=== PATIENT | male | born 1960 | race Caucasian/White ===

== ENCOUNTER 2021-01-24 16:49 | Emergency (ER) | payer MEDICAID, SELFPAY ==
[2021-01-24 16:50] VITALS: BP 160/80; PULSE 52; RESP 18; TEMP 36.5; O2SAT 97; BMI 30.1
--- NOTE | 2021-01-24 17:06 | EKG12_ITS ---
Test Reason : ABNORMAL EKG Blood Pressure : / mmHG Vent. Rate : 110 BPM Atrial Rate : 103 BPM P-R Int : 126 ms QRS Dur : 092 ms QT Int : 370 ms P-R-T Axes : 043 -13 062 degrees QTc Int : 500 ms Sinus tachycardia with frequent and consecutive Premature ventricular complexes Possible Left atrial enlargement Left ventricular hypertrophy Abnormal ECG Confirmed by SHARON COOLEY, DEBBIE ([id number]), book editor АННА STARKS ([id number]) on 01/27/2021 12:35:17 PM Referred By: ISABELL Confirmed By:MELLISA HERRERA MD
--- NOTE | 2021-01-24 17:16 | ED.DCSUM_ITS ---
History of Present Illness Chief Complaint: Edema Detail of Chief Complaint: Swelling of multiple joints and abnormal EKG Onset: Weeks - She reports swelling with pain and limited range of motion multiple joints right and left hand Context: Sudden Onset Timing: Continuous - Initially was intermittent. The discomfort and swelling has been continuous for the past 3 weeks. There is no history of autoimmune disorder. Quality: Multiple joints fingers right and left hand Location: PIP and DIP joint of multiple fingers Current Severity: Moderate Maximum Severity: Moderate Worsened by: Pain worse with use Relieved by: Nothing Associated Symptoms: Abnormal EKG Narrative: Patient is an elderly male who quit smoking last December after he came down with an illness that made him feel terrible. He does not know what type of infection he had. He was a smoker since the age of 17. He denies fever, chills night sweats. He denies chest pain, dyspnea on exertion, orthopnea or PND. He is unaware that he is having frequent premature ventricular beats. He denies pedal edema. He denies symptoms of claudication. He denies headache, visual, ocular auditory symptoms. He denies ringing in his ears. He denies trouble with speech or swallowing. He denies cough. He denies abdominal pain, nausea, vomiting or diarrhea. He denies black or maroon-colored stool. He denies urologic symptoms. He denies paresthesia, anesthesia or motor weakness. He denies family history of autoimmune disorder and specifically rheumatoid arthritis, lupus, scleroderma, Sjogren's etc. Prior similar symptoms: No Recent Illness/Hospitalization: No - Past Medical History (1) No significant past medical history Status: Acute Past Medical History Primary Care Physician: Milton Goff MD [Primary Care Provider] - Prior records reviewed: No Past Medical History: None Surgical History: noncontributory Lives: Alone Smoking Status: Former smoker Alcohol: None Drugs: None Review of Systems General: Denies: Chills, Fever, Malaise, Subjective Eyes: Denies: Visual changes - bilaterally, Blurred Vision - bilaterally ENT: Reports: - - He denies dry eyes.. Denies: Bilateral ear pain, Rhinorrhea, Sore throat Cardiovascular: Denies: Chest pain, Palpitations, Heart racing Respiratory: Denies: Dyspnea, Cough, Dyspnea on exertion, Orthopnea, Paroxysmal nocturnal dyspnea Gastrointestinal: Denies: Abdominal pain, Nausea, Vomiting, Diarrhea, Melena, Hematochezia Genitourinary: Denies: Dysuria, Hematuria, Frequency Musculoskeletal: Reports: Arthralgias, Swelling, Extremity Pain. Denies: Myalgias, Neck pain, Back pain, -, - Skin: Denies: Rash, Wounds Neurological: Denies: Headache, Weakness, Numbness Psych: Denies: Depression, Anxiety Endocrine: Denies: Polyuria, Polydipsia Hematologic: Denies: Easy bruising, Easy bleeding Physical Exam Vital Signs/Narrative: Vital Signs Temp Pulse Resp BP Pulse Ox 01/24/21 16:50 97.7 F L 52 L 18 160/80 H 97 Inital Vital Signs reviewed: Yes General: Well nourished, Well developed, No Acute Distress Head: Normocephalic, Atraumatic Eyes: Perrl, EOMI. Negative for: Pale conjunctiva ENT: Moist mucous membranes, No rhinorrhea Neck: Supple, Nontender, No lymphadenopathy, No JVD Cardiovascular: Regular rate, No murmurs, Normal S1, Normal S2 Respiratory: No distress, CTA bilaterally, Chest nontender Abdomen: Soft, Nontender, Nondistended, Normal bowel sounds, No masses. Negative for: Hepatomegaly, Splenomegaly, Pulsatile mass Back: Nontender, Normal Inspection Extremities: Nontender, No edema Skin: Normal color, No rash Neurological: Alert, Oriented x3, Cranial nerves II-XII grossly intact, Normal Strength, Normal Sensation, Normal DTR Psychological: Normal affect, Normal Mood Diagnostic/Tx/Re-eval Chest X-Ray - ED: 2 View, Read by ED Physician, Normal, Heart, Mediastinum, Bony Structures, No Acute Disease, Chronic Changes 01/24/21 17:06 Chest PA and Lateral [RAD] Stat Laboratory Results 01/24/21 01/24/21 17:35 17:35 WBC 8.2 RBC 4.21 L Hgb 14.1 Hct 41.9 MCV 99.5 H MCH 33.5 H MCHC 33.7 RDW Std Deviation 47.8 H RDW Coeff of Enoch 12.9 Plt Count 210 MPV 10.5 Immature Gran % (Auto) 0.400 Neut % (Auto) 66.6 Lymph % (Auto) 21.1 [place] % (Auto) 9.3 Eos % (Auto) 2.0 Baso % (Auto) 0.6 Absolute Neuts (auto) 5.4 Absolute Lymphs (auto) 1.72 Nucleated RBC % 0 Sodium 137 Potassium 3.7 Chloride 105 Carbon Dioxide 25.0 Anion Gap 7 BUN 12 Creatinine 0.96 Estim Creat Clear Calc 74.59 Est GFR (MDRD) Af Amer 102 Est GFR (MDRD) Non-Af 84 BUN/Creatinine Ratio 12.4 Glucose 100 Calcium 9.0 Total Bilirubin 0.50 AST 16 ALT 35 Alkaline Phosphatase 73 Troponin I < 0.015 Total Protein 8.8 H Albumin 3.4 Globulin 5.4 H Albumin/Globulin Ratio 0.6 L - EKG Initial EKG Interpretation: Sinus Rhythm - Sinus rhythm with a rate of 110. There are frequent premature ventricular beats and there are couplets. NJ interval is 126 ms. Cures duration 92 ms. QT durations 370 ms with a QTC of 500 ms. Gravity is normal. There is evidence of LVH. - Medical Decision Making Patient was informed he needs several test however with since he is uninsured recommended following up at [facility] to have the nonemergent testing done at a lesser expense. He was told he will need a rheumatologic work-up. To evaluate his bigeminy, couplets abnormal EKG EKG, appropriate blood work was obtained to rule out evidence of cardic ischemia. Blood work was obtained to assess renal function, rule out anemia as well. Patient was informed of his results. He was informed to follow-up with the [facility] for rheumatologic outpatient work-up and referral to cardiology. ED Disposition - Plan for ED Patient: Disposition: Home or Assisted Living Diagnosis: Ventricular bigeminy seen on court monitor, Polyarthralgia Instructions: ED About Arrhythmias, ED Heart Disease Risk Factors, ED Arthralgia Referrals: Milton Goff MD [Primary Care Provider] - Maddy Aggarwal [NON-STAFF] - 5-7 Days Jordi Plummer MD [STAFF PHYSICIAN] - 5-7 Days Additional Instructions: I recommend following up at the [facility] since you are uninsured for rheumatologic work-up which would include x-ray of both hands, ESR, CRP, rheumatoid factor, PATRICK etc. Because of your age history of former smoking and frequent premature beats recommend follow-up with Dr. Jordi Plummer.
[2021-01-24 17:31] VITALS: PULSE 93
[2021-01-24 17:41] LABS: Absolute Lymphocyte Count 1.72 X10^3/uL (0.83-4.51); Absolute Neutrophil Count 5.4 X10^3/uL (2.0-7.7); Basophil# 0.05 X10^3/uL; Basophil% 0.6 % (0-1); Eosinophil# 0.16 X10^3/uL; Hematocrit 41.9 % (40-54); Hemoglobin 14.1 g/dL (13.0-16.5); Lymphocyte # 1.72 X10^3/ul (4.0); Lymphocyte % 21.1 % (19-41); Mean Corp Hgb Conc 33.7 g/dL (32-36); Mean Corpuscular Hgb 33.5 pg (27.0-32.0); Mean Corpuscular Volume 99.5 fL (80-94); Mean Platelet Vol. 10.5 fl (6.2-12.0); Monocyte# 0.76 X10^3/uL; Monocyte% 9.3 % (0-10); NRBC Flagged by Analyzer 0 % (0-5); Neutrophil # 5.43 X10^3/uL (2.7-7.7); Neutrophil % 66.6 % (47-70); Platelet Count 210 K/mm3 (150-450); RBC Distribution Width CV 12.9 % (11.6-14.6); RBC Distribution Width SD 47.8 fl (35.1-43.9); Red Blood Count 4.21 M/mm3 (4.6-6.2); White Blood Count 8.2 K/mm3 (4.4-11.0)
--- NOTE | 2021-01-24 17:52 | RAD_ITS ---
INDICATION: Chest palpitations EXAMINATION/TECHNIQUE: X-RAY - XR Chest 2 Views COMPARISON: None. FINDINGS: Emphysematous changes. The lungs are otherwise clear. The cardiomediastinal silhouette is unremarkable. No pleural effusion or pneumothorax. No acute osseous abnormalities. Degenerative changes of the thoracic spine. RAD/Chest PA and Lateral IMPRESSION: No acute radiographic abnormalities. Emphysematous changes. Electronically Signed: Lawrence Dominguez MD at 18:13 EDT Tel , Service support ,
[2021-01-24 18:01] LABS: ALB/GLOB Ratio 0.6 RATIO (0.9-2.4); AST(SGOT) 16 U/L (15-37); Alanine Aminotransfer ALT/SGPT 35 U/L (16-61); Albumin, Serum 3.4 g/dL (3.2-5.0); Alkaline Phosphatase 73 U/L (45-117); Anion Gap 7 (5-15); BUN 12 mg/dL (7-18); BUN/Creat Ratio 12.4 RATIO (10-20); Chloride 105 mmol/L (98-107); Creatinine, Serum 0.96 mg/dL (0.70-1.30); EST Glomerular Filtration Rate 84 mL/min (>60); Est Glom Filt Rate - Afr Amer 102 mL/min (>60); Estimated Creatinine Clearance 74.59 ml/min; Globulin 5.4 g/dL (2.2-4.2); Glucose 100 mg/dL (74-106); Potassium 3.7 mmol/L (3.5-5.1); Protein, Total 8.8 g/dL (6.4-8.2); Sodium Level 137 mmol/L (136-145)
[2021-01-24 19:06] VITALS: PULSE 70; RESP 18
== END 2021-01-24 19:07 | disposition home or self-care (01) ==
PROVIDERS: Emergency Provider Emergency Medicine; PCP Family Medicine
DX: R00.8 Other abnormalities of heart beat (principal); M25.541 Pain in joints of right hand; M25.542 Pain in joints of left hand; Z87.891 Personal history of nicotine dependence
CPT/HCPCS: 71046; 80053; 84484; 85025; 93005; 99284; A4216

== ENCOUNTER 2021-01-26 13:06 | Emergency (ER) | payer MEDICAID, SELFPAY ==
[2021-01-26 13:07] VITALS: BP 133/81; PULSE 51; RESP 16; TEMP 36.7; O2SAT 97; BMI 29.7
--- NOTE | 2021-01-26 13:13 | EKG12_ITS ---
Test Reason : ABNORMAL LABS Blood Pressure : / mmHG Vent. Rate : 091 BPM Atrial Rate : 091 BPM P-R Int : 136 ms QRS Dur : 092 ms QT Int : 376 ms P-R-T Axes : 050 -13 044 degrees QTc Int : 462 ms Sinus rhythm with frequent Premature ventricular complexes in a pattern of bigeminy Possible Left atrial enlargement Left ventricular hypertrophy Abnormal ECG Confirmed by SHARON COOLEY, DEBBIE ([id number]), primer expeditor and drier EVARISTO CALLOWAY ([id number]) on 01/28/2021 9:29:05 AM Referred By: TIAGO Confirmed By:MELLISA HERRERA MD
[2021-01-26] MEDS: Aspirin 81 MG TAB.CHEW 324 MG PO (14:06)
[2021-01-26] MEDS: 0.9% Normal Saline 1,000 ML 150 ML IV (14:07)
[2021-01-26 14:10] LABS: Absolute Lymphocyte Count 1.63 X10^3/uL (0.83-4.51); Absolute Neutrophil Count 5.8 X10^3/uL (2.0-7.7); Basophil# 0.03 X10^3/uL; Basophil% 0.4 % (0-1); Eosinophil# 0.16 X10^3/uL; Eosinophils% 1.9 % (0-5); Hematocrit 40.7 % (40-54); Hemoglobin 13.6 g/dL (13.0-16.5); Lymphocyte # 1.63 X10^3/ul (4.0); Lymphocyte % 19.4 % (19-41); Mean Corp Hgb Conc 33.4 g/dL (32-36); Mean Corpuscular Hgb 33.3 pg (27.0-32.0); Mean Corpuscular Volume 99.8 fL (80-94); Mean Platelet Vol. 10.5 fl (6.2-12.0); Monocyte# 0.77 X10^3/uL; Monocyte% 9.2 % (0-10); NRBC Flagged by Analyzer 0 % (0-5); Neutrophil # 5.77 X10^3/uL (2.7-7.7); Neutrophil % 68.6 % (47-70); Platelet Count 197 K/mm3 (150-450); RBC Distribution Width CV 12.9 % (11.6-14.6); RBC Distribution Width SD 47.5 fl (35.1-43.9); Red Blood Count 4.08 M/mm3 (4.6-6.2); White Blood Count 8.4 K/mm3 (4.4-11.0)
[2021-01-26 14:31] LABS: Anion Gap 6 (5-15); BUN 11 mg/dL (7-18); BUN/Creat Ratio 12.5 RATIO (10-20); Calcium,Total 9.3 mg/dL (8.5-10.1); Chloride 105 mmol/L (98-107); Creatinine, Serum 0.88 mg/dL (0.70-1.30); EST Glomerular Filtration Rate 94 mL/min (>60); Est Glom Filt Rate - Afr Amer 113 mL/min (>60); Estimated Creatinine Clearance 81.37 ml/min; Glucose 86 mg/dL (74-106); Magnesium 2.2 mg/dL (1.6-2.6); Potassium 3.9 mmol/L (3.5-5.1); Sodium Level 139 mmol/L (136-145); Thyroid Stim Hormone (TSH) 1.06 uIU/mL (0.358-3.74)
--- NOTE | 2021-01-26 15:06 | ED.VISSUMM ---
- ER Visit Summary Date of Service: 01/26/21 Chief Complaint: Abnormal EKG History of Present Illness: The patient is a 61 M who goes to the [facility]. Patient reports that he had an EKG obtained that was abnormal. He was sent to [facility] who told him to come to the emergency department. Patient denies any chest pain or shortness of breath. He denies any chest pain or change in distal exertion the past month. He does complain of a little bit of sore throat. He also complains of swelling of his hands bilaterally that began yesterday. Left greater than right, but it is improved from what it was. Physical Examination: Vitals: Stable. Afebrile. General: Well-nourished and well-developed. Head: Normocephalic atraumatic. Neck: Supple, no lymphadenopathy. No JVD. Nontender. Cardiovascular: Irregular rhythm. No murmurs. Respiratory: No respiratory distress. Clear to auscultation bilaterally. Abdominal: Soft, nontender, nondistended, normal bowel sounds. No guarding, rebound, or peritoneal signs. Back: Nontender. Extremities: Nontender, mild swelling of his hands bilaterally. He has a 2+ radial pulse bilaterally. There is no overlying erythema or warmth to suggest infection. Skin: Normal color, no rash. Neurologic: Alert and oriented ?3. Cranial nerves II through XII are intact. Normal strength and sensation. Psych: Normal affect. Test Results: EKG is sinus at 91 with PVCs in a pattern of bigeminy. There is no old EKG for comparison. Troponin is negative. Chem-7 is normal. CBC is normal. Magnesium is normal. TSH is normal. Emergency Department Course and Treatment: Patient is resting comfortably. The monitor does show him to have ventricular bigeminy in the 90s. I did discuss the findings with him cardiac bernal and he again denies any cardiac complaints. His main concern is the swelling and pain is his hands. I suggested that he see a die set up worker. Is given a first dose of prednisone here. He will be discharged on a 5-day burst of prednisone. Treatment Plan: It is unclear how long patient has been in ventricular bigeminy. However, his blood pressure is stable and he has no complaints consistent with ischemia. He will be discharged with instructions to follow-up with Dr. Plummer as soon as possible. Return to the emergency department for any worsening symptoms. Disposition: To home in improved and stable condition. Impression: 1. Ventricular bigeminy. This note was generated with [employer] dictation software. It may contain incorrect words, spelling, and punctuation that were not noted in review of the chart prior to signing ED Disposition - Plan for ED Patient: Instructions: ED Palpitations Prescriptions: Prednisone [Deltasone] 40 mg PO DAILY #10 tablet Prescription Printed Referrals: Jordi Plummer MD [STAFF PHYSICIAN] - As soon as possible
[2021-01-26] MEDS: predniSONE 20 MG Tablet 40 MG PO (15:36)
[2021-01-26 15:41] VITALS: BP 137/71; PULSE 71; RESP 16; O2SAT 98
== END 2021-01-26 15:42 | disposition home or self-care (01) ==
LOC: ED 14:30
PROVIDERS: Emergency Provider Emergency Medicine; PCP Family Medicine
DX: I49.8 Other specified cardiac arrhythmias (principal); Z87.891 Personal history of nicotine dependence
CPT/HCPCS: 80048; 83735; 84443; 84484; 85025; 93005; 96360; 96361; 99285; J7030; A4216

== ENCOUNTER → 2021-02-03 12:17 | Outpatient (CLI) | payer MEDICAID, SELFPAY ==
[2021-02-02 08:46] VITALS: BMI 30.4
[2021-02-03 13:41] LABS: Erythrocyte Sedimentation Rate 74 mm/hr (0-20)
[2021-02-03 14:09] LABS: CPK Total, Creatine Kinase 36 U/L (39-308); Cholesterol 177 mg/dL (200); High Density Lipoprotein 37 mg/dL; T4 Free Direct 1.23 ng/dL (0.76-1.46); Thyroid Stim Hormone (TSH) 1.11 uIU/mL (0.358-3.74); Triglycerides 271 mg/dL; Uric Acid 6.5 mg/dL (3.5-7.2); Very Low Density Lipoprotein 54 mg/dL (5-40)
[2021-02-04 16:21] LABS: ANTINUCLEAR ANTIBODIES DIRECT Positive (Negative)
== END ==
PROVIDERS: Referring Provider Nurse Practitioner Adult Health; Visit Provider Nurse Practitioner Adult Health
DX: R60.0 Localized edema (principal)
CPT/HCPCS: 36415; 80061; 82550; 84439; 84443; 84550; 85652; 86038; 86140

== ENCOUNTER → 2021-02-09 10:35 | Outpatient (CLI) | payer MEDICAID, SELFPAY ==
[2021-02-02 08:46] VITALS: BMI 30.4
--- NOTE | 2021-02-09 10:38 | ECHOCS_ITS ---
Version 2 Reason For Study: Arrhythmia Procedure This was a 2D Doppler, Color Flow transthoracic echocardiogram. Contrast injection was performed. Exam performed in department. Left Ventricle Normal LV size. Left ventricular systolic function is lower limits of normal. The estimated ejection fraction is 53 %. Stage 1 diastolic dysfunction. No regional wall motion abnormalities noted. Right Ventricle Normal RV size. Normal systolic function. Atria Normal left atrium. Normal right atrium. Mitral Valve Normal mitral valve. Tricuspid Valve Normal tricuspid valve. Mild tricuspid valve insufficiency. Pulmonary artery systolic pressure is 20 mmHg. Aortic Valve Trisinus/trileaflet aortic valve. Pulmonic Valve Normal pulmonic valve. Great Vessels Normal aortic root. The pulmonary artery is normal size. Normal inferior vena cava. Pericardium/Pleural No pericardial effusion. Medication Diluted definity 2ml given slow IV push to enhance endocardial definition. MMode/2D Measurements & Calculations LVIDd: 5.1 cm IVSd: 1.2 cm Ao root diam: 3.0 cm LVIDs: 3.7 cm LVPWd: 1.1 cm RVDd: 3.8 cm FS: 26.3 % LAV(MOD-bp): 49.3 ml LVAd ap4: 34.2 cm2 SV(MOD-sp4): 59.0 ml LAV(MOD-bp) Indexed: 25.2 ml/m2 EDV(MOD-sp4): 120.6 ml LAV(MOD-sp2): 43.9 ml EDV(sp4-el): 127.2 ml LAV(MOD-sp4): 48.5 ml LVAs ap4: 22.9 cm2 ESV(MOD-sp4): 61.5 ml ESV(sp4-el): 62.5 ml EF(MOD-sp4): 49.0 % EF(sp4-el): 50.8 % SV(sp4-el): 64.6 ml LA A4 area: 18.4 cm2 LA dimension(2D): 3.5 cm RA A4 area: 10.0 cm2 Doppler Measurements & Calculations MV E max mat: 46.0 cm/sec Lat Peak E' Mat: 4.8 cm/sec Med Peak E' Mat: 3.2 cm/sec MV A max mat: 103.3 cm/sec E/E' lat: 9.5 E/E' med: 14.3 MV E/A: 0.45 Ao V2 max: 104.0 cm/sec LV V1 max: 69.9 cm/sec PA V2 max: 113.0 cm/sec Ao max P.3 mmHg LV V1 max P.0 mmHg Ao V2 mean: 80.5 cm/sec Ao mean P.8 mmHg Ao V2 VTI: 19.3 cm TR max mat: 205.5 cm/sec TR max P.9 mmHg ECHO/Echo Complete W/ Contrast Interpretation Summary Normal LV size. Left ventricular systolic function is lower limits of normal. The estimated ejection fraction is 53 %. Stage 1 diastolic dysfunction. Mild tricuspid valve insufficiency. Ordering Physician: Jordi Plummer Referring Physician: [facility] Performed By: Galina Lewis, RDCS, RVT
== END ==
PROVIDERS: Referring Provider Internal Medicine Cardiovascular Disease; Visit Provider Internal Medicine Cardiovascular Disease
DX: I49.49 Other premature depolarization (principal)
CPT/HCPCS: 93306; Q9957; A4216; C8929

== ENCOUNTER → 2021-02-10 12:11 | Outpatient (CLI) | payer MEDICAID, SELFPAY ==
[2021-02-02 08:46] VITALS: BMI 30.4
[2021-02-11 16:08] LABS: Anti-Centromere B Ab <0.2 AI (0.0-0.9); Anti-Chromatin <0.2 AI (0.0-0.9); Anti-Jo <0.2 AI (0.0-0.9); Anti-Scleroderma-70 AB <0.2 AI (0.0-0.9); RNP Ab 0.2 AI (0.0-0.9); SJOGREN'S Anti-SS-A test < 0.2 AI (0.0-0.9); SJOGREN'S Anti-SS-B test < 0.2 AI (0.0-0.9); Smith Ab <0.2 AI (0.0-0.9)
[2021-02-11 21:06] LABS: Anti-dsDNA Ab 12 IU/mL (0-9)
== END ==
DX: R79.9 Abnormal finding of blood chemistry, unspecified (principal); R76.8 Other specified abnormal immunological findings in serum
CPT/HCPCS: 36415; 86225; 86235; 86431

== ENCOUNTER → 2021-05-26 09:28 | Outpatient (CLI) | payer MEDICAID, SELFPAY ==
[2021-02-02 08:46] VITALS: BMI 30.4
[2021-05-26 11:16] LABS: Cholesterol 160 mg/dL (200); High Density Lipoprotein 42 mg/dL; Triglycerides 173 mg/dL; Very Low Density Lipoprotein 35 mg/dL (5-40)
== END ==
DX: E78.5 Hyperlipidemia, unspecified (principal)
CPT/HCPCS: 36415; 80061

== ENCOUNTER 2021-08-01 15:21 | Inpatient (IN) | payer MEDICAID, SELFPAY ==
[2021-08-01] VITALS (21 sets, daily range): BP systolic 98–138; BP diastolic 64–93; PULSE 78–106; RESP 12–34; TEMP 17.7–38.3; O2SAT 54–100; BMI 28.6; BMI 28.7
--- NOTE | 2021-08-01 15:58 | ED.VIS.DYS ---
HPI History of Present Illness Chief Complaint: Shortness of Breath Narrative Narrative: 61-year-old male with symptoms of COVID-19 for 5 days. He did not home test which was positive on the . Patient states that he is short of breath and coughing. He does not know if he had a fever. He does not complain of chest pain. Patient does complain of nausea and vomiting as well as diarrhea. He does not have abdominal pain. He did have a headache which resolved. Patient was found to be 54% on pulse ox at home and was brought to the ER and is 54% on arrival. Patient states that he feels improved on oxygen now. [facility] Medical History Coronary artery calcification seen on CAT scan Family history of coronary artery disease Hyperlipidemia Hypertension Multiple premature ventricular complexes Obesity Tobacco abuse Home Medications [id number] acid 1 each PO DAILY 01/26/21 [History Last Taken Unknown] folic acid 1 mg tablet 1 mg PO DAILY 07/18/21 [History Last Taken Unknown] hydroxychloroquine 200 mg tablet 200 mg PO BID 07/18/21 [History Last Taken Unknown] losartan 25 mg tablet 25 mg PO DAILY #90 tab 07/18/21 [Rx Last Taken Unknown] methotrexate sodium 2.5 mg tablet 15 mg PO QWEEK 07/18/21 [History Last Taken Unknown] Allergy/AdvReac Type Severity Reaction Status Date / Time No Known Allergies Allergy Verified 08/01/21 15:23 Family History Brother CAD (coronary artery disease) stents Sister CAD (coronary artery disease) stents Mother CAD (coronary artery disease) CABG Father Cerebral aneurysm, Onset Age: 50 Other CVA (cerebral vascular accident) Surgical History History of herniorrhaphy Social History Smoking Status: Never smoker ROS ROS ED Constitutional Constitutional ED: Denies chills or fever(s) Eyes Eyes: Denies blurry vision or change in vision ENT ENT ED: Denies rhinorrhea or sore throat Cardiovascular Cardiovascular: Reports racing heartbeat; Denies chest pain Respiratory/Chest Respiratory/Chest: Reports cough, dyspnea and dyspnea on exertion Gastrointestinal Gastrointestinal: Reports diarrhea, nausea and vomiting; Denies abdominal pain Genitourinary Genitourinary ED: Denies dysuria or hematuria Musculoskeletal Musculoskeletal: Denies myalgias or neck pain Integumentary Denies Abrasions or rash Neurologic Neurologic: Reports headache(s); Denies paresthesias EXAM Physical Exam Const Vital Signs: 08/01/21 15:21 08/01/21 15:31 08/01/21 15:34 Temperature 97.9 F Temperature Source Temporal Pulse Rate 104 H 103 H 106 H Respiratory Rate 24 H 21 H 34 H Respiratory Effort Respiratory Pattern Blood Pressure 119/77 Blood Pressure Mean 91 Pulse Ox 54 85 92 Oxygen Delivery Method Room Air Nasal Cannula Non-Rebreather Oxygen Flow Rate (L/min) 6 15 Fraction of Inspired Oxygen (FIO2) 08/01/21 15:40 08/01/21 16:02 08/01/21 16:06 Temperature 64 F L 97.8 F Temperature Source Temporal Temporal Pulse Rate 103 H Respiratory Rate 21 H 32 H Respiratory Effort Short of Breath Labored Accessory Muscle Use Retracting Respiratory Pattern Tachypnea Blood Pressure 116/64 Blood Pressure Mean 81 Pulse Ox 95 94 Oxygen Delivery Method Non-Rebreather Non-Rebreather Oxygen Flow Rate (L/min) 15 Fraction of Inspired Oxygen (FIO2) 100 08/01/21 16:43 08/01/21 16:55 08/01/21 17:14 Temperature 100.8 F H Temperature Source Temporal Pulse Rate 95 97 Respiratory Rate 25 H 27 H Respiratory Effort Respiratory Pattern Blood Pressure 138/82 H Blood Pressure Mean 100 Pulse Ox 100 98 Oxygen Delivery Method Bi-pap Oxygen Flow Rate (L/min) Fraction of Inspired Oxygen (FIO2) 90 80 08/01/21 17:18 08/01/21 17:41 08/01/21 18:29 Temperature 100.8 F H 100.9 F H Temperature Source Temporal Temporal Pulse Rate 91 Respiratory Rate 24 H Respiratory Effort Respiratory Pattern Blood Pressure 133/66 H Blood Pressure Mean 88 Pulse Ox 96 97 Oxygen Delivery Method Bi-pap Oxygen Flow Rate (L/min) Fraction of Inspired Oxygen (FIO2) 75 Positive obese General Appearance ED: other Tachypneic, tachycardic, hypoxic ; Negative for pallor Nutritional Appearance: obese HEENT Reports dry mucous membranes atraumatic Mouth ED: Yes dry mucous membranes Mouth: dry mucous membranes Eyes PERRL and EOMs intact bilaterally Resp Auscultation: rhonchi throughout; Negative for wheezes Neuro oriented x3 and CN's II-XII intact bilaterally Sensorium / Orientation: alert Psych mental status grossly normal Thought Process: normal thought process Skin General Skin Exam: Negative for jaundice or pallor Rashes: no rashes MDM MDM MDM Narrative Medical decision making narrative: Patient presented with oxygen sats in the 50s. Positive for Covid with a home test. Patient's been sick for about 5 days. He did develop a fever in the ER today. He is not complaining of chest pain. EKG on my interpretation shows a normal sinus rhythm with a ventricular rate of 97 bpm. NJ interval 136. Respiration 100 QTC 495. Patient given dexamethasone, Zofran, acetaminophen. He feels improved. He was initially on nonrebreather and placed on BiPAP and he is doing well. CBC shows no leukocytosis. Hemoglobin hematocrit stable. Coagulation studies are normal. Renal function and electrolytes are unremarkable. Total bilirubin is 1.2 and AST is 46 otherwise LFTs are normal. Lactic acid is 3.2 and he was given 500 cc of IV fluids but I did not give him more given that he has COVID-19. My interpretation of the chest x-ray shows mild infiltrate in the bilateral bases and the radiologist does agree. Urinalysis is negative for infection. Patient discussed with hospitalist for admission. She requested D-dimer be drawn prior to going to the floor. She will follow up on this. Patient medically stable on transfer. Impression: 1. COVID-19 pneumonitis 2. Hypoxic respiratory failure 3. Lactic acidosis Lab Data Labs: Laboratory Results - last 24 hr 08/01/21 08/01/21 08/01/21 15:50 15:50 15:50 WBC 8.5 RBC 4.14 L Hgb 13.3 Hct 39.4 L MCV 95.2 H MCH 32.1 H MCHC 33.8 RDW Std Deviation 47.2 H RDW Coeff of Enoch 13.4 Plt Count 181 MPV 10.7 Immature Gran % (Auto) 0.700 Neut % (Auto) 89.7 H Lymph % (Auto) 6.1 L [place] % (Auto) 3.5 Eos % (Auto) 0.0 Baso % (Auto) 0.0 Absolute Neuts (auto) 7.6 Absolute Lymphs (auto) 0.52 L Nucleated RBC % 0 Differential Comment SCANNED PT 14.1 INR 1.2 APTT 29.3 Sodium 134 L Potassium 3.6 Chloride 100 Carbon Dioxide 24.0 Anion Gap 10 BUN 16 Creatinine 0.96 Estim Creat Clear Calc 74.59 Est GFR (MDRD) Af Amer 102 Est GFR (MDRD) Non-Af 84 BUN/Creatinine Ratio 16.7 Glucose 96 Lactic Acid Calcium 8.7 Total Bilirubin 1.20 H AST 46 H ALT 44 Alkaline Phosphatase 79 Troponin I High Sens 10 Total Protein 8.3 H Albumin 2.6 L Globulin 5.7 H Albumin/Globulin Ratio 0.5 L Urine Color Urine Clarity Urine pH Ur Specific [place] Urine Protein Urine Glucose (UA) Urine Ketones Urine Occult Blood Urine Nitrite Urine Bilirubin Urine Urobilinogen Ur Leukocyte Esterase Urine RBC Urine WBC Ur Squamous Epith Cells Urine Bacteria Hyaline Casts Urine Mucus 08/01/21 08/01/21 15:50 18:00 WBC RBC Hgb Hct MCV MCH MCHC RDW Std Deviation RDW Coeff of Enoch Plt Count MPV Immature Gran % (Auto) Neut % (Auto) Lymph % (Auto) [place] % (Auto) Eos % (Auto) Baso % (Auto) Absolute Neuts (auto) Absolute Lymphs (auto) Nucleated RBC % Differential Comment PT INR APTT Sodium Potassium Chloride Carbon Dioxide Anion Gap BUN Creatinine Estim Creat Clear Calc Est GFR (MDRD) Af Amer Est GFR (MDRD) Non-Af BUN/Creatinine Ratio Glucose Lactic Acid 3.2 H* Calcium Total Bilirubin AST ALT Alkaline Phosphatase Troponin I High Sens Total Protein Albumin Globulin Albumin/Globulin Ratio Urine Color Susie Urine Clarity Clear Urine pH 6.0 Ur Specific [place] 1.020 Urine Protein 500 H Urine Glucose (UA) Normal Urine Ketones 5 H Urine Occult Blood 10 H Urine Nitrite Negative Urine Bilirubin 1 H Urine Urobilinogen 1 H Ur Leukocyte Esterase 25 H Urine RBC 0-5 SEEN Urine WBC 5-10 SEEN Ur Squamous Epith Cells 0 SEEN Urine Bacteria 1+ Hyaline Casts 5-10 SEEN Urine Mucus 0 SEEN Radiography Diagnostic Testing: Radiology Impression Chest X-Ray 08/01/21 16:33 IMPRESSION: Limited inspiration. Atelectasis versus infiltrate at the lung bases. Electronically Signed: Gurvinder Allen DO at 16:41 EDT Tel [phone], Service support , Discharge Plan Triage Chief Complaint: Shortness of Breath ED Provider: Dawit Flores Dx/Rx/DC Orders Primary Care Provider: [facility] Maddy Faye
--- NOTE | 2021-08-01 16:02 | EKG12_ITS ---
Test Reason : SOB Blood Pressure : / mmHG Vent. Rate : 097 BPM Atrial Rate : 097 BPM P-R Int : 136 ms QRS Dur : 100 ms QT Int : 390 ms P-R-T Axes : 035 -17 031 degrees QTc Int : 495 ms Normal sinus rhythm Prolonged QT Abnormal ECG Confirmed by BRAD COOLEY, JOSE MANUEL ([id number]), material expeditor EVARISTO CALLOWAY ([id number]) on 08/03/2021 11:31:07 AM Referred By: BATSHEVA Confirmed By:JOSE MANUEL SALINAS MD
[2021-08-01 16:14] LABS: Absolute Lymphocyte Count 0.52 X10^3/uL (0.83-4.51); Absolute Neutrophil Count 7.6 X10^3/uL (2.0-7.7); Hematocrit 39.4 % (40-54); Hemoglobin 13.3 g/dL (13.0-16.5); Lymphocyte # 0.52 X10^3/ul (0.83-4.51); Lymphocyte % 6.1 % (19-41); Mean Corp Hgb Conc 33.8 g/dL (32-36); Mean Corpuscular Hgb 32.1 pg (27.0-32.0); Mean Corpuscular Volume 95.2 fL (80-94); Mean Platelet Vol. 10.7 fl (6.2-12.0); Monocyte% 3.5 % (0-10); NRBC Flagged by Analyzer 0 % (0-5); Neutrophil # 7.64 X10^3/uL (2.7-7.7); Neutrophil % 89.7 % (47-70); POSITIVE DIFFERENTIAL YES; Platelet Count 181 K/mm3 (150-450); RBC Distribution Width CV 13.4 % (11.6-14.6); RBC Distribution Width SD 47.2 fl (35.1-43.9); Red Blood Count 4.14 M/mm3 (4.6-6.2); White Blood Count 8.5 K/mm3 (4.4-11.0)
[2021-08-01] MEDS: Ondansetron 4 MG/2 ML Vial IV (16:14)
[2021-08-01] MEDS: dexAMETHasone 10 MG/ML Vial 6 MG IV (16:14)
[2021-08-01 16:18] LABS: Differential Indicated SCAN CRITERIA MET
[2021-08-01 16:27] LABS: International Normalized Ratio 1.2; Prothrombin Time (Protime)PT. 14.1 SECONDS (11.7-14.9)
[2021-08-01 16:28] LABS: Partial Thromboplast Time 29.3 Seconds (24.1-36.2)
--- NOTE | 2021-08-01 16:33 | RAD_ITS ---
STUDY: X-RAY CHEST REASON FOR EXAM: Male, 61 years old. Cough. TECHNIQUE: Single AP portable view of the chest. COMPARISON: 01/24/2021. FINDINGS: Decreased inspiratory effort when compared to prior study. Question minimal interstitial infiltrates of the lung bases not previously seen although this may represent atelectatic change. There is no demonstrated pleural abnormality. Normal size heart. Normal mediastinum and vicky. Normal visualized pulmonary arteries. Normal visualized aortic arch and descending thoracic aorta. There are diffuse degenerative changes of the visualized thoracic spine. There is degenerative osteoarthritis of the bilateral shoulders. There is no demonstrated abnormality of the visualized soft tissue structures of the upper abdomen. RAD/Chest 1 View (Portable) IMPRESSION: Limited inspiration. Atelectasis versus infiltrate at the lung bases. Electronically Signed: Gurvinder Allen DO at 16:41 EDT Tel [phone], Service support ,
[2021-08-01 16:36] LABS: ALB/GLOB Ratio 0.5 RATIO (0.9-2.4); AST(SGOT) 46 U/L (15-37); Alanine Aminotransfer ALT/SGPT 44 U/L (16-61); Albumin, Serum 2.6 g/dL (3.2-5.0); Alkaline Phosphatase 79 U/L (45-117); Anion Gap 10 (5-15); BUN 16 mg/dL (7-18); BUN/Creat Ratio 16.7 RATIO (10-20); Calcium,Total 8.7 mg/dL (8.5-10.1); Chloride 100 mmol/L (98-107); Creatinine, Serum 0.96 mg/dL (0.70-1.30); EST Glomerular Filtration Rate 84 mL/min (>60); Est Glom Filt Rate - Afr Amer 102 mL/min (>60); Estimated Creatinine Clearance 74.59 ml/min; Globulin 5.7 g/dL (2.2-4.2); Glucose 96 mg/dL (74-106); Potassium 3.6 mmol/L (3.5-5.1); Protein, Total 8.3 g/dL (6.4-8.2); Sodium Level 134 mmol/L (136-145); Troponin-I HS 10 pg/mL (3.0-78.0)
[2021-08-01 16:39] LABS: Lactic Acid 3.2 mmol/L (0.4-1.9)
[2021-08-01 16:42] LABS: Differential Comment SCANNED
[2021-08-01 18:06] LABS: Mucous, Urine 0 SEEN /hpf (<or=2+); Squamous Epithelial Cells - UA 0 SEEN /hpf (0-5)
[2021-08-01 18:17] LABS: Color, Urine Amber (Yellow); Glucose, Dipstick Normal (Normal); Ketone-Dipstick 5 mg/dl (Negative); Leukocyte Esterase-Dipstick 25 /ul (Negative); Nitrite-Dipstick Negative (Negative); Occult Blood-Urine 10 /ul (Negative); Protein-Dipstick 500 mg/dl (Negative); Urine Clarity Clear (Clear); Urine Urobilinogen 1 mg/dl (Normal)
[2021-08-01 18:23] LABS: Urine Bilirubin Dipstick 1 mg/dL (Negative)
[2021-08-01] MEDS: Acetaminophen 500 MG Tablet 1000 MG PO (18:23)
[2021-08-01 18:25] LABS: Hyaline Cast 5-10 SEEN /lpf (0-5)
[2021-08-01 18:26] LABS: Red Blood Cells-Urine 0-5 SEEN /hpf (0-5); White Blood Cells 5-10 SEEN /hpf (0-5)
[2021-08-01 18:27] LABS: Bacteria 1+ /hpf (None Seen)
--- NOTE | 2021-08-01 18:54 | HP.PCM.HOS_ITS ---
HPI - General General Date of Admission: 08/01/21 Date of Service: 08/01/21 Chief Complaint: Progressive shortness of breath - 10 days HPI Narrative DEBBIE KAMARA, is a 61 M who presents with progressive shortness of breath ongoing for about 10 days. Patient is unvaccinated. He stated that he worked on his granddaughter's car; granddaughter is unvaccinated. He later on started having shortness of breath with generalized aches and low-grade fevers. 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 He has been trying to manage in the outpatient but has been progressively short of breath. He admit to some nausea and vomiting. He did have diarrhea for couple of days but has since resolved. His pulse ox was 54% at home. He improved to 91% on 5 L. [facility] Medical History Coronary artery calcification seen on CAT scan Family history of coronary artery disease Hyperlipidemia Hypertension Multiple premature ventricular complexes Obesity Tobacco abuse Home Medications pxnuatoauovz-alho-fhpor acid 1 each PO DAILY 01/26/21 [History Last Taken Unknown] folic acid 1 mg tablet 1 mg PO DAILY 07/18/21 [History Last Taken Unknown] hydroxychloroquine 200 mg tablet 200 mg PO BID 07/18/21 [History Last Taken Unknown] losartan 25 mg tablet 25 mg PO DAILY #90 tab 07/18/21 [Rx Last Taken Unknown] methotrexate sodium 2.5 mg tablet 15 mg PO QWEEK 07/18/21 [History Last Taken Unknown] Allergy/AdvReac Type Severity Reaction Status Date / Time No Known Allergies Allergy Verified 08/01/21 15:23 Family History Brother CAD (coronary artery disease) stents Sister CAD (coronary artery disease) stents Mother CAD (coronary artery disease) CABG Father Cerebral aneurysm, Onset Age: 50 Other CVA (cerebral vascular accident) Surgical History History of herniorrhaphy Social History (Updated 08/01/21 @ 19:[address] Svitlana Fuentes MD) household members: spouse Smoking Status: Never smoker alcohol intake: former substance use type: does not use ROS Review of Systems ROS Unobtainable: other Details: Patient on BiPAP Vital Signs Vital Signs Vital Signs: 08/01/21 15:21 08/01/21 15:31 08/01/21 15:34 Temperature 97.9 F Temperature Source Temporal Pulse Rate 104 H 103 H 106 H Respiratory Rate 24 H 21 H 34 H Respiratory Effort Respiratory Pattern Blood Pressure 119/77 Blood Pressure Mean 91 Pulse Ox 54 85 92 Oxygen Delivery Method Room Air Nasal Cannula Non-Rebreather Oxygen Flow Rate (L/min) 6 15 Fraction of Inspired Oxygen (FIO2) 08/01/21 15:40 08/01/21 16:02 08/01/21 16:06 Temperature 64 F L 97.8 F Temperature Source Temporal Temporal Pulse Rate 103 H Respiratory Rate 21 H 32 H Respiratory Effort Short of Breath Labored Accessory Muscle Use Retracting Respiratory Pattern Tachypnea Blood Pressure 116/64 Blood Pressure Mean 81 Pulse Ox 95 94 Oxygen Delivery Method Non-Rebreather Non-Rebreather Oxygen Flow Rate (L/min) 15 Fraction of Inspired Oxygen (FIO2) 100 08/01/21 16:43 08/01/21 16:55 08/01/21 17:14 Temperature 100.8 F H Temperature Source Temporal Pulse Rate 95 97 Respiratory Rate 25 H 27 H Respiratory Effort Respiratory Pattern Blood Pressure 138/82 H Blood Pressure Mean 100 Pulse Ox 100 98 Oxygen Delivery Method Bi-pap Oxygen Flow Rate (L/min) Fraction of Inspired Oxygen (FIO2) 90 80 08/01/21 17:18 08/01/21 17:41 08/01/21 18:29 Temperature 100.8 F H 100.9 F H Temperature Source Temporal Temporal Pulse Rate 91 Respiratory Rate 24 H Respiratory Effort Respiratory Pattern Blood Pressure 133/66 H Blood Pressure Mean 88 Pulse Ox 96 97 Oxygen Delivery Method Bi-pap Oxygen Flow Rate (L/min) Fraction of Inspired Oxygen (FIO2) 75 Weight Weight: 83.007 kg Body Mass Index (BMI) 28.6 Physical Exam Narrative Physical exam: General: Alert, Oriented x3, Cooperative, in moderate respiratory distress, on BiPAP HEENT: Atraumatic Oral: Moist Mucosa Neck: Supple Lungs: Diminished to auscultation, scattered wheezes Cardiovascular: HS I+II, regular, no murmurs Abdomen: Bowel Sounds Present, Soft, Non Tender Extremities: No edema Results Lab / Micro Data Result Diagrams: 08/01/21 15:50 08/01/21 15:50 Labs: Laboratory Results - last 24 hr 08/01/21 15:50: WBC 8.5, RBC 4.14 L, Hgb 13.3, Hct 39.4 L, MCV 95.2 H, MCH 32.1 H, MCHC 33.8, RDW Std Deviation 47.2 H, RDW Coeff of Enoch 13.4, Plt Count 181, MPV 10.7, Immature Gran % (Auto) 0.700, Neut % (Auto) 89.7 H, Lymph % (Auto) 6.1 L, [place] % (Auto) 3.5, Eos % (Auto) 0.0, Baso % (Auto) 0.0, Absolute Neuts (auto) 7.6, Absolute Lymphs (auto) 0.52 L, Nucleated RBC % 0, Differential Comment SCANNED 08/01/21 15:50: PT 14.1, INR 1.2, APTT 29.3 08/01/21 15:50: Sodium 134 L, Potassium 3.6, Chloride 100, Carbon Dioxide 24.0, Anion Gap 10, BUN 16, Creatinine 0.96, Estim Creat Clear Calc 74.59, Est GFR (MDRD) Af Amer 102, Est GFR (MDRD) Non-Af 84, BUN/Creatinine Ratio 16.7, Glucose 96, Calcium 8.7, Total Bilirubin 1.20 H, AST 46 H, ALT 44, Alkaline Phosphatase 79, Troponin I High Sens 10, Total Protein 8.3 H, Albumin 2.6 L, Globulin 5.7 H, Albumin/Globulin Ratio 0.5 L 08/01/21 15:50: Lactic Acid 3.2 H* 08/01/21 18:00: Urine Color Susie, Urine Clarity Clear, Urine pH 6.0, Ur Specific [place] 1.020, Urine Protein 500 H, Urine Glucose (UA) Normal, Urine Ketones 5 H, Urine Occult Blood 10 H, Urine Nitrite Negative, Urine Bilirubin 1 H, Urine Urobilinogen 1 H, Ur Leukocyte Esterase 25 H, Urine RBC 0-5 SEEN, Urine WBC 5-10 SEEN, Ur Squamous Epith Cells 0 SEEN, Urine Bacteria 1+, Hyaline Casts 5-10 SEEN, Urine Mucus 0 SEEN Radiology Impression Chest X-Ray 08/01/21 16:33 IMPRESSION: Limited inspiration. Atelectasis versus infiltrate at the lung bases. Electronically Signed: Gurvinder Allen DO at 16:41 EDT Tel [phone], Service support , Assessment & Plan Assessment/Plan (1) Respiratory failure: QUALIFIERS: Chronicity: acute Respiratory failure complication: hypoxia Qualified Code(s): J96.01 - Acute respiratory failure with hypoxia (2) Pneumonia due to severe acute respiratory syndrome coronavirus 2 (SARS-CoV-2): (3) Elevated d-dimer: (4) Lactic acidosis: PLAN: 1. Acute hypoxic respiratory failure secondary to acute COVID-19 pneumonia Patient is on BiPAP at the moment CODE STATUS is full code Admitting chest x-ray shows bilateral infiltrates Symptoms ongoing for about 10 days Patient is unvaccinated Immunocompromised from rheumatoid arthritis Will start on Remdesivir, continue Decadron Pulmonology and ID consult 2. Elevated D-dimer, cannot get CTA because of respiratory instability We will treat empirically with Lovenox subcu therapeutic dosing 3. Lactic acidosis secondary to #1, will trend 4. Hyponatremia, likely secondary to dehydration, Repeat BMP in a.m. 5. Hypertension, controlled, continue losartan 6. Rheumatoid arthritis, Would hold methotrexate, continue hydroxychloroquine, folic acid Check EKG/QTC in a.m. I discussed and explained in details the various types of CODE STATUS-full code, DNR CCA, DNR CC. Patient chose to be full code. He wants to be resuscitated in the event of cardiopulmonary arrest. Time spent discussing CODE STATUS 16 minutes Charges/Coding Visit Charges Inpatient E&M: 96496 Disch Hosp Procedures Hospitalists Procedures: 77612 Advncd Care Plan 30 Min
[2021-08-01 19:24] LABS: BNP,B-Type NATRIURETIC PEPTIDE 47.8 pg/mL (0-100)
[2021-08-01 19:41] LABS: D-Dimer Quantitative (DVT/PE) 2.93 FEU/ug/m (0.27-0.49)
[2021-08-01 20:08] LABS: Reflex Lactate? Y
[2021-08-01] MEDS: Furosemide 40 MG/4 ML Vial IV (20:49)
[2021-08-01] MEDS: Hydroxychloroquine 200 MG Tablet PO (20:49)
[2021-08-01] MEDS: Enoxaparin 80 MG/0.8 ML Syringe SC (20:49)
[2021-08-01 21:42] LABS: Lactic Acid 1.7 mmol/L (0.4-1.9)
[2021-08-02] VITALS (40 sets, daily range): BP systolic 87–118; BP diastolic 56–74; PULSE 72–87; RESP 12–27; TEMP 36.6–36.9; O2SAT 83–100
--- NOTE | 2021-08-02 05:55 | EKG12_ITS ---
Test Reason : AM EKG Blood Pressure : / mmHG Vent. Rate : 079 BPM Atrial Rate : 079 BPM P-R Int : 124 ms QRS Dur : 100 ms QT Int : 442 ms P-R-T Axes : 027 -10 009 degrees QTc Int : 506 ms Sinus rhythm with occasional Premature ventricular complexes Prolonged QT Abnormal ECG When compared with ECG of 01-AUG-2021 16:24, MANUAL COMPARISON REQUIRED, DATA IS UNCONFIRMED Confirmed by SISI COOLEY, THAO ([id number]), design editor EVARISTO CALLOWAY ([id number]) on 08/04/2021 8:29:41 AM Referred By: OLVIN Confirmed By:THAO LAIRD MD
[2021-08-02 06:12] LABS: ALB/GLOB Ratio 0.4 RATIO (0.9-2.4); AST(SGOT) 33 U/L (15-37); Alanine Aminotransfer ALT/SGPT 35 U/L (16-61); Albumin, Serum 2.2 g/dL (3.2-5.0); Alkaline Phosphatase 69 U/L (45-117); Anion Gap 9 (5-15); BUN 17 mg/dL (7-18); BUN/Creat Ratio 20.9 RATIO (10-20); Calcium,Total 8.1 mg/dL (8.5-10.1); Chloride 103 mmol/L (98-107); Creatinine, Serum 0.81 mg/dL (0.70-1.30); EST Glomerular Filtration Rate 102 mL/min (>60); Est Glom Filt Rate - Afr Amer 123 mL/min (>60); Estimated Creatinine Clearance 88.41 ml/min; Globulin 5.2 g/dL (2.2-4.2); Glucose 112 mg/dL (74-106); Protein, Total 7.4 g/dL (6.4-8.2); Sodium Level 137 mmol/L (136-145)
[2021-08-02 06:23] LABS: Absolute Lymphocyte Count 0.42 X10^3/uL (0.83-4.51); Absolute Neutrophil Count 10.6 X10^3/uL (2.0-7.7); Hemoglobin 12.1 g/dL (13.0-16.5); Lymphocyte # 0.42 X10^3/ul (0.83-4.51); Lymphocyte % 3.7 % (19-41); Mean Corp Hgb Conc 33.6 g/dL (32-36); Mean Corpuscular Hgb 31.9 pg (27.0-32.0); Mean Platelet Vol. 10.5 fl (6.2-12.0); Monocyte% 1.8 % (0-10); NRBC Flagged by Analyzer 0 % (0-5); Neutrophil # 10.55 X10^3/uL (2.7-7.7); Neutrophil % 93.8 % (47-70); POSITIVE DIFFERENTIAL YES; POSITIVE MORPHOLOGY YES; Platelet Count 193 K/mm3 (150-450); RBC Distribution Width CV 13.4 % (11.6-14.6); RBC Distribution Width SD 46.5 fl (35.1-43.9); Red Blood Count 3.79 M/mm3 (4.6-6.2); White Blood Count 11.3 K/mm3 (4.4-11.0)
[2021-08-02 06:36] LABS: Differential Indicated SCAN CRITERIA MET
[2021-08-02 07:20] LABS: Differential Comment SCANNED
[2021-08-02] MEDS: Ipratropium/Albuterol Sulfate 3 ML AMPUL.NEB INHALATION ×4 (07:36→19:20)
[2021-08-02] MEDS: Hydroxychloroquine 200 MG Tablet PO ×2 (08:29→22:30)
[2021-08-02] MEDS: Losartan Potassium 25 MG Tablet PO (08:29)
[2021-08-02] MEDS: 0.9% Saline Lock 10 ML Syringe IV ×2 (08:29→10:29)
[2021-08-02] MEDS: Enoxaparin 80 MG/0.8 ML Syringe SC ×2 (08:29→22:29)
[2021-08-02] MEDS: dexAMETHasone 10 MG/ML Vial 6 MG IV (08:29)
[2021-08-02] MEDS: Folic Acid 1 MG Tablet PO (08:29)
[2021-08-02] MEDS: guaiFENesin/Codeine 5 ML UDC 10 ML PO (10:28)
--- NOTE | 2021-08-02 10:43 | CON.PCM.ID_ITS ---
Assessment & Plan Assessment/Plan (1) Pneumonia due to severe acute respiratory syndrome coronavirus 2 (SARS-CoV-2): PLAN: Sx started 07/23, unvaccinated. Isolate for 20 days starting 07/23. Recommend vaccine once out of iso. On dex and remdesivir. On therapeutic lovenox. Reviewed EUA and risks/benefits with him, we agree to start baricitinib. Will follow, thank you (2) Respiratory failure: QUALIFIERS: Chronicity: acute Respiratory failure complication: hypoxia Qualified Code(s): J96.01 - Acute respiratory failure with hypoxia HPI Consult Data Date of Consult: 08/02/21 HPI Narrative HPI Narrative: DEBBIE KAMARA, is a 61 M who presented with sx starting 07/23, c/o cough, SOB, headache, change in taste/smell, diarrhea. No aches, no fever or ch ills. Lives alone, unvaccinated. Sx worsened, came to ED, admitted to icu on bipap with dex and remdesivir, therapeutic lovenox. Feeling a little better today. Full ROS performed and neg except as noted above. [facility] Medical History Coronary artery calcification seen on CAT scan Family history of coronary artery disease Hyperlipidemia Hypertension Multiple premature ventricular complexes Obesity Tobacco abuse Home Medications ptnsegmxlkta-ltzs-akvec acid 1 each PO DAILY 01/26/21 [History Last Taken Unknown] folic acid 1 mg tablet 1 mg PO DAILY 07/18/21 [History Last Taken Unknown] hydroxychloroquine 200 mg tablet 200 mg PO BID 07/18/21 [History Last Taken Unknown] losartan 25 mg tablet 25 mg PO DAILY #90 tab 07/18/21 [Rx Last Taken Unknown] methotrexate sodium 2.5 mg tablet 15 mg PO QWEEK 07/18/21 [History Last Taken Unknown] Allergy/AdvReac Type Severity Reaction Status Date / Time No Known Allergies Allergy Verified 08/01/21 15:23 Family History Brother CAD (coronary artery disease) stents Sister CAD (coronary artery disease) stents Mother CAD (coronary artery disease) CABG Father Cerebral aneurysm, Onset Age: 50 Other CVA (cerebral vascular accident) Surgical History History of herniorrhaphy Social History (Updated 08/01/21 @ 19:[address] Svitlana Fuentes MD) household members: spouse Smoking Status: Former smoker quit date: 12/25/19 pack-years: 45 alcohol intake: former substance use type: does not use Physical Exam Const alert and oriented x3 General Appearance: cooperative Exam Limitations: no limitations HEENT normocephalic and head/scalp atraumatic Eyes EOMs intact bilaterally Neck supple and No nodes Resp Auscultation: diminished lung sounds Cardio regular rate and regular rhythm GI normal to inspection, nondistended, normoactive bowel sounds Extremity no clubbing, cyanosis or edema Skin no rashes or lesions noted Neuro CN's II-XII intact bilaterally Lab / Micro Data Result Diagrams: 08/02/21 04:45 08/02/21 04:45 Labs: Laboratory Results - last 24 hr 08/01/21 15:50: WBC 8.5, RBC 4.14 L, Hgb 13.3, Hct 39.4 L, MCV 95.2 H, MCH 32.1 H, MCHC 33.8, RDW Std Deviation 47.2 H, RDW Coeff of Enoch 13.4, Plt Count 181, MPV 10.7, Immature Gran % (Auto) 0.700, Neut % (Auto) 89.7 H, Lymph % (Auto) 6.1 L, [place] % (Auto) 3.5, Eos % (Auto) 0.0, Baso % (Auto) 0.0, Absolute Neuts (auto) 7.6, Absolute Lymphs (auto) 0.52 L, Nucleated RBC % 0, Differential Comment SCANNED 08/01/21 15:50: PT 14.1, INR 1.2, APTT 29.3 08/01/21 15:50: Sodium 134 L, Potassium 3.6, Chloride 100, Carbon Dioxide 24.0, Anion Gap 10, BUN 16, Creatinine 0.96, Estim Creat Clear Calc 74.59, Est GFR (MDRD) Af Amer 102, Est GFR (MDRD) Non-Af 84, BUN/Creatinine Ratio 16.7, Glucose 96, Calcium 8.7, Total Bilirubin 1.20 H, AST 46 H, ALT 44, Alkaline Phosphatase 79, Troponin I High Sens 10, Total Protein 8.3 H, Albumin 2.6 L, Globulin 5.7 H, Albumin/Globulin Ratio 0.5 L 08/01/21 15:50: Lactic Acid 3.2 H* 08/01/21 15:50: D-Dimer Quant (PE/DVT) 2.93 H* 08/01/21 15:50: B-Natriuretic Peptide 47.8 08/01/21 18:00: Urine Color Susie, Urine Clarity Clear, Urine pH 6.0, Ur Specific [place] 1.020, Urine Protein 500 H, Urine Glucose (UA) Normal, Urine Ketones 5 H, Urine Occult Blood 10 H, Urine Nitrite Negative, Urine Bilirubin 1 H, Urine Urobilinogen 1 H, Ur Leukocyte Esterase 25 H, Urine RBC 0-5 SEEN, Urine WBC 5-10 SEEN, Ur Squamous Epith Cells 0 SEEN, Urine Bacteria 1+, Hyaline Casts 5-10 SEEN, Urine Mucus 0 SEEN 08/01/21 20:15: Lactic Acid 1.7 08/02/21 04:45: WBC 11.3 H, RBC 3.79 L, Hgb 12.1 L, Hct 36.0 L, MCV 95.0 H, MCH 31.9, MCHC 33.6, RDW Std Deviation 46.5 H, RDW Coeff of Enoch 13.4, Plt Count 193, MPV 10.5, Immature Gran % (Auto) 0.700, Neut % (Auto) 93.8 H, Lymph % (Auto) 3.7 L, [place] % (Auto) 1.8, Eos % (Auto) 0.0, Baso % (Auto) 0.0, Absolute Neuts (auto) 10.6 H, Absolute Lymphs (auto) 0.42 L, Nucleated RBC % 0, Differential Comment SCANNED 08/02/21 04:45: Sodium 137, Potassium 4.0, Chloride 103, Carbon Dioxide 25.0, Anion Gap 9, BUN 17, Creatinine 0.81, Estim Creat Clear Calc 88.41, Est GFR (MDRD) Af Amer 123, Est GFR (MDRD) Non-Af 102, BUN/Creatinine Ratio 20.9 H, Glucose 112 H, Calcium 8.1 L, Total Bilirubin 0.90, AST 33, ALT 35, Alkaline Phosphatase 69, Total Protein 7.4, Albumin 2.2 L, Globulin 5.2 H, Albumin/Globulin Ratio 0.4 L Micro: Microbiology 08/02/21 03:00 Urine, Random Legionella Antigen - Final 08/02/21 03:00 Urine, Random Streptococcus pneumoniae Antigen (M - Final 08/01/21 21:25 Nasal Secretion SARS-CoV-2 Antigen (Rapid) - Final Radiology Impression Chest X-Ray 08/01/21 16:33 IMPRESSION: Limited inspiration. Atelectasis versus infiltrate at the lung bases. Electronically Signed: Gurvinder Allen DO at 16:41 EDT Tel [phone], Service support ,
--- NOTE | 2021-08-02 12:35 | CASEMGMT ---
RN CM Face to Face with patient for initial transition planning/care coordination assessment. RN CM introduced self and role at [facility]. Patient lying in bed, alert and oriented. Patient willing to participate in assessment and is able to answer all questions appropriately. Care providers, pharmacy, and demographics verified. Patient wishes to discharge home, will monitor for need for HHC and home oxygen at discharge. Patient states he has no further needs or concerns at this time. CM to follow for discharge planning needs that may arise. PCP: Maddy Madera Specialists: [employer]ith[employer] claims associate; in [place] with [facility] Preferred Pharmacy: [facility] Insurance: [place] Prescription Benefit: yes Living Will/HPOA: none LNOK: son, daughter Living Arrangements: Patient lives alone in a 2 story home. Patient is able to ambulate stair and independent at home prior to hospitalization. Transportation: self/son DME/HHC: Patient denies DME at home or previous HHC. Patient has no preferences for DME at discharge. Disposition Plan: Patient to discharge home with family support and follow-up plans in place. Will monitor for HHC and home oxygen. Janki KIRKPATRICK, RN, CM
--- NOTE | 2021-08-02 13:15 | PN.HOSP_ITS ---
Subjective Subjective Weaned down to Airvo. Overall feeling better. Objective Data Objective Data Vital Signs: Vital Signs Temp Pulse Resp BP Pulse Ox 36.9 C 81 18 101/67 93 08/02/21 12:00 08/02/21 13:10 08/02/21 13:10 08/02/21 12:00 08/02/21 13:10 Oxygen Flow Rate (L/min) 15 Oxygen Delivery Method Airvo Weight: 82.7 kg Body Mass Index (BMI) 28.7 Intake & Output: Intake and Output for Last 24 Hours 07/31/21 08/01/21 08/02/21 23:59 23:59 23:59 Intake Total 750 / 750 490 / 490 Output Total 1525 / 1525 Balance 750 / -175 -1035 / -1035 Lab / Micro Data Result Diagrams: 08/02/21 04:45 08/02/21 04:45 Labs: Laboratory Results - last 24 hr 08/01/21 15:50: WBC 8.5, RBC 4.14 L, Hgb 13.3, Hct 39.4 L, MCV 95.2 H, MCH 32.1 H, MCHC 33.8, RDW Std Deviation 47.2 H, RDW Coeff of Enoch 13.4, Plt Count 181, MPV 10.7, Immature Gran % (Auto) 0.700, Neut % (Auto) 89.7 H, Lymph % (Auto) 6.1 L, [place] % (Auto) 3.5, Eos % (Auto) 0.0, Baso % (Auto) 0.0, Absolute Neuts (auto) 7.6, Absolute Lymphs (auto) 0.52 L, Nucleated RBC % 0, Differential Comment SCANNED 08/01/21 15:50: PT 14.1, INR 1.2, APTT 29.3 08/01/21 15:50: Sodium 134 L, Potassium 3.6, Chloride 100, Carbon Dioxide 24.0, Anion Gap 10, BUN 16, Creatinine 0.96, Estim Creat Clear Calc 74.59, Est GFR (M DRD) Af Amer 102, Est GFR (MDRD) Non-Af 84, BUN/Creatinine Ratio 16.7, Glucose 96, Calcium 8.7, Total Bilirubin 1.20 H, AST 46 H, ALT 44, Alkaline Phosphatase 79, Troponin I High Sens 10, Total Protein 8.3 H, Albumin 2.6 L, Globulin 5.7 H, Albumin/Globulin Ratio 0.5 L 08/01/21 15:50: Lactic Acid 3.2 H* 08/01/21 15:50: D-Dimer Quant (PE/DVT) 2.93 H* 08/01/21 15:50: B-Natriuretic Peptide 47.8 08/01/21 18:00: Urine Color Susie, Urine Clarity Clear, Urine pH 6.0, Ur Specific [place] 1.020, Urine Protein 500 H, Urine Glucose (UA) Normal, Urine Ketones 5 H, Urine Occult Blood 10 H, Urine Nitrite Negative, Urine Bilirubin 1 H, Urine Urobilinogen 1 H, Ur Leukocyte Esterase 25 H, Urine RBC 0-5 SEEN, Urine WBC 5-10 SEEN, Ur Squamous Epith Cells 0 SEEN, Urine Bacteria 1+, Hyaline Casts 5-10 SEEN, Urine Mucus 0 SEEN 08/01/21 20:15: Lactic Acid 1.7 08/02/21 04:45: WBC 11.3 H, RBC 3.79 L, Hgb 12.1 L, Hct 36.0 L, MCV 95.0 H, MCH 31.9, MCHC 33.6, RDW Std Deviation 46.5 H, RDW Coeff of Enoch 13.4, Plt Count 193, MPV 10.5, Immature Gran % (Auto) 0.700, Neut % (Auto) 93.8 H, Lymph % (Auto) 3.7 L, [place] % (Auto) 1.8, Eos % (Auto) 0.0, Baso % (Auto) 0.0, Absolute Neuts (auto) 10.6 H, Absolute Lymphs (auto) 0.42 L, Nucleated RBC % 0, Differential Comment SCANNED 08/02/21 04:45: Sodium 137, Potassium 4.0, Chloride 103, Carbon Dioxide 25.0, Anion Gap 9, BUN 17, Creatinine 0.81, Estim Creat Clear Calc 88.41, Est GFR (MDRD) Af Amer 123, Est GFR (MDRD) Non-Af 102, BUN/Creatinine Ratio 20.9 H, Glucose 112 H, Calcium 8.1 L, Total Bilirubin 0.90, AST 33, ALT 35, Alkaline Phosphatase 69, Total Protein 7.4, Albumin 2.2 L, Globulin 5.2 H, Albumin/Globulin Ratio 0.4 L Micro: Microbiology 08/02/21 03:00 Urine, Random Legionella Antigen - Final 08/02/21 03:00 Urine, Random Streptococcus pneumoniae Antigen (M - Final 08/01/21 21:25 Nasal Secretion SARS-CoV-2 Antigen (Rapid) - Final Radiography Diagnostic Testing: Radiology Impression Chest X-Ray 08/01/21 16:33 IMPRESSION: Limited inspiration. Atelectasis versus infiltrate at the lung bases. Electronically Signed: Gurvinder Allen DO at 16:41 EDT Tel [phone], Service support , Physical Exam Const alert Resp normal respiratory effort and no retractions Resp Narrative: coarse breath sounds bilaterallty. Cardio regular rate, regular rhythm, S1 normal heart sound and S2 normal heart sound GI normal to inspection, nondistended, normoactive bowel sounds, soft to palpation, non-tender and non-distended Extremity normal to inspection Assessment & Plan Assessment/Plan (1) Pneumonia due to severe acute respiratory syndrome coronavirus 2 (SARS-CoV-2): (2) Respiratory failure: QUALIFIERS: Chronicity: acute Respiratory failure complication: hypoxia Qualified Code(s): J96.01 - Acute respiratory failure with hypoxia PLAN: 1. acute hypoxic respiratory failure * 2/2 COVID 19 * on Airvo. Wean if able * [facility] consult * consider CTA if stable 2. acute COVID 19 * unvaccinated * onset 07/23, isolate through 08/11 * on dexamethasone through 08/10 * remdesivir through 08/05 * baricitinib through or discharge, which ever comes first * on therapeutic enoxaparin * infectious disease on consult 3. Lactic acidosis * 2/2 hypoxia * resolved 4. RA * on hydrochloroquine 5. VTE prophylaxis: * not indicated as already anticoagulated. Charges/Coding Visit Charges Inpatient E&M: 46750 Subs Hosp L2
--- NOTE | 2021-08-02 14:41 | CON.PCM.CC_ITS ---
Assessment & Plan Assessment/Plan (1) Pneumonia due to severe acute respiratory syndrome coronavirus 2 (SARS-CoV-2): (2) Respiratory failure: QUALIFIERS: Chronicity: acute Respiratory failure complication: hypoxia Qualified Code(s): J96.01 - Acute respiratory failure with hypoxia (3) Hyperlipidemia: PLAN: RECOMMENDATIONS: 1. Continue Decadron, Remdesivir and baricitinib courses 2. Diuresis as tolerated 3. Continue hydroxychloroquine. Hold methotrexate 4. Agree with therapeutic anticoagulation 5. Encourage Acapella, incentive spirometer and prone positioning as tolerated IMPRESSIONS: 1. Acute hypoxic respiratory failure secondary to COVID-19 Patient requiring significant high flow oxygen and BiPAP at 100%. High clinical suspicion that intubation will be required in the next 24 to 48 hours. Patient is receiving multiple therapies to help with clinical course. Patient can be initiated on bronchodilators given history of smoking. Patient would be at risk for COPD, but this cannot be confirmed at this time. Agree with therapeutic anticoagulation. Encourage prone positioning, but patient has not been able to tolerate at this point. 2. Rheumatoid arthritis/unvaccinated sta te/overweight/hyperlipidemia/possible CAD Complicates care, management, recovery and prognosis. Okay to continue with hydroxychloroquine, but methotrexate may have more risks for secondary complications. Patient does have elevated protein in the urine but may be secondary to ATN versus early nephrotic syndrome. We will have to watch renal function closely. If renal function continues to be stable over 24 hours, may challenge with diuretics tomorrow. TIME: 32 minutes critical care time spent addressing patient's acute hypoxic respiratory failure, rheumatoid arthritis, review of all data and collaboration with care team (1 PM to 3 PM) HPI Consult Data Date of Consult: 08/02/21 HPI Narrative HPI Narrative: DEBBIE KAMARA is a 61 M, with past medical history listed below, who presents to [facility] 08/01/2021 secondary to progressive shortness of breath and coughing. Patient reportedly had had symptoms for 5 days prior to testing. Patient did not have any chest pain, but had nausea, vomiting and diarrhea. Patient did not reported any abdominal pain, but did have a headache which is since resolved. Patient reportedly had a home test that was positive on July 27. EMS was called and patient was noted to be 54% on room air. On arrival to the ER, patient was afebrile, but tachycardic at 104 bpm. Patient required 15 L nonrebreather to maintain saturations. Patient was significantly tachypneic at 32 breaths/min. Patient ultimately was placed on BiPAP therapy with 75% FiO2 to maintain saturations. Laboratory data showed a white blood c ell count of 8.5 and normal coagulation and renal function. Patient's total bilirubin was slightly elevated at 1.2. Lactic acid was elevated at 3.2 and UA was remarkable for hyaline casts. Chest x-ray showed bilateral infiltrates. Patient was given a 500 cc bolus secondary to elevated lactic acid. Since being in the intensive care unit, patient has required BiPAP or high flow nasal cannula at 100% FiO2 to maintain saturations. Patient subjectively feels improved compared to previous. Patient continues to have a headache. Patient has had a cough, especially with deep inhalation. Patient does state that he is a full code and would want to be intubated if necessary. Patient reports a [id number] smoking history, but is never required any inhalers or supplemental oxygen previously. Patient denies any history of liver dysfunction. Patient has not required intubation previously. Patient denies any environmental exposures. Patient is on methotrexate and hydroxychloroquine at baseline secondary to rheumatoid arthritis. Patient is unclear if he is ever had a pulmonary function test. Review of systems otherwise negative from a constitutional, HEENT, respiratory, cardiovascular, GI, genitourinary, musculoskeletal, skin, neurologic, psychiatric and hematologic system unless stated above. [facility] Medical History Coronary artery calcification seen on CAT scan Family history of coronary artery disease Hyperlipidemia Hypertension Multiple premature ventricular complexes Obesity Tobacco abuse Home Medications ziezxquzxglw-[id number]-[id number] acid 1 each PO DAILY 01/26/21 [History Last Taken Unknown] folic acid 1 mg tablet 1 mg PO DAILY 07/18/21 [History Last Taken Unknown] hydroxychloroquine 200 mg tablet 200 mg PO BID 07/18/21 [History Last Taken Unknown] losartan 25 mg tablet 25 mg PO DAILY #90 tab 07/18/21 [Rx Last Taken Unknown] methotrexate sodium 2.5 mg tablet 15 mg PO QWEEK 07/18/21 [History Last Taken Unknown] Allergy/AdvReac Type Severity Reaction Status Date / Time No Known Allergies Allergy Verified 08/01/21 15:23 Family History Brother CAD (coronary artery disease) stents Sister CAD (coronary artery disease) stents Mother CAD (coronary artery disease) CABG Father Cerebral aneurysm, Onset Age: 50 Other CVA (cerebral vascular accident) Surgical History History of herniorrhaphy Social History (Updated 08/01/21 @ 19:[address] Svitlana Fuentes MD) household members: spouse Smoking Status: Former smoker quit date: 12/25/19 pack-years: 45 alcohol intake: former substance use type: does not use ROS ROS Narrative See HPI Physical Exam Const alert and oriented x3 Constitutional Narrative: On high flow nasal cannula General Appearance: cooperative, in distress Positive for moderate and anxious Exam Limitations: no limitations HEENT normocephalic and head/scalp atraumatic Eyes EOMs intact bilaterally Eyes Narrative: Slight scleral injection noted Neck supple and No nodes Lymph Lymphatic: no lymphadenopathy noted Chest inspection of chest normal Chest: symmetrical chest wall rise; Negative for crepitus Resp Auscultation: diminished lung sounds; Negative for rales, rhonchi or wheezes Cardio regular rate and regular rhythm GI normal to inspection, nondistended, normoactive bowel sounds Extremity no clubbing, cyanosis or edema Skin no rashes or lesions noted Neuro CN's II-XII intact bilaterally Psych Activity / Motor Behavior: restless Mood & Affect: anxious Lab / Micro Data Result Diagrams: 08/02/21 04:45 08/02/21 04:45 Labs: Laboratory Results - last 24 hr 08/01/21 15:50: WBC 8.5, RBC 4.14 L, Hgb 13.3, Hct 39.4 L, MCV 95.2 H, MCH 32.1 H, MCHC 33.8, RDW Std Deviation 47.2 H, RDW Coeff of Enoch 13.4, Plt Count 181, MPV 10.7, Immature Gran % (Auto) 0.700, Neut % (Auto) 89.7 H, Lymph % (Auto) 6.1 L, [place] % (Auto) 3.5, Eos % (Auto) 0.0, Baso % (Auto) 0.0, Absolute Neuts (auto) 7.6, Absolute Lymphs (auto) 0.52 L, Nucleated RBC % 0, Differential Comment SCANNED 08/01/21 15:50: PT 14.1, INR 1.2, APTT 29.3 08/01/21 15:50: Sodium 134 L, Potassium 3.6, Chloride 100, Carbon Dioxide 24.0, Anion Gap 10, BUN 16, Creatinine 0.96, Estim Creat Clear Calc 74.59, Est GFR (MDRD) Af Amer 102, Est GFR (MDRD) Non-Af 84, BUN/Creatinine Ratio 16.7, Glucose 96, Calcium 8.7, Total Bilirubin 1.20 H, AST 46 H, ALT 44, Alkaline Phosphatase 79, Troponin I High Sens 10, Total Protein 8.3 H, Albumin 2.6 L, Globulin 5.7 H, Albumin/Globulin Ratio 0.5 L 08/01/21 15:50: Lactic Acid 3.2 H* 08/01/21 15:50: D-Dimer Quant (PE/DVT) 2.93 H* 08/01/21 15:50: B-Natriuretic Peptide 47.8 08/01/21 18:00: Urine Color Susie, Urine Clarity Clear, Urine pH 6.0, Ur Specific [place] 1.020, Urine Protein 500 H, Urine Glucose (UA) Normal, Urine Ketones 5 H, Urine Occult Blood 10 H, Urine Nitrite Negative, Urine Bilirubin 1 H, Urine Urobilinogen 1 H, Ur Leukocyte Esterase 25 H, Urine RBC 0-5 SEEN, Urine WBC 5-10 SEEN, Ur Squamous Epith Cells 0 SEEN, Urine Bacteria 1+, Hyaline Casts 5-10 SEEN, Urine Mucus 0 SEEN 08/01/21 20:15: Lactic Acid 1.7 08/02/21 04:45: WBC 11.3 H, RBC 3.79 L, Hgb 12.1 L, Hct 36.0 L, MCV 95.0 H, MCH 31.9, MCHC 33.6, RDW Std Deviation 46.5 H, RDW Coeff of Enoch 13.4, Plt Count 193, MPV 10.5, Immature Gran % (Auto) 0.700, Neut % (Auto) 93.8 H, Lymph % (Auto) 3.7 L, [place] % (Auto) 1.8, Eos % (Auto) 0.0, Baso % (Auto) 0.0, Absolute Neuts (auto) 10.6 H, Absolute Lymphs (auto) 0.42 L, Nucleated RBC % 0, Differential Comment SCANNED 08/02/21 04:45: Sodium 137, Potassium 4.0, Chloride 103, Carbon Dioxide 25.0, Anion Gap 9, BUN 17, Creatinine 0.81, Estim Creat Clear Calc 88.41, Est GFR (MDRD) Af Amer 123, Est GFR (MDRD) Non-Af 102, BUN/Creatinine Ratio 20.9 H, Glucose 112 H, Calcium 8.1 L, Total Bilirubin 0.90, AST 33, ALT 35, Alkaline Phosphatase 69, Total Protein 7.4, Albumin 2.2 L, Globulin 5.2 H, Albumin/Globulin Ratio 0.4 L Micro: Microbiology 08/02/21 03:00 Urine, Random Legionella Antigen - Final 08/02/21 03:00 Urine, Random Streptococcus pneumoniae Antigen (M - Final 08/01/21 21:25 Nasal Secretion SARS-CoV-2 Antigen (Rapid) - Final Radiology Impression Chest X-Ray 08/01/21 16:33 IMPRESSION: Limited inspiration. Atelectasis versus infiltrate at the lung bases. Electronically Signed: Gurvinder Allen DO at 16:41 EDT Tel [phone], Service support , Charges/Coding Procedures Hospitalists Procedures: [id number] Critial Care 1st Hr
[2021-08-03] VITALS (36 sets, daily range): BP systolic 87–134; BP diastolic 50–92; PULSE 60–91; RESP 12–26; TEMP 36.3–37.1; O2SAT 85–99
[2021-08-03 05:01] LABS: Hematocrit 34.4 % (40-54); Hemoglobin 11.8 g/dL (13.0-16.5); Mean Corp Hgb Conc 34.3 g/dL (32-36); Mean Corpuscular Hgb 32.6 pg (27.0-32.0); Mean Platelet Vol. 9.8 fl (6.2-12.0); Platelet Count 218 K/mm3 (150-450); RBC Distribution Width CV 13.6 % (11.6-14.6); RBC Distribution Width SD 47.3 fl (35.1-43.9); Red Blood Count 3.62 M/mm3 (4.6-6.2); White Blood Count 10.7 K/mm3 (4.4-11.0)
[2021-08-03 05:16] LABS: ALB/GLOB Ratio 0.4 RATIO (0.9-2.4); AST(SGOT) 44 U/L (15-37); Alanine Aminotransfer ALT/SGPT 54 U/L (16-61); Alkaline Phosphatase 66 U/L (45-117); Anion Gap 8 (5-15); BUN 25 mg/dL (7-18); BUN/Creat Ratio 33.5 RATIO (10-20); Chloride 105 mmol/L (98-107); Creatinine, Serum 0.75 mg/dL (0.70-1.30); EST Glomerular Filtration Rate 113 mL/min (>60); Est Glom Filt Rate - Afr Amer 136 mL/min (>60); Estimated Creatinine Clearance 95.48 ml/min; Glucose 124 mg/dL (74-106); Sodium Level 139 mmol/L (136-145)
--- NOTE | 2021-08-03 07:01 | PCM.PN.INT ---
Assessment & Plan Assessment/Plan (1) Pneumonia due to severe acute respiratory syndrome coronavirus 2 (SARS-CoV-2): (2) Respiratory failure: QUALIFIERS: Chronicity: acute Respiratory failure complication: hypoxia Qualified Code(s): J96.01 - Acute respiratory failure with hypoxia (3) Hyperlipidemia: PLAN: RECOMMENDATIONS: 1. Continue Decadron, Remdesivir and baricitinib courses 2. Diuresis as tolerated 3. Continue hydroxychloroquine. Hold methotrexate 4. Agree with therapeutic anticoagulation 5. Encourage Acapella, incentive spirometer and prone positioning as tolerated 6. Add zinc and vitamin C IMPRESSIONS: 1. Acute hypoxic respiratory failure secondary to COVID-19 Patient requiring significant high flow oxygen and BiPAP at 100%. High clinical suspicion that intubation will be required in the next 24 to 48 hours. Patient is receiving multiple therapies to help with clinical course. Patient can be initiated on bronchodilators given history of smoking. Patient would be at risk for COPD, but this cannot be confirmed at this time. Agree with therapeutic anticoagulation. Encourage prone positioning, but patient has not been able to tolerate at this point. We will add vitamin C and zinc. 2. Rheumatoid arthritis/unvaccinated state/overweight/hyperlipidemia/possible CAD Complicates care, management, recovery and prognosis. Okay to continue with hydroxychloroquine, but methotrexate may have more risks for secondary complications. Patient does have elevated protein in the urine but may be secondary to ATN versus early nephrotic syndrome. Renal function has improved indicating probable ATN on presentation. Will attempt to diurese today. Subjective Subjective Patient did okay overnight. Patient continues to be resistant to prone positioning. Nursing staff was able to get him to sleep on his side for short period of time. Patient reports subjective improvement. Oxygenation has slightly improved. Objective Data Objective Data Vital Signs: Vital Signs Temp Pulse Resp BP Pulse Ox 36.6 C 60 21 H 90/57 L 97 08/03/21 04:00 08/03/21 06:00 08/03/21 06:00 08/03/21 06:00 08/03/21 06:00 Oxygen Flow Rate (L/min) 15 Oxygen Delivery Method Bi-pap Weight: 82.4 kg Body Mass Index (BMI) 28.7 Intake & Output: Intake and Output for Last 24 Hours 08/01/21 08/02/21 08/03/21 23:59 23:59 23:59 Intake Total 750 / 750 910 / 910 Output Total 2074 / 2074 350 / 350 Balance 750 / -175 -1165 / -1165 -350 / -350 Lab / Micro Data Result Diagrams: 08/03/21 04:50 08/03/21 04:50 Labs: Laboratory Results - last 24 hr 08/02/21 04:45: Differential Comment SCANNED 08/03/21 04:50: WBC 10.7, RBC 3.62 L, Hgb 11.8 L, Hct 34.4 L, MCV 95.0 H, MCH 32.6 H, MCHC 34.3, RDW Std Deviation 47.3 H, RDW Coeff of Enoch 13.6, Plt Count 218, MPV 9.8 08/03/21 04:50: Sodium 139, Potassium 4.0, Chloride 105, Carbon Dioxide 26.0, Anion Gap 8, BUN 25 H, Creatinine 0.75, Estim Creat Clear Calc 95.48, Est GFR (MDRD) Af Amer 136, Est GFR (MDRD) Non-Af 113, BUN/Creatinine Ratio 33.5 H, Glucose 124 H, Calcium 8.0 L, Total Bilirubin 0.90, AST 44 H, ALT 54, Alkaline Phosphatase 66, Total Protein 7.0, Albumin 2.0 L, Globulin 5.0 H, Albumin/Globulin Ratio 0.4 L Micro: Microbiology 08/02/21 03:00 Urine, Random Legionella Antigen - Final 08/02/21 03:00 Urine, Random Streptococcus pneumoniae Antigen (M - Final 08/01/21 21:25 Nasal Secretion SARS-CoV-2 Antigen (Rapid) - Final Physical Exam Const alert and oriented x3 Constitutional Narrative: Resting comfortably on BiPAP therapy General Appearance: cooperative, in distress Positive for moderate and anxious Exam Limitations: no limitations HEENT normocephalic and head/scalp atraumatic Eyes EOMs intact bilaterally Eyes Narrative: Slight scleral injection noted Neck supple and No nodes Lymph Lymphatic: no lymphadenopathy noted Chest inspection of chest normal Chest: symmetrical chest wall rise; Negative for crepitus Resp Auscultation: diminished lung sounds; Negative for rales, rhonchi or wheezes Cardio regular rate and regular rhythm GI normal to inspection, nondistended, normoactive bowel sounds Extremity no clubbing, cyanosis or edema Skin no rashes or lesions noted Neuro CN's II-XII intact bilaterally Psych Activity / Motor Behavior: restless Mood & Affect: anxious Charges/Coding Visit Charges Inpatient E&M: 19676 Subs Hosp L3
[2021-08-03] MEDS: Ipratropium/Albuterol Sulfate 3 ML AMPUL.NEB INHALATION ×3 (07:28→19:00)
[2021-08-03] MEDS: Hydroxychloroquine 200 MG Tablet PO ×2 (08:47→20:41)
[2021-08-03] MEDS: Folic Acid 1 MG Tablet PO (08:47)
[2021-08-03] MEDS: Furosemide 40 MG/4 ML Vial IV (08:47)
[2021-08-03] MEDS: Losartan Potassium 25 MG Tablet PO (08:48)
[2021-08-03] MEDS: Ascorbic Acid 500 MG Tablet 1000 MG PO (08:48)
[2021-08-03] MEDS: Enoxaparin 80 MG/0.8 ML Syringe SC ×2 (08:49→20:41)
[2021-08-03] MEDS: dexAMETHasone 10 MG/ML Vial 6 MG IV (08:49)
[2021-08-03] MEDS: 0.9% Saline Lock 10 ML Syringe IV (10:42)
--- NOTE | 2021-08-03 12:56 | PN.HOSP_ITS ---
Subjective Subjective Back on BiPAP. Objective Data Objective Data Vital Signs: Vital Signs Temp Pulse Resp BP Pulse Ox 37.1 C 80 18 104/60 93 08/03/21 08:00 08/03/21 11:41 08/03/21 11:41 08/03/21 11:00 08/03/21 11:41 Oxygen Flow Rate (L/min) 65 Oxygen Delivery Method Bi-pap Weight: 82.4 kg Body Mass Index (BMI) 28.7 Intake & Output: Intake and Output for Last 24 Hours 08/01/21 08/02/21 08/03/21 23:59 23:59 23:59 Intake Total 750 / 750 910 / 910 250 / 250 Output Total 2075 / 2075 365 / 365 Balance 750 / -175 -1165 / -1165 -115 / -115 Lab / Micro Data Result Diagrams: 08/03/21 04:50 08/03/21 04:50 Labs: Laboratory Results - last 24 hr 08/01/21 18:00: Urine Color Susie, Urine Clarity Clear, Urine pH 6.0, Ur Specific [place] 1.020, Urine Protein 500 H, Urine Glucose (UA) Normal, Urine Ketones 5 H, Urine Occult Blood 10 H, Urine Nitrite Negative, Urine Bilirubin 1 H, Urine Urobilinogen 1 H, Ur Leukocyte Esterase 25 H, Urine RBC 0-5 SEEN, Urine WBC 5-10 SEEN, Ur Squamous Epith Cells 0 SEEN, Urine Bacteria 1+, Hyaline Casts 5-10 SEEN, Urine Mucus 0 SEEN 08/03/21 04:50: WBC 10.7, RBC 3.62 L, Hgb 11.8 L, Hct 34.4 L, MCV 95.0 H, MCH 32.6 H, MCHC 34.3, RDW Std Deviation 47.3 H, RDW Coeff of Enoch 13.6, Plt Count 218, MPV 9.8 08/03/21 04:50: Sodium 139, Potassium 4.0, Chloride 105, Carbon Dioxide 26.0, Anion Gap 8, BUN 25 H, Creatinine 0.75, Estim Creat Clear Calc 95.48, Est GFR (MDRD) Af Amer 136, Est GFR (MDRD) Non-Af 113, BUN/Creatinine Ratio 33.5 H, Glucose 124 H, Calcium 8.0 L, Total Bilirubin 0.90, AST 44 H, ALT 54, Alkaline Phosphatase 66, Total Protein 7.0, Albumin 2.0 L, Globulin 5.0 H, Albumin/Globulin Ratio 0.4 L Micro: Microbiology 08/01/21 18:00 Urine, Clean Catch Urine Culture - Final Mixed Gram Positive Organisms 08/02/21 03:00 Urine, Random Legionella Antigen - Final 08/02/21 03:00 Urine, Random Streptococcus pneumoniae Antigen (M - Final 08/01/21 21:25 Nasal Secretion SARS-CoV-2 Antigen (Rapid) - Final Physical Exam Const alert and no apparent distress Constitutional Narrative: up in chair. on BiPAP. Resp normal respiratory effort, no retractions, no use of accessory muscles and clear to auscultation bilaterally Cardio regular rate, regular rhythm, S1 normal heart sound and S2 normal heart sound GI normal to inspection, nondistended, normoactive bowel sounds, soft to palpation, non-tender and non-distended Extremity normal to inspection Neuro Sensorium / Orientation: awake and alert Assessment & Plan Assessment/Plan (1) Pneumonia due to severe acute respiratory syndrome coronavirus 2 (SARS-CoV-2): (2) Respiratory failure: QUALIFIERS: Chronicity: acute Respiratory failure complication: hypoxia Qualified Code(s): J96.01 - Acute respiratory failure with hypoxia PLAN: 1. acute hypoxic respiratory failure * 2/2 COVID 19 * on BiPAP. Wean as able * CCM consult * consider CTA if stable * encouraged pulmonary toileting. 2. acute COVID 19 * unvaccinated * onset 07/23, isolate through 08/11 * on dexamethasone through 08/10 * remdesivir through 08/05 * baricitinib through or discharge, which ever comes first * on therapeutic enoxaparin * infectious disease on consult 3. Lactic acidosis * 2/2 hypoxia * resolved 4. RA * on hydrochloroquine 5. VTE prophylaxis: * not indicated as already anticoagulated. Charges/Coding Visit Charges Inpatient E&M: 70897 Subs Hosp L2
[2021-08-04] VITALS (39 sets, daily range): BP systolic 95–150; BP diastolic 69–94; PULSE 60–85; RESP 12–32; TEMP 36.3–36.8; O2SAT 90–98
[2021-08-04 04:49] LABS: Hematocrit 36.2 % (40-54); Hemoglobin 11.9 g/dL (13.0-16.5); Mean Corp Hgb Conc 32.9 g/dL (32-36); Mean Corpuscular Hgb 31.6 pg (27.0-32.0); Mean Platelet Vol. 10.4 fl (6.2-12.0); Platelet Count 253 K/mm3 (150-450); RBC Distribution Width CV 13.6 % (11.6-14.6); RBC Distribution Width SD 47.8 fl (35.1-43.9); Red Blood Count 3.77 M/mm3 (4.6-6.2); White Blood Count 11.7 K/mm3 (4.4-11.0)
[2021-08-04 05:08] LABS: ALB/GLOB Ratio 0.4 RATIO (0.9-2.4); AST(SGOT) 41 U/L (15-37); Alanine Aminotransfer ALT/SGPT 57 U/L (16-61); Albumin, Serum 2.1 g/dL (3.2-5.0); Alkaline Phosphatase 89 U/L (45-117); Anion Gap 9 (5-15); BUN 32 mg/dL (7-18); BUN/Creat Ratio 39.9 RATIO (10-20); Calcium,Total 8.4 mg/dL (8.5-10.1); Chloride 107 mmol/L (98-107); EST Glomerular Filtration Rate 104 mL/min (>60); Est Glom Filt Rate - Afr Amer 125 mL/min (>60); Estimated Creatinine Clearance 89.51 ml/min; Globulin 5.2 g/dL (2.2-4.2); Glucose 114 mg/dL (74-106); Protein, Total 7.3 g/dL (6.4-8.2); Sodium Level 141 mmol/L (136-145)
--- NOTE | 2021-08-04 06:27 | PCM.PN.INT ---
Assessment & Plan Assessment/Plan (1) Pneumonia due to severe acute respiratory syndrome coronavirus 2 (SARS-CoV-2): (2) Respiratory failure: QUALIFIERS: Chronicity: acute Respiratory failure complication: hypoxia Qualified Code(s): J96.01 - Acute respiratory failure with hypoxia (3) Hyperlipidemia: PLAN: RECOMMENDATIONS: 1. Continue Decadron, Remdesivir and baricitinib courses 2. Diuresis as tolerated 3. Continue hydroxychloroquine. Hold methotrexate 4. Agree with therapeutic anticoagulation 5. Encourage Acapella, incentive spirometer and prone positioning as tolerated 6. Transition to scheduled mucolytic 7. Possibly attempt nasal cannula today IMPRESSIONS: 1. Acute hypoxic respiratory failure secondary to COVID-19 Patient requiring significant high flow oxygen and BiPAP at 100%. High clinical suspicion that intubation will be required in the next 24 to 48 hours. Patient is receiving multiple therapies to help with clinical course. Patient can be initiated on bronchodilators given history of smoking. Patient would be at risk for COPD, but this cannot be confirmed at this time. Agree with therapeutic anticoagulation. Encourage prone positioning, but patient has not been able to tolerate at this point. We will schedule mucolytic to help with pulmonary toileting. 2. Rheumatoid arthritis/unvaccinated state/overweight/hyperlipidemia/possible CAD Complicates care, management, recovery and prognosis. Okay to continue with hydroxychloroquine, but methotrexate may have more risks for secondary complications. Patient does have elevated protein in the urine but may be secondary to ATN versus early nephrotic syndrome. Renal function has improved indicating probable ATN on presentation. Will attempt to diurese today. Subjective Subjective Patient did well overnight. No acute issues were reported. Patient subjectively feels stronger compared to yesterday. Patient has been more motivated to comply with incentive spirometer, but continues to have difficulty with prone positioning. Objective Data Objective Data Vital Signs: Vital Signs Temp Pulse Resp BP Pulse Ox 36.3 C L 64 16 128/79 H 95 08/04/21 00:00 08/04/21 05:02 08/04/21 05:02 08/04/21 03:00 08/04/21 05:02 Oxygen Flow Rate (L/min) 70 Oxygen Delivery Method Bi-pap Weight: 82.7 kg Body Mass Index (BMI) 28.7 Intake & Output: Intake and Output for Last 24 Hours 08/02/21 08/03/21 08/04/21 23:59 23:59 23:59 Intake Total 910 / 910 700 / 700 Output Total 2074 / 207 1115 / 1115 Balance -1165 / -1165 -415 / -415 Lab / Micro Data Result Diagrams: 08/04/21 04:40 08/04/21 04:40 Labs: Laboratory Results - last 24 hr 08/01/21 18:00: Urine Color Susie, Urine Clarity Clear, Urine pH 6.0, Ur Specific [place] 1.020, Urine Protein 500 H, Urine Glucose (UA) Normal, Urine Ketones 5 H, Urine Occult Blood 10 H, Urine Nitrite Negative, Urine Bilirubin 1 H, Urine Urobilinogen 1 H, Ur Leukocyte Esterase 25 H, Urine RBC 0-5 SEEN, Urine WBC 5-10 SEEN, Ur Squamous Epith Cells 0 SEEN, Urine Bacteria 1+, Hyaline Casts 5-10 SEEN, Urine Mucus 0 SEEN 08/04/21 04:40: WBC 11.7 H, RBC 3.77 L, Hgb 11.9 L, Hct 36.2 L, MCV 96.0 H, MCH 31.6, MCHC 32.9, RDW Std Deviation 47.8 H, RDW Coeff of Enoch 13.6, Plt Count 253, MPV 10.4 08/04/21 04:40: Sodium 141, Potassium 4.0, Chloride 107, Carbon Dioxide 25.0, Anion Gap 9, BUN 32 H, Creatinine 0.80, Estim Creat Clear Calc 89.51, Est GFR (MDRD) Af Amer 125, Est GFR (MDRD) Non-Af 104, BUN/Creatinine Ratio 39.9 H, Glucose 114 H, Calcium 8.4 L, Total Bilirubin 0.70, AST 41 H, ALT 57, Alkaline Phosphatase 89, Total Protein 7.3, Albumin 2.1 L, Globulin 5.2 H, Albumin/Globulin Ratio 0.4 L Micro: Microbiology 08/01/21 18:00 Urine, Clean Catch Urine Culture - Final Mixed Gram Positive Organisms 08/02/21 03:00 Urine, Random Legionella Antigen - Final 08/02/21 03:00 Urine, Random Streptococcus pneumoniae Antigen (M - Final 08/01/21 21:25 Nasal Secretion SARS-CoV-2 Antigen (Rapid) - Final Physical Exam Const alert, oriented x3 and no apparent distress Constitutional Narrative: Resting comfortably on BiPAP therapy General Appearance: cooperative; Negative for in distress or anxious Exam Limitations: no limitations HEENT normocephalic and head/scalp atraumatic Eyes EOMs intact bilaterally Eyes Narrative: Slight scleral injection noted Neck supple and No nodes Lymph Lymphatic: no lymphadenopathy noted Chest inspection of chest normal Chest: symmetrical chest wall rise; Negative for crepitus Resp Auscultation: diminished lung sounds; Negative for rales, rhonchi or wheezes Cardio regular rate and regular rhythm GI normal to inspection, nondistended, normoactive bowel sounds Extremity no clubbing, cyanosis or edema Skin no rashes or lesions noted Neuro CN's II-XII intact bilaterally Psych Activity / Motor Behavior: restless Mood & Affect: anxious Charges/Coding Visit Charges Inpatient E&M: 75428 Subs Hosp L3
[2021-08-04] MEDS: Furosemide 40 MG/4 ML Vial IV (06:35)
[2021-08-04] MEDS: Ipratropium/Albuterol Sulfate 3 ML AMPUL.NEB INHALATION ×4 (06:50→19:16)
[2021-08-04] MEDS: Folic Acid 1 MG Tablet PO (07:57)
[2021-08-04] MEDS: dexAMETHasone 10 MG/ML Vial 6 MG IV (07:58)
[2021-08-04] MEDS: Enoxaparin 80 MG/0.8 ML Syringe SC ×2 (07:58→22:16)
[2021-08-04] MEDS: 0.9% Saline Lock 10 ML Syringe IV (07:59)
[2021-08-04] MEDS: Ascorbic Acid 500 MG Tablet 1000 MG PO (07:59)
[2021-08-04] MEDS: Hydroxychloroquine 200 MG Tablet PO ×2 (07:59→22:15)
[2021-08-04] MEDS: Losartan Potassium 25 MG Tablet PO (07:59)
[2021-08-04] MEDS: guaiFENesin 1,200 MG Tablet 1200 MG PO ×2 (08:03→22:16)
--- NOTE | 2021-08-04 10:33 | PCM.PN.ID ---
Physical Exam Narrative Feeling about the same, minimal sputum, no n/v/d. Const alert General Appearance: cooperative Resp Auscultation: diminished lung sounds Cardio regular rate and regular rhythm GI normal to inspection, nondistended, normoactive bowel sounds Skin no rashes or lesions noted ID ID: Route of nutrition/ use of supplements: [] Nutritional Intake: [] IV Site: [] Paulino Catheter: [] Assessment & Plan Assessment/Plan (1) Pneumonia due to severe acute respiratory syndrome coronavirus 2 (SARS-CoV-2): PLAN: Sx started 07/23, unvaccinated. Isolate for 20 days starting 07/23. Recommend vaccine once out of iso. On dex and remdesivir. On therapeutic lovenox. On baricitinib. O2 stable. Will follow (2) Respiratory failure: QUALIFIERS: Chronicity: acute Respiratory failure complication: hypoxia Qualified Code(s): J96.01 - Acute respiratory failure with hypoxia
--- NOTE | 2021-08-04 12:54 | PN.HOSP_ITS ---
Subjective Subjective Breathing better. Tolerating Airvo. Objective Data Objective Data Vital Signs: Vital Signs Temp Pulse Resp BP Pulse Ox 36.8 C 85 27 H 113/75 94 08/04/21 12:00 08/04/21 12:43 08/04/21 12:43 08/04/21 12:00 08/04/21 12:43 Oxygen Flow Rate (L/min) 70 Oxygen Delivery Method Airvo Weight: 82.7 kg Body Mass Index (BMI) 28.7 Intake & Output: Intake and Output for Last 24 Hours 08/02/21 08/03/21 08/04/21 23:59 23:59 23:59 Intake Total 910 / 910 700 / 700 320 / 320 Output Total 2075 / 2075 1115 / 1115 800 / 800 Balance -1165 / -1165 -415 / -415 -480 / -480 Lab / Micro Data Result Diagrams: 08/04/21 04:40 08/04/21 04:40 Labs: Laboratory Results - last 24 hr 08/04/21 04:40: WBC 11.7 H, RBC 3.77 L, Hgb 11.9 L, Hct 36.2 L, MCV 96.0 H, MCH 31.6, MCHC 32.9, RDW Std Deviation 47.8 H, RDW Coeff of Enoch 13.6, Plt Count 253, MPV 10.4 08/04/21 04:40: Sodium 141, Potassium 4.0, Chloride 107, Carbon Dioxide 25.0, Anion Gap 9, BUN 32 H, Creatinine 0.80, Estim Creat Clear Calc 89.51, Est GFR (MDRD) Af Amer 125, Est GFR (MDRD) Non-Af 104, BUN/Creatinine Ratio 39.9 H, Glucose 114 H, Calcium 8.4 L, Total Bilirubin 0.70, AST 41 H, ALT 57, Alkaline Phosphatase 89, Total Protein 7.3, Albumin 2.1 L, Globulin 5.2 H, Albumin/Globulin Ratio 0.4 L Micro: Microbiology 08/01/21 15:50 Blood Culture (Wb) - Right Hand Blood Culture - Preliminary 08/01/21 17:09 Blood Culture (Wb) - Anticubital Left Blood Culture - Preliminary No growth in 48 hours. 08/01/21 18:00 Urine, Clean Catch Urine Culture - Final Mixed Gram Positive Organisms 08/02/21 03:00 Urine, Random Legionella Antigen - Final 08/02/21 03:00 Urine, Random Streptococcus pneumoniae Antigen (M - Final 08/01/21 21:25 Nasal Secretion SARS-CoV-2 Antigen (Rapid) - Final Physical Exam Const alert Resp normal respiratory effort, no retractions, no use of accessory muscles and clear to auscultation bilaterally Cardio regular rate, regular rhythm, S1 normal heart sound and S2 normal heart sound GI normal to inspection, nondistended, normoactive bowel sounds, soft to palpation, non-tender and non-distended Assessment & Plan Assessment/Plan (1) Pneumonia due to severe acute respiratory syndrome coronavirus 2 (SARS-CoV-2): (2) Respiratory failure: QUALIFIERS: Chronicity: acute Respiratory failure complication: hypoxia Qualified Code(s): J96.01 - Acute respiratory failure with hypoxia PLAN: 1. acute hypoxic respiratory failure * 2/2 COVID 19 * on Airvo. Wean as able * CCM consult * consider CTA if stable * encouraged pulmonary toileting. 2. acute COVID 19 * unvaccinated * onset 07/23, isolate through 08/11 * on dexamethasone through 08/10 * remdesivir through 08/05 * baricitinib through or discharge, which ever comes first * on therapeutic enoxaparin * infectious disease on consult 3. Lactic acidosis * 2/2 hypoxia * resolved 4. RA * on hydrochloroquine 5. VTE prophylaxis: * not indicated as already anticoagulated. Charges/Coding Visit Charges Inpatient E&M: 17801 Subs Hosp L2
[2021-08-04] MEDS: MELATONIN 10 MG TABLET PO (22:16)
[2021-08-04] MEDS: Acetaminophen 325 MG Tablet 650 MG PO (22:16)
[2021-08-05] VITALS (35 sets, daily range): BP systolic 92–145; BP diastolic 53–99; PULSE 58–90; RESP 15–27; TEMP 36.3–36.7; O2SAT 89–97
[2021-08-05] MEDS: Acetaminophen 325 MG Tablet 650 MG PO ×2 (05:00→21:04)
[2021-08-05 05:27] LABS: Hematocrit 36.4 % (40-54); Hemoglobin 12.1 g/dL (13.0-16.5); Mean Corp Hgb Conc 33.2 g/dL (32-36); Mean Corpuscular Hgb 31.8 pg (27.0-32.0); Mean Corpuscular Volume 95.8 fL (80-94); Mean Platelet Vol. 10.3 fl (6.2-12.0); Platelet Count 260 K/mm3 (150-450); RBC Distribution Width CV 13.5 % (11.6-14.6); RBC Distribution Width SD 47.5 fl (35.1-43.9); White Blood Count 8.4 K/mm3 (4.4-11.0)
[2021-08-05 05:44] LABS: ALB/GLOB Ratio 0.4 RATIO (0.9-2.4); AST(SGOT) 43 U/L (15-37); Alanine Aminotransfer ALT/SGPT 73 U/L (16-61); Albumin, Serum 2.1 g/dL (3.2-5.0); Alkaline Phosphatase 89 U/L (45-117); Anion Gap 6 (5-15); BUN 32 mg/dL (7-18); BUN/Creat Ratio 40.3 RATIO (10-20); Calcium,Total 8.3 mg/dL (8.5-10.1); Chloride 108 mmol/L (98-107); EST Glomerular Filtration Rate 105 mL/min (>60); Est Glom Filt Rate - Afr Amer 127 mL/min (>60); Estimated Creatinine Clearance 89.51 ml/min; Globulin 5.2 g/dL (2.2-4.2); Glucose 105 mg/dL (74-106); Potassium 4.1 mmol/L (3.5-5.1); Protein, Total 7.3 g/dL (6.4-8.2); Sodium Level 141 mmol/L (136-145)
[2021-08-05] MEDS: Ipratropium/Albuterol Sulfate 3 ML AMPUL.NEB INHALATION ×4 (07:13→19:39)
--- NOTE | 2021-08-05 07:35 | PN.CC_ITS ---
Assessment & Plan Assessment/Plan (1) Pneumonia due to severe acute respiratory syndrome coronavirus 2 (SARS-CoV-2): (2) Respiratory failure: QUALIFIERS: Chronicity: acute Respiratory failure complication: hypoxia Qualified Code(s): J96.01 - Acute respiratory failure with hypoxia (3) Hyperlipidemia: PLAN: RECOMMENDATIONS: 1. Continue Decadron, Remdesivir and baricitinib courses 2. Diuresis as tolerated 3. Continue hydroxychloroquine. Hold methotrexate 4. Agree with therapeutic anticoagulation 5. Encourage Acapella, incentive spirometer and prone positioning as tolerated 6. Transition to scheduled mucolytic 7. Okay to use BiPAP to facilitate therapy if necessary IMPRESSIONS: 1. Acute hypoxic respiratory failure secondary to COVID-19 Patient requiring significant high flow oxygen and BiPAP at 100%. High clinical suspicion that intubation will be required in the next 24 to 48 hours. Patient is receiving multiple therapies to help with clinical course. Patient can be initiated on bronchodilators given history of smoking. Patient would be at risk for COPD, but this cannot be confirmed at this time. Agree with therapeutic anticoagulation. Encourage prone positioning, but patient has not been able to tolerate at this point. Continue with aggressive pulmonary toileting. 2. Rheumatoid arthritis/unvaccinated state/overweight/hyperlipidemia/possible CAD Complicates care, management, recovery and prognosis. Okay to continue with hydroxychloroquine, but methotrexate may have more risks for secondary complications. Patient does have elevated protein in the urine but may be secondary to ATN versus early nephrotic syndrome. Renal function has improved indicating probable ATN on presentation. Will attempt to diurese today. Subjective Subjective Patient did okay overnight. Nursing reports patient has been more receptive to laying on his side. Patient continues to have difficulty with prone positioning. Patient is reporting a productive cough. Objective Data Objective Data Vital Signs: Vital Signs Temp Pulse Resp BP Pulse Ox 36.6 C 69 18 136/93 H 94 08/05/21 05:00 08/05/21 07:16 08/05/21 07:16 08/05/21 05:00 08/05/21 07:15 Oxygen Flow Rate (L/min) 70 Oxygen Delivery Method Airvo Weight: 82.599 kg Body Mass Index (BMI) 28.7 Intake & Output: Intake and Output for Last 24 Hours 09/29/21 09/30/21 10/01/21 23:59 23:59 23:59 Intake Total 700 / 700 1720 / 1720 100 / 100 Output Total 1115 / 1115 1550 / 1550 Balance -415 / -415 170 / 170 100 / 100 Lab / Micro Data Result Diagrams: 08/05/21 05:05 08/05/21 05:05 Labs: Laboratory Results - last 24 hr 08/05/21 05:05: WBC 8.4, RBC 3.80 L, Hgb 12.1 L, Hct 36.4 L, MCV 95.8 H, MCH 31.8, MCHC 33.2, RDW Std Deviation 47.5 H, RDW Coeff of Enoch 13.5, Plt Count 260, MPV 10.3 08/05/21 05:05: Sodium 141, Potassium 4.1, Chloride 108 H, Carbon Dioxide 27.0, Anion Gap 6, BUN 32 H, Creatinine 0.80, Estim Creat Clear Calc 89.51, Est GFR (MDRD) Af Amer 127, Est GFR (MDRD) Non-Af 105, BUN/Creatinine Ratio 40.3 H, Glucose 105, Calcium 8.3 L, Total Bilirubin 0.70, AST 43 H, ALT 73 H, Alkaline Phosphatase 89, Total Protein 7.3, Albumin 2.1 L, Globulin 5.2 H, [place] min/Globulin Ratio 0.4 L Micro: Microbiology 08/01/21 15:50 Blood Culture (Wb) - Right Hand Blood Culture - Preliminary 08/01/21 17:09 Blood Culture (Wb) - Anticubital Left Blood Culture - Preliminary No growth in 48 hours. 08/01/21 18:00 Urine, Clean Catch Urine Culture - Final Mixed Gram Positive Organisms 08/02/21 03:00 Urine, Random Legionella Antigen - Final 08/02/21 03:00 Urine, Random Streptococcus pneumoniae Antigen (M - Final 08/01/21 21:25 Nasal Secretion SARS-CoV-2 Antigen (Rapid) - Final Physical Exam Const alert, oriented x3 and no apparent distress Constitutional Narrative: Resting comfortably on Airvo therapy General Appearance: cooperative; Negative for in distress or anxious Exam Limitations: no limitations HEENT normocephalic and head/scalp atraumatic Eyes EOMs intact bilaterally Eyes Narrative: Slight scleral injection noted Neck supple and No nodes Lymph Lymphatic: no lymphadenopathy noted Chest inspection of chest normal Chest: symmetrical chest wall rise; Negative for crepitus Resp Auscultation: diminished lung sounds; Negative for rales, rhonchi or wheezes Cardio regular rate and regular rhythm GI normal to inspection, nondistended, normoactive bowel sounds Extremity no clubbing, cyanosis or edema Skin no rashes or lesions noted Neuro CN's II-XII intact bilaterally Psych Activity / Motor Behavior: restless Mood & Affect: anxious Charges/Coding Visit Charges Inpatient E&M: 00086 Subs Hosp L3
[2021-08-05] MEDS: Enoxaparin 80 MG/0.8 ML Syringe SC ×2 (09:09→21:04)
[2021-08-05] MEDS: Ascorbic Acid 500 MG Tablet 1000 MG PO (09:09)
[2021-08-05] MEDS: dexAMETHasone 10 MG/ML Vial 6 MG IV (09:10)
[2021-08-05] MEDS: Folic Acid 1 MG Tablet PO (09:10)
[2021-08-05] MEDS: Furosemide 40 MG/4 ML Vial IV (09:10)
[2021-08-05] MEDS: Hydroxychloroquine 200 MG Tablet PO ×2 (09:10→21:05)
[2021-08-05] MEDS: guaiFENesin 1,200 MG Tablet 1200 MG PO ×2 (09:10→21:05)
[2021-08-05] MEDS: Losartan Potassium 25 MG Tablet PO (09:10)
[2021-08-05] MEDS: 0.9% Saline Lock 10 ML Syringe IV ×2 (09:11→21:04)
--- NOTE | 2021-08-05 14:21 | PN.HOSP_ITS ---
Subjective Subjective Tolerating Airvo, but sats dropped down mid 80s while talking. Objective Data Objective Data Vital Signs: Vital Signs Temp Pulse Resp BP Pulse Ox 36.6 C 80 25 H 114/76 91 08/05/21 12:00 08/05/21 13:00 08/05/21 13:00 08/05/21 13:00 08/05/21 13:49 Oxygen Flow Rate (L/min) 60 Oxygen Delivery Method Airvo Weight: 82.599 kg Body Mass Index (BMI) 28.7 Intake & Output: Intake and Output for Last 24 Hours 08/03/21 08/04/21 08/05/21 23:59 23:59 23:59 Intake Total 700 / 700 1720 / 1720 830 / 830 Output Total 1115 / 1115 1550 / 1550 1300 / 1300 Balance -415 / -415 170 / 170 -470 / -470 Lab / Micro Data Result Diagrams: 08/05/21 05:05 08/05/21 05:05 Labs: Laboratory Results - last 24 hr 08/05/21 05:05: WBC 8.4, RBC 3.80 L, Hgb 12.1 L, Hct 36.4 L, MCV 95.8 H, MCH 31.8, MCHC 33.2, RDW Std Deviation 47.5 H, RDW Coeff of Enoch 13.5, Plt Count 260, MPV 10.3 08/05/21 05:05: Sodium 141, Potassium 4.1, Chloride 108 H, Carbon Dioxide 27.0, Anion Gap 6, BUN 32 H, Creatinine 0.80, Estim Creat Clear Calc 89.51, Est GFR (MDRD) Af Amer 127, Est GFR (MDRD) Non-Af 105, BUN/Creatinine Ratio 40.3 H, Glucose 105, Calcium 8.3 L, Total Bilirubin 0.70, AST 43 H, ALT 73 H, Alkaline Phosphatase 89, Total Protein 7.3, Albumin 2.1 L, Globulin 5.2 H, Albumin/Globulin Ratio 0.4 L Micro: Microbiology 08/01/21 15:50 Blood Culture (Wb) - Right Hand Blood Culture - Preliminary 08/01/21 17:09 Blood Culture (Wb) - Anticubital Left Blood Culture - Preliminary No growth in 48 hours. 08/01/21 18:00 Urine, Clean Catch Urine Culture - Final Mixed Gram Positive Organisms 08/02/21 03:00 Urine, Random Legionella Antigen - Final 08/02/21 03:00 Urine, Random Streptococcus pneumoniae Antigen (M - Final 08/01/21 21:25 Nasal Secretion SARS-CoV-2 Antigen (Rapid) - Final Physical Exam Const alert Resp normal respiratory effort, no retractions, no use of accessory muscles and clear to auscultation bilaterally Cardio regular rate, regular rhythm, S1 normal heart sound and S2 normal heart sound GI normal to inspection, nondistended, normoactive bowel sounds, soft to palpation, non-tender and non-distended Extremity normal to inspection Assessment & Plan Assessment/Plan (1) Pneumonia due to severe acute respiratory syndrome coronavirus 2 (SARS-CoV-2): (2) Respiratory failure: QUALIFIERS: Chronicity: acute Respiratory failure complication: hypoxia Qualified Code(s): J96.01 - Acute respiratory failure with hypoxia PLAN: 1. acute hypoxic respiratory failure * 2/2 COVID 19 * on Airvo. Wean as able * CCM consult * consider CTA if stable * encouraged pulmonary toileting. 2. acute COVID 19 * unvaccinated * onset 07/23, isolate through 08/11 * on dexamethasone through 08/10 * remdesivir completed 08/05 * baricitinib through or discharge, which ever comes first * on therapeutic enoxaparin * infectious disease on consult 3. Lactic acidosis * 2/2 hypoxia * resolved 4. RA * on hydrochloroquine 5. VTE prophylaxis: * not indicated as already anticoagulated. Charges/Coding Visit Charges Inpatient E&M: 00006 Subs Hosp L2
[2021-08-05] MEDS: MELATONIN 10 MG TABLET PO (21:05)
[2021-08-06] VITALS (35 sets, daily range): BP systolic 91–152; BP diastolic 61–97; PULSE 60–101; RESP 12–31; TEMP 36.2–36.8; O2SAT 84–97
--- NOTE | 2021-08-06 01:51 | PCS.PANDOC ---
PANDEMIC DOCUMENTATION INITIATED: Date: 06/20/2021 Time: 190
[2021-08-06 05:32] LABS: Hematocrit 38.1 % (40-54); Hemoglobin 12.6 g/dL (13.0-16.5); Mean Corp Hgb Conc 33.1 g/dL (32-36); Mean Corpuscular Hgb 31.7 pg (27.0-32.0); Mean Corpuscular Volume 95.7 fL (80-94); Mean Platelet Vol. 10.5 fl (6.2-12.0); Platelet Count 250 K/mm3 (150-450); RBC Distribution Width CV 13.4 % (11.6-14.6); RBC Distribution Width SD 47.5 fl (35.1-43.9); Red Blood Count 3.98 M/mm3 (4.6-6.2); White Blood Count 8.3 K/mm3 (4.4-11.0)
[2021-08-06 05:49] LABS: ALB/GLOB Ratio 0.4 RATIO (0.9-2.4); AST(SGOT) 28 U/L (15-37); Alanine Aminotransfer ALT/SGPT 66 U/L (16-61); Albumin, Serum 2.1 g/dL (3.2-5.0); Alkaline Phosphatase 92 U/L (45-117); Anion Gap 7 (5-15); BUN 26 mg/dL (7-18); BUN/Creat Ratio 33.9 RATIO (10-20); Calcium,Total 8.3 mg/dL (8.5-10.1); Chloride 104 mmol/L (98-107); Creatinine, Serum 0.77 mg/dL (0.70-1.30); EST Glomerular Filtration Rate 109 mL/min (>60); Est Glom Filt Rate - Afr Amer 132 mL/min (>60); Globulin 5.1 g/dL (2.2-4.2); Glucose 83 mg/dL (74-106); Potassium 4.1 mmol/L (3.5-5.1); Protein, Total 7.2 g/dL (6.4-8.2); Sodium Level 139 mmol/L (136-145)
[2021-08-06] MEDS: 0.9% Saline Lock 10 ML Syringe IV ×3 (06:47→21:03)
[2021-08-06] MEDS: Ipratropium/Albuterol Sulfate 3 ML AMPUL.NEB INHALATION ×2 (07:21→17:14)
--- NOTE | 2021-08-06 07:24 | PN.CC_ITS ---
Assessment & Plan Assessment/Plan (1) Pneumonia due to severe acute respiratory syndrome coronavirus 2 (SARS-CoV-2): (2) Respiratory failure: QUALIFIERS: Chronicity: acute Respiratory failure complication: hypoxia Qualified Code(s): J96.01 - Acute respiratory failure with hypoxia (3) Hyperlipidemia: PLAN: RECOMMENDATIONS: 1. Continue Decadron (08/10/2021) and baricitinib (08/15/2021) courses. Completed Remdesivir 2. Diuresis as tolerated 3. Continue hydroxychloroquine. Hold methotrexate 4. Agree with therapeutic anticoagulation 5. Encourage Acapella, incentive spirometer and prone positioning as tolerated 6. Transition to scheduled mucolytic 7. Okay to use BiPAP to facilitate therapy if necessary IMPRESSIONS: 1. Acute hypoxic respiratory failure secondary to COVID-19 Patient requiring significant high flow oxygen and BiPAP at 100% initially. Patient does appear to be stabilizing on the current therapy. Patient is receiving multiple therapies to help with clinical course. Remdesivir has been completed. Stop dates on other medications per recommendations. Patient initiated on bronchodilators given history of smoking. Patient would be at risk for COPD, but this cannot be confirmed at this time. Agree with therapeutic anticoagulation. Encourage prone positioning, but patient has not been able to tolerate at this point. Continue with aggressive pulmonary toileting and diuresis as tolerated. 2. Rheumatoid arthritis/unvaccinated state/overweight/hyperlipidemia /possible CAD Complicates care, management, recovery and prognosis. Okay to continue with hydroxychloroquine, but methotrexate may have more risks for secondary complications. Patient does have elevated protein in the urine but may be secondary to ATN versus early nephrotic syndrome. Renal function has improved indicating probable ATN on presentation. Will attempt to diurese today. Subjective Subjective Patient did okay overnight. No acute issues were reported. Patient does report some nasal congestion, but no epistaxis. Patient has not had any fevers overnight. No BiPAP rescue was required with sleep. Objective Data Objective Data Vital Signs: Vital Signs Temp Pulse Resp BP Pulse Ox 36.6 C 101 H 28 H 129/78 H 92 08/06/21 06:00 08/06/21 06:00 08/06/21 06:00 08/06/21 06:00 08/06/21 06:00 Oxygen Flow Rate (L/min) 55 Oxygen Delivery Method Airvo Weight: 83 kg Body Mass Index (BMI) 28.7 Intake & Output: Intake and Output for Last 24 Hours 08/04/21 08/05/21 08/06/21 23:59 23:59 23:59 Intake Total 1720 / 1720 1310 / 1310 150 / 150 Output Total 1550 / 1550 1700 / 1700 300 / 300 Balance 170 / 170 -390 / -390 -150 / -150 Lab / Micro Data Result Diagrams: 08/06/21 05:15 08/06/21 05:15 Labs: Laboratory Results - last 24 hr 08/06/21 05:15: WBC 8.3, RBC 3.98 L, Hgb 12.6 L, Hct 38.1 L, MCV 95.7 H, MCH 31.7, MCHC 33.1, RDW Std Deviation 47.5 H, RDW Coeff of Enoch 13.4, Plt Count 250, MPV 10.5 08/06/21 05:15: Sodium 139, Potassium 4.1, Chloride 104, Carbon Dioxide 28.0, Anion Gap 7, BUN 26 H, Creatinine 0.77, Estim Creat Clear Calc 93.00, Est GFR (MDRD) Af Amer 132, Est GFR (MDRD) Non-Af 109, BUN/Creatinine Ratio 33.9 H, Glucose 83, Calcium 8.3 L, Total Bilirubin 0.60, AST 28, ALT 66 H, Alkaline Phosphatase 92, Total Protein 7.2, Albumin 2.1 L, Globulin 5.1 H, Albumin/ Globulin Ratio 0.4 L Micro: Microbiology 08/05/21 11:30 Sputum, Expectorated/Coughed Gram Stain - Final 08/01/21 15:50 Blood Culture (Wb) - Right Hand Blood Culture - Preliminary 08/01/21 17:09 Blood Culture (Wb) - Anticubital Left Blood Culture - Preliminary No growth in 48 hours. 08/01/21 18:00 Urine, Clean Catch Urine Culture - Final Mixed Gram Positive Organisms 08/02/21 03:00 Urine, Random Legionella Antigen - Final 08/02/21 03:00 Urine, Random Streptococcus pneumoniae Antigen (M - Final 08/01/21 21:25 Nasal Secretion SARS-CoV-2 Antigen (Rapid) - Final Physical Exam Const alert, oriented x3 and no apparent distress Constitutional Narrative: Resting comfortably on Airvo therapy General Appearance: cooperative; Negative for in distress or anxious Exam Limitations: no limitations HEENT normocephalic and head/scalp atraumatic Eyes EOMs intact bilaterally Eyes Narrative: Slight scleral injection noted Neck supple and No nodes Lymph Lymphatic: no lymphadenopathy noted Chest inspection of chest normal Chest: symmetrical chest wall rise; Negative for crepitus Resp Auscultation: diminished lung sounds; Negative for rales, rhonchi or wheezes Cardio regular rate and regular rhythm GI normal to inspection, nondistended, normoactive bowel sounds Extremity no clubbing, cyanosis or edema Skin no rashes or lesions noted Neuro CN's II-XII intact bilaterally Psych Activity / Motor Behavior: restless Mood & Affect: anxious Charges/Coding Visit Charges Inpatient E&M: 75017 Subs Hosp L3
[2021-08-06] MEDS: Enoxaparin 80 MG/0.8 ML Syringe SC ×2 (08:26→21:02)
[2021-08-06] MEDS: Ascorbic Acid 500 MG Tablet 1000 MG PO (08:27)
[2021-08-06] MEDS: Furosemide 20 MG Tablet 60 MG PO ×2 (08:27→16:49)
[2021-08-06] MEDS: Losartan Potassium 25 MG Tablet PO (08:28)
[2021-08-06] MEDS: Hydroxychloroquine 200 MG Tablet PO ×2 (08:28→21:02)
[2021-08-06] MEDS: Folic Acid 1 MG Tablet PO (08:30)
[2021-08-06] MEDS: guaiFENesin 1,200 MG Tablet 1200 MG PO ×2 (08:30→21:02)
[2021-08-06] MEDS: Potassium Chloride Oral Tablet 20 MEQ PO (08:30)
[2021-08-06] MEDS: dexAMETHasone 10 MG/ML Vial 6 MG IV (08:31)
--- NOTE | 2021-08-06 12:26 | PN.HOSP_ITS ---
Subjective Subjective tolerating Airvo. Winded walking around the chair. Objective Data Objective Data Vital Signs: Vital Signs Temp Pulse Resp BP Pulse Ox 36.4 C L 96 27 H 92/67 92 08/06/21 08:00 08/06/21 11:00 08/06/21 11:00 08/06/21 11:00 08/06/21 11:00 Oxygen Flow Rate (L/min) 60 Oxygen Delivery Method Airvo Weight: 83 kg Body Mass Index (BMI) 28.7 Intake & Output: Intake and Output for Last 24 Hours 08/04/21 08/05/21 08/06/21 23:59 23:59 23:59 Intake Total 1720 / 1720 1310 / 1310 150 / 150 Output Total 1550 / 1550 1700 / 1700 750 / 750 Balance 170 / 170 -390 / -390 -600 / -600 Lab / Micro Data Result Diagrams: 08/06/21 05:15 08/06/21 05:15 Labs: Laboratory Results - last 24 hr 08/06/21 05:15: WBC 8.3, RBC 3.98 L, Hgb 12.6 L, Hct 38.1 L, MCV 95.7 H, MCH 31.7, MCHC 33.1, RDW Std Deviation 47.5 H, RDW Coeff of Enoch 13.4, Plt Count 250, MPV 10.5 08/06/21 05:15: Sodium 139, Potassium 4.1, Chloride 104, Carbon Dioxide 28.0, Anion Gap 7, BUN 26 H, Creatinine 0.77, Estim Creat Clear Calc 93.00, Est GFR (MDRD) Af Amer 132, Est GFR (MDRD) Non-Af 109, BUN/Creatinine Ratio 33.9 H, Glucose 83, Calcium 8.3 L, Total Bilirubin 0.60, AST 28, ALT 66 H, Alkaline Phosphatase 92, Total Protein 7.2, Albumin 2.1 L, Globulin 5.1 H, Albumin/Globulin Ratio 0.4 L Micro: Microbiology 08/05/21 11:30 Sputum, Expectorated/Coughed Gram Stain - Final 08/05/21 11:30 Sputum, Expectorated/Coughed Respiratory Culture - Preliminary Appears to be normal respiratory westley. Further studies to follow. 08/01/21 15:50 Blood Culture (Wb) - Right Hand Blood Culture - Preliminary 08/01/21 17:09 Blood Culture (Wb) - Anticubital Left Blood Culture - Preliminary No growth in 48 hours. 08/01/21 18:00 Urine, Clean Catch Urine Culture - Final Mixed Gram Positive Organisms 08/02/21 03:00 Urine, Random Legionella Antigen - Final 08/02/21 03:00 Urine, Random Streptococcus pneumoniae Antigen (M - Final 08/01/21 21:25 Nasal Secretion SARS-CoV-2 Antigen (Rapid) - Final Physical Exam Const alert and no apparent distress Constitutional Narrative: up in chair Resp normal respiratory effort, no retractions, no use of accessory muscles and clear to auscultation bilaterally Cardio regular rate, regular rhythm, S1 normal heart sound and S2 normal heart sound GI normal to inspection, nondistended, normoactive bowel sounds, soft to palpation, non-tender and non-distended Assessment & Plan Assessment/Plan (1) Pneumonia due to severe acute respiratory syndrome coronavirus 2 (SARS -CoV-2): (2) Respiratory failure: QUALIFIERS: Chronicity: acute Respiratory failure complication: hypoxia Qualified Code(s): J96.01 - Acute respiratory failure with hypoxia PLAN: 1. acute hypoxic respiratory failure * 2/2 COVID 19 * on Airvo. Wean as able * CCM consult * consider CTA if stable * encouraged pulmonary toileting. * on furosemide 2. acute COVID 19 * unvaccinated * onset 07/23, isolate through 08/11 * on dexamethasone through 08/10 * remdesivir completed 08/05 * baricitinib through or discharge, which ever comes first * on therapeutic enoxaparin * infectious disease on consult 3. Lactic acidosis * 2/2 hypoxia * resolved 4. RA * on hydrochloroquine 5. VTE prophylaxis: * not indicated as already anticoagulated. Charges/Coding Visit Charges Inpatient E&M: 98605 Subs Hosp L2
[2021-08-06] MEDS: CHLORHEXIDINE GLUC 2% CLOTH 1 EACH TOWELETTE TOPICAL (13:59)
[2021-08-06] MEDS: Sodium Chloride 0.65% 1 SPRAY SPRAY.BTL 2 SPRAY NASAL ×2 (16:46→21:01)
[2021-08-06] MEDS: MELATONIN 10 MG TABLET PO (21:02)
[2021-08-06] MEDS: Acetaminophen 325 MG Tablet 650 MG PO (21:02)
[2021-08-07] VITALS (36 sets, daily range): BP systolic 102–143; BP diastolic 66–97; PULSE 67–99; RESP 12–31; TEMP 36.4–37.1; O2SAT 80–98
[2021-08-07 03:58] LABS: Hematocrit 38.8 % (40-54); Hemoglobin 12.6 g/dL (13.0-16.5); Mean Corp Hgb Conc 32.5 g/dL (32-36); Mean Corpuscular Hgb 31.5 pg (27.0-32.0); Mean Platelet Vol. 10.6 fl (6.2-12.0); Platelet Count 243 K/mm3 (150-450); RBC Distribution Width CV 13.7 % (11.6-14.6); RBC Distribution Width SD 48.5 fl (35.1-43.9); White Blood Count 7.8 K/mm3 (4.4-11.0)
[2021-08-07 04:18] LABS: ALB/GLOB Ratio 0.4 RATIO (0.9-2.4); AST(SGOT) 20 U/L (15-37); Alanine Aminotransfer ALT/SGPT 52 U/L (16-61); Albumin, Serum 2.1 g/dL (3.2-5.0); Alkaline Phosphatase 86 U/L (45-117); Anion Gap 7 (5-15); BUN 27 mg/dL (7-18); BUN/Creat Ratio 32.6 RATIO (10-20); Calcium,Total 8.6 mg/dL (8.5-10.1); Chloride 105 mmol/L (98-107); Creatinine, Serum 0.83 mg/dL (0.70-1.30); EST Glomerular Filtration Rate 100 mL/min (>60); Est Glom Filt Rate - Afr Amer 121 mL/min (>60); Estimated Creatinine Clearance 86.28 ml/min; Globulin 5.3 g/dL (2.2-4.2); Glucose 102 mg/dL (74-106); Potassium 4.3 mmol/L (3.5-5.1); Protein, Total 7.4 g/dL (6.4-8.2); Sodium Level 138 mmol/L (136-145)
--- NOTE | 2021-08-07 06:19 | PCM.PN.INT ---
Assessment & Plan Assessment/Plan (1) Pneumonia due to severe acute respiratory syndrome coronavirus 2 (SARS-CoV-2): (2) Respiratory failure: QUALIFIERS: Chronicity: acute Respiratory failure complication: hypoxia Qualified Code(s): J96.01 - Acute respiratory failure with hypoxia (3) Hyperlipidemia: PLAN: RECOMMENDATIONS: 1. Continue Decadron (08/10/2021) and baricitinib (08/15/2021). Completed Remdesivir. 2. Diuresis as tolerated. 3. Continue hydroxychloroquine. Hold methotrexate 4. Continue therapeutic anticoagulation. 5. Awake prone positioning was encouraged. 6. Encourage incentive spirometer use and mobilize patient as tolerated. IMPRESSIONS: 1. Acute hypoxic respiratory failure secondary to COVID-19 pneumonia Although the patient's respiratory status is still tenuous, he is maintaining appropriate oxygen saturations on heated high flow, which will be continued to maintain saturations at or above 90%. The patient has already completed a treatment course of remdesivir. He will remain on Decadron and baricitinib as ordered. Plan to continue bronchodilator therapy. Therapeutic Lovenox will be continued twice daily as ordered. Awake prone positioning was encouraged. Diuretic therapy as tolerated to maintain euvolemic state. Mobilize patient as tolerated. 2. Rheumatoid arthritis/unvaccinated state/overweight/hyperlipidemia/possible CAD Complicates care, management, recovery and prognosis. Okay to continue with hydroxychloroquine, but methotrexate may have more risks for secondary complications. This note was generated with [employer] dictation software. It may contain incorrect words, spelling, and punctuation that were not noted in checking the note before signing. Subjective Subjective The patient was seen and examined at the bedside this morning. Events from the last 24 hours have been reviewed. The patient is currently afebrile, hemodynamically stable and maintaining appropriate oxygen saturations on Airvo heated high flow with an FiO2 requirement of 73% and flow rate of 60 L/min. The patient is currently documented to be overall net -2.4 L for the hospital admission. The patient remains on therapeutic Lovenox, Decadron and baricitinib. The patient continues to report the presence of shortness of breath with exertion. Objective Data Objective Data The patient's most recent lab work, culture data and imaging studies have all been personally reviewed. Vital Signs: Vital Signs Temp Pulse Resp BP Pulse Ox 97.8 F 72 23 H 126/82 H 90 08/07/21 04:00 08/07/21 06:00 08/07/21 06:00 08/07/21 06:00 08/07/21 06:00 Oxygen Flow Rate (L/min) 60 Oxygen Delivery Method Airvo Weight: 80 kg Body Mass Index (BMI) 28.7 Intake & Output: Intake and Output for Last 24 Hours 08/05/21 08/06/21 08/07/21 23:59 23:59 23:59 Intake Total 1310 / 1310 570 / 570 Output Total 1700 / 1700 1675 / 1675 275 / 275 Balance -390 / -390 -1105 / -1105 -275 / -275 Lab / Micro Data Attestation: I reviewed the patient's lab results. Result Diagrams: 08/07/21 03:40 08/07/21 03:40 Labs: Laboratory Results - last 24 hr 08/07/21 03:40: WBC 7.8, RBC 4.00 L, Hgb 12.6 L, Hct 38.8 L, MCV 97.0 H, MCH 31.5, MCHC 32.5, RDW Std Deviation 48.5 H, RDW Coeff of Enoch 13.7, Plt Count 243, MPV 10.6 08/07/21 03:40: Sodium 138, Potassium 4.3, Chloride 105, Carbon Dioxide 26.0, Anion Gap 7, BUN 27 H, Creatinine 0.83, Estim Creat Clear Calc 86.28, Est GFR (MDRD) Af Amer 121, Est GFR (MDRD) Non-Af 100, BUN/Creatinine Ratio 32.6 H, Glucose 102, Calcium 8.6, Total Bilirubin 0.70, AST 20, ALT 52, Alkaline Phosphatase 86, Total Protein 7.4, Albumin 2.1 L, Globulin 5.3 H, Albumin/Globulin Ratio 0.4 L Micro: Microbiology 08/01/21 15:50 Blood Culture (Wb) - Right Hand Blood Culture - Preliminary 08/05/21 11:30 Sputum, Expectorated/Coughed Gram Stain - Final 08/05/21 11:30 Sputum, Expectorated/Coughed Respiratory Culture - Preliminary Appears to be normal respiratory westley. Further studies to follow. 08/01/21 17:09 Blood Culture (Wb) - Anticubital Left Blood Culture - Preliminary No growth in 48 hours. 08/01/21 18:00 Urine, Clean Catch Urine Culture - Final Mixed Gram Positive Organisms 08/02/21 03:00 Urine, Random Legionella Antigen - Final 08/02/21 03:00 Urine, Random Streptococcus pneumoniae Antigen (M - Final 08/01/21 21:25 Nasal Secretion SARS-CoV-2 Antigen (Rapid) - Final Physical Exam Const alert and no apparent distress General Appearance: cooperative HEENT normocephalic and head/scalp atraumatic Eyes PERRL, EOMs intact bilaterally and conjunctivae normal Neck supple General: trachea midline Chest inspection of chest normal Resp Auscultation: diminished lung sounds; Negative for rales, rhonchi or wheezes Cardio regular rate and regular rhythm GI normal to inspection, nondistended, normoactive bowel sounds Extremity no clubbing, cyanosis or edema Skin no rashes or lesions noted Neuro moves all extremities and no focal motor deficits Psych cooperative and affect normal Charges/Coding Visit Charges Inpatient E&M: 61427 Subs Hosp L3
[2021-08-07] MEDS: Ipratropium/Albuterol Sulfate 3 ML AMPUL.NEB INHALATION ×3 (07:23→18:55)
[2021-08-07] MEDS: Ascorbic Acid 500 MG Tablet 1000 MG PO (10:13)
[2021-08-07] MEDS: Folic Acid 1 MG Tablet PO (10:14)
[2021-08-07] MEDS: Hydroxychloroquine 200 MG Tablet PO ×2 (10:14→21:41)
[2021-08-07] MEDS: guaiFENesin 1,200 MG Tablet 1200 MG PO ×2 (10:14→21:41)
[2021-08-07] MEDS: dexAMETHasone 10 MG/ML Vial 6 MG IV (10:15)
[2021-08-07] MEDS: Enoxaparin 80 MG/0.8 ML Syringe SC ×2 (10:15→21:40)
--- NOTE | 2021-08-07 12:07 | PN.HOSP_ITS ---
Subjective Subjective JAUREGUI with just standing. Objective Data Objective Data Vital Signs: Vital Signs Temp Pulse Resp BP Pulse Ox 37.0 C 89 30 H 114/73 93 08/07/21 08:00 08/07/21 11:00 08/07/21 11:00 08/07/21 11:00 08/07/21 11:00 Oxygen Flow Rate (L/min) 60 Oxygen Delivery Method Airvo Weight: 80 kg Body Mass Index (BMI) 28.7 Intake & Output: Intake and Output for Last 24 Hours 08/05/21 08/06/21 08/07/21 23:59 23:59 23:59 Intake Total 1310 / 1310 570 / 570 Output Total 1700 / 1700 1675 / 1675 275 / 275 Balance -390 / -390 -1105 / -1105 -275 / -275 Lab / Micro Data Result Diagrams: 08/07/21 03:40 08/07/21 03:40 Labs: Laboratory Results - last 24 hr 08/07/21 03:40: WBC 7.8, RBC 4.00 L, Hgb 12.6 L, Hct 38.8 L, MCV 97.0 H, MCH 31.5, MCHC 32.5, RDW Std Deviation 48.5 H, RDW Coeff of Enoch 13.7, Plt Count 243, MPV 10.6 08/07/21 03:40: Sodium 138, Potassium 4.3, Chloride 105, Carbon Dioxide 26.0, Anion Gap 7, BUN 27 H, Creatinine 0.83, Estim Creat Clear Calc 86.28, Est GFR (MDRD) Af Amer 121, Est GFR (MDRD) Non-Af 100, BUN/Creatinine Ratio 32.6 H, Glucose 102, Calcium 8.6, Total Bilirubin 0.70, AST 20, ALT 52, Alkaline Phosphatase 86, Total Protein 7.4, Albumin 2.1 L, Globulin 5.3 H, Albumin/Globulin Ratio 0.4 L Micro: Microbiology 08/01/21 17:09 Blood Culture (Wb) - Anticubital Left Blood Culture - Final No growth in 5 days. 08/01/21 15:50 Blood Culture (Wb) - Right Hand Blood Culture - Preliminary 08/05/21 11:30 Sputum, Expectorated/Coughed Gram Stain - Final 08/05/21 11:30 Sputum, Expectorated/Coughed Respiratory Culture - Preliminary Appears to be normal respiratory westley. Further studies to follow. 08/01/21 18:00 Urine, Clean Catch Urine Culture - Final Mixed Gram Positive Organisms 08/02/21 03:00 Urine, Random Legionella Antigen - Final 08/02/21 03:00 Urine, Random Streptococcus pneumoniae Antigen (M - Final 08/01/21 21:25 Nasal Secretion SARS-CoV-2 Antigen (Rapid) - Final Physical Exam Const alert and no apparent distress Resp normal respiratory effort, no retractions, no use of accessory muscles and clear to auscultation bilaterally Cardio regular rate, regular rhythm, S1 normal heart sound and S2 normal heart sound GI normal to inspection, nondistended, normoactive bowel sounds, non-tender and non-distended Extremity normal to inspection Psych Psych Narrative: flat affect Assessment & Plan Assessment/Plan (1) Pneumonia due to severe acute respiratory syndrome coronavirus 2 (SARS-CoV-2): (2) Respiratory failure: QUALIFIERS: Chronicity: acute Respiratory failure complication: hypoxia Qualified Code(s): J96.01 - Acute respiratory failure with hypoxia PLAN: 1. acute hypoxic respiratory failure * 2/2 COVID 19 * on Airvo. Wean as able * CCM consult * consider CTA if stable * encouraged pulmonary toileting. * on furosemide * SCx on 08/05 so far negative 2. acute COVID 19 * unvaccinated * onset 07/23, isolate through 08/11 * on dexamethasone through 08/10 * remdesivir completed 08/05 * baricitinib through or discharge, which ever comes first * on therapeutic enoxaparin * infectious disease on consult 3. Lactic acidosis * 2/2 hypoxia * resolved 4. RA * on hydrochloroquine 5. VTE prophylaxis: * not indicated as already anticoagulated. Charges/Coding Visit Charges Inpatient E&M: 22731 Subs Hosp L2
[2021-08-07] MEDS: 0.9% Saline Lock 10 ML Syringe IV (21:41)
[2021-08-07] MEDS: MELATONIN 10 MG TABLET PO (21:41)
[2021-08-07] MEDS: Acetaminophen 325 MG Tablet 650 MG PO (21:41)
[2021-08-07] MEDS: Sodium Chloride 0.65% 1 SPRAY SPRAY.BTL 2 SPRAY NASAL (21:49)
[2021-08-08] VITALS (36 sets, daily range): BP systolic 98–158; BP diastolic 63–93; PULSE 57–91; RESP 12–34; TEMP 36.2–37; O2SAT 83–98
[2021-08-08] MEDS: Ipratropium/Albuterol Sulfate 3 ML AMPUL.NEB INHALATION ×3 (06:54→19:25)
--- NOTE | 2021-08-08 07:16 | PCM.PN.INT ---
Assessment & Plan Assessment/Plan (1) Pneumonia due to severe acute respiratory syndrome coronavirus 2 (SARS-CoV-2): (2) Respiratory failure: QUALIFIERS: Chronicity: acute Respiratory failure complication: hypoxia Qualified Code(s): J96.01 - Acute respiratory failure with hypoxia (3) Hyperlipidemia: PLAN: RECOMMENDATIONS: 1. Continue Decadron (08/10/2021) and baricitinib (08/15/2021). Completed Remdesivir. 2. Diuresis as tolerated. 3. Continue hydroxychloroquine. Hold methotrexate 4. Continue therapeutic anticoagulation. 5. Awake prone positioning was encouraged. 6. Continue antimicrobials as ordered to complete treatment course. 7. Encourage incentive spirometer use and mobilize patient as tolerated. IMPRESSIONS: 1. Acute hypoxic respiratory failure secondary to COVID-19 and Haemophilus influenza pneumonia Although the patient's respiratory status is still tenuous, he is maintaining appropriate oxygen saturations on heated high flow, which will be continued to maintain saturations at or above 90%. The patient has already completed a treatment course of remdesivir. He will remain on Decadron and baricitinib as ordered. Plan to continue bronchodilator therapy. Therapeutic Lovenox will be continued twice daily as ordered. Awake prone positioning was encouraged. Diuretic therapy as tolerated to maintain euvolemic state. Mobilize patient as tolerated. Continue antimicrobials to complete 7-day treatment course. 2. Rheumatoid arthritis/unvaccinated state/overweight/hyperlipidemia/possible CAD Complicates care, management, recovery and prognosis. Okay to continue with hydroxychloroquine, but methotrexate may have more risks for secondary complications. This note was generated with [employer] dictation software. It may contain incorrect words, spelling, and punctuation that were not noted in checking the note before signing. Subjective Subjective The patient was seen and examined at the bedside this morning. Events from the last 24 hours have been reviewed. The patient is currently afebrile, hemodynamically stable and maintaining appropriate oxygen saturations on BiPAP currently with an FiO2 requirement of 60%. Prior to being placed on BiPAP for overnight support, the patient was on Airvo heated high flow throughout the day yesterday with an FiO2 of 93% and flow rate of 60 L/min. The patient is documented to be overall net -3.3 L for the hospital admission. The patient remains on therapeutic Lovenox, Decadron and baricitinib. Objective Data Objective Data The patient's most recent lab work, culture data and imaging studies have all been personally reviewed. Sputum culture was positive for 3+ Haemophilus influenza. Vital Signs: Vital Signs Temp Pulse Resp BP Pulse Ox 97.1 F L 62 20 H 130/81 H 92 08/08/21 04:00 08/08/21 07:00 08/08/21 07:00 08/08/21 07:00 08/08/21 07:00 Oxygen Flow Rate (L/min) 60 Oxygen Delivery Method Bi-pap Weight: 80.2 kg Body Mass Index (BMI) 28.7 Intake & Output: Intake and Output for Last 24 Hours 08/06/21 08/07/21 08/08/21 23:59 23:59 23:59 Intake Total 570 / 570 170 / 170 Output Total 1675 / 1675 1075 / 1075 300 / 300 Balance -1105 / -1105 -905 / -905 -300 / -300 Lab / Micro Data Attestation: I reviewed the patient's lab results. Result Diagrams: 08/08/21 04:20 08/08/21 04:20 Micro: Microbiology 08/01/21 15:50 Blood Culture (Wb) - Right Hand Blood Culture - Preliminary 08/05/21 11:30 Sputum, Expectorated/Coughed Gram Stain - Final 08/05/21 11:30 Sputum, Expectorated/Coughed Respiratory Culture - Final Haemophilus influenzae Mixed Nathalie 08/01/21 17:09 Blood Culture (Wb) - Anticubital Left Blood Culture - Final No growth in 5 days. 08/01/21 18:00 Urine, Clean Catch Urine Culture - Final Mixed Gram Positive Organisms 08/02/21 03:00 Urine, Random Legionella Antigen - Final 08/02/21 03:00 Urine, Random Streptococcus pneumoniae Antigen (M - Final 08/01/21 21:25 Nasal Secretion SARS-CoV-2 Antigen (Rapid) - Final Physical Exam Const alert and no apparent distress General Appearance: cooperative HEENT normocephalic and head/scalp atraumatic Eyes PERRL, EOMs intact bilaterally and conjunctivae normal Neck supple General: trachea midline Chest inspection of chest normal Resp Auscultation: diminished lung sounds; Negative for rales, rhonchi or wheezes Cardio regular rate and regular rhythm GI normal to inspection, nondistended, normoactive bowel sounds Extremity no clubbing, cyanosis or edema Skin no rashes or lesions noted Neuro moves all extremities and no focal motor deficits Psych cooperative and affect normal Charges/Coding Visit Charges Inpatient E&M: 30145 Subs Hosp L3
[2021-08-08 09:46] LABS: Absolute Lymphocyte Count 0.49 X10^3/uL (0.83-4.51); Basophil# 0.01 X10^3/uL; Basophil% 0.1 % (0-1); Hematocrit 34.9 % (40-54); Hemoglobin 11.3 g/dL (13.0-16.5); Lymphocyte # 0.49 X10^3/ul (0.83-4.51); Lymphocyte % 7.1 % (19-41); Mean Corp Hgb Conc 32.4 g/dL (32-36); Mean Corpuscular Hgb 31.7 pg (27.0-32.0); Mean Corpuscular Volume 97.8 fL (80-94); Mean Platelet Vol. 11.7 fl (6.2-12.0); Monocyte# 0.15 X10^3/uL; Monocyte% 2.2 % (0-10); NRBC Flagged by Analyzer 0 % (0-5); Neutrophil # 6.01 X10^3/uL (2.7-7.7); Neutrophil % 87.3 % (47-70); POSITIVE DIFFERENTIAL YES; POSITIVE MORPHOLOGY YES; Platelet Count 206 K/mm3 (150-450); RBC Distribution Width CV 13.5 % (11.6-14.6); RBC Distribution Width SD 48.1 fl (35.1-43.9); Red Blood Count 3.57 M/mm3 (4.6-6.2); White Blood Count 6.9 K/mm3 (4.4-11.0)
[2021-08-08 09:49] LABS: Differential Indicated SCAN CRITERIA MET
[2021-08-08 09:52] LABS: ALB/GLOB Ratio 0.4 RATIO (0.9-2.4); AST(SGOT) 17 U/L (15-37); Alanine Aminotransfer ALT/SGPT 40 U/L (16-61); Albumin, Serum 1.9 g/dL (3.2-5.0); Alkaline Phosphatase 80 U/L (45-117); Anion Gap 5 (5-15); BUN 21 mg/dL (7-18); BUN/Creat Ratio 31.6 RATIO (10-20); Calcium,Total 8.3 mg/dL (8.5-10.1); Chloride 105 mmol/L (98-107); Creatinine, Serum 0.66 mg/dL (0.70-1.30); EST Glomerular Filtration Rate 129 mL/min (>60); Est Glom Filt Rate - Afr Amer 156 mL/min (>60); Globulin 4.9 g/dL (2.2-4.2); Glucose 107 mg/dL (74-106); Potassium 4.5 mmol/L (3.5-5.1); Protein, Total 6.8 g/dL (6.4-8.2); Sodium Level 137 mmol/L (136-145)
[2021-08-08 10:10] LABS: Platelet Estimate ADEQUATE (ADEQ); Red Cell Morphology NORM C+C NORMAL (NORM C&C)
[2021-08-08] MEDS: guaiFENesin 1,200 MG Tablet 1200 MG PO ×2 (10:51→21:20)
[2021-08-08] MEDS: Ascorbic Acid 500 MG Tablet 1000 MG PO (10:52)
[2021-08-08] MEDS: Hydroxychloroquine 200 MG Tablet PO ×2 (10:52→21:20)
[2021-08-08] MEDS: Folic Acid 1 MG Tablet PO (10:53)
[2021-08-08] MEDS: dexAMETHasone 10 MG/ML Vial 6 MG IV (10:53)
[2021-08-08] MEDS: Losartan Potassium 25 MG Tablet PO (10:53)
[2021-08-08] MEDS: Enoxaparin 80 MG/0.8 ML Syringe SC ×2 (10:53→21:20)
[2021-08-08] MEDS: Furosemide 40 MG/4 ML Vial IV (10:53)
--- NOTE | 2021-08-08 12:27 | PN.HOSP_ITS ---
Subjective Subjective Placed on BiPAP overnight. Objective Data Objective Data Vital Signs: Vital Signs Temp Pulse Resp BP Pulse Ox 36.2 C L 91 29 H 130/81 H 90 08/08/21 04:00 08/08/21 11:25 08/08/21 11:25 08/08/21 07:00 08/08/21 11:25 Oxygen Flow Rate (L/min) 60 Oxygen Delivery Method Bi-pap Weight: 80.2 kg Body Mass Index (BMI) 28.7 Intake & Output: Intake and Output for Last 24 Hours 08/06/21 08/07/21 08/08/21 23:59 23:59 23:59 Intake Total 570 / 570 170 / 170 50 / 50 Output Total 1675 / 1675 1075 / 1075 600 / 600 Balance -1105 / -1105 -905 / -905 -550 / -550 Lab / Micro Data Result Diagrams: 08/08/21 04:20 08/08/21 04:20 Labs: Laboratory Results - last 24 hr 08/08/21 04:20: WBC 6.9, RBC 3.57 L, Hgb 11.3 L, Hct 34.9 L, MCV 97.8 H, MCH 31.7, MCHC 32.4, RDW Std Deviation 48.1 H, RDW Coeff of Enoch 13.5, Plt Count 206, MPV 11.7, Immature Gran % (Auto) 3.300 H, Neut % (Auto) 87.3 H, Lymph % (Auto) 7.1 L, [place] % (Auto) 2.2, Eos % (Auto) 0.0, Baso % (Auto) 0.1, Absolute Neuts (auto) 6.0, Absolute Lymphs (auto) 0.49 L, Nucleated RBC % 0, Platelet Estimate ADEQUATE, RBC Morphology NORM C+C 08/08/21 04:20: Sodium 137, Potassium 4.5, Chloride 105, Carbon Dioxide 27.0, Anion Gap 5, BUN 21 H, Creatinine 0.66 L, Estim Creat Clear Calc 108.50, Est GFR (MDRD) Af Amer 156, Est GFR (MDRD) Non-Af 129, BUN/Creatinine Ratio 31.6 H, Glucose 107 H, Calcium 8.3 L, Total Bilirubin 0.50, AST 17, ALT 40, Alkaline Phosphatase 80, Total Protein 6.8, Albumin 1.9 L, Globulin 4.9 H, Albumin/Globulin Ratio 0.4 L Micro: Microbiology 08/01/21 15:50 Blood Culture (Wb) - Right Hand Blood Culture - Preliminary 08/05/21 11:30 Sputum, Expectorated/Coughed Gram Stain - Final 08/05/21 11:30 Sputum, Expectorated/Coughed Respiratory Culture - Final Haemophilus influenzae Mixed Nathalie 08/01/21 17:09 Blood Culture (Wb) - Anticubital Left Blood Culture - Final No growth in 5 days. 08/01/21 18:00 Urine, Clean Catch Urine Culture - Final Mixed Gram Positive Organisms 08/02/21 03:00 Urine, Random Legionella Antigen - Final 08/02/21 03:00 Urine, Random Streptococcus pneumoniae Antigen (M - Final 08/01/21 21:25 Nasal Secretion SARS-CoV-2 Antigen (Rapid) - Final Physical Exam Const alert Resp normal respiratory effort and no retractions Resp Narrative: coarse breath sounds Cardio regular rate, regular rhythm, S1 normal heart sound and S2 normal heart sound GI normal to inspection, nondistended, normoactive bowel sounds, soft to palpation, non-tender and non-distended Assessment & Plan Assessment/Plan (1) Pneumonia due to severe acute respiratory syndrome coronavirus 2 (SARS-CoV-2): (2) Respiratory failure: QUALIFIERS: Chronicity: acute Respiratory failure complication: hypoxia Qualified Code(s): J96.01 - Acute respiratory failure with hypoxia PLAN: 1. acute hypoxic respiratory failure * 2/2 COVID 19 * back on BiPAP. * CCM consult * consider CTA if stable * encouraged pulmonary toileting. * furosemide * SCx on 08/05 so far negative 2. acute COVID 19 * unvaccinated * onset 07/23, isolate through 08/11 * on dexamethasone through 08/10 * remdesivir completed 08/05 * baricitinib through or discharge, which ever comes first * on therapeutic enoxaparin * infectious disease on consult 3. Lactic acidosis * 2/2 hypoxia * resolved 4. RA * on hydrochloroquine 5. VTE prophylaxis: * not indicated as already anticoagulated. Charges/Coding Visit Charges Inpatient E&M: 41292 Subs Hosp L2
--- NOTE | 2021-08-08 12:37 | CASEMGMT ---
SW participated in ICU rounds. SW called daughter, offered support. SW remains available should family have any supportive needs. ERIKA Preciado
--- NOTE | 2021-08-08 12:45 | PCM.PN.ID ---
Physical Exam Narrative Sleeping, no fever Const no apparent distress Resp Auscultation: diminished lung sounds Cardio regular rate and regular rhythm GI normal to inspection, nondistended, normoactive bowel sounds Skin no rashes or lesions noted ID ID: Route of nutrition/ use of supplements: [] Nutritional Intake: [] IV Site: [] Paulino Catheter: [] Assessment & Plan Assessment/Plan (1) Pneumonia due to severe acute respiratory syndrome coronavirus 2 (SARS-CoV-2): PLAN: Sx started 07/23, unvaccinated. Isolate for 20 days starting 07/23, ends 08/12. Recommend vaccine once out of hospital. On dex and completed remdesivir. On therapeutic lovenox. On baricitinib. O2 stable. Sputum with h flu, on ceftriaxone. Will follow (2) Respiratory failure: QUALIFIERS: Chronicity: acute Respiratory failure complication: hypoxia Qualified Code(s): J96.01 - Acute respiratory failure with hypoxia
[2021-08-09] VITALS (36 sets, daily range): BP systolic 88–126; BP diastolic 49–81; PULSE 62–99; RESP 12–29; TEMP 36.4–36.8; O2SAT 82–97
[2021-08-09 06:22] LABS: Absolute Neutrophil Count 7.1 X10^3/uL (2.0-7.7); Basophil# 0.05 X10^3/uL; Basophil% 0.6 % (0-1); Hematocrit 38.2 % (40-54); Hemoglobin 12.7 g/dL (13.0-16.5); Lymphocyte % 8.4 % (19-41); Mean Corp Hgb Conc 33.2 g/dL (32-36); Mean Corpuscular Hgb 31.8 pg (27.0-32.0); Mean Corpuscular Volume 95.7 fL (80-94); Mean Platelet Vol. 11.5 fl (6.2-12.0); Monocyte# 0.24 X10^3/uL; Monocyte% 2.9 % (0-10); NRBC Flagged by Analyzer 0 % (0-5); Neutrophil # 7.05 X10^3/uL (2.7-7.7); Neutrophil % 84.4 % (47-70); Platelet Count 258 K/mm3 (150-450); RBC Distribution Width CV 13.6 % (11.6-14.6); RBC Distribution Width SD 47.4 fl (35.1-43.9); Red Blood Count 3.99 M/mm3 (4.6-6.2); White Blood Count 8.4 K/mm3 (4.4-11.0)
--- NOTE | 2021-08-09 06:25 | PN.CC_ITS ---
Assessment & Plan Assessment/Plan (1) Pneumonia due to severe acute respiratory syndrome coronavirus 2 (SARS-CoV-2): (2) Respiratory failure: QUALIFIERS: Chronicity: acute Respiratory failure complication: hypoxia Qualified Code(s): J96.01 - Acute respiratory failure with hypoxia (3) Hyperlipidemia: PLAN: RECOMMENDATIONS: 1. Continue to wean FiO2 to maintain oxygen saturations at or above 90%. 2. Continue Decadron (08/10/2021) and baricitinib (08/15/2021). Completed Re mdesivir. 3. Diuresis as tolerated. Will give IV Lasix again today. 4. Continue hydroxychloroquine. Hold methotrexate 5. Continue therapeutic anticoagulation. 6. Awake prone positioning was encouraged. 7. Continue antimicrobials as ordered to complete treatment course. 8. Encourage incentive spirometer use and mobilize patient as tolerated. IMPRESSIONS: 1. Acute hypoxic respiratory failure secondary to COVID-19 and Haemophilus influenza pneumonia Although the patient's respiratory status is still tenuous, he is maintaining appropriate oxygen saturations on a combination of BiPAP and heated high flow, which will be continued to maintain saturations at or above 90%. The patient has already completed a treatment course of remdesivir. He will remain on Decadron and baricitinib as ordered. Plan to continue bronchodilator therapy. Therapeutic Lovenox will be continued twice daily as ordered. Awake prone positioning was encouraged. Diuretic therapy as tolerated to maintain euvolemic state. Mobilize patient as tolerated. Continue antimicrobials to complete 7- day treatment course. 2. Rheumatoid arthritis/unvaccinated state/overweight/hyperlipidemia/possible CAD Complicates care, management, recovery and prognosis. Okay to continue with hydroxychloroquine, but methotrexate may have more risks for secondary complications. This note was generated with [employer] dictation software. It may contain incorrect words, spelling, and punctuation that were not noted in checking the note before signing. Subjective Subjective The patient was seen and examined at the bedside this morning. Events from the last 24 hours have been reviewed. The patient is currently afebrile, hemodynamically stable and maintaining appropriate oxygen saturations on BiPAP currently with an FiO2 requirement of 70%. Prior to being placed on BiPAP for overnight support, the patient was on Airvo heated high flow throughout the day yesterday with an FiO2 of 93% and flow rate of 60 L/min. The patient is documented to be overall net -4.8 L for the hospital admission. The patient remains on therapeutic Lovenox, Decadron, baricitinib and antimicrobials. Objective Data Objective Data The patient's most recent lab work, culture data and imaging studies have all be en personally reviewed. Sputum culture was positive for 3+ Haemophilus influenza. Vital Signs: Vital Signs Temp Pulse Resp BP Pulse Ox 98.1 F 62 22 H 126/74 H 92 08/09/21 04:00 08/09/21 06:00 08/09/21 06:00 08/09/21 06:00 08/09/21 06:00 Oxygen Flow Rate (L/min) 60 Oxygen Delivery Method Bi-pap Weight: 77.655 kg Body Mass Index (BMI) 28.7 Intake & Output: Intake and Output for Last 24 Hours 08/07/21 08/08/21 08/09/21 23:59 23:59 23:59 Intake Total 170 / 170 50 / 50 360 / 360 Output Total 1075 / 1075 1800 / 1800 445 / 445 Balance -905 / -905 -1750 / -1750 -85 / -85 Lab / Micro Data Attestation: I reviewed the patient's lab results. Result Diagrams: 08/09/21 05:00 08/09/21 05:00 Labs: Laboratory Results - last 24 hr 08/08/21 04:20: WBC 6.9, RBC 3.57 L, Hgb 11.3 L, Hct 34.9 L, MCV 97.8 H, MCH 31.7, MCHC 32.4, RDW Std Deviation 48.1 H, RDW Coeff of Enoch 13.5, Plt Count 206, MPV 11.7, Immature Gran % (Auto) 3.300 H, Neut % (Auto) 87.3 H, Lymph % (Auto) 7.1 L, [place] % (Auto) 2.2, Eos % (Auto) 0.0, Baso % (Auto) 0.1, Absolute Neuts (auto) 6.0, Absolute Lymphs (auto) 0.49 L, Nucleated RBC % 0, Platelet Estimate ADEQUATE, RBC Morphology NORM C+C 08/08/21 04:20: Sodium 137, Potassium 4.5, Chloride 105, Carbon Dioxide 27.0, Anion Gap 5, BUN 21 H, Creatinine 0.66 L, Estim Creat Clear Calc 108.50, Est GFR (MDRD) Af Amer 156, Est GFR (MDRD) Non-Af 129, BUN/Creatinine Ratio 31.6 H, Glucose 107 H, Calcium 8.3 L, Total Bilirubin 0.50, AST 17, ALT 40, Alkaline Phosphatase 80, Total Protein 6.8, Albumin 1.9 L, Globulin 4.9 H, Albumin/Globulin Ratio 0.4 L 08/09/21 05:00: WBC 8.4, RBC 3.99 L, Hgb 12.7 L, Hct 38.2 L, MCV 95.7 H, MCH 31.8, MCHC 33.2, RDW Std Deviation 47.4 H, RDW Coeff of Enoch 13.6, Plt Count 258, MPV 11.5, Immature Gran % (Auto) 3.700 H, Neut % (Auto) 84.4 H, Lymph % (Auto) 8.4 L, [place] % (Auto) 2.9, Eos % (Auto) 0.0, Baso % (Auto) 0.6, Absolute Neuts (a uto) 7.1, Absolute Lymphs (auto) 0.70 L, Nucleated RBC % 0 Micro: Microbiology 08/01/21 15:50 Blood Culture (Wb) - Right Hand Blood Culture - Preliminary 08/05/21 11:30 Sputum, Expectorated/Coughed Gram Stain - Final 08/05/21 11:30 Sputum, Expectorated/Coughed Respiratory Culture - Final Haemophilus influenzae Mixed Nathalie 08/01/21 17:09 Blood Culture (Wb) - Anticubital Left Blood Culture - Final No growth in 5 days. 08/01/21 18:00 Urine, Clean Catch Urine Culture - Final Mixed Gram Positive Organisms 08/02/21 03:00 Urine, Random Legionella Antigen - Final 08/02/21 03:00 Urine, Random Streptococcus pneumoniae Antigen (M - Final 08/01/21 21:25 Nasal Secretion SARS-CoV-2 Antigen (Rapid) - Final Physical Exam Const alert and no apparent distress General Appearance: cooperative and on BiPAP HEENT normocephalic and head/scalp atraumatic Eyes PERRL, EOMs intact bilaterally and conjunctivae normal Neck supple General: trachea midline Chest inspection of chest normal Resp Auscultation: diminished lung sounds; Negative for rales, rhonchi or wheezes Cardio regular rate and regular rhythm GI normal to inspection, nondistended, normoactive bowel sounds Extremity no clubbing, cyanosis or edema Skin no rashes or lesions noted Neuro moves all extremities and no focal motor deficits Psych cooperative and affect normal Charges/Coding Visit Charges Inpatient E&M: 81313 Subs Hosp L3
[2021-08-09 06:30] LABS: Anion Gap 6 (5-15); BUN 24 mg/dL (7-18); BUN/Creat Ratio 29.8 RATIO (10-20); Calcium,Total 8.7 mg/dL (8.5-10.1); Chloride 101 mmol/L (98-107); EST Glomerular Filtration Rate 103 mL/min (>60); Est Glom Filt Rate - Afr Amer 125 mL/min (>60); Estimated Creatinine Clearance 89.51 ml/min; Glucose 92 mg/dL (74-106); Potassium 4.6 mmol/L (3.5-5.1); Sodium Level 136 mmol/L (136-145)
[2021-08-09] MEDS: Ipratropium/Albuterol Sulfate 3 ML AMPUL.NEB INHALATION ×3 (07:15→19:51)
[2021-08-09] MEDS: Furosemide 40 MG/4 ML Vial IV (08:19)
[2021-08-09] MEDS: 0.9% Saline Lock 10 ML Syringe IV (08:19)
[2021-08-09] MEDS: Enoxaparin 80 MG/0.8 ML Syringe SC ×2 (08:19→20:36)
[2021-08-09] MEDS: Losartan Potassium 25 MG Tablet PO (08:20)
[2021-08-09] MEDS: Folic Acid 1 MG Tablet PO (08:20)
[2021-08-09] MEDS: guaiFENesin 1,200 MG Tablet 1200 MG PO ×2 (08:20→20:37)
[2021-08-09] MEDS: Ascorbic Acid 500 MG Tablet 1000 MG PO (08:20)
[2021-08-09] MEDS: Hydroxychloroquine 200 MG Tablet PO ×2 (08:20→20:36)
[2021-08-09] MEDS: dexAMETHasone 10 MG/ML Vial 6 MG IV (08:21)
--- NOTE | 2021-08-09 12:48 | PN.HOSP_ITS ---
Subjective Subjective On Airvo. Tolerating Airvo. Gets short of breath with exertion. Objective Data Objective Data Vital Signs: Vital Signs Temp Pulse Resp BP Pulse Ox 36.4 C L 90 26 H 99/60 97 08/09/21 12:00 08/09/21 12:00 08/09/21 12:00 08/09/21 12:00 08/09/21 12:00 Oxygen Flow Rate (L/min) 60 Oxygen Delivery Method Airvo Weight: 77.655 kg Body Mass Index (BMI) 28.7 Intake & Output: Intake and Output for Last 24 Hours 08/07/21 08/08/21 08/09/21 23:59 23:59 23:59 Intake Total 170 / 170 50 / 50 830 / 830 Output Total 1075 / 1075 1800 / 1800 1020 / 1020 Balance -905 / -905 -1750 / -1750 -190 / -190 Lab / Micro Data Result Diagrams: 08/09/21 05:00 08/09/21 05:00 Labs: Laboratory Results - last 24 hr 08/09/21 05:00: WBC 8.4, RBC 3.99 L, Hgb 12.7 L, Hct 38.2 L, MCV 95.7 H, MCH 31.8, MCHC 33.2, RDW Std Deviation 47.4 H, RDW Coeff of Enoch 13.6, Plt Count 258, MPV 11.5, Immature Gran % (Auto) 3.700 H, Neut % (Auto) 84.4 H, Lymph % (Auto) 8.4 L, [place] % (Auto) 2.9, Eos % (Auto) 0.0, Baso % (Auto) 0.6, Absolute Neuts (a uto) 7.1, Absolute Lymphs (auto) 0.70 L, Nucleated RBC % 0 08/09/21 05:00: Sodium 136, Potassium 4.6, Chloride 101, Carbon Dioxide 29.0, Anion Gap 6, BUN 24 H, Creatinine 0.80, Estim Creat Clear Calc 89.51, Est GFR (MDRD) Af Amer 125, Est GFR (MDRD) Non-Af 103, BUN/Creatinine Ratio 29.8 H, Glucose 92, Calcium 8.7 Micro: Microbiology 08/01/21 15:50 Blood Culture (Wb) - Right Hand Blood Culture - Final Gram positive jeff 08/05/21 11:30 Sputum, Expectorated/Coughed Gram Stain - Final 08/05/21 11:30 Sputum, Expectorated/Coughed Respiratory Culture - Final Haemophilus influenzae Mixed Nathalie 08/01/21 17:09 Blood Culture (Wb) - Anticubital Left Blood Culture - Final No growth in 5 days. 08/01/21 18:00 Urine, Clean Catch Urine Culture - Final Mixed Gram Positive Organisms 08/02/21 03:00 Urine, Random Legionella Antigen - Final 08/02/21 03:00 Urine, Random Streptococcus pneumoniae Antigen (M - Final 08/01/21 21:25 Nasal Secretion SARS-CoV-2 Antigen (Rapid) - Final Physical Exam Narrative on commode with Arivo. Resp normal respiratory effort and no retractions Resp Narrative: coarse breath sounds. Cardio regular rate, regular rhythm, S1 normal heart sound and S2 normal heart sound GI normal to inspection, nondistended, normoactive bowel sounds, soft to palpation, non-tender and non-distended Extremity normal to inspection Neuro Sensorium / Orientation: awake and alert Assessment & Plan Assessment/Plan (1) Pneumonia due to severe acute respiratory syndrome coronavirus 2 (SARS-CoV-2): (2) Respiratory failure: QUALIFIERS: Chronicity: acute Respiratory failure complication: hypoxia Qualified Code(s): J96.01 - Acute respiratory failure with hypoxia PLAN: 1. acute hypoxic respiratory failure * 2/2 COVID 19 and Hflu pneumonia * alternating between BiPAP and Airvo. * CCM consult * consider CTA if stable * encouraged pulmonary toileting. * furosemide * SCx on 08/05 so far negative 2. acute COVID 19 * unvaccinated * onset 07/23, isolate through 08/11 * on dexamethasone through 08/10 * remdesivir completed 08/05 * baricitinib through or discharge, which ever comes first * on therapeutic enoxaparin * infectious disease on consult 3. H. flu pneumonia * on CTX * pulmonary toilet 4. Lactic acidosis * 2/2 hypoxia * resolved 5. RA * on hydrochloroquine 6. VTE prophylaxis: * not indicated as already anticoagulated. Charges/Coding Visit Charges Inpatient E&M: 97286 Subs Hosp L2
[2021-08-09] MEDS: CHLORHEXIDINE GLUC 2% CLOTH 1 EACH TOWELETTE TOPICAL (13:44)
[2021-08-09] MEDS: Acetaminophen 325 MG Tablet 650 MG PO (20:36)
[2021-08-09] MEDS: MELATONIN 10 MG TABLET PO (20:36)
[2021-08-10] VITALS (37 sets, daily range): BP systolic 87–125; BP diastolic 58–92; PULSE 61–100; RESP 12–37; TEMP 36.3–37; O2SAT 87–100
[2021-08-10] MEDS: Ipratropium/Albuterol Sulfate 3 ML AMPUL.NEB INHALATION ×3 (07:04→19:07)
--- NOTE | 2021-08-10 07:13 | PCM.PN.INT ---
Assessment & Plan Assessment/Plan (1) Pneumonia due to severe acute respiratory syndrome coronavirus 2 (SARS-CoV-2): (2) Respiratory failure: QUALIFIERS: Chronicity: acute Respiratory failure complication: hypoxia Qualified Code(s): J96.01 - Acute respiratory failure with hypoxia (3) Hyperlipidemia: PLAN: RECOMMENDATIONS: 1. Continue to wean FiO2 to maintain oxygen saturations at or above 90%. 2. Continue Decadron (08/10/2021) and baricitinib (08/15/2021). Completed Remdesivir. 3. Diuresis as tolerated. Will give IV Lasix again today. 4. Continue hydroxychloroquine. Hold methotrexate 5. Continue therapeutic anticoagulation. 6. Awake prone positioning was encouraged. 7. Continue antimicrobials as ordered to complete treatment course. 8. Encourage incentive spirometer use and mobilize patient as tolerated. IMPRESSIONS: 1. Acute hypoxic respiratory failure secondary to COVID-19 and Haemophilus influenza pneumonia Although the patient's respiratory status is still tenuous, he is maintaining appropriate oxygen saturations on a combination of BiPAP and heated high flow, which will be continued to maintain saturations at or above 90%. The patient has already completed a treatment course of remdesivir. He will remain on Decadron and baricitinib as ordered. Plan to continue bronchodilator therapy. Therapeutic Lovenox will be continued twice daily as ordered. Awake prone positioning was encouraged. Diuretic therapy as tolerated to maintain euvolemic state. Mobilize patient as tolerated. Continue antimicrobials to complete 7-day treatment course. 2. Rheumatoid arthritis/unvaccinated state/overweight/hyperlipidemia/possible CAD Complicates care, management, recovery and prognosis. Okay to continue with hydroxychloroquine, but methotrexate may have more risks for secondary complications. This note was generated with [employer] dictation software. It may contain incorrect words, spelling, and punctuation that were not noted in checking the note before signing. Subjective Subjective The patient was seen and examined at the bedside this morning. Events from the last 24 hours have been reviewed. The patient is currently afebrile, hemodynamically stable and maintaining appropriate oxygen saturations on Airvo heated high flow with an FiO2 requirement of 75% and flow rate of 60 L/min. The patient was maintained on BiPAP overnight with an FiO2 requirement of 65%. The patient is documented to be overall net -5.5 L for the hospital admission. The patient remains on therapeutic Lovenox, Decadron, baricitinib and antimicrobials. Objective Data Objective Data The patient's most recent lab work, culture data and imaging studies have all been personally reviewed. Sputum culture was positive for 3+ Haemophilus influenza. Vital Signs: Vital Signs Temp Pulse Resp BP Pulse Ox 98.6 F 71 19 H 122/79 H 92 08/10/21 04:00 08/10/21 07:06 08/10/21 07:06 08/10/21 07:00 08/10/21 07:00 Oxygen Flow Rate (L/min) 60 Oxygen Delivery Method Airvo Weight: 77.337 kg Body Mass Index (BMI) 28.7 Intake & Output: Intake and Output for Last 24 Hours 08/08/21 08/09/21 08/10/21 23:59 23:59 23:59 Intake Total 50 / 50 1110 / 1110 120 / 120 Output Total 1800 / 1800 1670 / 1670 280 / 280 Balance -1750 / -1750 -560 / -560 -160 / -160 Medical Nutrition Assessment Dietitian: Malnutrition Criteria Met Start: 08/09/21 13:29 Freq: Status: Active Protocol: Document 08/09/21 13:29 RMA (Rec: 08/09/21 13:29 RMA [id number]) Nutrition Malnutrition Evidence of Malnutrition Exists Yes Malnutrition (severe): Acute Illness/Injury Evidenced By Suboptimal Energy Intake ( Severe),Weight Loss (Severe) Intake Problem Inadequate Oral Intake Etiology r/t resp. failure and increased oxygen needs Signs/Symptoms as evidenced by estimated PO intake meeting ~50-75% of estimated nutritional needs, 50% intake at meals and need for oral nutrition supplement, currently NPO Status Active Problem Clinical Problem Acute Disease or Injury Related Malnutrition Etiology Severe protein/calorie malnutrition in the context of acute illness related to inadequate oral intake and inability to meet estimated nutrition needs by mouth Signs/Symptoms as evidenced by ~6% wt loss since admit x 8 days and PO meeting less than 50% estimated nutrition needs. Status Active Problem Recommendation Dietitian Recommendations/Changes Cardiac diet as ordered and will add ensure compact TID w/ meals. Liberalize diet to regular as indicated. Lab / Micro Data Attestation: I reviewed the patient's lab results. Result Diagrams: 08/09/21 05:00 08/09/21 05:00 Micro: Microbiology 08/01/21 15:50 Blood Culture (Wb) - Right Hand Blood Culture - Final Gram positive jfef 08/05/21 11:30 Sputum, Expectorated/Coughed Gram Stain - Final 08/05/21 11:30 Sputum, Expectorated/Coughed Respiratory Culture - Final Haemophilus influenzae Mixed Nathalie 08/01/21 17:09 Blood Culture (Wb) - Anticubital Left Blood Culture - Final No growth in 5 days. 08/01/21 18:00 Urine, Clean Catch Urine Culture - Final Mixed Gram Positive Organisms 08/02/21 03:00 Urine, Random Legionella Antigen - Final 08/02/21 03:00 Urine, Random Streptococcus pneumoniae Antigen (M - Final 08/01/21 21:25 Nasal Secretion SARS-CoV-2 Antigen (Rapid) - Final Physical Exam Const alert and no apparent distress General Appearance: cooperative HEENT normocephalic and head/scalp atraumatic Eyes PERRL, EOMs intact bilaterally and conjunctivae normal Neck supple General: trachea midline Chest inspection of chest normal Resp Effort and Inspection: tachypneic Auscultation: diminished lung sounds; Negative for rales, rhonchi or wheezes Cardio regular rate and regular rhythm GI normal to inspection, nondistended, normoactive bowel sounds Extremity no clubbing, cyanosis or edema Skin no rashes or lesions noted Neuro moves all extremities and no focal motor deficits Psych cooperative and affect normal Charges/Coding Visit Charges Inpatient E&M: 16309 [facility] Hosp L3
[2021-08-10] MEDS: 0.9% Saline Lock 10 ML Syringe IV (08:46)
[2021-08-10] MEDS: Furosemide 40 MG/4 ML Vial IV (08:46)
[2021-08-10] MEDS: Folic Acid 1 MG Tablet PO (08:47)
[2021-08-10] MEDS: Losartan Potassium 25 MG Tablet PO (08:47)
[2021-08-10] MEDS: Ascorbic Acid 500 MG Tablet 1000 MG PO (08:47)
[2021-08-10] MEDS: Enoxaparin 80 MG/0.8 ML Syringe SC ×2 (08:47→20:48)
[2021-08-10] MEDS: guaiFENesin 1,200 MG Tablet 1200 MG PO ×2 (08:48→20:49)
[2021-08-10] MEDS: dexAMETHasone 10 MG/ML Vial 6 MG IV (08:48)
[2021-08-10] MEDS: Hydroxychloroquine 200 MG Tablet PO ×2 (08:48→20:49)
--- NOTE | 2021-08-10 13:53 | PCM.PN.HOSP ---
Subjective Subjective Patient is on FiO2 75% and on BiPAP at night. Patient is short of breath. Objective Data Objective Data Vital Signs: Vital Signs Temp Pulse Resp BP Pulse Ox 97.8 F 100 20 H 93/64 95 08/10/21 12:00 08/10/21 12:00 08/10/21 12:00 08/10/21 12:00 08/10/21 12:00 Oxygen Flow Rate (L/min) 70 Oxygen Delivery Method Airvo Weight: 170 lb 8 oz Body Mass Index (BMI) 28.7 Intake & Output: Intake and Output for Last 24 Hours 08/08/21 08/09/21 08/10/21 23:59 23:59 23:59 Intake Total 50 / 50 1110 / 1110 410 / 410 Output Total 1800 / 1800 1670 / 1670 730 / 730 Balance -1750 / -1750 -560 / -560 -320 / -320 Medical Nutrition Assessment Dietitian: Malnutrition Criteria Met Start: 08/09/21 13:29 Freq: Status: Active Protocol: Document 08/10/21 11:08 (Rec: 08/10/21 11:08 [id number]) Nutrition Malnutrition Evidence of Malnutrition Exists Yes Malnutrition (severe): Acute Illness/Injury Evidenced By Suboptimal Energy Intake ( Severe),Weight Loss (Severe) Intake Problem Inadequate Oral Intake Etiology r/t resp. failure and increased oxygen needs Signs/Symptoms as evidenced by estimated PO intake meeting ~50-75% of estimated nutritional needs, 50% intake at meals Status Active Problem Clinical Problem Acute Disease or Injury Related Malnutrition Etiology Severe protein/calorie malnutrition in the context of acute illness related to inadequate oral intake and inability to meet estimated nutrition needs Signs/Symptoms as evidenced by ~6% wt loss since admit x 8 days and PO meeting less than 50% estimated nutrition needs > 1 week Status Active Problem Recommendation Dietitian Recommendations/Changes Will change to regular diet given acute malnutrition; continue 4 oz ensure compact TID w/ meals for additional calories/protein if consumed. Lab / Micro Data Result Diagrams: 08/09/21 05:00 08/09/21 05:00 Micro: Microbiology 08/01/21 15:50 Blood Culture (Wb) - Right Hand Blood Culture - Final Gram positive jeff 08/05/21 11:30 Sputum, Expectorated/Coughed Gram Stain - Final 08/05/21 11:30 Sputum, Expectorated/Coughed Respiratory Culture - Final Haemophilus influenzae Mixed Nathalie 08/01/21 17:09 Blood Culture (Wb) - Anticubital Left Blood Culture - Final No growth in 5 days. 08/01/21 18:00 Urine, Clean Catch Urine Culture - Final Mixed Gram Positive Organisms 08/02/21 03:00 Urine, Random Legionella Antigen - Final 08/02/21 03:00 Urine, Random Streptococcus pneumoniae Antigen (M - Final 08/01/21 21:25 Nasal Secretion SARS-CoV-2 Antigen (Rapid) - Final Physical Exam Narrative General: Alert, Oriented x3, Cooperative HEENT: Atraumatic, PERRLA, EOMI, Normocephalic Oral: No Gingival or Mucosal Lesions/ Ulcerations Neck: Supple, No JVD, Negative Carotid Bruits Lungs: Air entry diminished in bilateral lung bases. Bilateral coarse crepitations. On NIPPV Cardiovascular: Regular rate, Regular Rhythm, Normal S1, Normal S2, No murmurs Abdomen: Bowel Sounds Present, Soft, Non Tender, Non-Distended : No renal angle tenderness. No suprapubic tenderness. Extremities: No edema, Capillary Refill Less than 3 Seconds Skin: No rashes, No breakdown Musculoskeletal: No Tenderness to Palpation of Joints or Extremities Neurological: Cranial nerves II-XII grossly intact, DTR 2+/4 and Symmetrical, Neuro grossly intact Psych/Mental Status: Flat affect. Assessment & Plan Assessment/Plan (1) Pneumonia due to severe acute respiratory syndrome coronavirus 2 (SARS-CoV-2): (2) Respiratory failure: QUALIFIERS: Chronicity: acute Respiratory failure complication: hypoxia Qualified Code(s): J96.01 - Acute respiratory failure with hypoxia PLAN: 1. acute hypoxic respiratory failure secondary to bilateral COVID-19 and Haemophilus influenzae pneumonia: Patient is being admitted in ICU. Field Coordinator on board. On alternate BiPAP and narrow. On diuretic as needed and as per tolerated. On therapeutic anticoagulation. Bronchopulmonary hygiene with prone positioning. Blood culture was positive of gram-positive rods possible skin contamination. Sputum culture shows 3+ Haemophilus influenzae. 2. acute COVID 19 bilateral pneumonia: Patient completed remdesivir on 08/05. On dexamethasone through 08/10. Covid isolation control 08/05. Patient is unvaccinated. ID has been consulted. 3. H. flu pneumonia: On IV ceftriaxone. Rest as mentioned above t 4. Lactic acidosis secondary to severe hypoxia: Resolved. 5. RA on hydrochloroquine. Methotrexate on hold 6. VTE prophylaxis: not indicated as already anticoagulated. Active Medications Acetaminophen (Acetaminophen 325 Mg Tablet) 650 mg PO Q6H PRN PRN PRN Reason: Pain Score 1-10/Temp > 100.7 F Last Admin: 08/09/21 20:36 Dose: 650 mg Documented by: Al Hydroxide/Mg Hydroxide (Mag Hydrox/Al Hydrox/Simeth 30 Ml Udc) 30 ml PO Q6H PRN PRN PRN Reason: Gastric Burning Albuterol/Ipratropium (Ipratropium/Albuterol Sulfate 3 Ml Ampul.Neb) 3 ml INHALATION Q6HWA.RT [facility] Last Admin: 08/10/21 14:00 Dose: 3 ml Documented by: Ascorbic Acid (Ascorbic Acid 500 Mg Tablet) 1,000 mg PO BREAKFAST [facility] Last Admin: 08/10/21 08:47 Dose: 1,000 mg Documented by: Baricitinib (Baricitinib 2 Mg Tablet) 4 mg PO DAILY [facility] Stop: 08/15/21 10:01 Last Admin: 08/10/21 08:47 Dose: 4 mg Documented by: Chlorhexidine Gluconate (Chlorhexidine Gluc 2% Cloth 1 Each Towelette) 1 each TOPICAL DAILY [facility] Last Admin: 08/09/21 13:44 Dose: 1 each Documented by: Enoxaparin Sodium (Enoxaparin 80 Mg/0.8 Ml Syringe) 80 mg SC BID [facility] Last Admin: 08/10/21 08:47 Dose: 80 mg Documented by: Folic Acid (Folic Acid 1 Mg Tablet) 1 mg PO BREAKFAST [facility] Last Admin: 08/10/21 08:47 Dose: 1 mg Documented by: Guaifenesin (Guaifenesin 1,200 Mg Tablet) 1,200 mg PO BID [facility] Last Admin: 08/10/21 08:48 Dose: 1,200 mg Documented by: Hydroxychloroquine Sulfate (Hydroxychloroquine 200 Mg Tablet) 200 mg PO BID [facility] Last Admin: 08/10/21 08:48 Dose: 200 mg Documented by: Sodium Chloride () 250 mls @ 15 mls/hr IV .[id number] PRN PRN Reason: Saline Flush Ceftriaxone Sodium 2 gm/ (Sodium Chloride) 50 mls @ 100 mls/hr IV Q24 [facility] Stop: 08/13/21 10:01 Last Infusion: 08/10/21 09:21 Dose: Infused Documented by: Losartan Potassium (Losartan Potassium 25 Mg Tablet) 25 mg PO DAILY [facility] Last Admin: 08/10/21 08:47 Dose: 25 mg Documented by: Melatonin (Melatonin 10 Mg Tablet) 10 mg PO QHS PRN PRN PRN Reason: SLEEP Last Admin: 08/09/21 20:36 Dose: 10 mg Documented by: Ondansetron HCl (Ondansetron 4 Mg/2 Ml Vial) 4 mg IV Q8H PRN PRN PRN Reason: NAUSEA/VOMITING Senna/Docusate Sodium (Senna/Docusate Sodium 1 Tablet) 2 tablet PO BID PRN PRN PRN Reason: CONSTIPATION Sodium Chloride (0.9% Saline Lock 10 Ml Syringe) 10 - 40 ml IV UD PRN PRN Reason: SALINE FLUSH Last Admin: 08/10/21 08:46 Dose: 20 ml Documented by: Sodium Chloride (Sodium Chloride 0.65% 1 [place].Btl) 2 spray NASAL TID PRN PRN PRN Reason: NASAL DRYNESS Last Admin: 08/07/21 21:49 Dose: 2 spray Documented by: Zinc Sulfate (Zinc Sulfate (50mg Elemental) 220 Mg Capsule) 220 mg PO TID [facility] Last Admin: 08/10/21 05:18 Dose: 220 mg Documented by: Charges/Coding Visit Charges Inpatient E&M: [id number] [facility] Hosp L3
[2021-08-11] VITALS (38 sets, daily range): BP systolic 88–123; BP diastolic 56–87; PULSE 63–104; RESP 12–32; TEMP 36.1–36.8; O2SAT 86–99
--- NOTE | 2021-08-11 06:31 | PN.CC_ITS ---
Assessment & Plan Assessment/Plan (1) Pneumonia due to severe acute respiratory syndrome coronavirus 2 (SARS-CoV-2): (2) Respiratory failure: QUALIFIERS: Chronicity: acute Respiratory failure complication: hypoxia Qualified Code(s): J96.01 - Acute respiratory failure with hypoxia (3) Hyperlipidemia: PLAN: RECOMMENDATIONS: 1. Continue to wean FiO2 to maintain oxygen saturations at or above 90%. 2. Continue baricitinib (08/15/2021). Completed Remdesivir and decadron. 3. Diuresis as tolerated. 4. Continue hydroxychloroquine. Hold methotrexate 5. Continue therapeutic anticoagulation. 6. Awake prone positioning was encouraged. 7. Continue antimicrobials as ordered to complete treatment course. 8. Encourage incentive spirometer use and mobilize patient as tolerated. IMPRESSIONS: 1. Acute hypoxic respiratory failure secondary to COVID-19 and Haemophilus influenza pneumonia Although the patient's respiratory status is still tenuous, he is maintaining appropriate oxygen saturations on a combination of BiPAP and heated high flow, which will be continued to maintain saturations at or above 90%. The patient has already completed a treatment course of remdesivir and decadron. He will remain on baricitinib as ordered. Plan to continue bronchodilator therapy. Therapeutic Lovenox will be continued twice daily as ordered. Awake prone positioning was encouraged. Diuretic therapy as tolerated to maintain euvolemic state. Mobilize patient as tolerated. Continue antimicrobials to complete 7- day treatment course. 2. Rheumatoid arthritis/unvaccinated state/overweight/hyperlipidemia/possible CAD Complicates care, management, recovery and prognosis. Okay to continue with hydroxychloroquine, but methotrexate may have more risks for secondary complications. This note was generated with [employer] dictation software. It may contain incorrect words, spelling, and punctuation that were not noted in checking the note before signing. Subjective Subjective The patient was seen and examined at the bedside this morning. Events from the last 24 hours have been reviewed. The patient is currently afebrile, hemodynamically stable and maintaining appropriate oxygen saturations on Airvo heated high flow with an FiO2 requirement of 77% and flow rate of 60 L/min. The patient was maintained on BiPAP overnight with an FiO2 requirement of 60%. The patient is documented to be overall net -6.3 L for the hospital admission. The patient remains on therapeutic Lovenox, baricitinib and antimicrobials. He has completed a treatment course of Decadron. Objective Data Objective Data The patient's most recent lab work, culture data and imaging studies have all been personally reviewed. Sputum culture was positive for 3+ Haemophilus influenza. Vital Signs: Vital Signs Temp Pulse Resp BP Pulse Ox 96.9 F L 69 22 H 113/76 96 08/11/21 00:00 08/11/21 06:00 08/11/21 06:00 08/11/21 06:00 08/11/21 06:00 Oxygen Flow Rate (L/min) 60 Oxygen Delivery Method Airvo Weight: 78.5 kg Body Mass Index (BMI) 28.7 Intake & Output: Intake and Output for Last 24 Hours 08/09/21 08/10/21 08/11/21 23:59 23:59 23:59 Intake Total 1110 / 1110 730 / 730 Output Total 1670 / 1670 1080 / 1480 600 / 600 Balance -560 / -560 -350 / -750 -600 / -600 Medical Nutrition Assessment Dietitian: Malnutrition Criteria Met Start: 08/09/21 13:29 Freq: Status: Active Protocol: Document 08/10/21 11:08 AG (Rec: 08/10/21 11:08 [id number]) Nutrition Malnutrition Evidence of Malnutrition Exists Yes Malnutrition (severe): Acute Illness/Injury Evidenced By Suboptimal Energy Intake ( Severe),Weight Loss (Severe) Intake Problem Inadequate Oral Intake Etiology r/t resp. failure and increased oxygen needs Signs/Symptoms as evidenced by estimated PO intake meeting ~50-75% of estimated nutritional needs, 50% intake at meals Status Active Problem Clinical Problem Acute Disease or Injury Related Malnutrition Etiology Severe protein/calorie malnutrition in the context of acute illness related to inadequate oral intake and inability to meet estimated nutrition needs Signs/Symptoms as evidenced by ~6% wt loss since admit x 8 days and PO meeting less than 50% estimated nutrition needs > 1 week Status Active Problem Recommendation Dietitian Recommendations/Changes Will change to regular diet given acute malnutrition; continue 4 oz ensure compact TID w/ meals for additional calories/protein if consumed. Lab / Micro Data Attestation: I reviewed the patient's lab results. Result Diagrams: 08/11/21 04:58 08/11/21 04:58 Micro: Microbiology 08/01/21 15:50 Blood Culture (Wb) - Right Hand Blood Culture - Final Gram positive jeff 08/05/21 11:30 Sputum, Expectorated/Coughed Gram Stain - Final 08/05/21 11:30 Sputum, Expectorated/Coughed Respiratory Culture - Final Haemophilus influenzae Mixed Nathalie 08/01/21 17:09 Blood Culture (Wb) - Anticubital Left Blood Culture - Final No growth in 5 days. 08/01/21 18:00 Urine, Clean Catch Urine Culture - Final Mixed Gram Positive Organisms 08/02/21 03:00 Urine, Random Legionella Antigen - Final 08/02/21 03:00 Urine, Random Streptococcus pneumoniae Antigen (M - Final 08/01/21 21:25 Nasal Secretion SARS-CoV-2 Antigen (Rapid) - Final Physical Exam Const alert and no apparent distress Constitutional Narrative: Sitting in bedside recliner. General Appearance: cooperative and on BiPAP HEENT normocephalic and head/scalp atraumatic Eyes PERRL, EOMs intact bilaterally and conjunctivae normal Neck supple General: trachea midline Chest inspection of chest normal Resp Effort and Inspection: tachypneic Auscultation: diminished lung sounds; Negative for rales, rhonchi or wheezes Cardio regular rate and regular rhythm GI normal to inspection, nondistended, normoactive bowel sounds Extremity no clubbing, cyanosis or edema Skin no rashes or lesions noted Neuro moves all extremities and no focal motor deficits Psych cooperative and affect normal Charges/Coding Visit Charges Inpatient E&M: [id number] [facility] Hosp L3
[2021-08-11 06:53] LABS: Absolute Lymphocyte Count 1.08 X10^3/uL (0.83-4.51); Absolute Neutrophil Count 10.5 X10^3/uL (2.0-7.7); Basophil# 0.09 X10^3/uL; Basophil% 0.7 % (0-1); Hematocrit 38.9 % (40-54); Hemoglobin 12.6 g/dL (13.0-16.5); Lymphocyte # 1.08 X10^3/ul (0.83-4.51); Lymphocyte % 8.5 % (19-41); Mean Corp Hgb Conc 32.4 g/dL (32-36); Mean Corpuscular Hgb 31.3 pg (27.0-32.0); Mean Corpuscular Volume 96.5 fL (80-94); Mean Platelet Vol. 11.9 fl (6.2-12.0); Monocyte# 0.48 X10^3/uL; Monocyte% 3.8 % (0-10); NRBC Flagged by Analyzer 0 % (0-5); Neutrophil # 10.52 X10^3/uL (2.7-7.7); Neutrophil % 82.8 % (47-70); Platelet Count 228 K/mm3 (150-450); RBC Distribution Width CV 13.7 % (11.6-14.6); RBC Distribution Width SD 48.6 fl (35.1-43.9); Red Blood Count 4.03 M/mm3 (4.6-6.2); White Blood Count 12.7 K/mm3 (4.4-11.0)
[2021-08-11 07:05] LABS: ALB/GLOB Ratio 0.4 RATIO (0.9-2.4); AST(SGOT) 29 U/L (15-37); Alanine Aminotransfer ALT/SGPT 74 U/L (16-61); Albumin, Serum 2.1 g/dL (3.2-5.0); Alkaline Phosphatase 107 U/L (45-117); Anion Gap 6 (5-15); BUN 34 mg/dL (7-18); BUN/Creat Ratio 42.1 RATIO (10-20); Calcium,Total 8.6 mg/dL (8.5-10.1); Chloride 102 mmol/L (98-107); Creatinine, Serum 0.81 mg/dL (0.70-1.30); EST Glomerular Filtration Rate 103 mL/min (>60); Est Glom Filt Rate - Afr Amer 124 mL/min (>60); Estimated Creatinine Clearance 88.41 ml/min; Globulin 5.3 g/dL (2.2-4.2); Glucose 88 mg/dL (74-106); Potassium 4.5 mmol/L (3.5-5.1); Protein, Total 7.4 g/dL (6.4-8.2); Sodium Level 137 mmol/L (136-145)
[2021-08-11] MEDS: Ipratropium/Albuterol Sulfate 3 ML AMPUL.NEB INHALATION ×3 (07:10→19:06)
[2021-08-11] MEDS: Enoxaparin 80 MG/0.8 ML Syringe SC ×2 (08:28→20:34)
[2021-08-11] MEDS: Hydroxychloroquine 200 MG Tablet PO ×2 (08:29→20:33)
[2021-08-11] MEDS: Losartan Potassium 25 MG Tablet PO (08:29)
[2021-08-11] MEDS: Ascorbic Acid 500 MG Tablet 1000 MG PO (08:29)
[2021-08-11] MEDS: guaiFENesin 1,200 MG Tablet 1200 MG PO ×2 (08:29→20:34)
[2021-08-11] MEDS: Folic Acid 1 MG Tablet PO (08:29)
[2021-08-11] MEDS: 0.9% Saline Lock 10 ML Syringe IV ×3 (08:30→20:34)
[2021-08-11] MEDS: Furosemide 40 MG/4 ML Vial IV (09:17)
--- NOTE | 2021-08-11 09:33 | PN.HOSP_ITS ---
Subjective Subjective Afebrile. Tachypneic. States mild worsening of shortness of breath since yesterday. Objective Data Objective Data Vital Signs: Vital Signs Temp Pulse Resp BP Pulse Ox 97 F L 90 28 H 101/67 90 08/11/21 08:00 08/11/21 09:00 08/11/21 09:00 08/11/21 09:00 08/11/21 09:00 Oxygen Flow Rate (L/min) 60 Oxygen Delivery Method Airvo Weight: 173 lb 1.006 oz Body Mass Index (BMI) 28.7 Intake & Output: Intake and Output for Last 24 Hours 08/09/21 08/10/21 08/11/21 23:59 23:59 23:59 Intake Total 1110 / 1110 730 / 730 50 / 50 Output Total 1670 / 1670 1080 / 1480 600 / 600 Balance -560 / -560 -350 / -750 -550 / -550 Medical Nutrition Assessment Dietitian: Malnutrition Criteria Met Start: 08/09/21 13:29 Freq: Status: Active Protocol: Document 08/10/21 11:08 (Rec: 08/10/21 11:08 [id number]) Nutrition Malnutrition Evidence of Malnutrition Exists Yes Malnutrition (severe): Acute Illness/Injury Evidenced By Suboptimal Energy Intake ( Severe),Weight Loss (Severe) Intake Problem Inadequate Oral Intake Etiology r/t resp. failure and increased oxygen needs Signs/Symptoms as evidenced by estimated PO intake meeting ~50-75% of estimated nutritional needs, 50% intake at meals Status Active Problem Clinical Problem Acute Disease or Injury Related Malnutrition Etiology Severe protein/calorie malnutrition in the context of acute illness related to inadequate oral intake and inability to meet estimated nutrition needs Signs/Symptoms as evidenced by ~6% wt loss since admit x 8 days and PO meeting less than 50% estimated nutrition needs > 1 week Status Active Problem Recommendation Dietitian Recommendations/Changes Will change to regular diet given acute malnutrition; continue 4 oz ensure compact TID w/ meals for additional calories/protein if consumed. Lab / Micro Data Result Diagrams: 08/11/21 04:58 08/11/21 04:58 Labs: Laboratory Results - last 24 hr 08/11/21 04:58: WBC 12.7 H, RBC 4.03 L, Hgb 12.6 L, Hct 38.9 L, MCV 96.5 H, MCH 31.3, MCHC 32.4, RDW Std Deviation 48.6 H, RDW Coeff of Enoch 13.7, Plt Count 228, MPV 11.9, Immature Gran % (Auto) 4.200 H, Neut % (Auto) 82.8 H, Lymph % (Auto) 8 .5 L, [place] % (Auto) 3.8, Eos % (Auto) 0.0, Baso % (Auto) 0.7, Absolute Neuts (auto) 10.5 H, Absolute Lymphs (auto) 1.08, Nucleated RBC % 0 08/11/21 04:58: Sodium 137, Potassium 4.5, Chloride 102, Carbon Dioxide 29.0, Anion Gap 6, BUN 34 H, Creatinine 0.81, Estim Creat Clear Calc 88.41, Est GFR (MDRD) Af Amer 124, Est GFR (MDRD) Non-Af 103, BUN/Creatinine Ratio 42.1 H, Glucose 88, Calcium 8.6, Total Bilirubin 0.40, AST 29, ALT 74 H, Alkaline Phosphatase 107, Total Protein 7.4, Albumin 2.1 L, Globulin 5.3 H, Albumin/Globulin Ratio 0.4 L Micro: Microbiology 08/01/21 15:50 Blood Culture (Wb) - Right Hand Blood Culture - Final Gram positive jeff 08/05/21 11:30 Sputum, Expectorated/Coughed Gram Stain - Final 08/05/21 11:30 Sputum, Expectorated/Coughed Respiratory Culture - Final Haemophilus influenzae Mixed Nathalie 08/01/21 17:09 Blood Culture (Wb) - Anticubital Left Blood Culture - Final No growth in 5 days. 08/01/21 18:00 Urine, Clean Catch Urine Culture - Final Mixed Gram Positive Organisms 08/02/21 03:00 Urine, Random Legionella Antigen - Final 08/02/21 03:00 Urine, Random Streptococcus pneumoniae Antigen (M - Final 08/01/21 21:25 Nasal Secretion SARS-CoV-2 Antigen (Rapid) - Final Physical Exam Narrative General: Alert, Oriented x3, Cooperative HEENT: Atraumatic, PERRLA, EOMI, Normocephalic Oral: No Gingival or Mucosal Lesions/ Ulcerations Neck: Supple, No JVD, Negative Carotid Bruits Lungs: Air entry diminished in bilateral lung bases. Bilateral coarse crepitations. On NIPPV Cardiovascular: Regular rate, Regular Rhythm, Normal S1, Normal S2, No murmurs Abdomen: Bowel Sounds Present, Soft, Non Tender, Non-Distended : No renal angle tenderness. No suprapubic tenderness. Extremities: No edema, Capillary Refill Less than 3 Seconds Skin: No rashes, No breakdown Musculoskeletal: No Tenderness to Palpation of Joints or Extremities Neurological: Cranial nerves II-XII grossly intact, DTR 2+/4 and Symmetrical, Neuro grossly intact Psych/Mental Status: Flat affect. Assessment & Plan Assessment/Plan (1) Pneumonia due to severe acute respiratory syndrome coronavirus 2 (SARS-CoV-2): (2) Respiratory failure: QUALIFIERS: Chronicity: acute Respiratory failure complication: hypoxia Qualified Code(s): J96.01 - Acute respiratory failure with hypoxia PLAN: 1. acute hypoxic respiratory failure secondary to bilateral COVID-19 and Haemophilus influenzae pneumonia: Patient is being admitted in ICU. Financial Reporting Consultant on board. On alternate BiPAP and narrow. On diuretic as needed and as per tolerated. On therapeutic anticoagulation. Bronchopulmonary hygiene with prone positioning. Blood culture was positive of gram-positive rods possible skin contamination. Sputum culture shows 3+ Haemophilus influenzae. 2. acute COVID 19 bilateral pneumonia: Patient completed remdesivir on 08/05. On dexamethasone through 08/10. Covid isolation control 08/05. Patient is unvaccinated. 08/11: Bacterial superinfection with Haemophilus influenzae. On ceftriaxone. 3. H. flu pneumonia: On IV ceftriaxone. Rest as mentioned above 4. Lactic acidosis secondary to severe hypoxia: Resolved. 5. RA * on hydrochloroquine. Methotrexate on hold 6. VTE prophylaxis: * not indicated as already anticoagulated. Charges/Coding Visit Charges Inpatient E&M: 10791 [facility] Hosp L3
--- NOTE | 2021-08-11 10:34 | PN.ID_ITS ---
Physical Exam Narrative Feeling about the same, no fever, no n/v/d. Const alert and no apparent distress General Appearance: cooperative Resp clear to auscultation bilaterally Auscultation: diminished lung sounds Cardio regular rate and regular rhythm GI normal to inspection, nondistended, normoactive bowel sounds Skin no rashes or lesions noted ID ID: Route of nutrition/ use of supplements: [] Nutritional Intake: [] IV Site: [] Paulino Catheter: [] Assessment & Plan Assessment/Plan (1) Pneumonia due to severe acute respiratory syndrome coronavirus 2 (SARS-CoV-2): PLAN: Sx started 07/23, unvaccinated. Isolate for 20 days starting 07/23, ends 08/12. Recommend vaccine once out of hospital. On dex and completed rem desivir. On therapeutic lovenox. On baricitinib. O2 stable. Sputum with h flu, on ceftriaxone for 7 day course. Will follow (2) Respiratory failure: QUALIFIERS: Chronicity: acute Respiratory failure complication: hypoxia Qualified Code(s): J96.01 - Acute respiratory failure with hypoxia
[2021-08-11] MEDS: CHLORHEXIDINE GLUC 2% CLOTH 1 EACH TOWELETTE TOPICAL (11:08)
[2021-08-11] MEDS: dexAMETHasone 4 MG Tablet 6 MG PO (11:08)
[2021-08-11] MEDS: Acetaminophen 325 MG Tablet 650 MG PO (20:34)
[2021-08-11] MEDS: MELATONIN 10 MG TABLET PO (21:32)
--- NOTE | 2021-08-11 21:43 | NURSING ---
Pt brushed his teeth, bipap applied. pt asst back to bed
[2021-08-12] VITALS (38 sets, daily range): BP systolic 95–130; BP diastolic 63–91; PULSE 62–101; RESP 12–36; TEMP 36.2–36.6; O2SAT 71–99
[2021-08-12 04:25] LABS: Absolute Lymphocyte Count 0.74 X10^3/uL (0.83-4.51); Absolute Neutrophil Count 11.5 X10^3/uL (2.0-7.7); Basophil# 0.03 X10^3/uL; Basophil% 0.2 % (0-1); Hematocrit 37.1 % (40-54); Hemoglobin 12.2 g/dL (13.0-16.5); Lymphocyte # 0.74 X10^3/ul (0.83-4.51); Lymphocyte % 5.7 % (19-41); Mean Corp Hgb Conc 32.9 g/dL (32-36); Mean Corpuscular Hgb 31.8 pg (27.0-32.0); Mean Corpuscular Volume 96.6 fL (80-94); Mean Platelet Vol. 11.3 fl (6.2-12.0); Monocyte# 0.38 X10^3/uL; Monocyte% 2.9 % (0-10); NRBC Flagged by Analyzer 0 % (0-5); Neutrophil # 11.45 X10^3/uL (2.7-7.7); Neutrophil % 88.3 % (47-70); Platelet Count 194 K/mm3 (150-450); RBC Distribution Width CV 13.7 % (11.6-14.6); RBC Distribution Width SD 48.4 fl (35.1-43.9); Red Blood Count 3.84 M/mm3 (4.6-6.2)
[2021-08-12 04:42] LABS: Anion Gap 7 (5-15); BUN 32 mg/dL (7-18); BUN/Creat Ratio 39.3 RATIO (10-20); Calcium,Total 8.3 mg/dL (8.5-10.1); Chloride 101 mmol/L (98-107); Creatinine, Serum 0.81 mg/dL (0.70-1.30); EST Glomerular Filtration Rate 102 mL/min (>60); Est Glom Filt Rate - Afr Amer 123 mL/min (>60); Estimated Creatinine Clearance 88.41 ml/min; Glucose 107 mg/dL (74-106); Potassium 4.5 mmol/L (3.5-5.1); Sodium Level 136 mmol/L (136-145)
[2021-08-12] MEDS: 0.9% Saline Lock 10 ML Syringe IV ×2 (06:04→09:25)
--- NOTE | 2021-08-12 06:31 | PN.CC_ITS ---
Assessment & Plan Assessment/Plan (1) Pneumonia due to severe acute respiratory syndrome coronavirus 2 (SARS-CoV-2): (2) Respiratory failure: QUALIFIERS: Chronicity: acute Respiratory failure complication: hypoxia Qualified Code(s): J96.01 - Acute respiratory failure with hypoxia (3) Hyperlipidemia: PLAN: RECOMMENDATIONS: 1. Continue to wean FiO2 to maintain oxygen saturations at or above 90%. 2. Continue baricitinib (08/15/2021). Completed Remdesivir and decadron. 3. Diuresis as tolerated. Will give additional Lasix today. 4. Continue hydroxychloroquine. Hold methotrexate 5. Continue therapeutic anticoagulation. 6. Awake prone positioning was encouraged. 7. Continue antimicrobials as ordered to complete treatment course. 8. Encourage incentive spirometer use and mobilize patient as tolerated. IMPRESSIONS: 1. Acute hypoxic respiratory failure secondary to COVID-19 and Haemophilus influenza pneumonia Although the patient's respiratory status is still tenuous, he is maintaining appropriate oxygen saturations on a combination of BiPAP and heated high flow, which will be continued to maintain saturations at or above 90%. The patient has already completed a treatment course of remdesivir and decadron. He will remain on baricitinib as ordered. Plan to continue bronchodilator therapy. Therapeutic Lovenox will be continued twice daily as ordered. Awake prone positioning was encouraged. Diuretic therapy as tolerated to maintain euvolemic state. Mobilize patient as tolerated. Continue antimicrobials to complete 7- day treatment course. 2. Rheumatoid arthritis/unvaccinated state/overweight/hyperlipidemia/possible CAD Complicates care, management, recovery and prognosis. Okay to continue with hydroxychloroquine, but methotrexate may have more risks for secondary complications. This note was generated with [employer] dictation software. It may contain incorrect words, spelling, and punctuation that were not noted in checking the note before signing. Subjective Subjective The patient was seen and examined at the bedside this morning. Events from the last 24 hours have been reviewed. The patient is currently afebrile, hemodynamically stable and maintaining appropriate oxygen saturations on Airvo heated high flow with an FiO2 requirement of 93% and flow rate of 60 L/min. The patient was maintained on BiPAP overnight with an FiO2 requirement of 60%. The patient is documented to be overall net -6.8 L for the hospital admission. The patient remains on therapeutic Lovenox, baricitinib and antimicrobials. He has completed a treatment course of Decadron. Renal function remains stable. Objective Data Objective Data The patient's most recent lab work, culture data and imaging studies have all be en personally reviewed. Sputum culture was positive for 3+ Haemophilus influenza. Vital Signs: Vital Signs Temp Pulse Resp BP Pulse Ox 98 F 84 22 H 119/80 93 08/12/21 04:00 08/12/21 06:00 08/12/21 06:00 08/12/21 06:00 08/12/21 06:00 Oxygen Flow Rate (L/min) 60 Oxygen Delivery Method Bi-pap Weight: 79.5 kg Body Mass Index (BMI) 28.7 Intake & Output: Intake and Output for Last 24 Hours 08/10/21 08/11/21 08/12/21 23:59 23:59 23:59 Intake Total 730 / 730 530 / 650 180 / 180 Output Total 1080 / 1480 1325 / 1575 500 / 500 Balance -350 / -750 -795 / -925 -320 / -320 Medical Nutrition Assessment Dietitian: Malnutrition Criteria Met Start: 08/09/21 13:29 Freq: Status: Active Protocol: Document 08/10/21 11:08 (Rec: 08/10/21 11:08 [id number]) Nutrition Malnutrition Evidence of Malnutrition Exists Yes Malnutrition (severe): Acute Illness/Injury Evidenced By Suboptimal Energy Intake ( Severe),Weight Loss (Severe) Intake Problem Inadequate Oral Intake Etiology r/t resp. failure and increased oxygen needs Signs/Symptoms as evidenced by estimated PO intake meeting ~50-75% of estimated nutritional needs, 50% intake at meals Status Active Problem Clinical Problem Acute Disease or Injury Related Malnutrition Etiology Severe protein/calorie malnutrition in the context of acute illness related to inadequate oral intake and inability to meet estimated nutrition needs Signs/Symptoms as evidenced by ~6% wt loss since admit x 8 days and PO meeting less than 50% estimated nutrition needs > 1 week Status Active Problem Recommendation Dietitian Recommendations/Changes Will change to regular diet given acute malnutrition; continue 4 oz ensure compact TID w/ meals for additional calories/protein if consumed. Lab / Micro Data Attestation: I reviewed the patient's lab results. Result Diagrams: 08/12/21 04:15 08/12/21 04:15 Labs: Laboratory Results - last 24 hr 08/11/21 04:58: WBC 12.7 H, RBC 4.03 L, Hgb 12.6 L, Hct 38.9 L, MCV 96.5 H, MCH 31.3, MCHC 32.4, RDW Std Deviation 48.6 H, RDW Coeff of Enoch 13.7, Plt Count 228, MPV 11.9, Immature Gran % (Auto) 4.200 H, Neut % (Auto) 82.8 H, Lymph % (Auto) 8.5 L, [place] % (Auto) 3.8, Eos % (Auto) 0.0, Baso % (Auto) 0.7, Absolute Neuts (auto) 10.5 H, Absolute Lymphs (auto) 1.08, Nucleated RBC % 0 08/11/21 04:58: Sodium 137, Potassium 4.5, Chloride 102, Carbon Dioxide 29.0, Anion Gap 6, BUN 34 H, Creatinine 0.81, Estim Creat Clear Calc 88.41, Est GFR (MDRD) Af Amer 124, Est GFR (MDRD) Non-Af 103, BUN/Creatinine Ratio 42.1 H, Glucose 88, Calcium 8.6, Total Bilirubin 0.40, AST 29, ALT 74 H, Alkaline Alessandra sphatase 107, Total Protein 7.4, Albumin 2.1 L, Globulin 5.3 H, Albumin/Globulin Ratio 0.4 L 08/12/21 04:15: WBC 13.0 H, RBC 3.84 L, Hgb 12.2 L, Hct 37.1 L, MCV 96.6 H, MCH 31.8, MCHC 32.9, RDW Std Deviation 48.4 H, RDW Coeff of Enoch 13.7, Plt Count 194, MPV 11.3, Immature Gran % (Auto) 2.900 H, Neut % (Auto) 88.3 H, Lymph % (Auto) 5.7 L, [place] % (Auto) 2.9, Eos % (Auto) 0.0, Baso % (Auto) 0.2, Absolute Neuts (auto) 11.5 H, Absolute Lymphs (auto) 0.74 L, Nucleated RBC % 0 08/12/21 04:15: Sodium 136, Potassium 4.5, Chloride 101, Carbon Dioxide 28.0, Anion Gap 7, BUN 32 H, Creatinine 0.81, Estim Creat Clear Calc 88.41, Est GFR (MDRD) Af Amer 123, Est GFR (MDRD) Non-Af 102, BUN/Creatinine Ratio 39.3 H, Glucose 107 H, Calcium 8.3 L Micro: Microbiology 08/01/21 15:50 Blood Culture (Wb) - Right Hand Blood Culture - Final Gram positive jeff 08/05/21 11:30 Sputum, Expectorated/Coughed Gram Stain - Final 08/05/21 11:30 Sputum, Expectorated/Coughed Respiratory Culture - Final Haemophilus influenzae Mixed Nathalie 08/01/21 17:09 Blood Culture (Wb) - Anticubital Left Blood Culture - Final No growth in 5 days. 08/01/21 18:00 Urine, Clean Catch Urine Culture - Final Mixed Gram Positive Organisms 08/02/21 03:00 Urine, Random Legionella Antigen - Final 08/02/21 03:00 Urine, Random Streptococcus pneumoniae Antigen (M - Final 08/01/21 21:25 Nasal Secretion SARS-CoV-2 Antigen (Rapid) - Final Physical Exam Const alert and no apparent distress General Appearance: cooperative and on BiPAP HEENT normocephalic and head/scalp atraumatic Eyes PERRL, EOMs intact bilaterally and conjunctivae normal Neck supple General: trachea midline Chest inspection of chest normal Resp Effort and Inspection: tachypneic Auscultation: diminished lung sounds; Negative for rales, rhonchi or wheezes Cardio regular rate and regular rhythm GI normal to inspection, nondistended, normoactive bowel sounds Extremity no clubbing, cyanosis or edema Skin no rashes or lesions noted Neuro moves all extremities and no focal motor deficits Psych cooperative and affect normal Charges/Coding Visit Charges Inpatient E&M: 01996 Subs Hosp L3
[2021-08-12] MEDS: Furosemide 40 MG/4 ML Vial IV (06:55)
[2021-08-12] MEDS: Ipratropium/Albuterol Sulfate 3 ML AMPUL.NEB INHALATION ×3 (07:20→18:48)
[2021-08-12] MEDS: Ascorbic Acid 500 MG Tablet 1000 MG PO (09:21)
[2021-08-12] MEDS: dexAMETHasone 4 MG Tablet 6 MG PO (09:21)
[2021-08-12] MEDS: CHLORHEXIDINE GLUC 2% CLOTH 1 EACH TOWELETTE TOPICAL (09:21)
[2021-08-12] MEDS: Folic Acid 1 MG Tablet PO (09:21)
[2021-08-12] MEDS: guaiFENesin 1,200 MG Tablet 1200 MG PO ×2 (09:22→21:37)
[2021-08-12] MEDS: Hydroxychloroquine 200 MG Tablet PO ×2 (09:22→21:38)
[2021-08-12] MEDS: Enoxaparin 80 MG/0.8 ML Syringe SC ×2 (09:24→21:37)
--- NOTE | 2021-08-12 12:31 | PCM.PN.HOSP ---
Subjective Subjective Going between Airvo and BiPAP. Still with JAUREGUI which transfers. Objective Data Objective Data Vital Signs: Vital Signs Temp Pulse Resp BP Pulse Ox 36.2 C L 90 24 H 101/71 83 08/12/21 12:00 08/12/21 12:00 08/12/21 12:00 08/12/21 12:00 08/12/21 12:00 Oxygen Flow Rate (L/min) 60 Oxygen Delivery Method Airvo Weight: 79.5 kg Body Mass Index (BMI) 28.7 Intake & Output: Intake and Output for Last 24 Hours 08/10/21 08/11/21 08/12/21 23:59 23:59 23:59 Intake Total 730 / 730 530 / 650 590 / 590 Output Total 1080 / 1480 1325 / 1575 1400 / 1400 Balance -350 / -750 -795 / -925 -810 / -810 Medical Nutrition Assessment Dietitian: Malnutrition Criteria Met Start: 08/09/21 13:29 Freq: Status: Active Protocol: Document 08/12/21 11:47 AG (Rec: 08/12/21 11:47 AG [id number]) Nutrition Malnutrition Evidence of Malnutrition Exists Yes Malnutrition (severe): Acute Illness/Injury Evidenced By Suboptimal Energy Intake ( Severe),Weight Loss (Severe) Intake Problem Inadequate Oral Intake Etiology r/t resp. failure and increased oxygen needs Signs/Symptoms as evidenced by estimated PO intake meeting <50% of estimated nutritional needs Status Active Problem Clinical Problem Acute Disease or Injury Related Malnutrition Etiology Severe protein/calorie malnutrition in the context of acute illness related to inadequate oral intake w/ resp . failure Signs/Symptoms as evidenced by ~6% wt loss since admit x 8 days and PO meeting less than 50% estimated nutrition needs > 1 week Status Active Problem Recommendation Dietitian Recommendations/Changes continue regular diet given acute malnutrition; continue 4 oz ensure compact TID w/ meals for additional calories/ protein if consumed. Lab / Micro Data Result Diagrams: 08/12/21 04:15 08/12/21 04:15 Labs: Laboratory Results - last 24 hr 08/12/21 04:15: WBC 13.0 H, RBC 3.84 L, Hgb 12.2 L, Hct 37.1 L, MCV 96.6 H, MCH 31.8, MCHC 32.9, RDW Std Deviation 48.4 H, RDW Coeff of Enoch 13.7, Plt Count 194, MPV 11.3, Immature Gran % (Auto) 2.900 H, Neut % (Auto) 88.3 H, Lymph % (Auto) 5.7 L, [place] % (Auto) 2.9, Eos % (Auto) 0.0, Baso % (Auto) 0.2, Absolute Neuts (auto) 11.5 H, Absolute Lymphs (auto) 0.74 L, Nucleated RBC % 0 08/12/21 04:15: Sodium 136, Potassium 4.5, Chloride 101, Carbon Dioxide 28.0, Anion Gap 7, BUN 32 H, Creatinine 0.81, Estim Creat Clear Calc 88.41, Est GFR (MDRD) Af Amer 123, Est GFR (MDRD) Non-Af 102, BUN/Creatinine Ratio 39.3 H, Glucose 107 H, Calcium 8.3 L Micro: Microbiology 08/01/21 15:50 Blood Culture (Wb) - Right Hand Blood Culture - Final Gram positive jeff 08/05/21 11:30 Sputum, Expectorated/Coughed Gram Stain - Final 08/05/21 11:30 Sputum, Expectorated/Coughed Respiratory Culture - Final Haemophilus influenzae Mixed Nathalie 08/01/21 17:09 Blood Culture (Wb) - Anticubital Left Blood Culture - Final No growth in 5 days. 08/01/21 18:00 Urine, Clean Catch Urine Culture - Final Mixed Gram Positive Organisms 08/02/21 03:00 Urine, Random Legionella Antigen - Final 08/02/21 03:00 Urine, Random Streptococcus pneumoniae Antigen (M - Final 08/01/21 21:25 Nasal Secretion SARS-CoV-2 Antigen (Rapid) - Final Physical Exam Const alert Resp normal respiratory effort and no retractions Resp Narrative: coarse BS Cardio regular rate and regular rhythm GI normal to inspection, nondistended, normoactive bowel sounds, soft to palpation, non-tender and non-distended Assessment & Plan Assessment/Plan (1) Pneumonia due to severe acute respiratory syndrome coronavirus 2 (SARS-CoV-2): (2) Respiratory failure: QUALIFIERS: Chronicity: acute Respiratory failure complication: hypoxia Qualified Code(s): J96.01 - Acute respiratory failure with hypoxia PLAN: 1. acute hypoxic respiratory failure secondary to bilateral COVID-19 and Haemophilus influenzae pneumonia: Patient is being admitted in ICU. [employer] Head on board. On alternate BiPAP and narrow. On diuretic as needed and as per tolerated. On therapeutic anticoagulation. Bronchopulmonary hygiene with prone positioning. Blood culture was positive of gram-positive rods possible skin contamination. Sputum culture shows 3+ Haemophilus influenzae. 2. acute COVID 19 bilateral pneumonia: Patient completed remdesivir on 08/05. On dexamethasone through 08/10. Covid isolation control 08/05. Patient is unvaccinated. 08/11: Bacterial superinfection with Haemophilus influenzae. On ceftriaxone. 3. H. flu pneumonia: On IV ceftriaxone. Rest as mentioned above 4. Lactic acidosis secondary to severe hypoxia: Resolved. 5. RA on hydrochloroquine. Methotrexate on hold 6. VTE prophylaxis: not indicated as already anticoagulated. Charges/Coding Visit Charges Inpatient E&M: 29871 Subs Hosp L2
[2021-08-12] MEDS: Senna/Docusate Sodium 1 Tablet 2 TABLET PO (21:49)
[2021-08-12] MEDS: MELATONIN 10 MG TABLET PO (21:56)
--- NOTE | 2021-08-12 22:18 | NURSING ---
Pt desats with minimal movements. To mid 70's while urinating. Pt is aware of exertional desaturation and follows directions on deep breathing through nose to recover.
[2021-08-13] VITALS (38 sets, daily range): BP systolic 103–134; BP diastolic 72–96; PULSE 68–108; RESP 12–31; TEMP 36.1–36.7; O2SAT 86–98
[2021-08-13 04:33] LABS: Absolute Lymphocyte Count 0.83 X10^3/uL (0.83-4.51); Absolute Neutrophil Count 12.6 X10^3/uL (2.0-7.7); Basophil# 0.03 X10^3/uL; Basophil% 0.2 % (0-1); Hematocrit 37.6 % (40-54); Hemoglobin 12.5 g/dL (13.0-16.5); Lymphocyte # 0.83 X10^3/ul (0.83-4.51); Lymphocyte % 5.8 % (19-41); Mean Corp Hgb Conc 33.2 g/dL (32-36); Mean Corpuscular Volume 96.2 fL (80-94); Mean Platelet Vol. 11.4 fl (6.2-12.0); Monocyte# 0.47 X10^3/uL; Monocyte% 3.3 % (0-10); NRBC Flagged by Analyzer 0 % (0-5); Neutrophil # 12.58 X10^3/uL (2.7-7.7); Platelet Count 220 K/mm3 (150-450); RBC Distribution Width CV 13.3 % (11.6-14.6); RBC Distribution Width SD 47.7 fl (35.1-43.9); Red Blood Count 3.91 M/mm3 (4.6-6.2); White Blood Count 14.3 K/mm3 (4.4-11.0)
[2021-08-13 04:48] LABS: BUN 33 mg/dL (7-18); Creatinine, Serum 0.79 mg/dL (0.70-1.30); Estimated Creatinine Clearance 90.64 ml/min; Glucose 111 mg/dL (74-106)
[2021-08-13 04:49] LABS: Anion Gap 6 (5-15); BUN/Creat Ratio 41.6 RATIO (10-20); Chloride 101 mmol/L (98-107); EST Glomerular Filtration Rate 105 mL/min (>60); Est Glom Filt Rate - Afr Amer 127 mL/min (>60); Potassium 4.5 mmol/L (3.5-5.1); Sodium Level 137 mmol/L (136-145)
--- NOTE | 2021-08-13 06:29 | PN.CC_ITS ---
Assessment & Plan Assessment/Plan (1) Pneumonia due to severe acute respiratory syndrome coronavirus 2 (SARS-CoV-2): (2) Respiratory failure: QUALIFIERS: Chronicity: acute Respiratory failure complication: hypoxia Qualified Code(s): J96.01 - Acute respiratory failure with hypoxia (3) Hyperlipidemia: PLAN: RECOMMENDATIONS: 1. Continue to wean FiO2 to maintain oxygen saturations at or above 90%. 2. Continue baricitinib (08/15/2021). Completed Remdesivir and decadron. 3. Diuresis as tolerated. 4. Continue hydroxychloroquine. Hold methotrexate 5. Continue therapeutic anticoagulation. 6. Continue antimicrobials as ordered to complete treatment course. 7. Encourage incentive spirometer use and mobilize patient as tolerated. IMPRESSIONS: 1. Acute hypoxic respiratory failure secondary to COVID-19 and Haemophilus influenza pneumonia Although the patient's respiratory status is still tenuous, he is maintaining appropriate oxygen saturations on a combination of BiPAP and heated high flow, which will be continued to maintain saturations at or above 90%. The patient has already completed a treatment course of remdesivir and decadron. He will remain on baricitinib as ordered. Plan to continue bronchodilator therapy. Therapeutic Lovenox will be continued twice daily as ordered. Awake prone positioning was encouraged. Diuretic therapy as tolerated to maintain euvolemic state. Mobilize patient as tolerated. Continue antimicrobials to complete 7- day treatment course. 2. Rheumatoid arthritis/unvaccinated state/overweight/hyperlipidemia/possible CAD Complicates care, management, recovery and prognosis. Okay to continue with hydroxychloroquine, but methotrexate may have more risks for secondary complications. This note was generated with [employer] dictation software. It may contain incorrect words, spelling, and punctuation that were not noted in checking the note before signing. Subjective Subjective The patient was seen and examined at the bedside this morning. Events from the last 24 hours have been reviewed. The patient is currently afebrile, hemodynamically stable and maintaining appropriate oxygen saturations on Airvo heated high flow with an FiO2 requirement of 66% and flow rate of 60 L/min. The patient was maintained on BiPAP overnight with an FiO2 requirement of 55%. The patient is documented to be overall net -7.1 L for the hospital admission. The patient remains on therapeutic Lovenox, baricitinib and antimicrobials. He has completed a treatment course of Decadron. Renal function remains stable. The patient does still continue to desaturate with any amount of physical exertion. Objective Data Objective Data The patient's most recent lab work, culture data and imaging studies have all been personally reviewed. Sputum culture was positive for 3+ Haemophilus influenza. Vital Signs: Vital Signs Temp Pulse Resp BP Pulse Ox 97.6 F L 72 22 H 128/79 H 87 08/13/21 04:00 08/13/21 06:00 08/13/21 06:00 08/13/21 06:00 08/13/21 06:00 Oxygen Flow Rate (L/min) 60 Oxygen Delivery Method Airvo Weight: 79.5 kg Body Mass Index (BMI) 28.7 Intake & Output: Intake and Output for Last 24 Hours 08/11/21 08/12/21 08/13/21 23:59 23:59 23:59 Intake Total 530 / 650 1170 / 1170 240 / 240 Output Total 1325 / 1575 1800 / 1800 220 / 220 Balance -795 / -925 -630 / -630 Medical Nutrition Assessment Dietitian: Malnutrition Criteria Met Start: 08/09/21 13:29 Freq: Status: Active Protocol: Document 08/12/21 11:47 AG (Rec: 08/12/21 11:47 AG [id number]) Nutrition Malnutrition Evidence of Malnutrition Exists Yes Malnutrition (severe): Acute Illness/Injury Evidenced By Suboptimal Energy Intake ( Severe),Weight Loss (Severe) Intake Problem Inadequate Oral Intake Etiology r/t resp. failure and increased oxygen needs Signs/Symptoms as evidenced by estimated PO intake meeting <50% of estimated nutritional needs Status Active Problem Clinical Problem Acute Disease or Injury Related Malnutrition Etiology Severe protein/calorie malnutrition in the context of acute illness related to inadequate oral intake w/ resp . failure Signs/Symptoms as evidenced by ~6% wt loss since admit x 8 days and PO meeting less than 50% estimated nutrition needs > 1 week Status Active Problem Recommendation Dietitian Recommendations/Changes continue regular diet given acute malnutrition; continue 4 oz ensure compact TID w/ meals for additional calories/ protein if consumed. Lab / Micro Data Attestation: I reviewed the patient's lab results. Result Diagrams: 08/13/21 04:15 08/13/21 04:15 Labs: Laboratory Results - last 24 hr 08/13/21 04:15: WBC 14.3 H, RBC 3.91 L, Hgb 12.5 L, Hct 37.6 L, MCV 96.2 H, MCH 32.0, MCHC 33.2, RDW Std Deviation 47.7 H, RDW Coeff of Enoch 13.3, Plt Count 220, MPV 11.4, Immature Gran % (Auto) 2.700 H, Neut % (Auto) 88.0 H, Lymph % (Auto) 5.8 L, [place] % (Auto) 3.3, Eos % (Auto) 0.0, Baso % (Auto) 0.2, Absolute Neuts (auto) 12.6 H, Absolute Lymphs (auto) 0.83, Nucleated RBC % 0 08/13/21 04:15: Sodium 137, Potassium 4.5, Chloride 101, Carbon Dioxide 30.0, Anion Gap 6, BUN 33 H, Creatinine 0.79, Estim Creat Clear Calc 90.64, Est GFR (MDRD) Af Amer 127, Est GFR (MDRD) Non-Af 105, BUN/Creatinine Ratio 41.6 H, Glucose 111 H, Calcium 9.0 Micro: Microbiology 08/01/21 15:50 Blood Culture (Wb) - Right Hand Blood Culture - Final Gram positive jeff 08/05/21 11:30 Sputum, Expectorated/Coughed Gram Stain - Final 08/05/21 11:30 Sputum, Expectorated/Coughed Respiratory Culture - Final Haemophilus influenzae Mixed Nathalie 08/01/21 17:09 Blood Culture (Wb) - Anticubital Left Blood Culture - Final No growth in 5 days. 08/01/21 18:00 Urine, Clean Catch Urine Culture - Final Mixed Gram Positive Organisms 08/02/21 03:00 Urine, Random Legionella Antigen - Final 08/02/21 03:00 Urine, Random Streptococcus pneumoniae Antigen (M - Final 08/01/21 21:25 Nasal Secretion SARS-CoV-2 Antigen (Rapid) - Final Physical Exam Const alert and no apparent distress General Appearance: cooperative HEENT normocephalic and head/scalp atraumatic Eyes PERRL, EOMs intact bilaterally and conjunctivae normal Neck supple General: trachea midline Chest inspection of chest normal Resp Auscultation: diminished lung sounds; Negative for rales, rhonchi or wheezes Cardio regular rate and regular rhythm GI normal to inspection, nondistended, normoactive bowel sounds Extremity no clubbing, cyanosis or edema Skin no rashes or lesions noted Neuro moves all extremities and no focal motor deficits Psych cooperative and affect normal Charges/Coding Visit Charges Inpatient E&M: 63844 Subs Hosp L2
[2021-08-13] MEDS: Ipratropium/Albuterol Sulfate 3 ML AMPUL.NEB INHALATION ×3 (06:44→18:35)
[2021-08-13] MEDS: Enoxaparin 80 MG/0.8 ML Syringe SC ×2 (08:35→20:28)
[2021-08-13] MEDS: CHLORHEXIDINE GLUC 2% CLOTH 1 EACH TOWELETTE TOPICAL (08:36)
[2021-08-13] MEDS: Folic Acid 1 MG Tablet PO (08:37)
[2021-08-13] MEDS: guaiFENesin 1,200 MG Tablet 1200 MG PO ×2 (08:37→20:29)
[2021-08-13] MEDS: Hydroxychloroquine 200 MG Tablet PO ×2 (08:37→20:29)
[2021-08-13] MEDS: dexAMETHasone 4 MG Tablet 6 MG PO (08:38)
[2021-08-13] MEDS: Ascorbic Acid 500 MG Tablet 1000 MG PO (08:38)
--- NOTE | 2021-08-13 11:24 | PCM.PN.HOSP ---
Subjective Subjective still with JAUREGUI with minimal exertion and coughing fits. Objective Data Objective Data Vital Signs: Vital Signs Temp Pulse Resp BP Pulse Ox 36.6 C 97 21 H 120/80 90 08/13/21 07:00 08/13/21 10:08 08/13/21 10:08 08/13/21 07:00 08/13/21 10:08 Oxygen Flow Rate (L/min) 60 Oxygen Delivery Method Airvo Weight: 76.9 kg Body Mass Index (BMI) 28.7 Intake & Output: Intake and Output for Last 24 Hours 08/11/21 08/12/21 08/13/21 23:59 23:59 23:59 Intake Total 530 / 650 1170 / 1170 240 / 240 Output Total 1325 / 1575 1800 / 1800 220 / 220 Balance -795 / -925 -630 / -630 Medical Nutrition Assessment Dietitian: Malnutrition Criteria Met Start: 08/09/21 13:29 Freq: Status: Active Protocol: Document 08/12/21 11:47 AG (Rec: 08/12/21 11:47 AG [id number]) Nutrition Malnutrition Evidence of Malnutrition Exists Yes Malnutrition (severe): Acute Illness/Injury Evidenced By Suboptimal Energy Intake ( Severe),Weight Loss (Severe) Intake Problem Inadequate Oral Intake Etiology r/t resp. failure and increased oxygen needs Signs/Symptoms as evidenced by estimated PO intake meeting <50% of estimated nutritional needs Status Active Problem Clinical Problem Acute Disease or Injury Related Malnutrition Etiology Severe protein/calorie malnutrition in the context of acute illness related to inadequate oral intake w/ resp . failure Signs/Symptoms as evidenced by ~6% wt loss since admit x 8 days and PO meeting less than 50% estimated nutrition needs > 1 week Status Active Problem Recommendation Dietitian Recommendations/Changes continue regular diet given acute malnutrition; continue 4 oz ensure compact TID w/ meals for additional calories/ protein if consumed. Lab / Micro Data Result Diagrams: 08/13/21 04:15 08/13/21 04:15 Labs: Laboratory Results - last 24 hr 08/13/21 04:15: WBC 14.3 H, RBC 3.91 L, Hgb 12.5 L, Hct 37.6 L, MCV 96.2 H, MCH 32.0, MCHC 33.2, RDW Std Deviation 47.7 H, RDW Coeff of Enoch 13.3, Plt Count 220, MPV 11.4, Immature Gran % (Auto) 2.700 H, Neut % (Auto) 88.0 H, Lymph % (Auto) 5.8 L, [place] % (Auto) 3.3, Eos % (Auto) 0.0, Baso % (Auto) 0.2, Absolute Neuts (auto) 12.6 H, Absolute Lymphs (auto) 0.83, Nucleated RBC % 0 08/13/21 04:15: Sodium 137, Potassium 4.5, Chloride 101, Carbon Dioxide 30.0, Anion Gap 6, BUN 33 H, Creatinine 0.79, Estim Creat Clear Calc 90.64, Est GFR (MDRD) Af Amer 127, Est GFR (MDRD) Non-Af 105, BUN/Creatinine Ratio 41.6 H, Glucose 111 H, Calcium 9.0 Micro: Microbiology 08/01/21 15:50 Blood Culture (Wb) - Right Hand Blood Culture - Final Gram positive jeff 08/05/21 11:30 Sputum, Expectorated/Coughed Gram Stain - Final 08/05/21 11:30 Sputum, Expectorated/Coughed Respiratory Culture - Final Haemophilus influenzae Mixed Nathalie 08/01/21 17:09 Blood Culture (Wb) - Anticubital Left Blood Culture - Final No growth in 5 days. 08/01/21 18:00 Urine, Clean Catch Urine Culture - Final Mixed Gram Positive Organisms 08/02/21 03:00 Urine, Random Legionella Antigen - Final 08/02/21 03:00 Urine, Random Streptococcus pneumoniae Antigen (M - Final 08/01/21 21:25 Nasal Secretion SARS-CoV-2 Antigen (Rapid) - Final Physical Exam Narrative just had a coughing fit and pulse ox was in the 60s. steadily climbed back into the 80s after a few minutes Const alert and no apparent distress Resp normal respiratory effort and no retractions Resp Narrative: coarse breath sounds Cardio regular rate, regular rhythm, S1 normal heart sound and S2 normal heart sound GI normal to inspection, nondistended, normoactive bowel sounds, soft to palpation, non-tender and non-distended Extremity normal to inspection Assessment & Plan Assessment/Plan (1) Pneumonia due to severe acute respiratory syndrome coronavirus 2 (SARS-CoV-2): (2) Respiratory failure: QUALIFIERS: Chronicity: acute Respiratory failure complication: hypoxia Qualified Code(s): J96.01 - Acute respiratory failure with hypoxia PLAN: 1. acute hypoxic respiratory failure secondary to bilateral COVID-19 and Haemophilus influenzae pneumonia: Patient is being admitted in ICU. Anesthesiology Teacher on board. On alternate BiPAP and narrow. On diuretic as needed and as per tolerated. On therapeutic anticoagulation. Bronchopulmonary hygiene with prone positioning. Blood culture was positive of gram-positive rods possible skin contamination. Sputum culture shows 3+ Haemophilus influenzae. 2. acute COVID 19 bilateral pneumonia: Patient completed remdesivir on 08/05. On dexamethasone through 08/10. COVID isolation completed. Patient is unvaccinated. 08/11: Bacterial superinfection with Haemophilus influenzae. On ceftriaxone. 3. H. flu pneumonia: IV ceftriaxone completed 4. Lactic acidosis secondary to severe hypoxia: Resolved. 5. RA on hydrochloroquine. Methotrexate on hold 6. VTE prophylaxis: not indicated as already anticoagulated. 7. Prognosis: guarded given overall lack of progress. Charges/Coding Visit Charges Inpatient E&M: 16546 Subs Hosp L2
[2021-08-14] VITALS (20 sets, daily range): BP systolic 108–138; BP diastolic 75–86; PULSE 66–93; RESP 12–32; TEMP 36.1–36.6; O2SAT 89–99
[2021-08-14 04:48] LABS: Absolute Lymphocyte Count 1.03 X10^3/uL (0.83-4.51); Absolute Neutrophil Count 11.1 X10^3/uL (2.0-7.7); Basophil# 0.05 X10^3/uL; Basophil% 0.4 % (0-1); Eosinophil# 0.01 X10^3/uL; Eosinophils% 0.1 % (0-5); Hematocrit 37.2 % (40-54); Hemoglobin 12.4 g/dL (13.0-16.5); Lymphocyte # 1.03 X10^3/ul (0.83-4.51); Lymphocyte % 7.7 % (19-41); Mean Corp Hgb Conc 33.3 g/dL (32-36); Mean Corpuscular Hgb 32.2 pg (27.0-32.0); Mean Corpuscular Volume 96.6 fL (80-94); Mean Platelet Vol. 11.4 fl (6.2-12.0); Monocyte# 0.67 X10^3/uL; NRBC Flagged by Analyzer 0 % (0-5); Neutrophil # 11.11 X10^3/uL (2.7-7.7); Neutrophil % 83.3 % (47-70); Platelet Count 258 K/mm3 (150-450); RBC Distribution Width CV 13.5 % (11.6-14.6); RBC Distribution Width SD 47.8 fl (35.1-43.9); Red Blood Count 3.85 M/mm3 (4.6-6.2); White Blood Count 13.3 K/mm3 (4.4-11.0)
[2021-08-14 05:26] LABS: ALB/GLOB Ratio 0.4 RATIO (0.9-2.4); AST(SGOT) 36 U/L (15-37); Alanine Aminotransfer ALT/SGPT 79 U/L (16-61); Albumin, Serum 2.2 g/dL (3.2-5.0); Alkaline Phosphatase 97 U/L (45-117); Anion Gap 6 (5-15); BUN 30 mg/dL (7-18); BUN/Creat Ratio 35.7 RATIO (10-20); Chloride 103 mmol/L (98-107); Creatinine, Serum 0.84 mg/dL (0.70-1.30); EST Glomerular Filtration Rate 98 mL/min (>60); Est Glom Filt Rate - Afr Amer 119 mL/min (>60); Estimated Creatinine Clearance 85.25 ml/min; Globulin 5.2 g/dL (2.2-4.2); Glucose 95 mg/dL (74-106); Potassium 4.8 mmol/L (3.5-5.1); Protein, Total 7.4 g/dL (6.4-8.2); Sodium Level 138 mmol/L (136-145)
--- NOTE | 2021-08-14 06:50 | PCM.PN.INT ---
Assessment & Plan Assessment/Plan (1) Pneumonia due to severe acute respiratory syndrome coronavirus 2 (SARS-CoV-2): (2) Respiratory failure: QUALIFIERS: Chronicity: acute Respiratory failure complication: hypoxia Qualified Code(s): J96.01 - Acute respiratory failure with hypoxia (3) Hyperlipidemia: PLAN: RECOMMENDATIONS: 1. Continue to wean FiO2 to maintain oxygen saturations at or above 90%. 2. Continue baricitinib (08/15/2021) and decadron. 3. Diuresis as tolerated. 4. Continue hydroxychloroquine. Hold methotrexate 5. Continue therapeutic anticoagulation. 6. Encourage incentive spirometer use and mobilize patient as tolerated. IMPRESSIONS: 1. Acute hypoxic respiratory failure secondary to COVID-19 and Haemophilus influenza pneumonia Although the patient's respiratory status is still tenuous, he is maintaining appropriate oxygen saturations on a combination of BiPAP and heated high flow, which will be continued to maintain saturations at or above 90%. The patient has already completed a treatment course of remdesivir and a 7-day course of antimicrobials. He will remain on baricitinib and Decadron as ordered. Plan to continue bronchodilator therapy. Therapeutic Lovenox will be continued twice daily as ordered. Awake prone positioning was encouraged. Diuretic therapy as tolerated to maintain euvolemic state. Mobilize patient as tolerated. 2. Rheumatoid arthritis/unvaccinated state/overweight/hyperlipidemia/possible CAD Complicates care, management, recovery and prognosis. Okay to continue with hydroxychloroquine, but methotrexate may have more risks for secondary complications. This note was generated with [employer] dictation software. It may contain incorrect words, spelling, and punctuation that were not noted in checking the note before signing. Subjective Subjective The patient was seen and examined at the bedside this morning. Events from the last 24 hours have been reviewed. The patient is currently afebrile, hemodynamically stable and maintaining appropriate oxygen saturations on Airvo heated high flow with an FiO2 requirement of 88% and flow rate of 60 L/min. The patient was maintained on BiPAP overnight with an FiO2 requirement of 55%. The patient is documented to be overall net -7.3 L for the hospital admission. The patient remains on therapeutic Lovenox, baricitinib and Decadron. He has completed a treatment course of antimicrobials. Renal function remains stable. Objective Data Objective Data The patient's most recent lab work, culture data and imaging studies have all been personally reviewed. Sputum culture was positive for 3+ Haemophilus influenza. Vital Signs: Vital Signs Temp Pulse Resp BP Pulse Ox 97.0 F L 77 24 H 130/85 H 94 08/14/21 03:00 08/14/21 03:46 08/14/21 03:46 08/14/21 03:00 08/14/21 03:46 Oxygen Flow Rate (L/min) 60 Oxygen Delivery Method Airvo Weight: 77.3 kg Body Mass Index (BMI) 28.7 Intake & Output: Intake and Output for Last 24 Hours 08/12/21 08/13/21 08/14/21 23:59 23:59 23:59 Intake Total 1170 / 1170 770 / 770 120 / 120 Output Total 1800 / 1800 845 / 845 225 / 225 Balance -630 / -630 -75 / -75 -105 / -105 Medical Nutrition Assessment Dietitian: Malnutrition Criteria Met Start: 08/09/21 13:29 Freq: Status: Active Protocol: Document 08/12/21 11:47 AG (Rec: 08/12/21 11:47 [id number]) Nutrition Malnutrition Evidence of Malnutrition Exists Yes Malnutrition (severe): Acute Illness/Injury Evidenced By Suboptimal Energy Intake ( Severe),Weight Loss (Severe) Intake Problem Inadequate Oral Intake Etiology r/t resp. failure and increased oxygen needs Signs/Symptoms as evidenced by estimated PO intake meeting <50% of estimated nutritional needs Status Active Problem Clinical Problem Acute Disease or Injury Related Malnutrition Etiology Severe protein/calorie malnutrition in the context of acute illness related to inadequate oral intake w/ resp . failure Signs/Symptoms as evidenced by ~6% wt loss since admit x 8 days and PO meeting less than 50% estimated nutrition needs > 1 week Status Active Problem Recommendation Dietitian Recommendations/Changes continue regular diet given acute malnutrition; continue 4 oz ensure compact TID w/ meals for additional calories/ protein if consumed. Lab / Micro Data Attestation: I reviewed the patient's lab results. Result Diagrams: 08/14/21 04:34 08/14/21 04:34 Labs: Laboratory Results - last 24 hr 08/14/21 04:34: WBC 13.3 H, RBC 3.85 L, Hgb 12.4 L, Hct 37.2 L, MCV 96.6 H, MCH 32.2 H, MCHC 33.3, RDW Std Deviation 47.8 H, RDW Coeff of Enoch 13.5, Plt Count 258, MPV 11.4, Immature Gran % (Auto) 3.500 H, Neut % (Auto) 83.3 H, Lymph % (Auto) 7.7 L, [place] % (Auto) 5.0, Eos % (Auto) 0.1, Baso % (Auto) 0.4, Absolute Neuts (auto) 11.1 H, Absolute Lymphs (auto) 1.03, Nucleated RBC % 0 08/14/21 04:34: Sodium 138, Potassium 4.8, Chloride 103, Carbon Dioxide 29.0, Anion Gap 6, BUN 30 H, Creatinine 0.84, Estim Creat Clear Calc 85.25, Est GFR (MDRD) Af Amer 119, Est GFR (MDRD) Non-Af 98, BUN/Creatinine Ratio 35.7 H, Glucose 95, Calcium 9.0, Total Bilirubin 0.60, AST 36, ALT 79 H, Alkaline Phosphatase 97, Total Protein 7.4, Albumin 2.2 L, Globulin 5.2 H, Albumin/Globulin Ratio 0.4 L Micro: Microbiology 08/01/21 15:50 Blood Culture (Wb) - Right Hand Blood Culture - Final Gram positive jeff 08/05/21 11:30 Sputum, Expectorated/Coughed Gram Stain - Final 08/05/21 11:30 Sputum, Expectorated/Coughed Respiratory Culture - Final Haemophilus influenzae Mixed Nathalie 08/01/21 17:09 Blood Culture (Wb) - Anticubital Left Blood Culture - Final No growth in 5 days. 08/01/21 18:00 Urine, Clean Catch Urine Culture - Final Mixed Gram Positive Organisms 08/02/21 03:00 Urine, Random Legionella Antigen - Final 08/02/21 03:00 Urine, Random Streptococcus pneumoniae Antigen (M - Final 08/01/21 21:25 Nasal Secretion SARS-CoV-2 Antigen (Rapid) - Final Physical Exam Const alert and no apparent distress Constitutional Narrative: Sitting in bedside recliner. General Appearance: cooperative HEENT normocephalic and head/scalp atraumatic Eyes PERRL, EOMs intact bilaterally and conjunctivae normal Neck supple General: trachea midline Chest inspection of chest normal Resp Effort and Inspection: tachypneic Auscultation: diminished lung sounds; Negative for rales, rhonchi or wheezes Cardio regular rate and regular rhythm GI normal to inspection, nondistended, normoactive bowel sounds Extremity no clubbing, cyanosis or edema Skin no rashes or lesions noted Neuro moves all extremities and no focal motor deficits Psych cooperative and affect normal Charges/Coding Visit Charges Inpatient E&M: 65022 Subs Hosp L2
--- NOTE | 2021-08-14 07:33 | PCM.PN.HOSP ---
Subjective Subjective Afebrile. On airway 88% and on BiPAP at night FiO2 55% Objective Data Objective Data Vital Signs: Vital Signs Temp Pulse Resp BP Pulse Ox 97.0 F L 77 24 H 130/85 H 94 08/14/21 03:00 08/14/21 03:46 08/14/21 03:46 08/14/21 03:00 08/14/21 03:46 Oxygen Flow Rate (L/min) 60 Oxygen Delivery Method Airvo Weight: 170 lb 6.677 oz Body Mass Index (BMI) 28.7 Intake & Output: Intake and Output for Last 24 Hours 08/12/21 08/13/21 08/14/21 23:59 23:59 23:59 Intake Total 1170 / 1170 770 / 770 120 / 120 Output Total 1800 / 1800 845 / 845 225 / 225 Balance -630 / -630 -75 / -75 -105 / -105 Medical Nutrition Assessment Dietitian: Malnutrition Criteria Met Start: 08/09/21 13:29 Freq: Status: Active Protocol: Document 08/12/21 11:47 AG (Rec: 08/12/21 11:47 AG [id number]) Nutrition Malnutrition Evidence of Malnutrition Exists Yes Malnutrition (severe): Acute Illness/Injury Evidenced By Suboptimal Energy Intake ( Severe),Weight Loss (Severe) Intake Problem Inadequate Oral Intake Etiology r/t resp. failure and increased oxygen needs Signs/Symptoms as evidenced by estimated PO intake meeting <50% of estimated nutritional needs Status Active Problem Clinical Problem Acute Disease or Injury Related Malnutrition Etiology Severe protein/calorie malnutrition in the context of acute illness related to inadequate oral intake w/ resp . failure Signs/Symptoms as evidenced by ~6% wt loss since admit x 8 days and PO meeting less than 50% estimated nutrition needs > 1 week Status Active Problem Recommendation Dietitian Recommendations/Changes continue regular diet given acute malnutrition; continue 4 oz ensure compact TID w/ meals for additional calories/ protein if consumed. Lab / Micro Data Result Diagrams: 08/14/21 04:34 08/14/21 04:34 Labs: Laboratory Results - last 24 hr 08/14/21 04:34: WBC 13.3 H, RBC 3.85 L, Hgb 12.4 L, Hct 37.2 L, MCV 96.6 H, MCH 32.2 H, MCHC 33.3, RDW Std Deviation 47.8 H, RDW Coeff of Enoch 13.5, Plt Count 258, MPV 11.4, Immature Gran % (Auto) 3.500 H, Neut % (Auto) 83.3 H, Lymph % (Auto) 7.7 L, [place] % (Auto) 5.0, Eos % (Auto) 0.1, Baso % (Auto) 0.4, Absolute Neuts (auto) 11.1 H, Absolute Lymphs (auto) 1.03, Nucleated RBC % 0 08/14/21 04:34: Sodium 138, Potassium 4.8, Chloride 103, Carbon Dioxide 29.0, Anion Gap 6, BUN 30 H, Creatinine 0.84, Estim Creat Clear Calc 85.25, Est GFR (MDRD) Af Amer 119, Est GFR (MDRD) Non-Af 98, BUN/Creatinine Ratio 35.7 H, Glucose 95, Calcium 9.0, Total Bilirubin 0.60, AST 36, ALT 79 H, Alkaline Phosphatase 97, Total Protein 7.4, Albumin 2.2 L, Globulin 5.2 H, Albumin/Globulin Ratio 0.4 L Micro: Microbiology 08/01/21 15:50 Blood Culture (Wb) - Right Hand Blood Culture - Final Gram positive jeff 08/05/21 11:30 Sputum, Expectorated/Coughed Gram Stain - Final 08/05/21 11:30 Sputum, Expectorated/Coughed Respiratory Culture - Final Haemophilus influenzae Mixed Nathalie 08/01/21 17:09 Blood Culture (Wb) - Anticubital Left Blood Culture - Final No growth in 5 days. 08/01/21 18:00 Urine, Clean Catch Urine Culture - Final Mixed Gram Positive Organisms 08/02/21 03:00 Urine, Random Legionella Antigen - Final 08/02/21 03:00 Urine, Random Streptococcus pneumoniae Antigen (M - Final 08/01/21 21:25 Nasal Secretion SARS-CoV-2 Antigen (Rapid) - Final Physical Exam Narrative General: Alert, Oriented x3, Cooperative HEENT: Atraumatic, PERRLA, EOMI, Normocephalic Oral: No Gingival or Mucosal Lesions/ Ulcerations Neck: Supple, No JVD, Negative Carotid Bruits Lungs: Air entry diminished in bilateral lung bases. No crepitations Cardiovascular: Regular rate, Regular Rhythm, Normal S1, Normal S2, No murmurs Abdomen: Bowel Sounds Present, Soft, Non Tender, Non-Distended : No renal angle tenderness. No suprapubic tenderness. Extremities: No edema, Capillary Refill Less than 3 Seconds Skin: No rashes, No breakdown Musculoskeletal: No Tenderness to Palpation of Joints or Extremities Neurological: Cranial nerves II-XII grossly intact, DTR 2+/4 and Symmetrical, Neuro grossly intact Psych/Mental Status: Flat affect. Assessment & Plan Assessment/Plan (1) Pneumonia due to severe acute respiratory syndrome coronavirus 2 (SARS-CoV-2): (2) Respiratory failure: QUALIFIERS: Chronicity: acute Respiratory failure complication: hypoxia Qualified Code(s): J96.01 - Acute respiratory failure with hypoxia PLAN: 1. Acute hypoxic respiratory failure secondary to bilateral COVID-19 and Haemophilus influenzae pneumonia superinfection: Patient is being admitted in ICU. Development Technical Lead on board. On alternate BiPAP and narrow. On diuretic as needed and as per tolerated. On therapeutic anticoagulation. Bronchopulmonary hygiene with prone positioning. Blood culture was positive of gram-positive rods possible skin contamination. Sputum culture shows 3+ Haemophilus influenzae. Wean FiO2 as per tolerated to keep pulse ox more than 90% 2. acute COVID 19 bilateral pneumonia: Patient completed remdesivir on 08/05. Completed dexamethasone through 08/19. COVID isolation completed. Patient is unvaccinated. Continue bacitracin 3. Bacterial H. flu pneumonia: IV ceftriaxone completed 4. Lactic acidosis secondary to severe hypoxia: Resolved. 5. RA: On hydrochloroquine. Methotrexate on hold 6. VTE prophylaxis: not indicated as already anticoagulated. 7. Prognosis: guarded given overall lack of progress. Active Medications Acetaminophen (Acetaminophen 325 Mg Tablet) 650 mg PO Q6H PRN PRN PRN Reason: Pain Score 1-10/Temp > 100.7 F Last Admin: 08/11/21 20:34 Dose: 650 mg Documented by: Al Hydroxide/Mg Hydroxide (Mag Hydrox/Al Hydrox/Simeth 30 Ml Udc) 30 ml PO Q6H PRN PRN PRN Reason: Gastric Burning Albuterol/Ipratropium (Ipratropium/Albuterol Sulfate 3 Ml Ampul.Neb) 3 ml INHALATION Q6HWA.RT ИРИНА Last Admin: 08/14/21 08:34 Dose: 3 ml Documented by: Ascorbic Acid (Ascorbic Acid 500 Mg Tablet) 1,000 mg PO BREAKFAST ИРИНА Last Admin: 08/14/21 10:31 Dose: 1,000 mg Documented by: Baricitinib (Baricitinib 2 Mg Tablet) 4 mg PO DAILY [facility] Stop: 08/15/21 10: Last Admin: 08/14/21 10:32 Dose: 4 mg Documented by: Chlorhexidine Gluconate (Chlorhexidine Gluc 2% Cloth 1 Each Towelette) 1 each TOPICAL DAILY [facility] Last Admin: 08/13/21 08:36 Dose: 1 each Documented by: Dexamethasone (Dexamethasone 4 Mg Tablet) 6 mg PO DAILY [facility] Stop: 08/19/21 10:01 Last Admin: 08/14/21 10:31 Dose: 6 mg Documented by: Enoxaparin Sodium (Enoxaparin 80 Mg/0.8 Ml Syringe) 80 mg SC BID [facility] Last Admin: 08/14/21 10:32 Dose: 80 mg Documented by: Folic Acid (Folic Acid 1 Mg Tablet) 1 mg PO BREAKFAST [facility] Last Admin: 08/14/21 10:31 Dose: 1 mg Documented by: Guaifenesin (Guaifenesin 1,200 Mg Tablet) 1,200 mg PO BID [facility] Last Admin: 08/14/21 10:32 Dose: 1,200 mg Documented by: Hydroxychloroquine Sulfate (Hydroxychloroquine 200 Mg Tablet) 200 mg PO BID [facility] Last Admin: 08/14/21 10:32 Dose: 200 mg Documented by: Sodium Chloride () 250 mls @ 15 mls/hr IV .[id number] PRN PRN Reason: Saline Flush Melatonin (Melatonin 10 Mg Tablet) 10 mg PO QHS PRN PRN PRN Reason: SLEEP Last Admin: 08/12/21 21:56 Dose: 10 mg Documented by: Ondansetron HCl (Ondansetron 4 Mg/2 Ml Vial) 4 mg IV Q8H PRN PRN PRN Reason: NAUSEA/VOMITING Senna/Docusate Sodium (Senna/Docusate Sodium 1 Tablet) 2 tablet PO BID PRN PRN PRN Reason: CONSTIPATION Last Admin: 08/12/21 21:49 Dose: 2 tablet Documented by: Sodium Chloride (0.9% Saline Lock 10 Ml Syringe) 10 - 40 ml IV UD PRN PRN Reason: SALINE FLUSH Last Admin: 08/12/21 09:25 Dose: 10 ml Documented by: Sodium Chloride (Sodium Chloride 0.65% 1 [place].Btl) 2 spray NASAL TID PRN PRN PRN Reason: NASAL DRYNESS Last Admin: 08/07/21 21:49 Dose: 2 spray Documented by: Zinc Sulfate (Zinc Sulfate (50mg Elemental) 220 Mg Capsule) 220 mg PO TID [facility] Last Admin: 08/14/21 04:49 Dose: 220 mg Documented by: Charges/Coding Visit Charges Inpatient E&M: 99307 Subs Hosp L3
[2021-08-14] MEDS: Ipratropium/Albuterol Sulfate 3 ML AMPUL.NEB INHALATION ×3 (08:34→19:37)
--- NOTE | 2021-08-14 08:50 | CPS ---
Pt is currently wearing Airvo at 60lpm and 91% and a 100% NRB mask over it, SpO2=91%
[2021-08-14] MEDS: Folic Acid 1 MG Tablet PO (10:31)
[2021-08-14] MEDS: Ascorbic Acid 500 MG Tablet 1000 MG PO (10:31)
[2021-08-14] MEDS: dexAMETHasone 4 MG Tablet 6 MG PO (10:31)
[2021-08-14] MEDS: Hydroxychloroquine 200 MG Tablet PO ×2 (10:32→21:31)
[2021-08-14] MEDS: guaiFENesin 1,200 MG Tablet 1200 MG PO ×2 (10:32→21:31)
[2021-08-14] MEDS: Enoxaparin 80 MG/0.8 ML Syringe SC ×2 (10:32→21:31)
[2021-08-14] MEDS: CHLORHEXIDINE GLUC 2% CLOTH 1 EACH TOWELETTE TOPICAL (12:25)
[2021-08-15] VITALS (33 sets, daily range): BP systolic 102–142; BP diastolic 65–93; PULSE 63–95; RESP 14–31; TEMP 36.2–36.6; O2SAT 83–99
[2021-08-15] MEDS: Acetaminophen 325 MG Tablet 650 MG PO ×2 (05:13→15:54)
[2021-08-15 06:10] LABS: Absolute Lymphocyte Count 0.94 X10^3/uL (0.83-4.51); Absolute Neutrophil Count 9.2 X10^3/uL (2.0-7.7); Basophil# 0.04 X10^3/uL; Basophil% 0.4 % (0-1); Lymphocyte # 0.94 X10^3/ul (0.83-4.51); Lymphocyte % 8.6 % (19-41); Mean Corp Hgb Conc 32.4 g/dL (32-36); Mean Corpuscular Hgb 31.8 pg (27.0-32.0); Mean Corpuscular Volume 98.1 fL (80-94); Mean Platelet Vol. 11.5 fl (6.2-12.0); Monocyte# 0.46 X10^3/uL; Monocyte% 4.2 % (0-10); NRBC Flagged by Analyzer 0 % (0-5); Neutrophil # 9.22 X10^3/uL (2.7-7.7); Platelet Count 212 K/mm3 (150-450); RBC Distribution Width CV 13.7 % (11.6-14.6); RBC Distribution Width SD 48.8 fl (35.1-43.9); Red Blood Count 3.77 M/mm3 (4.6-6.2)
[2021-08-15 06:33] LABS: ALB/GLOB Ratio 0.5 RATIO (0.9-2.4); AST(SGOT) 18 U/L (15-37); Alanine Aminotransfer ALT/SGPT 70 U/L (16-61); Albumin, Serum 2.3 g/dL (3.2-5.0); Alkaline Phosphatase 90 U/L (45-117); Anion Gap 5 (5-15); BUN 25 mg/dL (7-18); BUN/Creat Ratio 33.1 RATIO (10-20); Calcium,Total 8.7 mg/dL (8.5-10.1); Chloride 104 mmol/L (98-107); Creatinine, Serum 0.76 mg/dL (0.70-1.30); EST Glomerular Filtration Rate 111 mL/min (>60); Est Glom Filt Rate - Afr Amer 134 mL/min (>60); Estimated Creatinine Clearance 94.22 ml/min; Glucose 78 mg/dL (74-106); Magnesium 2.2 mg/dL (1.6-2.6); Phosphorus 3.4 mg/dL (2.5-4.9); Potassium 4.4 mmol/L (3.5-5.1); Protein, Total 7.3 g/dL (6.4-8.2); Sodium Level 138 mmol/L (136-145)
[2021-08-15] MEDS: Ipratropium/Albuterol Sulfate 3 ML AMPUL.NEB INHALATION ×3 (06:56→19:24)
--- NOTE | 2021-08-15 07:03 | PN.CC_ITS ---
Assessment & Plan Assessment/Plan (1) Pneumonia due to severe acute respiratory syndrome coronavirus 2 (SARS-CoV-2): (2) Respiratory failure: QUALIFIERS: Chronicity: acute Respiratory failure complication: hypoxia Qualified Code(s): J96.01 - Acute respiratory failure with hypoxia (3) Hyperlipidemia: PLAN: RECOMMENDATIONS: 1. Continue to wean FiO2 to maintain oxygen saturations at or above 90%. 2. Continue baricitinib (08/15/2021) and decadron. 3. Diuresis as tolerated. Dose with Lasix today 4. Continue hydroxychloroquine. Hold methotrexate 5. Continue therapeutic anticoagulation. 6. Encourage incentive spirometer use and mobilize patient as tolerated. IMPRESSIONS: 1. Acute hypoxic respiratory failure secondary to COVID-19 and Haemophilus influenza pneumonia Although the patient's respiratory status is still tenuous, he is maintaining appropriate oxygen saturations on a combination of BiPAP and heated high flow, which will be continued to maintain saturations at or above 90%. The patient has already completed a treatment course of remdesivir and a 7-day course of antimicrobials. Patient has almost completed courses of baricitinib and Decadron as ordered. Plan to continue bronchodilator therapy. Therapeutic Lovenox will be continued twice daily as ordered. Awake prone positioning was encouraged. Diuretic therapy as tolerated to maintain euvolemic state. Mobilize patient as tolerated. Continue to encourage aggressive pulmonary toileting 2. Rheumatoid arthritis/unvaccinated state/overweight/hyperlipidemia/possible CAD Complicates care, management, recovery and prognosis. Okay to continue with hydroxychloroquine, but methotrexate may have more risks for secondary complications. This note was generated with [employer] dictation software. It may contain incorrect words, spelling, and punctuation that were not noted in checking the note before signing. Subjective Subjective Patient did okay overnight. Patient reportedly has been compliant with incentive spirometer and was able to make it up to the chair today. Patient thought this was tolerated better than yesterday. Patient has been reporting a cough productive of clear to milky sputum. No chest pain or hemoptysis has been reported. Objective Data Objective Data Vital Signs: Vital Signs Temp Pulse Resp BP Pulse Ox 36.6 C 68 22 H 125/83 H 99 08/14/21 20:00 08/15/21 06:57 08/15/21 06:57 08/15/21 06:00 08/15/21 06:56 Oxygen Flow Rate (L/min) 60 Oxygen Delivery Method Airvo Weight: 77.5 kg Body Mass Index (BMI) 28.7 Intake & Output: Intake and Output for Last 24 Hours 08/13/21 08/14/21 08/15/21 23:59 23:59 23:59 Intake Total 770 / 770 120 / 120 Output Total 845 / 845 625 / 625 250 / 250 Balance -75 / -75 -505 / -505 -250 / -250 Medical Nutrition Assessment Dietitian: Malnutrition Criteria Met Start: 08/09/21 13:29 Freq: Status: Active Protocol: Document 08/12/21 11:47 AG (Rec: 08/12/21 11:47 AG [id number]) Nutrition Malnutrition Evidence of Malnutrition Exists Yes Malnutrition (severe): Acute Illness/Injury Evidenced By Suboptimal Energy Intake ( Severe),Weight Loss (Severe) Intake Problem Inadequate Oral Intake Etiology r/t resp. failure and increased oxygen needs Signs/Symptoms as evidenced by estimated PO intake meeting <50% of estimated nutritional needs Status Active Problem Clinical Problem Acute Disease or Injury Related Malnutrition Etiology Severe protein/calorie malnutrition in the context of acute illness related to inadequate oral intake w/ resp . failure Signs/Symptoms as evidenced by ~6% wt loss since admit x 8 days and PO meeting less than 50% estimated nutrition needs > 1 week Status Active Problem Recommendation Dietitian Recommendations/Changes continue regular diet given acute malnutrition; continue 4 oz ensure compact TID w/ meals for additional calories/ protein if consumed. Lab / Micro Data Result Diagrams: 08/15/21 05:33 08/15/21 05:33 Labs: Laboratory Results - last 24 hr 08/15/21 05:33: WBC 11.0, RBC 3.77 L, Hgb 12.0 L, Hct 37.0 L, MCV 98.1 H, MCH 31.8, MCHC 32.4, RDW Std Deviation 48.8 H, RDW Coeff of Enoch 13.7, Plt Count 212, MPV 11.5, Immature Gran % (Auto) 2.800 H, Neut % (Auto) 84.0 H, Lymph % (Auto) 8.6 L, [place] % (Auto) 4.2, Eos % (Auto) 0.0, Baso % (Auto) 0.4, Absolute Neuts (auto) 9.2 H, Absolute Lymphs (auto) 0.94, Nucleated RBC % 0 08/15/21 05:33: Sodium 138, Potassium 4.4, Chloride 104, Carbon Dioxide 29.0, Anion Gap 5, BUN 25 H, Creatinine 0.76, Estim Creat Clear Calc 94.22, Est GFR (MDRD) Af Amer 134, Est GFR (MDRD) Non-Af 111, BUN/Creatinine Ratio 33.1 H, Glucose 78, Calcium 8.7, Phosphorus 3.4, Magnesium 2.2, Total Bilirubin 0.60, AST 18, ALT 70 H, Alkaline Phosphatase 90, Total Protein 7.3, Albumin 2.3 L, Globulin 5.0 H, Albumin/Globulin Ratio 0.5 L Micro: Microbiology 08/01/21 15:50 Blood Culture (Wb) - Right Hand Blood Culture - Final Gram positive jeff 08/05/21 11:30 Sputum, Expectorated/Coughed Gram Stain - Final 08/05/21 11:30 Sputum, Expectorated/Coughed Respiratory Culture - Final Haemophilus influenzae Mixed Nathalie 08/01/21 17:09 Blood Culture (Wb) - Anticubital Left Blood Culture - Final No growth in 5 days. 08/01/21 18:00 Urine, Clean Catch Urine Culture - Final Mixed Gram Positive Organisms 08/02/21 03:00 Urine, Random Legionella Antigen - Final 08/02/21 03:00 Urine, Random Streptococcus pneumoniae Antigen (M - Final 08/01/21 21:25 Nasal Secretion SARS-CoV-2 Antigen (Rapid) - Final Physical Exam Const alert and no apparent distress Constitutional Narrative: Sitting in bedside recliner on Airvo General Appearance: cooperative HEENT normocephalic and head/scalp atraumatic Eyes PERRL, EOMs intact bilaterally and conjunctivae normal Neck supple General: trachea midline Chest inspection of chest normal Chest: symmetrical chest wall rise; Negative for crepitus Resp Resp Narrative: Slight conversational dyspnea Auscultation: diminished lung sounds; Negative for rales, rhonchi or wheezes Cardio regular rate and regular rhythm GI normal to inspection, nondistended, normoactive bowel sounds Extremity no clubbing, cyanosis or edema Skin no rashes or lesions noted Neuro moves all extremities and no focal motor deficits Psych cooperative and affect normal Charges/Coding Visit Charges Inpatient E&M: 02110 Subs Hosp L3
[2021-08-15] MEDS: Furosemide 40 MG Tablet PO ×2 (09:44→17:34)
[2021-08-15] MEDS: Enoxaparin 80 MG/0.8 ML Syringe SC ×2 (09:44→20:36)
[2021-08-15] MEDS: Hydroxychloroquine 200 MG Tablet PO ×2 (09:45→20:37)
[2021-08-15] MEDS: dexAMETHasone 4 MG Tablet 6 MG PO (09:45)
[2021-08-15] MEDS: Ascorbic Acid 500 MG Tablet 1000 MG PO (09:45)
[2021-08-15] MEDS: guaiFENesin 1,200 MG Tablet 1200 MG PO ×2 (09:46→20:37)
[2021-08-15] MEDS: Folic Acid 1 MG Tablet PO (09:46)
--- NOTE | 2021-08-15 15:24 | PCM.PN.HOSP ---
Subjective Subjective Patient did not wear BiPAP at night yesterday which he is supposed to. Patient got very short of breath after physical therapy and put on short time BiPAP to recover and then on airVo. Objective Data Objective Data Vital Signs: Vital Signs Temp Pulse Resp BP Pulse Ox 97.1 F L 90 31 H 115/68 92 08/15/21 12:35 08/15/21 14:00 08/15/21 14:00 08/15/21 14:00 08/15/21 14:00 Oxygen Flow Rate (L/min) 60 Oxygen Delivery Method Airvo Weight: 170 lb 13.732 oz Body Mass Index (BMI) 28.7 Intake & Output: Intake and Output for Last 24 Hours 08/13/21 08/14/21 08/15/21 23:59 23:59 23:59 Intake Total 770 / 770 120 / 120 Output Total 845 / 845 625 / 625 650 / 650 Balance -75 / -75 -505 / -505 -650 / -650 Medical Nutrition Assessment Dietitian: Malnutrition Criteria Met Start: 08/09/21 13:29 Freq: Status: Active Protocol: Document 08/12/21 11:47 AG (Rec: 08/12/21 11:47 AG [id number]) Nutrition Malnutrition Evidence of Malnutrition Exists Yes Malnutrition (severe): Acute Illness/Injury Evidenced By Suboptimal Energy Intake ( Severe),Weight Loss (Severe) Intake Problem Inadequate Oral Intake Etiology r/t resp. failure and increased oxygen needs Signs/Symptoms as evidenced by estimated PO intake meeting <50% of estimated nutritional needs Status Active Problem Clinical Problem Acute Disease or Injury Related Malnutrition Etiology Severe protein/calorie malnutrition in the context of acute illness related to inadequate oral intake w/ resp . failure Signs/Symptoms as evidenced by ~6% wt loss since admit x 8 days and PO meeting less than 50% estimated nutrition needs > 1 week Status Active Problem Recommendation Dietitian Recommendations/Changes continue regular diet given acute malnutrition; continue 4 oz ensure compact TID w/ meals for additional calories/ protein if consumed. Lab / Micro Data Result Diagrams: 08/15/21 05:33 08/15/21 05:33 Labs: Laboratory Results - last 24 hr 08/15/21 05:33: WBC 11.0, RBC 3.77 L, Hgb 12.0 L, Hct 37.0 L, MCV 98.1 H, MCH 31.8, MCHC 32.4, RDW Std Deviation 48.8 H, RDW Coeff of Enoch 13.7, Plt Count 212, MPV 11.5, Immature Gran % (Auto) 2.800 H, Neut % (Auto) 84.0 H, Lymph % (Auto) 8.6 L, [place] % (Auto) 4.2, Eos % (Auto) 0.0, Baso % (Auto) 0.4, Absolute Neuts (auto) 9.2 H, Absolute Lymphs (auto) 0.94, Nucleated RBC % 0 08/15/21 05:33: Sodium 138, Potassium 4.4, Chloride 104, Carbon Dioxide 29.0, Anion Gap 5, BUN 25 H, Creatinine 0.76, Estim Creat Clear Calc 94.22, Est GFR (MDRD) Af Amer 134, Est GFR (MDRD) Non-Af 111, BUN/Creatinine Ratio 33.1 H, Glucose 78, Calcium 8.7, Phosphorus 3.4, Magnesium 2.2, Total Bilirubin 0.60, AST 18, ALT 70 H, Alkaline Phosphatase 90, Total Protein 7.3, Albumin 2.3 L, Globulin 5.0 H, Albumin/Globulin Ratio 0.5 L Micro: Microbiology 08/01/21 15:50 Blood Culture (Wb) - Right Hand Blood Culture - Final Gram positive jeff 08/05/21 11:30 Sputum, Expectorated/Coughed Gram Stain - Final 08/05/21 11:30 Sputum, Expectorated/Coughed Respiratory Culture - Final Haemophilus influenzae Mixed Nathalie 08/01/21 17:09 Blood Culture (Wb) - Anticubital Left Blood Culture - Final No growth in 5 days. 08/01/21 18:00 Urine, Clean Catch Urine Culture - Final Mixed Gram Positive Organisms 08/02/21 03:00 Urine, Random Legionella Antigen - Final 08/02/21 03:00 Urine, Random Streptococcus pneumoniae Antigen (M - Final 08/01/21 21:25 Nasal Secretion SARS-CoV-2 Antigen (Rapid) - Final Physical Exam Narrative General: Alert, Oriented x3, Cooperative HEENT: Atraumatic, PERRLA, EOMI, Normocephalic Oral: No Gingival or Mucosal Lesions/ Ulcerations Neck: Supple, No JVD, Negative Carotid Bruits Lungs: Air entry diminished in bilateral lung bases. No crepitations/rhonchi. Dyspnea on mild exertion Cardiovascular: Regular rate, Regular Rhythm, Normal S1, Normal S2, No murmurs Abdomen: Bowel Sounds Present, Soft, Non Tender, Non-Distended : No renal angle tenderness. No suprapubic tenderness. Extremities: No edema, Capillary Refill Less than 3 Seconds Skin: No rashes, No breakdown Musculoskeletal: No Tenderness to Palpation of Joints or Extremities Neurological: Cranial nerves II-XII grossly intact, DTR 2+/4 and Symmetrical, Neuro grossly intact Psych/Mental Status: Flat affect. Assessment & Plan Assessment/Plan (1) Pneumonia due to severe acute respiratory syndrome coronavirus 2 (SARS-CoV-2): (2) Respiratory failure: QUALIFIERS: Chronicity: acute Respiratory failure complication: hypoxia Qualified Code(s): J96.01 - Acute respiratory failure with hypoxia PLAN: 1. Acute hypoxic respiratory failure secondary to bilateral COVID-19 and Haemophilus influenzae pneumonia superinfection: Patient is being admitted in ICU. Certified Caregiver on board. On alternate BiPAP and narrow. On diuretic as needed and as per tolerated. On therapeutic anticoagulation. Bronchopulmonary hygiene with prone positioning. Blood culture was positive of gram-positive rods possible skin contamination. Sputum culture shows 3+ Haemophilus influenzae. Wean FiO2 as per tolerated to keep pulse ox more than 90% 08/15: Dyspnea on minimal exertion with tachypnea. Continue oxygen and ventilation support. 2. acute COVID 19 bilateral pneumonia: Patient completed remdesivir on 08/05. Completed dexamethasone through 08/19. COVID isolation completed. Patient is unvaccinated. Continue bacitracin 3. Bacterial H. flu pneumonia: IV ceftriaxone completed 4. Lactic acidosis secondary to severe hypoxia: Resolved. 5. RA: On hydrochloroquine. Methotrexate on hold 6. VTE prophylaxis: not indicated as already anticoagulated. 7. Prognosis: guarded given overall lack of progress. Charges/Coding Visit Charges Inpatient E&M: 43207 [facility] Hosp L3
--- NOTE | 2021-08-15 15:56 | CHAPLAIN ---
Type of Pastoral Visit _x__ Initial Visit ___ Follow-up Visit ___ On-call Visit ___ General Patient Visit ___ Spiritual Assessment ___ Family Conference ___ Bereavement ___ Rapid Response ___ Code Blue ___ Other (describe below) Pastoral Care Referral From _x__ Patient ___ Family ___ Nurse ___ Physician ___ Subject Scientific Research ___ Laboratory Veterinarian ___ Other (describe below) Sacrament/Intervention _x__ Active listening ___ Anointing ___ Orthodoxy ___ Bereavement ___ Communion ___ [place] exploration ___ _x__ Life review _x__ Prayer ___ Reconciliation ___ Sacrament of Sick _x__ Supportive presence ___ Wedding ___ Other (describe below) Pastoral Comments patient is now out of isolation and is sitting up in chair on airvo; pt is alert and able to talk; pt states he is doing better and is very pleased with the care and hard work of the whole staff at hospital; pt says that he is newly retired and is wanting to help more with the grandchildren; talk revolves around purpose and doing 'everything recommended for his health'; pt welcomes presence and prayers
[2021-08-16] VITALS (37 sets, daily range): BP systolic 92–144; BP diastolic 65–93; PULSE 63–103; RESP 12–94; TEMP 36.1–36.7; O2SAT 79–100
--- NOTE | 2021-08-16 02:14 | NURSING ---
swelling moving farther up pts neck, right eye continue to swells.
[2021-08-16] MEDS: 0.9% Saline Lock 10 ML Syringe IV ×2 (05:49→22:29)
[2021-08-16 05:56] LABS: Absolute Lymphocyte Count 1.47 X10^3/uL (0.83-4.51); Absolute Neutrophil Count 13.5 X10^3/uL (2.0-7.7); Basophil# 0.06 X10^3/uL; Basophil% 0.4 % (0-1); Eosinophil# 0.01 X10^3/uL; Eosinophils% 0.1 % (0-5); Hematocrit 36.5 % (40-54); Hemoglobin 12.4 g/dL (13.0-16.5); Lymphocyte # 1.47 X10^3/ul (0.83-4.51); Lymphocyte % 9.1 % (19-41); Mean Corpuscular Hgb 31.7 pg (27.0-32.0); Mean Corpuscular Volume 93.4 fL (80-94); Mean Platelet Vol. 11.2 fl (6.2-12.0); Monocyte# 0.77 X10^3/uL; Monocyte% 4.8 % (0-10); NRBC Flagged by Analyzer 0 % (0-5); Neutrophil # 13.47 X10^3/uL (2.7-7.7); Neutrophil % 83.2 % (47-70); Platelet Count 225 K/mm3 (150-450); RBC Distribution Width CV 13.3 % (11.6-14.6); RBC Distribution Width SD 45.2 fl (35.1-43.9); Red Blood Count 3.91 M/mm3 (4.6-6.2); White Blood Count 16.2 K/mm3 (4.4-11.0)
[2021-08-16 06:12] LABS: Anion Gap 8 (5-15); BUN 25 mg/dL (7-18); BUN/Creat Ratio 32.3 RATIO (10-20); Calcium,Total 8.6 mg/dL (8.5-10.1); Chloride 99 mmol/L (98-107); Creatinine, Serum 0.77 mg/dL (0.70-1.30); EST Glomerular Filtration Rate 108 mL/min (>60); Est Glom Filt Rate - Afr Amer 131 mL/min (>60); Glucose 73 mg/dL (74-106); Potassium 4.1 mmol/L (3.5-5.1); Sodium Level 137 mmol/L (136-145)
[2021-08-16] MEDS: Ipratropium/Albuterol Sulfate 3 ML AMPUL.NEB INHALATION ×3 (07:25→19:00)
--- NOTE | 2021-08-16 07:29 | PN.CC_ITS ---
Assessment & Plan Assessment/Plan (1) Pneumonia due to severe acute respiratory syndrome coronavirus 2 (SARS-CoV-2): (2) Respiratory failure: QUALIFIERS: Chronicity: acute Respiratory failure complication: hypoxia Qualified Code(s): J96.01 - Acute respiratory failure with hypoxia (3) Hyperlipidemia: PLAN: RECOMMENDATIONS: 1. Continue to wean FiO2 to maintain oxygen saturations at or above 90%. 2. Completed baricitinib and has 5 days left of decadron (08/19/2021). 3. Diuresis as tolerated. Dose with Lasix today 4. Continue hydroxychloroquine. Hold methotrexate 5. Continue therapeutic anticoagulation. 6. Encourage incentive spirometer use and mobilize patient as tolerated. IMPRESSIONS: 1. Acute hypoxic respiratory failure secondary to COVID-19 and Haemophilus influenza pneumonia Although the patient's respiratory status is still tenuous, he is maintaining appropriate oxygen saturations on a combination of BiPAP and heated high flow, which will be continued to maintain saturations at or above 90%. The patient has already completed a treatment course of remdesivir and a 7-day course of antimicrobials. Patient completed course of baricitinib and is in the process of completing a second round of Decadron as ordered. Plan to continue bronchodilator therapy. Therapeutic Lovenox will be continued twice daily as ordered. Awake prone positioning was encouraged. Diuretic therapy as tolerated to maintain euvolemic state. Mobilize patient as tolerated. Continue to encourage aggressive pulmonary toileting 2. Rheumatoid arthritis/unvaccinated state/overweight/hyperlip idemia/possible CAD Complicates care, management, recovery and prognosis. Okay to continue with hydroxychloroquine, but methotrexate may have more risks for secondary complications. This note was generated with [employer] dictation software. It may contain incorrect words, spelling, and punctuation that were not noted in checking the note before signing. Subjective Subjective Patient did okay overnight. Patient was able to tolerate BiPAP while sleeping and is currently in the chair on Airvo. Patient is reporting a productive cough and overall feels subjectively unchanged compared to previous. Objective Data Objective Data Vital Signs: Vital Signs Temp Pulse Resp BP Pulse Ox 36.1 C L 92 25 H 114/75 92 08/16/21 00:00 08/16/21 07:24 08/16/21 07:24 08/16/21 06:00 08/16/21 07:24 Oxygen Flow Rate (L/min) 60 Oxygen Delivery Method Airvo Weight: 78.1 kg Body Mass Index (BMI) 28.7 Intake & Output: Intake and Output for Last 24 Hours 08/14/21 08/15/21 08/16/21 23:59 23:59 23:59 Intake Total 120 / 120 170 / 170 Output Total 625 / 625 1260 / 1810 550 / 550 Balance -505 / -505 -1260 / -1690 -380 / -380 Medical Nutrition Assessment Dietitian: Malnutrition Criteria Met Start: 08/09/21 13:29 Freq: Status: Active Protocol: Document 08/12/21 11:47 AG (Rec: 08/12/21 11:47 AG [id number]) Nutrition Malnutrition Evidence of Malnutrition Exists Yes Malnutrition (severe): Acute Illness/Injury Evidenced By Suboptimal Energy Intake ( Severe),Weight Loss (Severe) Intake Problem Inadequate Oral Intake Etiology r/t resp. failure and increased oxygen needs Signs/Symptoms as evidenced by estimated PO intake meeting <50% of estimated nutritional needs Status Active Problem Clinical Problem Acute Disease or Injury Related Malnutrition Etiology Severe protein/calorie malnutrition in the context of acute illness related to inadequate oral intake w/ resp . failure Signs/Symptoms as evidenced by ~6% wt loss since admit x 8 days and PO meeting less than 50% estimated nutrition needs > 1 week Status Active Problem Recommendation Dietitian Recommendations/Changes continue regular diet given acute malnutrition; continue 4 oz ensure compact TID w/ meals for additional calories/ protein if consumed. Lab / Micro Data Result Diagrams: 08/16/21 05:52 08/16/21 05:52 Labs: Laboratory Results - last 24 hr 08/16/21 05:52: WBC 16.2 H, RBC 3.91 L, Hgb 12.4 L, Hct 36.5 L, MCV 93.4, MCH 31.7, MCHC 34.0, RDW Std Deviation 45.2 H, RDW Coeff of Enoch 13.3, Plt Count 225, MPV 11.2, Immature Gran % (Auto) 2.400 H, Neut % (Auto) 83.2 H, Lymph % (Auto) 9.1 L, Nicholas % (Auto) 4.8, Eos % (Auto) 0.1, Baso % (Auto) 0.4, Absolute Neuts (auto) 13.5 H, Absolute Lymphs (auto) 1.47, Nucleated RBC % 0 08/16/21 05:52: Sodium 137, Potassium 4.1, Chloride 99, Carbon Dioxide 30.0, Anion Gap 8, BUN 25 H, Creatinine 0.77, Estim Creat Clear Calc 93.00, Est GFR (MDRD) Af Amer 131, Est GFR (MDRD) Non-Af 108, BUN/Creatinine Ratio 32.3 H, Glucose 73 L, Calcium 8.6 Micro: Microbiology 08/01/21 15:50 Blood Culture (Wb) - Right Hand Blood Culture - Final Gram positive jeff 08/05/21 11:30 Sputum, Expectorated/Coughed Gram Stain - Final 08/05/21 11:30 Sputum, Expectorated/Coughed Respiratory Culture - Final Haemophilus influenzae Mixed Nathalie 08/01/21 17:09 Blood Culture (Wb) - Anticubital Left Blood Culture - Final No growth in 5 days. 08/01/21 18:00 Urine, Clean Catch Urine Culture - Final Mixed Gram Positive Organisms 08/02/21 03:00 Urine, Random Legionella Antigen - Final 08/02/21 03:00 Urine, Random Streptococcus pneumoniae Antigen (M - Final 08/01/21 21:25 Nasal Secretion SARS-CoV-2 Antigen (Rapid) - Final Physical Exam Const alert and no apparent distress Constitutional Narrative: Sitting in bedside recliner on Airvo General Appearance: cooperative HEENT normocephalic and head/scalp atraumatic Eyes PERRL, EOMs intact bilaterally and conjunctivae normal Neck supple General: trachea midline Chest inspection of chest normal Chest: symmetrical chest wall rise; Negative for crepitus Resp Resp Narrative: Mild conversational dyspnea Auscultation: diminished lung sounds; Negative for rales, rhonchi or wheezes Cardio regular rate, regular rhythm, S1 normal heart sound, S2 normal heart sound, no murmurs, no rub and no gallops GI normal to inspection, nondistended, normoactive bowel sounds Extremity no clubbing, cyanosis or edema Skin no rashes or lesions noted Neuro moves all extremities and no focal motor deficits Psych cooperative and affect normal Charges/Coding Visit Charges Inpatient E&M: 22375 Subs Hosp L3
--- NOTE | 2021-08-16 07:49 | PCM.PN.HOSP ---
Subjective Subjective The kidd for BiPAP for few hours last night currently on air Vo. The respiratory status has not improved but not deteriorated either the last few days. Objective Data Objective Data Vital Signs: Vital Signs Temp Pulse Resp BP Pulse Ox 97 F L 92 25 H 123/87 H 92 08/16/21 00:00 08/16/21 07:24 08/16/21 07:24 08/16/21 07:00 08/16/21 07:24 Oxygen Flow Rate (L/min) 60 Oxygen Delivery Method Airvo Weight: 172 lb 2.896 oz Body Mass Index (BMI) 28.7 Intake & Output: Intake and Output for Last 24 Hours 08/14/21 08/15/21 08/16/21 23:59 23:59 23:59 Intake Total 120 / 120 170 / 170 Output Total 625 / 625 1260 / 1810 550 / 550 Balance -505 / -505 -1260 / -1690 -380 / -380 Medical Nutrition Assessment Dietitian: Malnutrition Criteria Met Start: 08/09/21 13:29 Freq: Status: Active Protocol: Document 08/12/21 11:47 AG (Rec: 08/12/21 11:47 [id number]) Nutrition Malnutrition Evidence of Malnutrition Exists Yes Malnutrition (severe): Acute Illness/Injury Evidenced By Suboptimal Energy Intake ( Severe),Weight Loss (Severe) Intake Problem Inadequate Oral Intake Etiology r/t resp. failure and increased oxygen needs Signs/Symptoms as evidenced by estimated PO intake meeting <50% of estimated nutritional needs Status Active Problem Clinical Problem Acute Disease or Injury Related Malnutrition Etiology Severe protein/calorie malnutrition in the context of acute illness related to inadequate oral intake w/ resp . failure Signs/Symptoms as evidenced by ~6% wt loss since admit x 8 days and PO meeting less than 50% estimated nutrition needs > 1 week Status Active Problem Recommendation Dietitian Recommendations/Changes continue regular diet given acute malnutrition; continue 4 oz ensure compact TID w/ meals for additional calories/ protein if consumed. Lab / Micro Data Result Diagrams: 08/16/21 05:52 08/16/21 05:52 Labs: Laboratory Results - last 24 hr 08/16/21 05:52: WBC 16.2 H, RBC 3.91 L, Hgb 12.4 L, Hct 36.5 L, MCV 93.4, MCH 31.7, MCHC 34.0, RDW Std Deviation 45.2 H, RDW Coeff of Enoch 13.3, Plt Count 225, MPV 11.2, Immature Gran % (Auto) 2.400 H, Neut % (Auto) 83.2 H, Lymph % (Auto) 9.1 L, [place] % (Auto) 4.8, Eos % (Auto) 0.1, Baso % (Auto) 0.4, Absolute Neuts (auto) 13.5 H, Absolute Lymphs (auto) 1.47, Nucleated RBC % 0 08/16/21 05:52: Sodium 137, Potassium 4.1, Chloride 99, Carbon Dioxide 30.0, Anion Gap 8, BUN 25 H, Creatinine 0.77, Estim Creat Clear Calc 93.00, Est GFR (MDRD) Af Amer 131, Est GFR (MDRD) Non-Af 108, BUN/Creatinine Ratio 32.3 H, Glucose 73 L, Calcium 8.6 Micro: Microbiology 08/01/21 15:50 Blood Culture (Wb) - Right Hand Blood Culture - Final Gram positive jeff 08/05/21 11:30 Sputum, Expectorated/Coughed Gram Stain - Final 08/05/21 11:30 Sputum, Expectorated/Coughed Respiratory Culture - Final Haemophilus influenzae Mixed Nathalie 08/01/21 17:09 Blood Culture (Wb) - Anticubital Left Blood Culture - Final No growth in 5 days. 08/01/21 18:00 Urine, Clean Catch Urine Culture - Final Mixed Gram Positive Organisms 08/02/21 03:00 Urine, Random Legionella Antigen - Final 08/02/21 03:00 Urine, Random Streptococcus pneumoniae Antigen (M - Final 08/01/21 21:25 Nasal Secretion SARS-CoV-2 Antigen (Rapid) - Final Physical Exam Narrative General: Alert, Oriented x3, Cooperative, fatigue HEENT: Atraumatic, PERRLA, EOMI, Normocephalic Oral: No Gingival or Mucosal Lesions/ Ulcerations Neck: Supple, No JVD, Negative Carotid Bruits Lungs: Air entry diminished in bilateral lung bases. No crepitations/rhonchi. Dyspnea on mild exertion Cardiovascular: Regular rate, Regular Rhythm, Normal S1, Normal S2, No murmurs Abdomen: Bowel Sounds Present, Soft, Non Tender, Non-Distended : No renal angle tenderness. No suprapubic tenderness. Extremities: No pedal edema, Capillary Refill Less than 3 Seconds Skin: No rashes, No breakdown Musculoskeletal: No Tenderness to Palpation of Joints or Extremities Neurological: Cranial nerves II-XII grossly intact, DTR 2+/4 and Symmetrical, Neuro grossly intact Psych/Mental Status: Flat affect. Assessment & Plan Assessment/Plan (1) Pneumonia due to severe acute respiratory syndrome coronavirus 2 (SARS-CoV-2): (2) Respiratory failure: QUALIFIERS: Chronicity: acute Respiratory failure complication: hypoxia Qualified Code(s): J96.01 - Acute respiratory failure with hypoxia PLAN: 1. Acute hypoxic respiratory failure secondary to bilateral COVID-19 and Haemophilus influenzae pneumonia superinfection: Patient is being admitted in ICU. Swatch Cutter on board. On alternate BiPAP and narrow. On diuretic as needed and as per tolerated. On therapeutic anticoagulation. Bronchopulmonary hygiene with prone positioning. Blood culture was positive of gram-positive rods possible skin contamination. Sputum culture shows 3+ Haemophilus influenzae. Wean FiO2 as per tolerated to keep pulse ox more than 90% 08/15: Dyspnea on minimal exertion with tachypnea. Continue oxygen and ventilation support. 08/16: Continue oxygen and ventilation support. Incentive spirometry encouraged. Patient completed ceftriaxone for Haemophilus influenzae bacterial pneumonia. 2. acute COVID 19 bilateral pneumonia: Patient completed remdesivir on 08/05. Completed dexamethasone through 08/19. COVID isolation completed. Patient is unvaccinated. Continue bacitracin 3. Bacterial H. flu pneumonia: IV ceftriaxone completed 4. Lactic acidosis secondary to severe hypoxia: Resolved. 5. RA: On hydrochloroquine. Methotrexate on hold 6. VTE prophylaxis: not indicated as already anticoagulated. 7. Prognosis: guarded given overall lack of progress. Active Medications Acetaminophen (Acetaminophen 325 Mg Tablet) 650 mg PO Q6H PRN PRN PRN Reason: Pain Score 1-10/Temp > 100.7 F Last Admin: 08/15/21 15:54 Dose: 650 mg Documented by: Al Hydroxide/Mg Hydroxide (Mag Hydrox/Al Hydrox/Simeth 30 Ml Udc) 30 ml PO Q6H PRN PRN PRN Reason: Gastric Burning Albuterol/Ipratropium (Ipratropium/Albuterol Sulfate 3 Ml Ampul.Neb) 3 ml INHALATION Q6HWA.RT ИРИНА Last Admin: 08/16/21 07:25 Dose: 3 ml Documented by: Ascorbic Acid (Ascorbic Acid 500 Mg Tablet) 1,000 mg PO BREAKFAST [facility] Last Admin: 08/15/21 09:45 Dose: 1,000 mg Documented by: Chlorhexidine Gluconate (Chlorhexidine Gluc 2% Cloth 1 Each Towelette) 1 each TOPICAL DAILY [facility] Last Admin: 08/15/21 14:21 Dose: Not Given Documented by: Dexamethasone (Dexamethasone 4 Mg Tablet) 6 mg PO DAILY [facility] Stop: 08/19/21 10:01 Last Admin: 08/15/21 09:45 Dose: 6 mg Documented by: Enoxaparin Sodium (Enoxaparin 80 Mg/0.8 Ml Syringe) 80 mg SC BID [facility] Last Admin: 08/15/21 20:36 Dose: 80 mg Documented by: Folic Acid (Folic Acid 1 Mg Tablet) 1 mg PO BREAKFAST [facility] Last Admin: 08/15/21 09:46 Dose: 1 mg Documented by: Furosemide (Furosemide 40 Mg Tablet) 40 mg PO BIDLX [facility] Stop: 08/16/21 18:01 Guaifenesin (Guaifenesin 1,200 Mg Tablet) 1,200 mg PO BID [facility] Last Admin: 08/15/21 20:37 Dose: 1,200 mg Documented by: Hydroxychloroquine Sulfate (Hydroxychloroquine 200 Mg Tablet) 200 mg PO BID [facility] Last Admin: 08/15/21 20:37 Dose: 200 mg Documented by: Sodium Chloride () 250 mls @ 15 mls/hr IV .[id number] PRN PRN Reason: Saline Flush Melatonin (Melatonin 10 Mg Tablet) 10 mg PO QHS PRN PRN PRN Reason: SLEEP Last Admin: 08/12/21 21:56 Dose: 10 mg Documented by: Ondansetron HCl (Ondansetron 4 Mg/2 Ml Vial) 4 mg IV Q8H PRN PRN PRN Reason: NAUSEA/VOMITING Potassium Chloride (Potassium Chloride Oral Tablet 20 Meq) 20 meq PO BIDCM [facility] Stop: 08/16/21 17:01 Senna/Docusate Sodium (Senna/Docusate Sodium 1 Tablet) 2 tablet PO BID PRN PRN PRN Reason: CONSTIPATION Last Admin: 08/12/21 21:49 Dose: 2 tablet Documented by: Sodium Chloride (0.9% Saline Lock 10 Ml Syringe) 10 - 40 ml IV UD PRN PRN Reason: SALINE FLUSH Last Admin: 08/16/21 05:49 Dose: 20 ml Documented by: Sodium Chloride (Sodium Chloride 0.65% 1 Bradley Bradley.Btl) 2 spray NASAL TID PRN PRN PRN Reason: NASAL DRYNESS Last Admin: 08/07/21 21:49 Dose: 2 spray Documented by: Zinc Sulfate (Zinc Sulfate (50mg Elemental) 220 Mg Capsule) 220 mg PO TID ИРИНА Last Admin: 08/16/21 05:40 Dose: 220 mg Documented by: Charges/Coding Visit Charges Inpatient E&M: 67468 Subs Hosp L3
[2021-08-16] MEDS: Furosemide 40 MG Tablet PO ×2 (08:08→16:27)
[2021-08-16] MEDS: Potassium Chloride Oral Tablet 20 MEQ PO ×2 (08:08→16:28)
[2021-08-16] MEDS: CHLORHEXIDINE GLUC 2% CLOTH 1 EACH TOWELETTE TOPICAL (08:09)
[2021-08-16] MEDS: Ascorbic Acid 500 MG Tablet 1000 MG PO (08:10)
[2021-08-16] MEDS: dexAMETHasone 4 MG Tablet 6 MG PO (08:10)
[2021-08-16] MEDS: Enoxaparin 80 MG/0.8 ML Syringe SC ×2 (08:10→22:25)
[2021-08-16] MEDS: Folic Acid 1 MG Tablet PO (08:10)
[2021-08-16] MEDS: Hydroxychloroquine 200 MG Tablet PO ×2 (08:11→22:25)
[2021-08-16] MEDS: guaiFENesin 1,200 MG Tablet 1200 MG PO ×2 (08:11→22:25)
[2021-08-16] MEDS: Acetaminophen 325 MG Tablet 650 MG PO ×3 (09:18→22:25)
[2021-08-16] MEDS: MELATONIN 10 MG TABLET PO (22:26)
[2021-08-16] MEDS: LORazepam 2 MG/ML Syringe 1 MG IV (22:26)
[2021-08-17] VITALS (41 sets, daily range): BP systolic 83–182; BP diastolic 61–118; PULSE 76–127; RESP 12–37; TEMP 36.1–36.6; O2SAT 70–100
[2021-08-17] MEDS: Ipratropium/Albuterol Sulfate 3 ML AMPUL.NEB INHALATION ×2 (06:40→19:03)
[2021-08-17 07:09] LABS: Anion Gap 6 (5-15); BUN 29 mg/dL (7-18); BUN/Creat Ratio 37.2 RATIO (10-20); Calcium,Total 8.6 mg/dL (8.5-10.1); Chloride 101 mmol/L (98-107); Creatinine, Serum 0.78 mg/dL (0.70-1.30); EST Glomerular Filtration Rate 107 mL/min (>60); Est Glom Filt Rate - Afr Amer 130 mL/min (>60); Estimated Creatinine Clearance 91.81 ml/min; Glucose 74 mg/dL (74-106); Magnesium 2.3 mg/dL (1.6-2.6); Phosphorus 2.9 mg/dL (2.5-4.9); Potassium 4.3 mmol/L (3.5-5.1); Sodium Level 136 mmol/L (136-145)
--- NOTE | 2021-08-17 07:37 | PN.CC_ITS ---
Assessment & Plan Assessment/Plan (1) Pneumonia due to severe acute respiratory syndrome coronavirus 2 (SARS-CoV-2): (2) Respiratory failure: QUALIFIERS: Chronicity: acute Respiratory failure complication: hypoxia Qualified Code(s): J96.01 - Acute respiratory failure with hypoxia (3) Hyperlipidemia: PLAN: RECOMMENDATIONS: 1. Continue to wean FiO2 to maintain oxygen saturations at or above 90%. 2. Completed baricitinib and has 4 days left of decadron (08/19/2021). 3. Diuresis as tolerated. Dose with Lasix today 4. Continue hydroxychloroquine. Hold methotrexate 5. Continue therapeutic anticoagulation. 6. Encourage incentive spirometer use and mobilize patient as tolerated. IMPRESSIONS: 1. Acute hypoxic respiratory failure secondary to COVID-19 and Haemophilus influenza pneumonia Although the patient's respiratory status is still tenuous, he is maintaining appropriate oxygen saturations on a combination of BiPAP and heated high flow, which will be continued to maintain saturations at or above 90%. The patient has already completed a treatment course of remdesivir and a 7-day course of antimicrobials. Patient completed course of baricitinib and is in the process of completing a second round of Decadron as ordered. Plan to continue bronchodilator therapy. Therapeutic Lovenox will be continued twice daily as ordered. Awake prone positioning was encouraged. Diuretic therapy as tolerated to maintain euvolemic state. Mobilize patient as tolerated. Continue to encourage aggressive pulmonary toileting 2. Rheumatoid arthritis/unvaccinated state/overweight/hyperlip idemia/possible CAD Complicates care, management, recovery and prognosis. Okay to continue with hydroxychloroquine, but methotrexate may have more risks for secondary complications. Addendum 3:12 PM: Called to the patient's room approximately 10 AM secondary to worsening respiratory status. Patient was reporting that he was feeling more fatigued. Discussed CODE STATUS and patient agreed that he would be willing to be intubated if necessary. Patient was intubated by myself using a glide scope with a MAC 4 blade and an 8 endotracheal tube. Patient received 20 mg of etomidate an d 100 of succinylcholine to complete the procedure. Tube was advanced to 26 cm at the lips. Chest x-ray showed this needed to be moved back 2 cm. Patient has subsequently improved on the ventilator and is gone from 100% FiO2 down to 75% FiO2. TIME: 35 minutes of critical care time was spent, in addition to the morning assessment, addressing patient's acute hypoxic respiratory failure, review of CODE STATUS, review of all data and collaboration with care team (10 AM to 12 PM) Subjective Subjective Patient did okay overnight. Patient reportedly did not tolerate BiPAP for too long, but has been stable on Airvo. Patient had reported some gluteal discomfort while in the chair, so was moved to the bed. Patient had refused inspection by nursing. Patient was resting comfortably on my evaluation and had no complaints. Objective Data Objective Data Vital Signs: Vital Signs Temp Pulse Resp BP Pulse Ox 36.2 C L 82 18 100/68 96 08/17/21 00:00 08/17/21 07:00 08/17/21 07:00 08/17/21 07:00 08/17/21 07:00 Oxygen Flow Rate (L/min) 60 Oxygen Delivery Method Airvo Weight: 78.1 kg Body Mass Index (BMI) 28.7 Intake & Output: Intake and Output for Last 24 Hours 08/15/21 08/16/21 08/17/21 23:59 23:59 23:59 Intake Total 770 / 770 Output Total 1260 / 1810 1450 / 1450 375 / 375 Balance -1260 / -1690 -680 / -680 -375 / -375 Medical Nutrition Assessment Dietitian: Malnutrition Criteria Met Start: 08/09/21 13:29 Freq: Status: Active Protocol: Document 08/16/21 10:55 AG (Rec: 08/16/21 10:55 AG [id number]) Nutrition Malnutrition Evidence of Malnutrition Exists Yes Malnutrition (severe): Acute Illness/Injury Evidenced By Suboptimal Energy Intake ( Severe),Weight Loss (Severe) Intake Problem Inadequate Oral Intake Etiology r/t resp. failure and increased oxygen needs Signs/Symptoms as evidenced by estimated PO intake meeting <50% of estimated nutritional needs Status Active Problem Clinical Problem Acute Disease or Injury Related Malnutrition Etiology Severe protein/calorie malnutrition in the context of acute illness related to inadequate oral intake w/ resp . failure Signs/Symptoms as evidenced by 5.18kg/6.2% wt loss since admit and PO meeting less than 50% estimated nutrition needs > 1 week Status Active Problem Recommendation Dietitian Recommendations/Changes Advance diet as tolerated to regular; continue 4 oz ensure compact w/ meals Lab / Micro Data Result Diagrams: 08/16/21 05:52 10/13/21 06:45 Labs: Laboratory Results - last 24 hr 08/17/21 06:45: Sodium 136, Potassium 4.3, Chloride 101, Carbon Dioxide 29.0, Anion Gap 6, BUN 29 H, Creatinine 0.78, Estim Creat Clear Calc 91.81, Est GFR (MDRD) Af Amer 130, Est GFR (MDRD) Non-Af 107, BUN/Creatinine Ratio 37.2 H, Glucose 74, Calcium 8.6, Phosphorus 2.9, Magnesium 2.3 Micro: Microbiology 08/01/21 15:50 Blood Culture (Wb) - Right Hand Blood Culture - Final Gram positive jeff 08/05/21 11:30 Sputum, Expectorated/Coughed Gram Stain - Final 08/05/21 11:30 Sputum, Expectorated/Coughed Respiratory Culture - Final Haemophilus influenzae Mixed Nathalie 08/01/21 17:09 Blood Culture (Wb) - Anticubital Left Blood Culture - Final No growth in 5 days. 08/01/21 18:00 Urine, Clean Catch Urine Culture - Final Mixed Gram Positive Organisms 08/02/21 03:00 Urine, Random Legionella Antigen - Final 08/02/21 03:00 Urine, Random Streptococcus pneumoniae Antigen (M - Final 08/01/21 21:25 Nasal Secretion SARS-CoV-2 Antigen (Rapid) - Final Physical Exam Const alert and no apparent distress Constitutional Narrative: Lying in bed on Airvo General Appearance: cooperative HEENT normocephalic and head/scalp atraumatic Eyes PERRL, EOMs intact bilaterally and conjunctivae normal Neck supple General: trachea midline Chest inspection of chest normal Chest: symmetrical chest wall rise; Negative for crepitus Resp Resp Narrative: Mild conversational dyspnea Auscultation: diminished lung sounds; Negative for rales, rhonchi or wheezes Cardio regular rate, regular rhythm, S1 normal heart sound, S2 normal heart sound, no murmurs, no rub and no gallops GI normal to inspection, nondistended, normoactive bowel sounds Extremity no clubbing, cyanosis or edema Skin no rashes or lesions noted Neuro moves all extremities and no focal motor deficits Psych cooperative and affect normal Charges/Coding Visit Charges Inpatient E&M: 07494 Subs Hosp L3 Multi [employer] Codes Hospitalists' Procedures Procedures: 98579 Critial Care 1st Hr
[2021-08-17] MEDS: Ascorbic Acid 500 MG Tablet 1000 MG PO (08:21)
[2021-08-17] MEDS: Hydroxychloroquine 200 MG Tablet PO ×2 (08:21→21:17)
[2021-08-17] MEDS: Folic Acid 1 MG Tablet PO (08:21)
[2021-08-17] MEDS: Enoxaparin 80 MG/0.8 ML Syringe SC ×2 (08:21→21:16)
[2021-08-17] MEDS: Furosemide 40 MG Tablet PO ×2 (08:21→18:13)
[2021-08-17] MEDS: guaiFENesin 1,200 MG Tablet 1200 MG PO (08:21)
[2021-08-17] MEDS: CHLORHEXIDINE GLUC 2% CLOTH 1 EACH TOWELETTE TOPICAL (08:22)
[2021-08-17] MEDS: dexAMETHasone 4 MG Tablet 6 MG PO (08:22)
[2021-08-17] MEDS: Etomidate 20 MG/10 ML Vial IV (10:46)
--- NOTE | 2021-08-17 10:49 | RAD_ITS ---
STUDY: X-RAY CHEST REASON FOR EXAM: Male, 61 years old. ETT and OGT placement TECHNIQUE: Single AP portable view of the chest. COMPARISON: Comparison is made with prior study dated 08/01/2021. FINDINGS: An endotracheal tube is in situ. It should be pulled back approximately 2.3 cm. The tip of the orogastric tube is at the gastroesophageal junction. Small amount of the subcutaneous emphysema is seen overlying the lower right cervical region and right axillary region. Stable mild increased markings at the lung bases. Blunting of the right costophrenic angle. Normal size heart. Normal mediastinum and vicky. Normal visualized pulmonary arteries. There is atherosclerotic tortuosity of the aortic arch and descending thoracic aorta. There are diffuse degenerative changes of the visualized thoracic spine. Normal visualized ribs, clavicles, and shoulders. There is no demonstrated abnormality of the visualized soft tissue structures of the upper abdomen. RAD/Chest 1 View (Portable) IMPRESSION: The endotracheal tube should be pulled back approximately 2.3 cm. The tip of the orogastric tube is at the level of the gastroesophageal junction. Electronically Signed: Pradeep Chamberlain MD at 11:22 EDT , Service support ,
[2021-08-17] MEDS: Propofol 10MG/Ml 1,000 MG/100 ML Bottle 4.7 MG CONT INF (10:50)
[2021-08-17] MEDS: Succinylcholine Chloride 200 MG/10 ML SYRINGE IV (10:50)
[2021-08-17] MEDS: 0.9% Saline Lock 10 ML Syringe IV (11:29)
--- NOTE | 2021-08-17 11:37 | RAD_ITS ---
STUDY: X-RAY CHEST REASON FOR EXAM: Male, 61 years old. ETT repositioned TECHNIQUE: Single AP portable view of the chest. COMPARISON: 08/17/2021 at 1054 FINDINGS: Endotracheal tube and nasogastric tube both which are unchanged. No change in alveolar opacities in both lungs consistent with bilateral pneumonia. There is no demonstrated pleural abnormality. Normal size heart. Normal mediastinum and vicky. Normal visualized pulmonary arteries. Normal visualized aortic arch and descending thoracic aorta. Normal visualized thoracic spine. Normal visualized ribs, clavicles, and shoulders. There is no demonstrated abnormality of the visualized soft tissue structures of the upper abdomen. RAD/Chest 1 View (Portable) IMPRESSION: No change from earlier today. Electronically Signed: Mike Garcia MD at 17:16 EDT Tel , Service support ,
--- NOTE | 2021-08-17 11:43 | CASEMGMT ---
Addendum entered by Yadiar Shay 08/17/21 11:46: Pt's children had also asked about pt's wishes, SW did find that the physician who admitted pt did speak to pt about his code status, he opted to be a full code and to be resuscitated in the event of a cardiac arrest. SW relayed this information to the children. ERIKA Preciado Original Note: SW participated in ICU rounds this morning. SW spoke w/pt's children Rey and Flo in the waiting room, support offered. They asked about LW/POA, we do not have anything on file. SW explained that without these documents, the children would make decisions together if needed, they both state understanding, they are the only two children. SW will continue to be available for support to family. ERIKA Preciado
[2021-08-17 11:55] LABS: Allen Test Positive; Base Excess 4 mmol/L (-2 to +2); Bicarbonate 27.8 mmol/L (22-26); Blood Gas Specimen Type ART; FI02 100; Mode AC; O2 Delivery Device Adult Vent; PEEP 10; PO2 74 mmHG (75-100); RR 14; SITE R Radial; SO2 95 % (95-99); Total Carbon Dioxide 29 mmol/L; Vt 450; pCO2 41.2 mmHg (35-45); pH 7.44 (7.35-7.45)
--- NOTE | 2021-08-17 12:09 | RAD_ITS ---
STUDY: X-RAY CHEST REASON FOR EXAM: Male, 61 years old. ETT and OG repositioned TECHNIQUE: Single AP portable view of the chest. COMPARISON: 08/17/2021 at 1150 FINDINGS: Interval advancement of nasogastric tube with tip likely at the gastroesophageal junction. Endotracheal tube which is unchanged. No change in alveolar opacities in both lungs consistent with bilateral pneumonia. There is no demonstrated pleural abnormality. Normal size heart. Normal mediastinum and vicky. Normal visualized pulmonary arteries. Normal visualized aortic arch and descending thoracic aorta. Normal visualized thoracic spine. Normal visualized ribs, clavicles, and shoulders. There is no demonstrated abnormality of the visualized soft tissue structures of the upper abdomen. RAD/Chest 1 View (Portable) IMPRESSION: 1. Interval advancement of nasogastric tube with tip likely at the gastroesophageal junction. 2. Endotracheal tube which is unchanged. 3. No change in bilateral pneumonia. Electronically Signed: Mike Garcia MD at 17:15 EDT Tel , Service support ,
--- NOTE | 2021-08-17 15:14 | WOUNDNOTE ---
Was asked to see patient for redness to buttocks with some drainage. patient is currently intubated so patient not able to answer questions about buttocks at this time. patient has some redness to the reena anal area. no open areas. patient has two small draining areas to the lower buttocks/ischial area that appears as small slits. possible previous surgery (hidradenitis?). there is some bloody drainage noted. mild odor. no sign of infection. calmoseptine has been ordered for the redness. will monitor. no signs of pressure at this time.
[2021-08-17 15:25] LABS: CPK Total, Creatine Kinase 54 U/L (39-308); Triglycerides 193 mg/dL
[2021-08-17] MEDS: Vital AF 1.2 Cal Liquid 1,000 ML 20 ML GT (15:49)
[2021-08-17] MEDS: Chlorhexidine 15 ML PO ×2 (15:49→21:16)
--- NOTE | 2021-08-17 16:05 | PCM.PN.HOSP ---
Subjective Subjective Patient was seen examined today in ICU, earlier this morning patient was on high flow oxygen, later on today in the afternoon he had to be intubated due to deteriorating pulse ox. Objective Data Objective Data Vital Signs: Vital Signs Temp Pulse Resp BP Pulse Ox 97.0 F L 107 H 19 H 100/68 93 08/17/21 11:30 08/17/21 15:25 08/17/21 15:25 08/17/21 15:00 08/17/21 15:25 Oxygen Flow Rate (L/min) 60 Oxygen Delivery Method Mechanical Ventilator Weight: 78.1 kg Body Mass Index (BMI) 28.7 Intake & Output: Intake and Output for Last 24 Hours 08/15/21 08/16/21 08/17/21 23:59 23:59 23:59 Intake Total 770 / 770 101.61 / 101.61 Output Total 1260 / 1810 1450 / 1450 375 / 375 Balance -1260 / -1690 -680 / -680 -273.39 / -273.39 Medical Nutrition Assessment Dietitian: Malnutrition Criteria Met Start: 08/09/21 13:29 Freq: Status: Active Protocol: Document 08/16/21 10:55 AG (Rec: 08/16/21 10:55 [id number]) Nutrition Malnutrition Evidence of Malnutrition Exists Yes Malnutrition (severe): Acute Illness/Injury Evidenced By Suboptimal Energy Intake ( Severe),Weight Loss (Severe) Intake Problem Inadequate Oral Intake Etiology r/t resp. failure and increased oxygen needs Signs/Symptoms as evidenced by estimated PO intake meeting <50% of estimated nutritional needs Status Active Problem Clinical Problem Acute Disease or Injury Related Malnutrition Etiology Severe protein/calorie malnutrition in the context of acute illness related to inadequate oral intake w/ resp . failure Signs/Symptoms as evidenced by 5.18kg/6.2% wt loss since admit and PO meeting less than 50% estimated nutrition needs > 1 week Status Active Problem Recommendation Dietitian Recommendations/Changes Advance diet as tolerated to regular; continue 4 oz ensure compact w/ meals Lab / Micro Data Result Diagrams: 08/16/21 05:52 08/17/21 06:45 Labs: Laboratory Results - last 24 hr 08/17/21 06:45: Sodium 136, Potassium 4.3, Chloride 101, Carbon Dioxide 29.0, Anion Gap 6, BUN 29 H, Creatinine 0.78, Estim Creat Clear Calc 91.81, Est GFR (MDRD) Af Amer 130, Est GFR (MDRD) Non-Af 107, BUN/Creatinine Ratio 37.2 H, Glucose 74, Calcium 8.6, Phosphorus 2.9, Magnesium 2.3 08/17/21 06:45: Total Creatine Kinase 54, Triglycerides 193 Micro: Microbiology 08/17/21 11:02 Sputum, Induced/Lukens Gram Stain - Final 08/01/21 15:50 Blood Culture (Wb) - Right Hand Blood Culture - Final Gram positive jeff 08/05/21 11:30 Sputum, Expectorated/Coughed Gram Stain - Final 08/05/21 11:30 Sputum, Expectorated/Coughed Respiratory Culture - Final Haemophilus influenzae Mixed [place] 08/01/21 17:09 Blood Culture (Wb) - Anticubital Left Blood Culture - Final No growth in 5 days. 08/01/21 18:00 Urine, Clean Catch Urine Culture - Final Mixed Gram Positive Organisms 08/02/21 03:00 Urine, Random Legionella Antigen - Final 08/02/21 03:00 Urine, Random Streptococcus pneumoniae Antigen (M - Final 08/01/21 21:25 Nasal Secretion SARS-CoV-2 Antigen (Rapid) - Final ABG Data ABG results: ABG 08/17/21 11:50 Specimen Type ART Sample Site R Radial pH 7.44 Bicarbonate Actual 27.8 H Total CO2 29 Base Excess 4 H O2 Saturation 95 O2 % 100 ABG pCO2 41.2 ABG pO2 74 L Jamel Test Positive Respiration Rate 14 O2 Delivery Device Adult Vent Vent Mode AC Tidal Volume 450 POC PEEP 10 Radiography Diagnostic Testing: Radiology Impression Chest X-Ray 08/17/21 10:49 IMPRESSION: The endotracheal tube should be pulled back approximately 2.3 cm. The tip of the orogastric tube is at the level of the gastroesophageal junction. Electronically Signed: Pradeep Chamberlain MD at 11:22 EDT , Service support , Physical Exam Const Constitutional Narrative: Patient is sedated and on the ventilator at this time General Appearance: cooperative, well kempt and well developed Orientation / Consciousness: awake, oriented to person, oriented to place and oriented to time HEENT normocephalic and moist oral mucous membranes Eyes PERRL, EOMs intact bilaterally and conjunctivae normal Neck nuchal rigidity, supple, no JVD, thyroid normal and no carotid bruits General: trachea midline Resp normal respiratory effort, no retractions, no use of accessory muscles and clear to auscultation bilaterally Auscultation: Negative for rales, rhonchi or wheezes Cardio regular rate, regular rhythm, S1 normal heart sound, S2 normal heart sound, no murmurs, no rub and no gallops GI normal to inspection, nondistended, normoactive bowel sounds, soft to palpation, non-tender and non-distended Extremity no clubbing, cyanosis or edema Skin no rashes or lesions noted General Skin Exam: no breakdown Neuro Neuro Narrative: Patient is sedated and on the ventilator at this time Psych thought process normal Psych Narrative: Patient is sedated and on the ventilator at this time Assessment & Plan Assessment/Plan (1) Pneumonia due to severe acute respiratory syndrome coronavirus 2 (SARS-CoV-2): PLAN: 1. COVID-19 pneumonia-patient has completed baricitinib and remdesivir, he is currently on Decadron #2 Haemophilus influenza pneumonia-patient already went through a course of antibiotic treatment #3 acute on chronic hypoxic respiratory failure-patient was intubated today due to low oxygen saturation, pulmonary medicine is participating in his care #4 Rheumatoid arthritis Charges/Coding Visit Charges Inpatient E&M: 54321 Subs Hosp L2
[2021-08-17] MEDS: Propofol 10MG/Ml 1,000 MG/100 ML Bottle 11.7 MG CONT INF (19:38)
[2021-08-17] MEDS: Menthol/Lanolin/Calamine/Znox 113 GM Tube 1 APPLIC TOPICAL (21:16)
[2021-08-18] VITALS (42 sets, daily range): BP systolic 77–124; BP diastolic 53–71; PULSE 18–106; RESP 10–25; TEMP 36.6–37.1; O2SAT 88–95
--- NOTE | 2021-08-18 01:14 | NURSING ---
pt resting comfortably in bed, cpot 0/0. Ventilatory ACVC+ TV 450, FIO2 55%, Peep 10. pt with good vent compliance, pulse ox 94%. Assessment completed
[2021-08-18 03:25] LABS: Absolute Lymphocyte Count 1.07 X10^3/uL (0.83-4.51); Absolute Neutrophil Count 14.8 X10^3/uL (2.0-7.7); Basophil# 0.06 X10^3/uL; Basophil% 0.4 % (0-1); Eosinophil# 0.08 X10^3/uL; Eosinophils% 0.5 % (0-5); Hematocrit 35.4 % (40-54); Hemoglobin 11.6 g/dL (13.0-16.5); Lymphocyte # 1.07 X10^3/ul (0.83-4.51); Lymphocyte % 6.3 % (19-41); Mean Corp Hgb Conc 32.8 g/dL (32-36); Mean Corpuscular Hgb 31.9 pg (27.0-32.0); Mean Corpuscular Volume 97.3 fL (80-94); Mean Platelet Vol. 11.8 fl (6.2-12.0); Monocyte# 0.54 X10^3/uL; Monocyte% 3.2 % (0-10); NRBC Flagged by Analyzer 0 % (0-5); Neutrophil # 14.76 X10^3/uL (2.7-7.7); Platelet Count 215 K/mm3 (150-450); RBC Distribution Width SD 49.1 fl (35.1-43.9); Red Blood Count 3.64 M/mm3 (4.6-6.2)
[2021-08-18 03:43] LABS: ALB/GLOB Ratio 0.5 RATIO (0.9-2.4); AST(SGOT) 17 U/L (15-37); Alanine Aminotransfer ALT/SGPT 56 U/L (16-61); Albumin, Serum 2.3 g/dL (3.2-5.0); Alkaline Phosphatase 88 U/L (45-117); Anion Gap 6 (5-15); BUN 35 mg/dL (7-18); BUN/Creat Ratio 31.5 RATIO (10-20); Calcium,Total 8.5 mg/dL (8.5-10.1); Chloride 101 mmol/L (98-107); Creatinine, Serum 1.11 mg/dL (0.70-1.30); EST Glomerular Filtration Rate 71 mL/min (>60); Est Glom Filt Rate - Afr Amer 86 mL/min (>60); Estimated Creatinine Clearance 64.51 ml/min; Globulin 4.7 g/dL (2.2-4.2); Glucose 96 mg/dL (74-106); Potassium 4.7 mmol/L (3.5-5.1); Sodium Level 138 mmol/L (136-145)
--- NOTE | 2021-08-18 03:52 | NURSING ---
0245 pt turned to right side, finished bath to back and buttocks, pt sats dropped to 88% but recovered within 7 minutes. patient able to follow commands and assist with turning, denies pain, cpot 0/0.
[2021-08-18] MEDS: Propofol 10MG/Ml 1,000 MG/100 ML Bottle 11.7 MG CONT INF (04:00)
[2021-08-18] MEDS: Menthol/Lanolin/Calamine/Znox 113 GM Tube 1 APPLIC TOPICAL ×3 (05:58→21:02)
--- NOTE | 2021-08-18 07:38 | PCM.PN.INT ---
Assessment & Plan Assessment/Plan (1) Pneumonia due to severe acute respiratory syndrome coronavirus 2 (SARS-CoV-2): (2) Respiratory failure: QUALIFIERS: Chronicity: acute Respiratory failure complication: hypoxia Qualified Code(s): J96.01 - Acute respiratory failure with hypoxia (3) Hyperlipidemia: PLAN: RECOMMENDATIONS: 1. Continue to wean FiO2 to maintain oxygen saturations at or above 90%. 2. Completed baricitinib and has 2 days left of decadron (08/19/2021). 3. Diuresis as tolerated. Hold dose of Lasix today 4. Continue hydroxychloroquine. Hold methotrexate 5. Continue therapeutic anticoagulation. 6. Encourage incentive spirometer use and mobilize patient as tolerated. IMPRESSIONS: 1. Acute hypoxic respiratory failure secondary to COVID-19 and Haemophilus influenza pneumonia Although the patient's respiratory status is still tenuous, he is maintaining appropriate oxygen saturations on a combination of BiPAP and heated high flow, which will be continued to maintain saturations at or above 90%. The patient has already completed a treatment course of remdesivir and a 7-day course of antimicrobials. Patient completed course of baricitinib and is in the process of completing a second round of Decadron as ordered. Plan to continue bronchodilator therapy. Therapeutic Lovenox will be continued twice daily as ordered. Patient with decompensation leading to intubation on 08/18/2021. Respiratory status appears to have stabilized. Clinical concern for a secondary process after COVID-19 leading to current situation. 2. Rheumatoid arthritis/unvaccinated state/overweight/hyperlipidemia/possible CAD Complicates care, management, recovery and prognosis. Okay to continue with hydroxychloroquine, but methotrexate may have more risks for secondary complications. 3. Acute kidney injury Patient has been receiving diuretics intermittently. Creatinine is slightly up compared to baseline. We will hold on Lasix today. Patient has had some decreased urine output overnight. No indication for renal replacement therapy at this time. TIME: 32 minutes of critical care time was spent, in addition to the morning assessment, addressing patient's acute hypoxic respiratory failure, review of CODE STATUS, review of all data and collaboration with care team (5:30 AM to 6:30 AM) Subjective Subjective Patient did okay overnight. Patient's vent settings have been relatively stable. Patient has had some decreased urine output since midnight. Patient was placed on tube feeds and is tolerating, but not to goal at this time. Patient does open his eyes and follows commands. No pain is reported. Objective Data Objective Data Vital Signs: Vital Signs Temp Pulse Resp BP Pulse Ox 36.8 C 103 H 12 77/62 L 94 08/18/21 02:00 08/18/21 07:00 08/18/21 07:00 08/18/21 07:00 08/18/21 07:00 Oxygen Flow Rate (L/min) 60 Oxygen Delivery Method Mechanical Ventilator Weight: 78.1 kg Body Mass Index (BMI) 28.7 Intake & Output: Intake and Output for Last 24 Hours 08/16/21 08/17/21 08/18/21 23:59 23:59 23:59 Intake Total 770 / 770 591.31 / 618.01 143.75 / 143.75 Output Total 1450 / 1450 825 / 825 150 / 150 Balance -680 / -680 -233.69 / -206.99 -6.25 / -6.25 Medical Nutrition Assessment Dietitian: Malnutrition Criteria Met Start: 08/09/21 13:29 Freq: Status: Active Protocol: Document 08/16/21 10:55 AG (Rec: 08/16/21 10:55 [id number]) Nutrition Malnutrition Evidence of Malnutrition Exists Yes Malnutrition (severe): Acute Illness/Injury Evidenced By Suboptimal Energy Intake ( Severe),Weight Loss (Severe) Intake Problem Inadequate Oral Intake Etiology r/t resp. failure and increased oxygen needs Signs/Symptoms as evidenced by estimated PO intake meeting <50% of estimated nutritional needs Status Active Problem Clinical Problem Acute Disease or Injury Related Malnutrition Etiology Severe protein/calorie malnutrition in the context of acute illness related to inadequate oral intake w/ resp . failure Signs/Symptoms as evidenced by 5.18kg/6.2% wt loss since admit and PO meeting less than 50% estimated nutrition needs > 1 week Status Active Problem Recommendation Dietitian Recommendations/Changes Advance diet as tolerated to regular; continue 4 oz ensure compact w/ meals Lab / Micro Data Result Diagrams: 08/18/21 02:55 08/18/21 02:55 Labs: Laboratory Results - last 24 hr 08/17/21 06:45: Total Creatine Kinase 54, Triglycerides 193 08/18/21 02:55: WBC 17.0 H, RBC 3.64 L, Hgb 11.6 L, Hct 35.4 L, MCV 97.3 H, MCH 31.9, MCHC 32.8, RDW Std Deviation 49.1 H, RDW Coeff of Enoch 14.0, Plt Count 215, MPV 11.8, Immature Gran % (Auto) 2.600 H, Neut % (Auto) 87.0 H, Lymph % (Auto) 6.3 L, [place] % (Auto) 3.2, Eos % (Auto) 0.5, Baso % (Auto) 0.4, Absolute Neuts (auto) 14.8 H, Absolute Lymphs (auto) 1.07, Nucleated RBC % 0 08/18/21 02:55: Sodium 138, Potassium 4.7, Chloride 101, Carbon Dioxide 31.0, Anion Gap 6, BUN 35 H, Creatinine 1.11, Estim Creat Clear Calc 64.51, Est GFR (MDRD) Af Amer 86, Est GFR (MDRD) Non-Af 71, BUN/Creatinine Ratio 31.5 H, Glucose 96, Calcium 8.5, Total Bilirubin 0.50, AST 17, ALT 56, Alkaline Phosphatase 88, Total Protein 7.0, Albumin 2.3 L, Globulin 4.7 H, Albumin/Globulin Ratio 0.5 L Micro: Microbiology 08/17/21 11:02 Sputum, Induced/Lukens Gram Stain - Final 08/01/21 15:50 Blood Culture (Wb) - Right Hand Blood Culture - Final Gram positive jeff 08/05/21 11:30 Sputum, Expectorated/Coughed Gram Stain - Final 08/05/21 11:30 Sputum, Expectorated/Coughed Respiratory Culture - Final Haemophilus influenzae Mixed [place] 08/01/21 17:09 Blood Culture (Wb) - Anticubital Left Blood Culture - Final No growth in 5 days. 08/01/21 18:00 Urine, Clean Catch Urine Culture - Final Mixed Gram Positive Organisms 08/02/21 03:00 Urine, Random Legionella Antigen - Final 08/02/21 03:00 Urine, Random Streptococcus pneumoniae Antigen (M - Final 08/01/21 21:25 Nasal Secretion SARS-CoV-2 Antigen (Rapid) - Final ABG Data ABG results: ABG 08/17/21 11:50 Specimen Type ART Sample Site R Radial pH 7.44 Bicarbonate Actual 27.8 H Total CO2 29 Base Excess 4 H O2 Saturation 95 O2 % 100 ABG pCO2 41.2 ABG pO2 74 L Jamel Test Positive Respiration Rate 14 O2 Delivery Device Adult Vent Vent Mode AC Tidal Volume 450 POC PEEP 10 Radiography Diagnostic Testing: Radiology Impression Chest X-Ray 08/17/21 10:49 IMPRESSION: The endotracheal tube should be pulled back approximately 2.3 cm. The tip of the orogastric tube is at the level of the gastroesophageal junction. Electronically Signed: Pradeep Chamberlain MD at 11:22 EDT , Service support , Chest X-Ray 08/17/21 11:37 IMPRESSION: No change from earlier today. Electronically Signed: Mike Garcia MD at 17:16 EDT Tel , Service support , Chest X-Ray 08/17/21 12:09 IMPRESSION: 1. Interval advancement of nasogastric tube with tip likely at the gastroesophageal junction. 2. Endotracheal tube which is unchanged. 3. No change in bilateral pneumonia. Electronically Signed: Mike Garcia MD at 17:15 EDT Tel , Service support , Physical Exam Const Constitutional Narrative: Good vent synchrony General Appearance: intubated and patient mechanically ventilated HEENT normocephalic and head/scalp atraumatic Eyes PERRL, EOMs intact bilaterally and conjunctivae normal Neck supple General: trachea midline Chest inspection of chest normal Chest: symmetrical chest wall rise; Negative for crepitus Resp Auscultation: diminished lung sounds; Negative for rales, rhonchi or wheezes Cardio regular rate, regular rhythm, S1 normal heart sound, S2 normal heart sound, no murmurs, no rub and no gallops GI normal to inspection, nondistended, normoactive bowel sounds Extremity no clubbing, cyanosis or edema Skin no rashes or lesions noted Neuro moves all extremities and no focal motor deficits Psych cooperative and affect normal Charges/Coding Procedures Hospitalists Procedures: [id number] Critial Care 1st Hr
[2021-08-18] MEDS: Ipratropium/Albuterol Sulfate 3 ML AMPUL.NEB INHALATION ×3 (07:47→19:03)
[2021-08-18] MEDS: Folic Acid 1 MG Tablet PO (09:36)
[2021-08-18] MEDS: Chlorhexidine 15 ML PO ×2 (09:36→21:03)
[2021-08-18] MEDS: CHLORHEXIDINE GLUC 2% CLOTH 1 EACH TOWELETTE TOPICAL (09:36)
[2021-08-18] MEDS: Hydroxychloroquine 200 MG Tablet PO ×2 (09:36→21:03)
[2021-08-18] MEDS: dexAMETHasone 4 MG Tablet 6 MG PO (09:36)
[2021-08-18] MEDS: Ascorbic Acid 500 MG Tablet 1000 MG PO (09:36)
[2021-08-18] MEDS: Senna/Docusate Sodium 1 Tablet 2 TABLET PO (09:56)
--- NOTE | 2021-08-18 10:51 | PCM.PN.ID ---
Physical Exam Narrative Out of iso. No fever, on vent. Const no apparent distress Resp clear to auscultation bilaterally Auscultation: diminished lung sounds Cardio Rate: tachycardic GI normal to inspection, nondistended, normoactive bowel sounds Skin no rashes or lesions noted ID ID: Route of nutrition/ use of supplements: [] Nutritional Intake: [] IV Site: [] Paulino Catheter: [] Assessment & Plan Assessment/Plan (1) Pneumonia due to severe acute respiratory syndrome coronavirus 2 (SARS-CoV-2): PLAN: Sx started 07/23, unvaccinated. Isolate for 20 days starting 07/23, ends 08/12. Recommend vaccine once out of hospital. On dex and completed remdesivir. On therapeutic lovenox. Completed baricitinib. O2 better. Sputum with h flu, completed ceftriaxone for 7 day course. Will follow (2) Respiratory failure: QUALIFIERS: Chronicity: acute Respiratory failure complication: hypoxia Qualified Code(s): J96.01 - Acute respiratory failure with hypoxia
[2021-08-18] MEDS: Enoxaparin 80 MG/0.8 ML Syringe SC ×2 (11:06→21:02)
[2021-08-18] MEDS: Propofol 10MG/Ml 1,000 MG/100 ML Bottle 4.7 MG CONT INF (14:43)
[2021-08-18] MEDS: Famotidine 20 MG Tablet 40 MG PO (15:07)
--- NOTE | 2021-08-18 16:41 | PN.HOSP_ITS ---
Subjective Subjective Patient was seen and examined today, he remains sedated and on the ventilator Objective Data Objective Data Vital Signs: Vital Signs Temp Pulse Resp BP Pulse Ox 98.8 F 96 15 120/59 L 94 08/18/21 15:00 08/18/21 15:12 08/18/21 15:12 08/18/21 15:00 08/18/21 15:23 Oxygen Flow Rate (L/min) 60 Oxygen Delivery Method Mechanical Ventilator Weight: 78.1 kg Body Mass Index (BMI) 28.7 Intake & Output: Intake and Output for Last 24 Hours 08/16/21 08/17/21 08/18/21 23:59 23:59 23:59 Intake Total 770 / 770 591.31 / 618.01 1327.57 / 1327.57 Output Total 1450 / 1450 825 / 825 150 / 150 Balance -680 / -680 -233.69 / -206.99 1177.57 / 1177.57 Medical Nutrition Assessment Dietitian: Malnutrition Criteria Met Start: 08/09/21 13:29 Freq: Status: Active Protocol: Document 08/16/21 10:55 AG (Rec: 08/16/21 10:55 AG [id number]) Nutrition Malnutrition Evidence of Malnutrition Exists Yes Malnutrition (severe): Acute Illness/Injury Evidenced By Suboptimal Energy Intake ( Severe),Weight Loss (Severe) Intake Problem Inadequate Oral Intake Etiology r/t resp. failure and increased oxygen needs Signs/Symptoms as evidenced by estimated PO intake meeting <50% of estimated nutritional needs Status Active Problem Clinical Problem Acute Disease or Injury Related Malnutrition Etiology Severe protein/calorie malnutrition in the context of acute illness related to inadequate oral intake w/ resp . failure Signs/Symptoms as evidenced by 5.18kg/6.2% wt loss since admit and PO meeting less than 50% estimated nutrition needs > 1 week Status Active Problem Recommendation Dietitian Recommendations/Changes Advance diet as tolerated to regular; continue 4 oz ensure compact w/ meals Lab / Micro Data Result Diagrams: 08/18/21 02:55 08/18/21 02:55 Labs: Laboratory Results - last 24 hr 08/18/21 02:55: WBC 17.0 H, RBC 3.64 L, Hgb 11.6 L, Hct 35.4 L, MCV 97.3 H, MCH 31.9, MCHC 32.8, RDW Std Deviation 49.1 H, RDW Coeff of Enoch 14.0, Plt Count 215, MPV 11.8, Immature Gran % (Auto) 2.600 H, Neut % (Auto) 87.0 H, Lymph % (Auto) 6.3 L, [place] % (Auto) 3.2, Eos % (Auto) 0.5, Baso % (Auto) 0.4, Absolute Neuts (auto) 14.8 H, Absolute Lymphs (auto) 1.07, Nucleated RBC % 0 08/18/21 02:55: Sodium 138, Potassium 4.7, Chloride 101, Carbon Dioxide 31.0, Anion Gap 6, BUN 35 H, Creatinine 1.11, Estim Creat Clear Calc 64.51, Est GFR (MDRD) Af Amer 86, Est GFR (MDRD) Non-Af 71, BUN/Creatinine Ratio 31.5 H, Glucose 96, Calcium 8.5, Total Bilirubin 0.50, AST 17, ALT 56, Alkaline Phosphatase 88, Total Protein 7.0, Albumin 2.3 L, Globulin 4.7 H, Albumin/Globulin Ratio 0.5 L Micro: Microbiology 08/18/21 15:20 Gastric Fluid/Contents Gastric Occult Blood - Final Occult Blood Positive 08/17/21 11:02 Sputum, Induced/Lukens Gram Stain - Final 08/17/21 11:02 Sputum, Induced/Lukens Respiratory Culture - Preliminary Appears to be normal respiratory [place]. Further studies to follow. 08/01/21 15:50 Blood Culture (Wb) - Right Hand Blood Culture - Final Gram positive jeff 08/05/21 11:30 Sputum, Expectorated/Coughed Gram Stain - Final 08/05/21 11:30 Sputum, Expectorated/Coughed Respiratory Culture - Final Haemophilus influenzae Mixed [place] 08/01/21 17:09 Blood Culture (Wb) - Anticubital Left Blood Culture - Final No growth in 5 days. 08/01/21 18:00 Urine, Clean Catch Urine Culture - Final Mixed Gram Positive Organisms 08/02/21 03:00 Urine, Random Legionella Antigen - Final 08/02/21 03:00 Urine, Random Streptococcus pneumoniae Antigen (M - Final 08/01/21 21:25 Nasal Secretion SARS-CoV-2 Antigen (Rapid) - Final Radiography Diagnostic Testing: Radiology Impression Chest X-Ray 08/17/21 11:37 IMPRESSION: No change from earlier today. Electronically Signed: Mike Garcia MD at 17:16 EDT Tel , Service support , Chest X-Ray 08/17/21 12:09 IMPRESSION: 1. Interval advancement of nasogastric tube with tip likely at the gastroesophageal junction. 2. Endotracheal tube which is unchanged. 3. No change in bilateral pneumonia. Electronically Signed: Mike Garcia MD at 17:15 EDT Tel , Service support , Physical Exam Const Constitutional Narrative: Patient is sedated and on the ventilator HEENT head/scalp atraumatic Head and Scalp: normocephalic Eyes conjunctivae normal Resp normal respiratory effort and no retractions Resp Narrative: scattered expiratory rhonchi bilaterally Cardio regular rate, regular rhythm, S1 normal heart sound and S2 normal heart sound GI normal to inspection, nondistended, normoactive bowel sounds Extremity normal to inspection and no clubbing, cyanosis or edema Neuro Neuro Narrative: Patient is sedated and on the ventilator Psych Psych Narrative: Patient is sedated and on the ventilator Assessment & Plan Assessment/Plan (1) Pneumonia due to severe acute respiratory syndrome coronavirus 2 (SARS-CoV-2): PLAN: 1. COVID-19 pneumonia-patient has completed baricitinib and remdesivir, he is currently on Decadron #2 Haemophilus influenza pneumonia-patient already went through a course of antibiotic treatment #3 acute on chronic hypoxic respiratory failure-patient remains on the ventil ator at this time #4 Rheumatoid arthritis Charges/Coding Visit Charges Inpatient E&M: 50859 Subs Hosp L2
[2021-08-19] VITALS (41 sets, daily range): BP systolic 96–126; BP diastolic 63–82; PULSE 78–99; RESP 10–33; TEMP 36.8–37.1; O2SAT 87–100
[2021-08-19 06:01] LABS: Absolute Lymphocyte Count 0.55 X10^3/uL (0.83-4.51); Absolute Neutrophil Count 16.9 X10^3/uL (2.0-7.7); Basophil# 0.04 X10^3/uL; Basophil% 0.2 % (0-1); Hematocrit 30.7 % (40-54); Hemoglobin 10.3 g/dL (13.0-16.5); Lymphocyte # 0.55 X10^3/ul (0.83-4.51); Mean Corp Hgb Conc 33.6 g/dL (32-36); Mean Corpuscular Hgb 32.4 pg (27.0-32.0); Mean Corpuscular Volume 96.5 fL (80-94); Mean Platelet Vol. 11.6 fl (6.2-12.0); Monocyte# 0.56 X10^3/uL; NRBC Flagged by Analyzer 0 % (0-5); Neutrophil # 16.94 X10^3/uL (2.7-7.7); Neutrophil % 91.3 % (47-70); POSITIVE DIFFERENTIAL YES; Platelet Count 193 K/mm3 (150-450); RBC Distribution Width SD 48.9 fl (35.1-43.9); Red Blood Count 3.18 M/mm3 (4.6-6.2); White Blood Count 18.6 K/mm3 (4.4-11.0)
[2021-08-19 06:06] LABS: Differential Indicated SCAN CRITERIA MET
[2021-08-19 06:26] LABS: ALB/GLOB Ratio 0.4 RATIO (0.9-2.4); AST(SGOT) 14 U/L (15-37); Alanine Aminotransfer ALT/SGPT 40 U/L (16-61); Albumin, Serum 2.1 g/dL (3.2-5.0); Alkaline Phosphatase 83 U/L (45-117); Anion Gap 3 (5-15); BUN 42 mg/dL (7-18); BUN/Creat Ratio 49.8 RATIO (10-20); Calcium,Total 8.7 mg/dL (8.5-10.1); Chloride 101 mmol/L (98-107); Creatinine, Serum 0.84 mg/dL (0.70-1.30); EST Glomerular Filtration Rate 98 mL/min (>60); Est Glom Filt Rate - Afr Amer 118 mL/min (>60); Estimated Creatinine Clearance 85.25 ml/min; Glucose 124 mg/dL (74-106); Potassium 4.5 mmol/L (3.5-5.1); Protein, Total 7.1 g/dL (6.4-8.2); Sodium Level 136 mmol/L (136-145)
[2021-08-19 06:50] LABS: Differential Comment SCANNED
[2021-08-19] MEDS: Ipratropium/Albuterol Sulfate 3 ML AMPUL.NEB INHALATION ×3 (07:06→19:25)
--- NOTE | 2021-08-19 07:18 | PCM.PN.INT ---
Assessment & Plan Assessment/Plan (1) Pneumonia due to severe acute respiratory syndrome coronavirus 2 (SARS-CoV-2): (2) Respiratory failure: QUALIFIERS: Chronicity: acute Respiratory failure complication: hypoxia Qualified Code(s): J96.01 - Acute respiratory failure with hypoxia (3) Hyperlipidemia: PLAN: RECOMMENDATIONS: 1. Continue to wean FiO2 to maintain oxygen saturations at or above 90%. 2. Completed baricitinib and has 1 days left of decadron (08/19/2021). 3. Diuresis as tolerated. Challenge with diuretics today 4. Continue hydroxychloroquine. Hold methotrexate 5. Discontinue therapeutic anticoagulation. Keep PPI twice daily 6. Encourage incentive spirometer use and mobilize patient as tolerated. IMPRESSIONS: 1. Acute hypoxic respiratory failure secondary to COVID-19 and Haemophilus influenza pneumonia Although the patient's respiratory status is still tenuous, he is maintaining appropriate oxygen saturations on a combination of BiPAP and heated high flow, which will be continued to maintain saturations at or above 90%. The patient has already completed a treatment course of remdesivir and a 7-day course of antimicrobials. Patient completed course of baricitinib and is in the process of completing a second round of Decadron as ordered. Plan to continue bronchodilator therapy. Therapeutic Lovenox has to be discontinued secondary to GI bleed complications. Patient with decompensation leading to intubation on 08/18/2021. Respiratory status appears to have stabilized. Clinical concern for a secondary process after COVID-19 leading to current situation. 2. Rheumatoid arthritis/unvaccinated state/overweight/hyperlipidemia/possible CAD Complicates care, management, recovery and prognosis. Okay to continue with hydroxychloroquine, but methotrexate may have more risks for secondary complications. 3. Acute kidney injury Patient has been receiving diuretics intermittently. Creatinine is slightly up compared to baseline. We will hold on Lasix today. Patient has had some decreased urine output overnight. No indication for renal replacement therapy at this time. 4. Acute blood loss anemia secondary to GI bleed Patient is on steroid therapy for an extended period of time and therapeutic Lovenox. Patient will be placed on a PPI twice daily and will decrease to prophylactic dose of Lovenox. Patient's Decadron is supposed to stop today. Patient with no indication for transfusion at this time. TIME: 32 minutes of critical care time was spent, in addition to the morning assessment, addressing patient's acute hypoxic respiratory failure, review of CODE STATUS, review of all data and collaboration with care team (5:45 AM to 6:45 AM) Subjective Subjective Patient was sent complications overnight. Patient's PEEP and FiO2 had to be increased throughout the evening to maintain appropriate saturations. Patient also found to have Gastroccult positive findings. Patient was placed on Protonix twice daily. Patient denies any pain this morning. Objective Data Objective Data Vital Signs: Vital Signs Temp Pulse Resp BP Pulse Ox 36.8 C 91 22 H 98/68 100 08/19/21 00:00 08/19/21 07:07 08/19/21 07:07 08/19/21 06:00 08/19/21 07:07 Oxygen Flow Rate (L/min) 60 Oxygen Delivery Method Mechanical Ventilator Weight: 77.8 kg Body Mass Index (BMI) 28.7 Intake & Output: Intake and Output for Last 24 Hours 08/17/21 08/18/21 08/19/21 23:59 23:59 23:59 Intake Total 591.31 / 618.01 1551.00 / 1565.70 86.2 / 86.2 Output Total 825 / 825 475 / 775 650 / 650 Balance -233.69 / -206.99 1076.00 / 790.70 -563.8 / -563.8 Medical Nutrition Assessment Dietitian: Malnutrition Criteria Met Start: 08/09/21 13:29 Freq: Status: Active Protocol: Document 08/16/21 10:55 (Rec: 08/16/21 10:55 [id number]) Nutrition Malnutrition Evidence of Malnutrition Exists Yes Malnutrition (severe): Acute Illness/Injury Evidenced By Suboptimal Energy Intake ( Severe),Weight Loss (Severe) Intake Problem Inadequate Oral Intake Etiology r/t resp. failure and increased oxygen needs Signs/Symptoms as evidenced by estimated PO intake meeting <50% of estimated nutritional needs Status Active Problem Clinical Problem Acute Disease or Injury Related Malnutrition Etiology Severe protein/calorie malnutrition in the context of acute illness related to inadequate oral intake w/ resp . failure Signs/Symptoms as evidenced by 5.18kg/6.2% wt loss since admit and PO meeting less than 50% estimated nutrition needs > 1 week Status Active Problem Recommendation Dietitian Recommendations/Changes Advance diet as tolerated to regular; continue 4 oz ensure compact w/ meals Lab / Micro Data Result Diagrams: 08/19/21 05:45 08/19/21 05:45 Labs: Laboratory Results - last 24 hr 08/19/21 05:45: WBC 18.6 H, RBC 3.18 L, Hgb 10.3 L, Hct 30.7 L, MCV 96.5 H, MCH 32.4 H, MCHC 33.6, RDW Std Deviation 48.9 H, RDW Coeff of Neoch 14.0, Plt Count 193, MPV 11.6, Immature Gran % (Auto) 2.500 H, Neut % (Auto) 91.3 H, Lymph % (Auto) 3.0 L, [place] % (Auto) 3.0, Eos % (Auto) 0.0, Baso % (Auto) 0.2, Absolute Neuts (auto) 16.9 H, Absolute Lymphs (auto) 0.55 L, Nucleated RBC % 0, Differential Comment SCANNED 08/19/21 05:45: Sodium 136, Potassium 4.5, Chloride 101, Carbon Dioxide 32.0, Anion Gap 3 L, BUN 42 H, Creatinine 0.84, Estim Creat Clear Calc 85.25, Est GFR (MDRD) Af Amer 118, Est GFR (MDRD) Non-Af 98, BUN/Creatinine Ratio 49.8 H, Glucose 124 H, Calcium 8.7, Total Bilirubin 0.50, AST 14 L, ALT 40, Alkaline Phosphatase 83, Total Protein 7.1, Albumin 2.1 L, Globulin 5.0 H, Albumin/Globulin Ratio 0.4 L Micro: Microbiology 08/18/21 15:20 Gastric Fluid/Contents Gastric Occult Blood - Final Occult Blood Positive 08/17/21 11:02 Sputum, Induced/Lukens Gram Stain - Final 08/17/21 11:02 Sputum, Induced/Lukens Respiratory Culture - Preliminary Appears to be normal respiratory westley. Further studies to follow. 08/01/21 15:50 Blood Culture (Wb) - Right Hand Blood Culture - Final Gram positive jeff 08/05/21 11:30 Sputum, Expectorated/Coughed Gram Stain - Final 08/05/21 11:30 Sputum, Expectorated/Coughed Respiratory Culture - Final Haemophilus influenzae Mixed Westley 08/01/21 17:09 Blood Culture (Wb) - Anticubital Left Blood Culture - Final No growth in 5 days. 08/01/21 18:00 Urine, Clean Catch Urine Culture - Final Mixed Gram Positive Organisms 08/02/21 03:00 Urine, Random Legionella Antigen - Final 08/02/21 03:00 Urine, Random Streptococcus pneumoniae Antigen (M - Final 08/01/21 21:25 Nasal Secretion SARS-CoV-2 Antigen (Rapid) - Final Physical Exam Const Constitutional Narrative: Good vent synchrony General Appearance: intubated and patient mechanically ventilated HEENT normocephalic and head/scalp atraumatic Eyes PERRL, EOMs intact bilaterally and conjunctivae normal Neck supple General: trachea midline Chest inspection of chest normal Chest: symmetrical chest wall rise; Negative for crepitus Resp Auscultation: diminished lung sounds; Negative for rales, rhonchi or wheezes Cardio regular rate, regular rhythm, S1 normal heart sound, S2 normal heart sound, no murmurs, no rub and no gallops GI normal to inspection, nondistended, normoactive bowel sounds Extremity no clubbing, cyanosis or edema Skin no rashes or lesions noted Neuro moves all extremities and no focal motor deficits Psych cooperative and affect normal Charges/Coding Procedures Hospitalists Procedures: [id number] Critial Care 1st Hr
[2021-08-19] MEDS: Furosemide 40 MG/4 ML Vial IV (07:57)
[2021-08-19] MEDS: Ascorbic Acid 500 MG Tablet 1000 MG PO (09:33)
[2021-08-19] MEDS: guaiFENesin 10 ML UDC (200MG/10ML) GT ×3 (09:33→23:56)
[2021-08-19] MEDS: Folic Acid 1 MG Tablet PO (09:34)
[2021-08-19] MEDS: Chlorhexidine 15 ML PO ×2 (09:34→20:28)
[2021-08-19] MEDS: dexAMETHasone 4 MG Tablet 6 MG PO (09:34)
[2021-08-19] MEDS: Enoxaparin 40 MG/0.4 ML Syringe SC ×2 (09:34→20:27)
[2021-08-19] MEDS: CHLORHEXIDINE GLUC 2% CLOTH 1 EACH TOWELETTE TOPICAL (09:34)
[2021-08-19] MEDS: Hydroxychloroquine 200 MG Tablet PO ×2 (09:35→20:28)
[2021-08-19] MEDS: Senna/Docusate Sodium 1 Tablet 2 TABLET PO ×2 (09:38→20:28)
[2021-08-19] MEDS: Vital AF 1.2 Cal Liquid 1,000 ML 70 ML GT (09:38)
[2021-08-19] MEDS: Propofol 10MG/Ml 1,000 MG/100 ML Bottle 4.7 MG CONT INF (10:00)
[2021-08-19] MEDS: Menthol/Lanolin/Calamine/Znox 113 GM Tube 1 APPLIC TOPICAL ×2 (12:22→20:28)
--- NOTE | 2021-08-19 13:04 | PN.HOSP_ITS ---
Subjective Subjective Patient was seen and examined today in ICU, I talked briefly with pulmonary medicine about his care. Patient has positive Gastroccult, his Lovenox was discontinued today. Patient is finishing up his Decadron, he has completed course on baricitinib and remdesivir. Patient remains on the ventilator at this time. Objective Data Objective Data Vital Signs: Vital Signs Temp Pulse Resp BP Pulse Ox 98.5 F 90 17 109/80 93 08/19/21 12:00 08/19/21 12:00 08/19/21 12:00 08/19/21 12:00 08/19/21 12:00 Oxygen Flow Rate (L/min) 60 Oxygen Delivery Method Mechanical Ventilator Weight: 77.8 kg Body Mass Index (BMI) 28.7 Intake & Output: Intake and Output for Last 24 Hours 08/17/21 08/18/21 08/19/21 23:59 23:59 23:59 Intake Total 591.31 / 618.01 1551.00 / 1565.70 397.6 / 397.6 Output Total 825 / 825 475 / 775 1500 / 1500 Balance -233.69 / -206.99 1076.00 / 790.70 -1102.4 / -1102.4 Medical Nutrition Assessment Dietitian: Malnutrition Criteria Met Start: 08/09/21 13:29 Freq: Status: Active Protocol: Document 08/16/21 10:55 AG (Rec: 08/16/21 10:55 [id number]) Nutrition Malnutrition Evidence of Malnutrition Exists Yes Malnutrition (severe): Acute Illness/Injury Evidenced By Suboptimal Energy Intake ( Severe),Weight Loss (Severe) Intake Problem Inadequate Oral Intake Etiology r/t resp. failure and increased oxygen needs Signs/Symptoms as evidenced by estimated PO intake meeting <50% of estimated nutritional needs Status Active Problem Clinical Problem Acute Disease or Injury Related Malnutrition Etiology Severe protein/calorie malnutrition in the context of acute illness related to inadequate oral intake w/ resp . failure Signs/Symptoms as evidenced by 5.18kg/6.2% wt loss since admit and PO meeting less than 50% estimated nutrition needs > 1 week Status Active Problem Recommendation Dietitian Recommendations/Changes Advance diet as tolerated to regular; continue 4 oz ensure compact w/ meals Lab / Micro Data Result Diagrams: 08/19/21 05:45 08/19/21 05:45 Labs: Laboratory Results - last 24 hr 08/19/21 05:45: WBC 18.6 H, RBC 3.18 L, Hgb 10.3 L, Hct 30.7 L, MCV 96.5 H, MCH 32.4 H, MCHC 33.6, RDW Std Deviation 48.9 H, RDW Coeff of Enoch 14.0, Plt Count 193, MPV 11.6, Immature Gran % (Auto) 2.500 H, Neut % (Auto) 91.3 H, Lymph % (Auto) 3.0 L, [place] % (Auto) 3.0, Eos % (Auto) 0.0, Baso % (Auto) 0.2, Absolute Neuts (auto) 16.9 H, Absolute Lymphs (auto) 0.55 L, Nucleated RBC % 0, Differential Comment SCANNED 08/19/21 05:45: Sodium 136, Potassium 4.5, Chloride 101, Carbon Dioxide 32.0, Anion Gap 3 L, BUN 42 H, Creatinine 0.84, Estim Creat Clear Calc 85.25, Est GFR (MDRD) Af Amer 118, Est GFR (MDRD) Non-Af 98, BUN/Creatinine Ratio 49.8 H, Gluco se 124 H, Calcium 8.7, Total Bilirubin 0.50, AST 14 L, ALT 40, Alkaline Phosphatase 83, Total Protein 7.1, Albumin 2.1 L, Globulin 5.0 H, Albumin/Globulin Ratio 0.4 L Micro: Microbiology 08/17/21 11:02 Sputum, Induced/Lukens Gram Stain - Final 08/17/21 11:02 Sputum, Induced/Lukens Respiratory Culture - Final 08/18/21 15:20 Gastric Fluid/Contents Gastric Occult Blood - Final Occult Blood Positive 08/01/21 15:50 Blood Culture (Wb) - Right Hand Blood Culture - Final Gram positive jeff 08/05/21 11:30 Sputum, Expectorated/Coughed Gram Stain - Final 08/05/21 11:30 Sputum, Expectorated/Coughed Respiratory Culture - Final Haemophilus influenzae Mixed Nathalie 08/01/21 17:09 Blood Culture (Wb) - Anticubital Left Blood Culture - Final No growth in 5 days. 08/01/21 18:00 Urine, Clean Catch Urine Culture - Final Mixed Gram Positive Organisms 08/02/21 03:00 Urine, Random Legionella Antigen - Final 08/02/21 03:00 Urine, Random Streptococcus pneumoniae Antigen (M - Final 08/01/21 21:25 Nasal Secretion SARS-CoV-2 Antigen (Rapid) - Final Physical Exam Narrative Const Constitutional Narrative: Patient is sedated and on the ventilator HEENT head/scalp atraumatic Head and Scalp: normocephalic Eyes conjunctivae normal Resp normal respiratory effort and no retractions Resp Narrative: scattered expiratory rhonchi bilaterally Cardio regular rate, regular rhythm, S1 normal heart sound and S2 normal heart sound GI normal to inspection, nondistended, normoactive bowel sounds Extremity normal to inspection and no clubbing, cyanosis or edema Neuro Neuro Narrative: Patient is sedated and on the ventilator Psych Psych Narrative: Patient is sedated and on the ventilator Assessment & Plan Assessment/Plan (1) Pneumonia due to severe acute respiratory syndrome coronavirus 2 (SARS-CoV-2): PLAN: 1. COVID-19 pneumonia-patient has completed baricitinib and re mdesivir, he is currently on Decadron #2 Haemophilus influenza pneumonia-patient already went through a course of antibiotic treatment #3 acute on chronic hypoxic respiratory failure-patient remains on the ventilator at this time #4 Rheumatoid arthritis #5 Gastroccult positive drainage-patient was taken off Lovenox today, he remains on a PPI Charges/Coding Visit Charges Inpatient E&M: 79611 Subs Hosp L2
--- NOTE | 2021-08-19 13:45 | CASEMGMT ---
Social Work SW participated in ICU rounds. Phone call placed to pt daughter and support offered. Dgt made aware SW remains available should family have any supportive needs. MARCUS Do
[2021-08-20] VITALS (40 sets, daily range): BP systolic 71–144; BP diastolic 3–94; PULSE 91–128; RESP 13–27; TEMP 36.7–37.9; O2SAT 85–96
[2021-08-20] MEDS: Propofol 10MG/Ml 1,000 MG/100 ML Bottle 4.7 MG CONT INF (03:36)
[2021-08-20] MEDS: guaiFENesin 10 ML UDC (200MG/10ML) GT ×2 (05:55→13:10)
[2021-08-20] MEDS: Menthol/Lanolin/Calamine/Znox 113 GM Tube 1 APPLIC TOPICAL ×3 (05:55→20:13)
[2021-08-20 06:10] LABS: Hematocrit 27.3 % (40-54); Hemoglobin 9.2 g/dL (13.0-16.5); Mean Corp Hgb Conc 33.7 g/dL (32-36); Mean Corpuscular Hgb 32.4 pg (27.0-32.0); Mean Corpuscular Volume 96.1 fL (80-94); Mean Platelet Vol. 11.7 fl (6.2-12.0); Platelet Count 214 K/mm3 (150-450); RBC Distribution Width CV 14.2 % (11.6-14.6); RBC Distribution Width SD 48.8 fl (35.1-43.9); Red Blood Count 2.84 M/mm3 (4.6-6.2); White Blood Count 19.9 K/mm3 (4.4-11.0)
[2021-08-20 06:23] LABS: Anion Gap 7 (5-15); BUN 64 mg/dL (7-18); BUN/Creat Ratio 57.1 RATIO (10-20); Calcium,Total 8.6 mg/dL (8.5-10.1); Chloride 99 mmol/L (98-107); Creatinine, Serum 1.12 mg/dL (0.70-1.30); EST Glomerular Filtration Rate 71 mL/min (>60); Est Glom Filt Rate - Afr Amer 85 mL/min (>60); Estimated Creatinine Clearance 63.94 ml/min; Glucose 148 mg/dL (74-106); Potassium 4.4 mmol/L (3.5-5.1); Sodium Level 136 mmol/L (136-145)
--- NOTE | 2021-08-20 06:49 | PN.CC_ITS ---
Assessment & Plan Assessment/Plan (1) Pneumonia due to severe acute respiratory syndrome coronavirus 2 (SARS-CoV-2): (2) Respiratory failure: QUALIFIERS: Chronicity: acute Respiratory failure complication: hypoxia Qualified Code(s): J96.01 - Acute respiratory failure with hypoxia (3) Hyperlipidemia: PLAN: RECOMMENDATIONS: 1. Continue to wean FiO2 to maintain oxygen saturations at or above 90%. 2. Completed baricitinib second round of decadron 3. Diuresis as tolerated. Hold diuretics today 4. Continue hydroxychloroquine. Hold methotrexate 5. Discontinue therapeutic anticoagulation. Keep PPI twice daily 6. Encourage incentive spirometer use and mobilize patient as tolerated. 7. Add Seroquel IMPRESSIONS: 1. Acute hypoxic respiratory failure secondary to COVID-19 and Haemophilus influenza pneumonia Although the patient's respiratory status is still tenuous, he is maintaining appropriate oxygen saturations on a combination of BiPAP and heated high flow, which will be continued to maintain saturations at or above 90%. The patient has already completed a treatment course of remdesivir and a 7-day course of antimicrobials. Patient completed course of baricitinib and a second round of Decadron. Plan to continue bronchodilator therapy. Therapeutic Lovenox has to be discontinued secondary to GI bleed complications. Patient with decompensation leading to intubation on 08/18/2021. Respiratory status appears to have stabilized. Clinical concern for a secondary process after COVID-19 leading to current situation. 2. Rheumatoid arthritis/unvaccinated state/overweig ht/hyperlipidemia/possible CAD Complicates care, management, recovery and prognosis. Okay to continue with hydroxychloroquine, but methotrexate may have more risks for secondary complications. 3. Acute kidney injury Patient has been receiving diuretics intermittently. Creatinine is slightly up compared to baseline. We will hold on Lasix today. Patient has had some decreased urine output overnight. No indication for renal replacement therapy at this time. 4. Acute blood loss anemia secondary to GI bleed Patient is on steroid therapy for an extended period of time and therapeutic Lovenox. Patient will be placed on a PPI twice daily and will decrease to prophylactic dose of Lovenox. Patient with no indication for transfusion at this time. TIME: 34 minutes of critical care time was spent, in addition to the morning assessment, addressing patient's acute hypoxic respiratory failure, review of CODE STATUS, review of all data and collaboration with care team (5:20 AM to 6:20 AM) Subjective Subjective Patient did okay overnight. Patient has been more resistant to care. Nursing is reporting the patient is refusing some care such as oral and turning. Patient's buttock is improved, but still requiring treatment 4 times daily. Patient is denying any pain this morning. Objective Data Objective Data Vital Signs: Vital Signs Temp Pulse Resp BP Pulse Ox 36.7 C 95 14 144/94 H 92 08/20/21 00:00 08/20/21 06:00 08/20/21 06:00 08/20/21 06:00 08/20/21 06:00 Oxygen Flow Rate (L/min) 65 Oxygen Delivery Method Mechanical Ventilator Weight: 77.9 kg Body Mass Index (BMI) 28.7 Intake & Output: Intake and Output for Last 24 Hours 08/18/21 08/19/21 08/20/21 23:59 23:59 23:59 Intake Total 1551.00 / 1565.70 1368.90 / 1493.90 417.02 / 417.02 Output Total 475 / 775 1950 / 1950 325 / 325 Balance 1076.00 / 790.70 -581.10 / -456.10 92.02 / 92.02 Medical Nutrition Assessment Dietitian: Malnutrition Criteria Met Start: 08/09/21 13:29 Freq: Status: Active Protocol: Document 08/16/21 10:55 AG (Rec: 08/16/21 10:55 AG [id number]) Nutrition Malnutrition Evidence of Malnutrition Exists Yes Malnutrition (severe): Acute Illness/Injury Evidenced By Suboptimal Energy Intake ( Severe),Weight Loss (Severe) Intake Problem Inadequate Oral Intake Etiology r/t resp. failure and increased oxygen needs Signs/Symptoms as evidenced by estimated PO intake meeting <50% of estimated nutritional needs Status Active Problem Clinical Problem Acute Disease or Injury Related Malnutrition Etiology Severe protein/calorie malnutrition in the context of acute illness related to inadequate oral intake w/ resp . failure Signs/Symptoms as evidenced by 5.18kg/6.2% wt loss since admit and PO meeting less than 50% estimated nutrition needs > 1 week Status Active Problem Recommendation Dietitian Recommendations/Changes Advance diet as tolerated to regular; continue 4 oz ensure compact w/ meals Lab / Micro Data Result Diagrams: 08/20/21 06:00 08/20/21 06:00 Labs: Laboratory Results - last 24 hr 08/19/21 05:45: Differential Comment SCANNED 08/20/21 06:00: WBC 19.9 H, RBC 2.84 L, Hgb 9.2 L, Hct 27.3 L, MCV 96.1 H, MCH 32.4 H, MCHC 33.7, RDW Std Deviation 48.8 H, RDW Coeff of Enoch 14.2, Plt Count 214, MPV 11.7 08/20/21 06:00: Sodium 136, Potassium 4.4, Chloride 99, Carbon Dioxide 30.0, Anion Gap 7, BUN 64 H, Creatinine 1.12, Estim Creat Clear Calc 63.94, Est GFR (MDRD) Af Amer 85, Est GFR (MDRD) Non-Af 71, BUN/Creatinine Ratio 57.1 H, Glucose 148 H, Calcium 8.6 Micro: Microbiology 08/17/21 11:02 Sputum, Induced/Lukens Gram Stain - Final 08/17/21 11:02 Sputum, Induced/Lukens Respiratory Culture - Final 08/18/21 15:20 Gastric Fluid/Contents Gastric Occult Blood - Final Occult Blood Positive 08/01/21 15:50 Blood Culture (Wb) - Right Hand Blood Culture - Final Gram positive jeff 08/05/21 11:30 Sputum, Expectorated/Coughed Gram Stain - Final 08/05/21 11:30 Sputum, Expectorated/Coughed Respiratory Culture - Final Haemophilus influenzae Mixed Nathalie 08/01/21 17:09 Blood Culture (Wb) - Anticubital Left Blood Culture - Final No growth in 5 days. 08/01/21 18:00 Urine, Clean Catch Urine Culture - Final Mixed Gram Positive Organisms 08/02/21 03:00 Urine, Random Legionella Antigen - Final 08/02/21 03:00 Urine, Random Streptococcus pneumoniae Antigen (M - Final 08/01/21 21:25 Nasal Secretion SARS-CoV-2 Antigen (Rapid) - Final Physical Exam Const Constitutional Narrative: Good vent synchrony General Appearance: intubated and patient mechanically ventilated HEENT normocephalic and head/scalp atraumatic Eyes PERRL, EOMs intact bilaterally and conjunctivae normal Neck supple General: trachea midline Chest inspection of chest normal Chest: symmetrical chest wall rise; Negative for crepitus Resp Auscultation: diminished lung sounds; Negative for rales, rhonchi or wheezes Cardio regular rate, regular rhythm, S1 normal heart sound, S2 normal heart sound, no murmurs, no rub and no gallops GI normal to inspection, nondistended, normoactive bowel sounds Extremity no clubbing, cyanosis or edema Skin no rashes or lesions noted Neuro moves all extremities and no focal motor deficits Psych cooperative and affect normal Charges/Coding Procedures Hospitalists Procedures: [id number] Critial Care 1st Hr
[2021-08-20] MEDS: Ipratropium/Albuterol Sulfate 3 ML AMPUL.NEB INHALATION ×3 (07:16→18:41)
[2021-08-20] MEDS: CHLORHEXIDINE GLUC 2% CLOTH 1 EACH TOWELETTE TOPICAL (09:27)
[2021-08-20] MEDS: Ascorbic Acid 500 MG Tablet 1000 MG PO (09:27)
[2021-08-20] MEDS: Folic Acid 1 MG Tablet PO (09:28)
[2021-08-20] MEDS: Hydroxychloroquine 200 MG Tablet PO ×2 (09:31→20:12)
[2021-08-20] MEDS: Senna/Docusate Sodium 1 Tablet 2 TABLET PO ×2 (09:31→20:12)
[2021-08-20] MEDS: Enoxaparin 40 MG/0.4 ML Syringe SC ×2 (09:32→20:13)
[2021-08-20] MEDS: Polyethylene Glycol 3350 17 GM PACKET PO (09:42)
[2021-08-20] MEDS: QUEtiapine 25 MG Tablet 50 MG GT ×2 (09:42→20:12)
[2021-08-20] MEDS: Chlorhexidine 15 ML PO ×2 (09:43→20:13)
[2021-08-20] MEDS: Vital AF 1.2 Cal Liquid 1,000 ML 70 ML GT (10:05)
[2021-08-20] MEDS: Furosemide 40 MG/4 ML Vial IV (10:05)
[2021-08-20] MEDS: Propofol 10MG/Ml 1,000 MG/100 ML Bottle 14.1 MG CONT INF (13:13)
--- NOTE | 2021-08-20 13:37 | RAD_ITS ---
STUDY: X-RAY CHEST REASON FOR EXAM: Male, 61 years old. Follow-up exam. TECHNIQUE: Single AP portable view of the chest. COMPARISON: 08/17/2021. FINDINGS: Endotracheal tube and nasogastric tube in stable position. Subcutaneous emphysema in the base of the neck new since previous exam. Bilateral infiltrates slightly improved in the left lower lung since previous exam. No evidence of pleural effusions. Normal size heart. Normal mediastinum and vicky. Normal visualized pulmonary arteries. Normal visualized aortic arch and descending thoracic aorta. Unchanged osseous structures. There is no demonstrated abnormality of the visualized soft tissue structures of the upper abdomen. RAD/Chest 1 View (Portable) IMPRESSION: Bilateral infiltrates slightly improved in the left lower lung. Subcutaneous emphysema. Electronically Signed: Matteo Lucas MD at 15:06 EDT Tel , Service support ,
[2021-08-20] MEDS: Ceftriaxone 1 GM/50 ML BAG IV (15:52)
--- NOTE | 2021-08-20 17:16 | PCM.PN.HOSP ---
Subjective Subjective Patient was seen and family today, he is on the ventilator at this time and under sedation, there was noted to be subcutaneous emphysema present today around the neck area, according to nursing, pulmonary medicine feels that he may have a pneumomediastinum. Objective Data Objective Data Vital Signs: Vital Signs Temp Pulse Resp BP Pulse Ox 98.9 F 117 H 14 84/60 L 91 08/20/21 16:00 08/20/21 16:00 08/20/21 16:00 08/20/21 16:00 08/20/21 16:00 Oxygen Flow Rate (L/min) 65 Oxygen Delivery Method Mechanical Ventilator Weight: 77.9 kg Body Mass Index (BMI) 28.7 Intake & Output: Intake and Output for Last 24 Hours 08/18/21 08/19/21 08/20/21 23:59 23:59 23:59 Intake Total 1551.00 / 1565.70 1368.90 / 1493.90 1946.60 / 1946.60 Output Total 475 / 775 1950 / 1950 575 / 575 Balance 1076.00 / 790.70 -581.10 / -456.10 1371.60 / 1371.60 Medical Nutrition Assessment Dietitian: Malnutrition Criteria Met Start: 08/09/21 13:29 Freq: Status: Active Protocol: Document 08/20/21 17:12 RMA (Rec: 08/20/21 17:12 RMA [id number]) Nutrition Malnutrition Evidence of Malnutrition Exists Yes Malnutrition (severe): Acute Illness/Injury Evidenced By Suboptimal Energy Intake ( Severe),Weight Loss (Severe) Intake Problem Inadequate Oral Intake Etiology r/t resp. failure and increased oxygen needs Signs/Symptoms as evidenced by estimated PO intake meeting <50% of estimated nutritional needs; inability to consume sufficient nutrition via PO diet d/t intubation Status Active Problem Clinical Problem Acute Disease or Injury Related Malnutrition Etiology Severe protein/calorie malnutrition in the context of acute illness related to inadequate oral intake w/ resp . failure Signs/Symptoms as evidenced by 5.18kg/6.2% wt loss since admit and PO meeting less than 50% estimated nutrition needs > 1 week Status Active Problem Recommendation Dietitian Recommendations/Changes NPO while intubated; Vital AF 1.2 via OGT at goal rate of 70mL/hour w/ 125mL H2O flush every 4 hours to provide 2016 calories, 126 g protein, and 2112mL fluid/day. Would resume at 20mL/hour and increase by 15mL/hour every 8-12 hours as tolerated until goal rate is achieved. Lab / Micro Data Result Diagrams: 08/20/21 06:00 08/20/21 06:00 Labs: Laboratory Results - last 24 hr 08/20/21 06:00: WBC 19.9 H, RBC 2.84 L, Hgb 9.2 L, Hct 27.3 L, MCV 96.1 H, MCH 32.4 H, MCHC 33.7, RDW Std Deviation 48.8 H, RDW Coeff of Enoch 14.2, Plt Count 214, MPV 11.7 08/20/21 06:00: Sodium 136, Potassium 4.4, Chloride 99, Carbon Dioxide 30.0, Anion Gap 7, BUN 64 H, Creatinine 1.12, Estim Creat Clear Calc 63.94, Est GFR (MDRD) Af Amer 85, Est GFR (MDRD) Non-Af 71, BUN/Creatinine Ratio 57.1 H, Glucose 148 H, Calcium 8.6 Micro: Microbiology 08/17/21 11:02 Sputum, Induced/Lukens Gram Stain - Final 08/17/21 11:02 Sputum, Induced/Lukens Respiratory Culture - Final 08/18/21 15:20 Gastric Fluid/Contents Gastric Occult Blood - Final Occult Blood Positive 08/01/21 15:50 Blood Culture (Wb) - Right Hand Blood Culture - Final Gram positive jeff 08/05/21 11:30 Sputum, Expectorated/Coughed Gram Stain - Final 08/05/21 11:30 Sputum, Expectorated/Coughed Respiratory Culture - Final Haemophilus influenzae Mixed Nathalie 08/01/21 17:09 Blood Culture (Wb) - Anticubital Left Blood Culture - Final No growth in 5 days. 08/01/21 18:00 Urine, Clean Catch Urine Culture - Final Mixed Gram Positive Organisms 08/02/21 03:00 Urine, Random Legionella Antigen - Final 08/02/21 03:00 Urine, Random Streptococcus pneumoniae Antigen (M - Final 08/01/21 21:25 Nasal Secretion SARS-CoV-2 Antigen (Rapid) - Final Radiography Diagnostic Testing: Radiology Impression Chest X-Ray 08/20/21 13:37 IMPRESSION: Bilateral infiltrates slightly improved in the left lower lung. Subcutaneous emphysema. Electronically Signed: Matteo Lucas MD at 15:06 EDT Tel , Service support , Physical Exam Narrative Const Constitutional Narrative: Patient is sedated and on the ventilator HEENT head/scalp atraumatic Head and Scalp: normocephalic Eyes conjunctivae normal Resp normal respiratory effort and no retractions Resp Narrative: scattered expiratory rhonchi bilaterally Cardio regular rate, regular rhythm, S1 normal heart sound and S2 normal heart sound GI normal to inspection, nondistended, normoactive bowel sounds Extremity normal to inspection and no clubbing, cyanosis or edema Neuro Neuro Narrative: Patient is sedated and on the ventilator Psych Psych Narrative: Patient is sedated and on the ventilator Assessment & Plan Assessment/Plan (1) Pneumonia due to severe acute respiratory syndrome coronavirus 2 (SARS-CoV-2): PLAN: 1. COVID-19 pneumonia-patient has completed baricitinib and remdesivir as well as Decadron #2 Haemophilus influenza pneumonia-patient already went through a course of antibiotic treatment, due to patient's elevated white blood cell count today, he was placed back on IV antibiotics. I talked with pulmonary medicine concerning this, it is thought that he might have a dental abscess. #3 acute on chronic hypoxic respiratory failure-patient remains on the ventilator at this time #4 Rheumatoid arthritis #5 Gastroccult positive drainage-patient was taken off Lovenox , he remains on a PPI Charges/Coding Visit Charges Inpatient E&M: 55621 Subs Hosp L2
[2021-08-20] MEDS: guaiFENesin/Codeine 5 ML UDC 10 ML GT (17:38)
[2021-08-20] MEDS: Acetaminophen 325 MG Tablet 650 MG PO (20:12)
[2021-08-20] MEDS: Magnesium Citrate 300 ML GT (20:56)
[2021-08-20] MEDS: Propofol 10MG/Ml 1,000 MG/100 ML Bottle 7 MG CONT INF (21:37)
[2021-08-21] VITALS (49 sets, daily range): BP systolic 63–131; BP diastolic 45–69; PULSE 124–141; RESP 12–19; TEMP 36.6–37.6; O2SAT 91–100
[2021-08-21] MEDS: Vital AF 1.2 Cal Liquid 1,000 ML 70 ML GT (02:00)
[2021-08-21] MEDS: guaiFENesin/Codeine 5 ML UDC 10 ML GT ×2 (02:07→06:13)
[2021-08-21] MEDS: Acetaminophen 650 MG/20 ML UDC GT (02:07)
[2021-08-21 04:29] LABS: Absolute Lymphocyte Count 0.54 X10^3/uL (0.83-4.51); Absolute Neutrophil Count 15.5 X10^3/uL (2.0-7.7); Basophil# 0.03 X10^3/uL; Basophil% 0.2 % (0-1); Hematocrit 25.2 % (40-54); Hemoglobin 7.9 g/dL (13.0-16.5); Lymphocyte # 0.54 X10^3/ul (0.83-4.51); Lymphocyte % 3.2 % (19-41); Mean Corp Hgb Conc 31.3 g/dL (32-36); Mean Corpuscular Hgb 32.5 pg (27.0-32.0); Mean Corpuscular Volume 103.7 fL (80-94); Mean Platelet Vol. 11.7 fl (6.2-12.0); Monocyte# 0.73 X10^3/uL; Monocyte% 4.3 % (0-10); NRBC Flagged by Analyzer 0.5 % (0-5); Neutrophil # 15.47 X10^3/uL (2.7-7.7); Neutrophil % 90.7 % (47-70); POSITIVE DIFFERENTIAL YES; POSITIVE MORPHOLOGY YES; Platelet Count 201 K/mm3 (150-450); RBC Distribution Width CV 14.8 % (11.6-14.6); RBC Distribution Width SD 55.1 fl (35.1-43.9); Red Blood Count 2.43 M/mm3 (4.6-6.2)
[2021-08-21 04:56] LABS: Differential Indicated SCAN CRITERIA MET
[2021-08-21 05:02] LABS: ALB/GLOB Ratio 0.4 RATIO (0.9-2.4); AST(SGOT) 17 U/L (15-37); Alanine Aminotransfer ALT/SGPT 34 U/L (16-61); Albumin, Serum 1.7 g/dL (3.2-5.0); Alkaline Phosphatase 93 U/L (45-117); Anion Gap 11 (5-15); BUN 98 mg/dL (7-18); BUN/Creat Ratio 29.1 RATIO (10-20); Chloride 97 mmol/L (98-107); Creatinine, Serum 3.37 mg/dL (0.70-1.30); EST Glomerular Filtration Rate 20 mL/min (>60); Est Glom Filt Rate - Afr Amer 24 mL/min (>60); Estimated Creatinine Clearance 21.25 ml/min; Globulin 4.4 g/dL (2.2-4.2); Glucose 227 mg/dL (74-106); Potassium 4.8 mmol/L (3.5-5.1); Protein, Total 6.1 g/dL (6.4-8.2); Sodium Level 136 mmol/L (136-145)
[2021-08-21 05:26] LABS: Differential Comment SCANNED
[2021-08-21] MEDS: Menthol/Lanolin/Calamine/Znox 113 GM Tube 1 APPLIC TOPICAL ×3 (06:15→20:50)
--- NOTE | 2021-08-21 06:58 | PN.CC_ITS ---
Assessment & Plan Assessment/Plan (1) Pneumonia due to severe acute respiratory syndrome coronavirus 2 (SARS-CoV-2): (2) Respiratory failure: QUALIFIERS: Chronicity: acute Respiratory failure complication: hypoxia Qualified Code(s): J96.01 - Acute respiratory failure with hypoxia (3) Hyperlipidemia: PLAN: RECOMMENDATIONS: 1. Continue to wean FiO2 to maintain oxygen saturations at or above 90%. 2. Completed baricitinib and second round of decadron 3. Diuresis as tolerated. Hold diuretics today. Possibly consult nephrology tomorrow 4. Continue hydroxychloroquine. Hold methotrexate 5. Discontinue therapeutic anticoagulation. Keep PPI twice daily. No tra nsfusions at this time 6. Continue codeine for cough suppressant 7. Wean pressors as tolerated IMPRESSIONS: 1. Acute hypoxic respiratory failure secondary to COVID-19 and Haemophilus influenza pneumonia Although the patient's respiratory status is still tenuous, he is maintaining appropriate oxygen saturations on a combination of BiPAP and heated high flow, which will be continued to maintain saturations at or above 90%. The patient has already completed a treatment course of remdesivir and a 7-day course of antimicrobials. Patient completed course of baricitinib and a second round of Decadron. Plan to continue bronchodilator therapy. Therapeutic Lovenox has to be discontinued secondary to GI bleed complications. Patient wit h decompensation leading to intubation on 08/18/2021. Respiratory status appears to have stabilized. Clinical concern for a secondary process after COVID-19 leading to current situation. We will continue to wean FiO2 and PEEP as tolerated. Patient is on a cough suppressant secondary to the development of pneumomediastinum. Patient has remained in sinus tachycardia. No A. fib with RVR noted on telemetry. 2. Rheumatoid arthritis/unvaccinated state/overweight/hyperlipidemia/p ossible CAD Complicates care, management, recovery and prognosis. Okay to continue wi th hydroxychloroquine, but methotrexate may have more risks for secondary complications. 3. Acute kidney injury Patient has been receiving diuretics intermittently. Renal function significantly declined over the last 24 hours. Urine output appears to be improving with pressor therapy. Patient will be given a bolus. If not improving by tomorrow, may have to consult nephrology. 4. Acute blood loss anemia secondary to GI bleed Patient is on steroid therapy for an extended period of time and therapeutic Lovenox. Patient will be placed on a PPI twice daily and will decrease to prophylactic dose of Lovenox. Patient with no indication for transfusion at this time. Steroids have been discontinued. 5. Septic shock secondary to possible oral abscess Patient with fetid breath yesterday with decompensation. Patient was placed on antibiotics and subsequently developed hypotension consistent with a gram-negative source. Continue with pressors. Will attempt fluid boluses. Unable to give 30 cc/kg secondary to respiratory failure with Covid pneumonia. TIME: 35 minutes of critical care time was spent, in addition to the morning assessment, addressing patient's acute hypoxic respiratory failure, review of CODE STATUS, review of all data and collaboration with care team (5:45 AM to 6:45 AM) Subjective Subjective Patient with significant difficulties over the last 24 hours. Patient did develop a pneumomediastinum yesterday afternoon and subsequently had some tachycardia with hypotension. Patient was initiated on empiric antibiotics and pressors through a peripheral line. Patient also noted to have decreased urine output overnight. Patient appears to have stabilized at this time and urine output is significantly improved. Objective Data Objective Data Vital Signs: Vital Signs Temp Pulse Resp BP Pulse Ox 37.6 C H 136 H 17 114/60 95 08/21/21 04:00 08/21/21 05:00 08/21/21 05:00 08/21/21 05:00 08/21/21 05:00 Oxygen Flow Rate (L/min) 65 Oxygen Delivery Method Mechanical Ventilator Weight: 77.9 kg Body Mass Index (BMI) 28.7 Intake & Output: Intake and Output for Last 24 Hours 08/19/21 08/20/21 08/21/21 23:59 23:59 23:59 Intake Total 1368.90 / 1493.90 2836.63 / 3195.53 784.19 / 784.19 Output Total 1950 / 1950 585 / 620 45 / 45 Balance -581.10 / -456.10 2251.63 / 2575.53 739.19 / 739.19 Medical Nutrition Assessment Dietitian: Malnutrition Criteria Met Start: 08/09/21 13:29 Freq: Status: Active Protocol: Document 08/20/21 17:12 RMA (Rec: 08/20/21 17:12 RMA [id number]) Nutrition Malnutrition Evidence of Malnutrition Exists Yes Malnutrition (severe): Acute Illness/Injury Evidenced By Suboptimal Energy Intake ( Severe),Weight Loss (Severe) Intake Problem Inadequate Oral Intake Etiology r/t resp. failure and increased oxygen needs Signs/Symptoms as evidenced by estimated PO intake meeting <50% of estimated nutritional needs; inability to consume sufficient nutrition via PO diet d/t intubation Status Active Problem Clinical Problem Acute Disease or Injury Related Malnutrition Etiology Severe protein/calorie malnutrition in the context of acute illness related to inadequate oral intake w/ resp . failure Signs/Symptoms as evidenced by 5.18kg/6.2% wt loss since admit and PO meeting less than 50% estimated nutrition needs > 1 week Status Active Problem Recommendation Dietitian Recommendations/Changes NPO while intubated; Vital AF 1.2 via OGT at goal rate of 70mL/hour w/ 125mL H2O flush every 4 hours to provide 2016 calories, 126 g protein, and 2112mL fluid/day. Would resume at 20mL/hour and increase by 15mL/hour every 8-12 hours as tolerated until goal rate is achieved. Lab / Micro Data Result Diagrams: 08/21/21 04:15 08/21/21 04:15 Labs: Laboratory Results - last 24 hr 08/21/21 04:15: WBC 17.0 H, RBC 2.43 L, Hgb 7.9 L, Hct 25.2 L, MCV 103.7 H D, MCH 32.5 H, MCHC 31.3 L D, RDW Std Deviation 55.1 H, RDW Coeff of Enoch 14.8 H, Plt Count 201, MPV 11.7, Immature Gran % (Auto) 1.600 H, Neut % (Auto) 90.7 H, Lymph % (Auto) 3.2 L, [place] % (Auto) 4.3, Eos % (Auto) 0.0, Baso % (Auto) 0.2, Absolute Neuts (auto) 15.5 H, Absolute Lymphs (auto) 0.54 L, Nucleated RBC % 0.5, Differential Comment SCANNED 08/21/21 04:15: Sodium 136, Potassium 4.8, Chloride 97 L, Carbon Dioxide 28.0, Anion Gap 11, BUN 98 H, Creatinine 3.37 H, Estim Creat Clear Calc 21.25, Est GFR (MDRD) Af Amer 24 L, Est GFR (MDRD) Non-Af 20 L, BUN/Creatinine Ratio 29.1 H, G lucose 227 H, Calcium 8.0 L, Total Bilirubin 0.50, AST 17, ALT 34, Alkaline Phosphatase 93, Total Protein 6.1 L, Albumin 1.7 L, Globulin 4.4 H, Albumin/Globulin Ratio 0.4 L Micro: Microbiology 08/17/21 11:02 Sputum, Induced/Lukens Gram Stain - Final 08/17/21 11:02 Sputum, Induced/Lukens Respiratory Culture - Final 08/18/21 15:20 Gastric Fluid/Contents Gastric Occult Blood - Final Occult Blood Positive 08/01/21 15:50 Blood Culture (Wb) - Right Hand Blood Culture - Final Gram positive jeff 08/05/21 11:30 Sputum, Expectorated/Coughed Gram Stain - Final 08/05/21 11:30 Sputum, Expectorated/Coughed Respiratory Culture - Final Haemophilus influenzae Mixed Nathalie 08/01/21 17:09 Blood Culture (Wb) - Anticubital Left Blood Culture - Final No growth in 5 days. 08/01/21 18:00 Urine, Clean Catch Urine Culture - Final Mixed Gram Positive Organisms 08/02/21 03:00 Urine, Random Legionella Antigen - Final 08/02/21 03:00 Urine, Random Streptococcus pneumoniae Antigen (M - Final 08/01/21 21:25 Nasal Secretion SARS-CoV-2 Antigen (Rapid) - Final Radiography Diagnostic Testing: Radiology Impression Chest X-Ray 08/20/21 13:37 IMPRESSION: Bilateral infiltrates slightly improved in the left lower lung. Subcutaneous emphysema. Electronically Signed: Matteo Lucas MD at 15:06 EDT Tel , Service support , Physical Exam Const Constitutional Narrative: Good vent synchrony. Less responsive today compared to yesterday General Appearance: intubated and patient mechanically ventilated HEENT normocephalic and head/scalp atraumatic Eyes PERRL, EOMs intact bilaterally and conjunctivae normal Neck supple General: trachea midline Chest inspection of chest normal Chest: symmetrical chest wall rise; Negative for crepitus Resp Auscultation: diminished lung sounds; Negative for rales, rhonchi or wheezes Cardio regular rate, regular rhythm, S1 normal heart sound, S2 normal heart sound, no murmurs, no rub and no gallops GI normal to inspection, nondistended, normoactive bowel sounds Extremity no clubbing, cyanosis or edema Skin no rashes or lesions noted Neuro moves all extremities and no focal motor deficits Psych cooperative and affect normal Charges/Coding Procedures Hospitalists Procedures: [id number] Critial Care 1st Hr
[2021-08-21] MEDS: Ipratropium/Albuterol Sulfate 3 ML AMPUL.NEB INHALATION (07:09)
[2021-08-21] MEDS: Bisacodyl 10 MG Suppository RC (07:45)
[2021-08-21] MEDS: Chlorhexidine 15 ML PO ×2 (08:00→20:50)
[2021-08-21 11:59] LABS: Hemoglobin 7.8 g/dL (13.0-16.5)
--- NOTE | 2021-08-21 13:31 | PCM.PN.HOSP ---
Subjective Subjective Patient was seen and examined today, he is currently on the ventilator and sedated. I could not palpate any subcutaneous emphysema around the neck or upper chest area. Objective Data Objective Data Vital Signs: Vital Signs Temp Pulse Resp BP Pulse Ox 99.6 F H 134 H 15 94/52 L 95 08/21/21 04:00 08/21/21 07:12 08/21/21 07:12 08/21/21 12:00 08/21/21 07:12 Oxygen Flow Rate (L/min) 65 Oxygen Delivery Method Mechanical Ventilator Weight: 77.9 kg Body Mass Index (BMI) 28.7 Intake & Output: Intake and Output for Last 24 Hours 08/19/21 08/20/21 08/21/21 23:59 23:59 23:59 Intake Total 1368.90 / 1493.90 2836.63 / 3195.53 2632.20 / 2632.20 Output Total 1950 / 1950 585 / 620 1645 / 1645 Balance -581.10 / -456.10 2251.63 / 2575.53 987.20 / 987.20 Medical Nutrition Assessment Dietitian: Malnutrition Criteria Met Start: 08/09/21 13:29 Freq: Status: Active Protocol: Document 08/20/21 17:12 RMA (Rec: 08/20/21 17:12 RMA [id number]) Nutrition Malnutrition Evidence of Malnutrition Exists Yes Malnutrition (severe): Acute Illness/Injury Evidenced By Suboptimal Energy Intake ( Severe),Weight Loss (Severe) Intake Problem Inadequate Oral Intake Etiology r/t resp. failure and increased oxygen needs Signs/Symptoms as evidenced by estimated PO intake meeting <50% of estimated nutritional needs; inability to consume sufficient nutrition via PO diet d/t intubation Status Active Problem Clinical Problem Acute Disease or Injury Related Malnutrition Etiology Severe protein/calorie malnutrition in the context of acute illness related to inadequate oral intake w/ resp . failure Signs/Symptoms as evidenced by 5.18kg/6.2% wt loss since admit and PO meeting less than 50% estimated nutrition needs > 1 week Status Active Problem Recommendation Dietitian Recommendations/Changes NPO while intubated; Vital AF 1.2 via OGT at goal rate of 70mL/hour w/ 125mL H2O flush every 4 hours to provide 2016 calories, 126 g protein, and 2112mL fluid/day. Would resume at 20mL/hour and increase by 15mL/hour every 8-12 hours as tolerated until goal rate is achieved. Lab / Micro Data Result Diagrams: 08/21/21 11:30 08/21/21 04:15 Labs: Laboratory Results - last 24 hr 08/21/21 04:15: WBC 17.0 H, RBC 2.43 L, Hgb 7.9 L, Hct 25.2 L, MCV 103.7 H D, MCH 32.5 H, MCHC 31.3 L D, RDW Std Deviation 55.1 H, RDW Coeff of Enoch 14.8 H, Plt Count 201, MPV 11.7, Immature Gran % (Auto) 1.600 H, Neut % (Auto) 90.7 H, Lymph % (Auto) 3.2 L, [place] % (Auto) 4.3, Eos % (Auto) 0.0, Baso % (Auto) 0.2, Absolute Neuts (auto) 15.5 H, Absolute Lymphs (auto) 0.54 L, Nucleated RBC % 0.5, Differential Comment SCANNED 08/21/21 04:15: Sodium 136, Potassium 4.8, Chloride 97 L, Carbon Dioxide 28.0, Anion Gap 11, BUN 98 H, Creatinine 3.37 H, Estim Creat Clear Calc 21.25, Est GFR (MDRD) Af Amer 24 L, Est GFR (MDRD) Non-Af 20 L, BUN/Creatinine Ratio 29.1 H, Glucose 227 H, Calcium 8.0 L, Total Bilirubin 0.50, AST 17, ALT 34, Alkaline Phosphatase 93, Total Protein 6.1 L, Albumin 1.7 L, Globulin 4.4 H, Albumin/Globulin Ratio 0.4 L 08/21/21 11:30: Hgb 7.8 L, Hct 24.0 L Micro: Microbiology 08/17/21 11:02 Sputum, Induced/Lukens Gram Stain - Final 08/17/21 11:02 Sputum, Induced/Lukens Respiratory Culture - Final 08/18/21 15:20 Gastric Fluid/Contents Gastric Occult Blood - Final Occult Blood Positive 08/01/21 15:50 Blood Culture (Wb) - Right Hand Blood Culture - Final Gram positive jeff 08/05/21 11:30 Sputum, Expectorated/Coughed Gram Stain - Final 08/05/21 11:30 Sputum, Expectorated/Coughed Respiratory Culture - Final Haemophilus influenzae Mixed Nathalie 08/01/21 17:09 Blood Culture (Wb) - Anticubital Left Blood Culture - Final No growth in 5 days. 08/01/21 18:00 Urine, Clean Catch Urine Culture - Final Mixed Gram Positive Organisms 08/02/21 03:00 Urine, Random Legionella Antigen - Final 08/02/21 03:00 Urine, Random Streptococcus pneumoniae Antigen (M - Final 08/01/21 21:25 Nasal Secretion SARS-CoV-2 Antigen (Rapid) - Final Radiography Diagnostic Testing: Radiology Impression Chest X-Ray 08/20/21 13:37 IMPRESSION: Bilateral infiltrates slightly improved in the left lower lung. Subcutaneous emphysema. Electronically Signed: Matteo Lucas MD at 15:06 EDT Tel , Service support , Physical Exam Narrative Const Constitutional Narrative: Patient is sedated and on the ventilator HEENT head/scalp atraumatic Head and Scalp: normocephalic Eyes conjunctivae normal Resp normal respiratory effort and no retractions Resp Narrative: scattered expiratory rhonchi bilaterally Cardio regular rate, regular rhythm, S1 normal heart sound and S2 normal heart sound GI normal to inspection, nondistended, normoactive bowel sounds Extremity normal to inspection and no clubbing, cyanosis or edema Neuro Neuro Narrative: Patient is sedated and on the ventilator Psych Psych Narrative: Patient is sedated and on the ventilator Assessment & Plan Assessment/Plan (1) Pneumonia due to severe acute respiratory syndrome coronavirus 2 (SARS-CoV-2): PLAN: 1. COVID-19 pneumonia-patient has completed baricitinib and remdesivir as well as Decadron #2 Septic shock secondary to possible oral abscess-patient is being treated with antibiotics, he is currently on pressor agents, he is currently on Zosyn and vancomycin. #3 acute on chronic hypoxic respiratory failure-patient remains on the ventilator at this time #4 Rheumatoid arthritis #5 Severe protein caloric malnutrition as evidenced by 5.18 kg weight loss since admission n.p.o. meeting less than 50% of estimated nutritional needs for 1 week-nutritional services is seeing patient at this time, he is receiving tube feedings. Charges/Coding Visit Charges Inpatient E&M: 34849 Subs Hosp L2
--- NOTE | 2021-08-21 17:57 | PCM.RX.CS ---
Consult Pharmacy has been consulted to manage selected antiobiotic: Vancomycin Type of Consult: New start Prior Doses of Antibiotics Received/Current Regimen: 08/21/2021 @1217 Labs: Sodium 136 mmol/L (136-145) 08/21/21 04:15 Potassium 4.8 mmol/L (3.5-5.1) 08/21/21 04:15 Chloride 97 mmol/L (98-107) L 08/21/21 04:15 Carbon Dioxide 28.0 mmol/L (21.0-32.0) 08/21/21 04:15 Anion Gap 11 (5-15) 08/21/21 04:15 BUN 98 mg/dL (7-18) H 08/21/21 04:15 Creatinine 3.37 mg/dL (0.70-1.30) H 08/21/21 04:15 Est GFR (MDRD) Af Amer 24 mL/min (>60) L 08/21/21 04:15 Est GFR (MDRD) Non-Af 20 mL/min (>60) L 08/21/21 04:15 BUN/Creatinine Ratio 29.1 RATIO (10-20) H 08/21/21 04:15 Glucose 227 mg/dL (74-106) H 08/21/21 04:15 Microbiology: Microbiology 08/17/21 11:02 Sputum, Induced/Lukens Gram Stain - Final 08/17/21 11:02 Sputum, Induced/Lukens Respiratory Culture - Final 08/18/21 15:20 Gastric Fluid/Contents Gastric Occult Blood - Final Occult Blood Positive 08/01/21 15:50 Blood Culture (Wb) - Right Hand Blood Culture - Final Gram positive jeff 08/05/21 11:30 Sputum, Expectorated/Coughed Gram Stain - Final 08/05/21 11:30 Sputum, Expectorated/Coughed Respiratory Culture - Final Haemophilus influenzae Mixed Nathalie 08/01/21 17:09 Blood Culture (Wb) - Anticubital Left Blood Culture - Final No growth in 5 days. 08/01/21 18:00 Urine, Clean Catch Urine Culture - Final Mixed Gram Positive Organisms 08/02/21 03:00 Urine, Random Legionella Antigen - Final 08/02/21 03:00 Urine, Random Streptococcus pneumoniae Antigen (M - Final 08/01/21 21:25 Nasal Secretion SARS-CoV-2 Antigen (Rapid) - Final Weight used for dosin kg Estimated Creatinine Clearance: 21 Goal Trough: 15-20 mcg/mL Pharmacy Plan for Drug Dosing: RANDOM LEVEL ORDERED FOR 1300 ON 08/22/21. Pharmacy will dose according to random results Pharmacy Service will continue to monitor and adjust dosing as required. Labs to be done on [date and time ordered]: random vancomycin level for 08/22/21 at 1300
[2021-08-21] MEDS: Propofol 10MG/Ml 1,000 MG/100 ML Bottle 4.7 MG CONT INF (18:51)
[2021-08-21] MEDS: Senna/Docusate Sodium 1 Tablet 2 TABLET PO (20:54)
[2021-08-21] MEDS: Hydroxychloroquine 200 MG Tablet PO (20:55)
[2021-08-21] MEDS: QUEtiapine 25 MG Tablet 50 MG GT (20:55)
[2021-08-22] VITALS (58 sets, daily range): BP systolic 77–113; BP diastolic 45–70; PULSE 117–137; RESP 12–18; TEMP 36.8–38; O2SAT 88–97
[2021-08-22] MEDS: guaiFENesin/Codeine 5 ML UDC 10 ML GT ×4 (00:48→17:03)
[2021-08-22] MEDS: Propofol 10MG/Ml 1,000 MG/100 ML Bottle 4.7 MG CONT INF (01:42)
[2021-08-22 03:30] LABS: Absolute Lymphocyte Count 0.63 X10^3/uL (0.83-4.51); Absolute Neutrophil Count 9.1 X10^3/uL (2.0-7.7); Basophil# 0.02 X10^3/uL; Basophil% 0.2 % (0-1); Differential Indicated SCAN CRITERIA MET; Eosinophil# 0.01 X10^3/uL; Eosinophils% 0.1 % (0-5); Hematocrit 20.7 % (40-54); Hemoglobin 6.6 g/dL (13.0-16.5); Lymphocyte # 0.63 X10^3/ul (0.83-4.51); Mean Corp Hgb Conc 31.9 g/dL (32-36); Mean Corpuscular Hgb 32.8 pg (27.0-32.0); Mean Platelet Vol. 11.3 fl (6.2-12.0); Monocyte# 0.42 X10^3/uL; NRBC Flagged by Analyzer 0.3 % (0-5); Neutrophil # 9.06 X10^3/uL (2.7-7.7); Neutrophil % 86.4 % (47-70); POSITIVE MORPHOLOGY YES; Platelet Count 143 K/mm3 (150-450); RBC Distribution Width CV 15.6 % (11.6-14.6); RBC Distribution Width SD 57.3 fl (35.1-43.9); Red Blood Count 2.01 M/mm3 (4.6-6.2); White Blood Count 10.5 K/mm3 (4.4-11.0)
[2021-08-22 03:48] LABS: ALB/GLOB Ratio 0.3 RATIO (0.9-2.4); AST(SGOT) 18 U/L (15-37); Alanine Aminotransfer ALT/SGPT 27 U/L (16-61); Albumin, Serum 1.5 g/dL (3.2-5.0); Alkaline Phosphatase 81 U/L (45-117); Anion Gap 3 (5-15); BUN 100 mg/dL (7-18); BUN/Creat Ratio 42.2 RATIO (10-20); Calcium,Total 7.9 mg/dL (8.5-10.1); Chloride 104 mmol/L (98-107); Creatinine, Serum 2.37 mg/dL (0.70-1.30); EST Glomerular Filtration Rate 30 mL/min (>60); Est Glom Filt Rate - Afr Amer 36 mL/min (>60); Estimated Creatinine Clearance 30.21 ml/min; Globulin 4.3 g/dL (2.2-4.2); Glucose 127 mg/dL (74-106); Potassium 5.1 mmol/L (3.5-5.1); Protein, Total 5.8 g/dL (6.4-8.2); Sodium Level 140 mmol/L (136-145)
[2021-08-22] MEDS: Menthol/Lanolin/Calamine/Znox 113 GM Tube 1 APPLIC TOPICAL ×3 (05:26→22:05)
--- NOTE | 2021-08-22 06:46 | PCM.PN.INT ---
Assessment & Plan Assessment/Plan (1) Pneumonia due to severe acute respiratory syndrome coronavirus 2 (SARS-CoV-2): (2) Respiratory failure: QUALIFIERS: Chronicity: acute Respiratory failure complication: hypoxia Qualified Code(s): J96.01 - Acute respiratory failure with hypoxia (3) Hyperlipidemia: PLAN: RECOMMENDATIONS: 1. Continue to wean FiO2 and PEEP to maintain oxygen saturations at or above 90%. 2. Obtain surgery consultation with regard to perirectal abscess. 3. Continue antimicrobials while awaiting finalized culture data. 4. Send blood cultures. 5. Continue Levophed to maintain a mean arterial pressure at or above 65 mmHg. 6. Continue tube feeds as tolerated. 7. Transfuse 2 units packed red blood cells. Check H&H posttransfusion. 8. Continue PPI therapy twice daily. IMPRESSIONS: 1. Acute hypoxic respiratory failure secondary to COVID-19 and Haemophilus influenza pneumonia Although the patient has completed treatment courses for his Covid pneumonia and Haemophilus influenza, he continued to decompensate from a respiratory perspective, ultimately requiring intubation on August 17. The patient has already completed a treatment course of remdesivir and a 7-day course of antimicrobials. In addition, the patient completed course of baricitinib and a second round of Decadron. Plan to continue bronchodilator therapy. Therapeutic Lovenox had to be discontinued secondary to GI bleed complications. 2. Septic shock, with concern for perirectal abscess The patient remains on Levophed to maintain hemodynamic stability. At this time, will obtain general surgery consultation to assist with I&D of perirectal abscess. Cultures are pending. Plan to continue antimicrobials accordingly. 3. Anemia/thrombocytopenia The patient has had a slow downward decline in his H&H. Plan to transfuse 2 units of packed red blood cells today. Plan to check H&H posttransfusion. The patient will be continued on twice daily PPI therapy. If ongoing GI blood loss is a concern, will obtain gastroenterology consultation. 4. Acute kidney injury Likely prerenal in etiology with a component of ischemic ATN in the setting of #2. Hemodynamics have stabilized with vasopressor support. Continue to monitor urine output for now. No current indication for renal replacement therapy. 5. Rheumatoid arthritis/unvaccinated state/overweight/hyperlipidemia/possible CAD Complicates care, management, recovery and prognosis. Okay to continue with hydroxychloroquine, but methotrexate may have more risks for secondary complications. TIME: 35 minutes of critical care time, independent of procedures, was spent addressing the patient's acute hypoxemic respiratory failure secondary to combined COVID-19 and Haemophilus influenza pneumonia, septic shock secondary to perirectal abscess, anemia, acute kidney injury, review of all data and collaboration with care team. ([id number]) Subjective Subjective The patient was seen and examined at the bedside this morning. Events from the last 24 hours have been reviewed. The patient is currently afebrile. He is maintaining appropriate oxygen saturations on assist control mode mechanical ventilation with an FiO2 requirement of 60% and PEEP of 12. The patient is currently vent day #6. The patient remains on Levophed at 10 mcg/min to maintain hemodynamic stability. He is currently sedated on propofol and fentanyl. The patient is documented to be overall net -5.8 L for the hospitalization. Hemoglobin is down this morning to 6.6 g/dL. Platelet count is low at 143,000. Bicarbonate is elevated to 33. Creatinine is down somewhat to 2.37. The patient remains on antimicrobials along with twice daily PPI therapy. Objective Data Objective Data The patient's most recent lab work, culture data and imaging studies have all been personally reviewed. Sputum culture was positive for 3+ Haemophilus influenza on August 05. Vital Signs: Vital Signs Temp Pulse Resp BP Pulse Ox 98.2 F 119 H 14 88/58 L 94 08/22/21 04:00 08/22/21 06:00 08/22/21 06:00 08/22/21 06:00 08/22/21 06:00 Oxygen Flow Rate (L/min) 65 Oxygen Delivery Method Mechanical Ventilator Weight: 77.1 kg Body Mass Index (BMI) 28.7 Intake & Output: Intake and Output for Last 24 Hours 08/20/21 08/21/21 08/22/21 23:59 23:59 23:59 Intake Total 2836.63 / 3195.53 3720.08 / 3844.78 501.15 / 501.15 Output Total 585 / 620 2095 / 2395 800 / 800 Balance 2251.63 / 2575.53 1625.08 / 1449.78 -298.85 / -298.85 Medical Nutrition Assessment Dietitian: Malnutrition Criteria Met Start: 08/09/21 13:29 Freq: Status: Active Protocol: Document 08/20/21 17:12 RMA (Rec: 08/20/21 17:12 RMA [id number]) Nutrition Malnutrition Evidence of Malnutrition Exists Yes Malnutrition (severe): Acute Illness/Injury Evidenced By Suboptimal Energy Intake ( Severe),Weight Loss (Severe) Intake Problem Inadequate Oral Intake Etiology r/t resp. failure and increased oxygen needs Signs/Symptoms as evidenced by estimated PO intake meeting <50% of estimated nutritional needs; inability to consume sufficient nutrition via PO diet d/t intubation Status Active Problem Clinical Problem Acute Disease or Injury Related Malnutrition Etiology Severe protein/calorie malnutrition in the context of acute illness related to inadequate oral intake w/ resp . failure Signs/Symptoms as evidenced by 5.18kg/6.2% wt loss since admit and PO meeting less than 50% estimated nutrition needs > 1 week Status Active Problem Recommendation Dietitian Recommendations/Changes NPO while intubated; Vital AF 1.2 via OGT at goal rate of 70mL/hour w/ 125mL H2O flush every 4 hours to provide 2016 calories, 126 g protein, and 2112mL fluid/day. Would resume at 20mL/hour and increase by 15mL/hour every 8-12 hours as tolerated until goal rate is achieved. Lab / Micro Data Attestation: I reviewed the patient's lab results. Result Diagrams: 08/23/21 03:15 08/23/21 03:15 Labs: Laboratory Results - last 24 hr 08/21/21 11:30: Hgb 7.8 L, Hct 24.0 L 08/22/21 03:10: WBC 10.5, RBC 2.01 L, Hgb 6.6 L, Hct 20.7 L, MCV 103.0 H, MCH 32.8 H, MCHC 31.9 L, RDW Std Deviation 57.3 H, RDW Coeff of Neoch 15.6 H, Plt Count 143 L, MPV 11.3, Immature Gran % (Auto) 3.300 H, Neut % (Auto) 86.4 H, Lymph % (Auto) 6.0 L, Person % (Auto) 4.0, Eos % (Auto) 0.1, Baso % (Auto) 0.2, Absolute Neuts (auto) 9.1 H, Absolute Lymphs (auto) 0.63 L, Nucleated RBC % 0.3 08/22/21 03:10: Sodium 140, Potassium 5.1, Chloride 104, Carbon Dioxide 33.0 H, Anion Gap 3 L, BUN 100 H, Creatinine 2.37 H, Estim Creat Clear Calc 30.21, Est GFR (MDRD) Af Amer 36 L, Est GFR (MDRD) Non-Af 30 L, BUN/Creatinine Ratio 42.2 H, Glucose 127 H, Calcium 7.9 L, Total Bilirubin 0.50, AST 18, ALT 27, Alkaline Phosphatase 81, Total Protein 5.8 L, Albumin 1.5 L, Globulin 4.3 H, Albumin/Globulin Ratio 0.3 L Micro: Microbiology 08/17/21 11:02 Sputum, Induced/Lukens Gram Stain - Final 08/17/21 11:02 Sputum, Induced/Lukens Respiratory Culture - Final 08/18/21 15:20 Gastric Fluid/Contents Gastric Occult Blood - Final Occult Blood Positive 08/01/21 15:50 Blood Culture (Wb) - Right Hand Blood Culture - Final Gram positive jeff 08/05/21 11:30 Sputum, Expectorated/Coughed Gram Stain - Final 08/05/21 11:30 Sputum, Expectorated/Coughed Respiratory Culture - Final Haemophilus influenzae Mixed Nathalie 08/01/21 17:09 Blood Culture (Wb) - Anticubital Left Blood Culture - Final No growth in 5 days. 08/01/21 18:00 Urine, Clean Catch Urine Culture - Final Mixed Gram Positive Organisms 08/02/21 03:00 Urine, Random Legionella Antigen - Final 08/02/21 03:00 Urine, Random Streptococcus pneumoniae Antigen (M - Final 08/01/21 21:25 Nasal Secretion SARS-CoV-2 Antigen (Rapid) - Final Physical Exam Const no apparent distress General Appearance: intubated and patient mechanically ventilated HEENT normocephalic and head/scalp atraumatic Mouth: endotracheal tube in place and OG tube in place Eyes PERRL and conjunctivae normal Neck supple General: trachea midline Chest inspection of chest normal Resp Auscultation: diminished lung sounds; Negative for rales, rhonchi or wheezes Cardio S1 normal heart sound and S2 normal heart sound Rate: tachycardic GI normal to inspection, nondistended, normoactive bowel sounds Extremity no clubbing, cyanosis or edema Skin Wound Narrative: Perirectal abscess Neuro Sensorium / Orientation: sedated on vent Charges/Coding Procedures [facility] [id number]
[2021-08-22] MEDS: Ascorbic Acid 500 MG Tablet 1000 MG PO (08:48)
[2021-08-22] MEDS: Folic Acid 1 MG Tablet PO (08:48)
--- NOTE | 2021-08-22 08:49 | EX.PCM.CON.S ---
Assessment & Plan Assessment/Plan (1) Perirectal abscess: (2) Septic shock: (3) Pneumonia due to severe acute respiratory syndrome coronavirus 2 (SARS-CoV-2): PLAN: We will plan incision and drainage of perirectal abscesses. Consent was obtained per the daughter. Mojgan Nguyen M.D. Pager: [phone] [facility] [address] [place] [address], [facility], [address] [place] [address] Office: [phone] HPI Consult Data Date of Consult: 08/22/21 HPI Narrative HPI Narrative: DEBBIE KAMARA, is a 61 M who has been admitted due to Covid initially. More recently patient has had respiratory failure that required intubation. He has also been having hypotension initially attributed to pneumonia. Patient was noticed to have perirectal abscesses on exam that were draining. Requested I&D of these abscesses. [facility] Medical History Coronary artery calcification seen on CAT scan Family history of coronary artery disease Hyperlipidemia Hypertension Multiple premature ventricular complexes Obesity Tobacco abuse Home Medications [id number] acid 1 each PO DAILY 01/26/21 [History Last Taken Unknown] folic acid 1 mg tablet 1 mg PO DAILY 07/18/21 [History Last Taken Unknown] hydroxychloroquine 200 mg tablet 200 mg PO BID 07/18/21 [History Last Taken Unknown] losartan 25 mg tablet 25 mg PO DAILY #90 tab 07/18/21 [Rx Last Taken Unknown] methotrexate sodium 2.5 mg tablet 15 mg PO QWEEK 07/18/21 [History Last Taken Unknown] Allergy/AdvReac Type Severity Reaction Status Date / Time No Known Allergies Allergy Verified 08/01/21 15:23 Family History Brother CAD (coronary artery disease) stents Sister CAD (coronary artery disease) stents Mother CAD (coronary artery disease) CABG Father Cerebral aneurysm, Onset Age: 50 Other CVA (cerebral vascular accident) Surgical History History of herniorrhaphy Social History (Updated 08/01/21 @ 19:[address] Svitlana Fuentes MD) household members: spouse Smoking Status: Former smoker quit date: 12/25/19 pack-years: 45 alcohol intake: former substance use type: does not use ROS ROS Narrative Patient is intubated/sedated Physical Exam Const Constitutional Narrative: Intubated/sedated. HEENT normocephalic and head/scalp atraumatic HEENT Narrative: ET tube in place Resp normal respiratory effort Cardio regular rate GI soft to palpation; Negative for non-distended GI Narrative: Rectal: Patient does have 2 areas concerning for abscess 1 is about 7:00 and the other is 10:00 close to the anus. The 7:00 1 is about 5 cm from the anus. Minimal purulent material was able to be expressed from the 7:00 abscess.?We will plan of perform I&D's. Patient has multiple other scars in this area likely due to multiple previous abscesses. Palpation: Negative for guarding Extremity no clubbing, cyanosis or edema Neuro CN's II-XII intact bilaterally Psych mental status grossly normal Medical Records Data Medical Nutrition Assessment Dietitian: Malnutrition Criteria Met Start: 08/09/21 13:29 Freq: Status: Active Protocol: Document 08/20/21 17:12 RMA (Rec: 08/20/21 17:12 RMA [id number]) Nutrition Malnutrition Evidence of Malnutrition Exists Yes Malnutrition (severe): Acute Illness/Injury Evidenced By Suboptimal Energy Intake ( Severe),Weight Loss (Severe) Intake Problem Inadequate Oral Intake Etiology r/t resp. failure and increased oxygen needs Signs/Symptoms as evidenced by estimated PO intake meeting <50% of estimated nutritional needs; inability to consume sufficient nutrition via PO diet d/t intubation Status Active Problem Clinical Problem Acute Disease or Injury Related Malnutrition Etiology Severe protein/calorie malnutrition in the context of acute illness related to inadequate oral intake w/ resp . failure Signs/Symptoms as evidenced by 5.18kg/6.2% wt loss since admit and PO meeting less than 50% estimated nutrition needs > 1 week Status Active Problem Recommendation Dietitian Recommendations/Changes NPO while intubated; Vital AF 1.2 via OGT at goal rate of 70mL/hour w/ 125mL H2O flush every 4 hours to provide 2016 calories, 126 g protein, and 2112mL fluid/day. Would resume at 20mL/hour and increase by 15mL/hour every 8-12 hours as tolerated until goal rate is achieved. Lab / Micro Data Result Diagrams: 08/22/21 03:10 08/22/21 03:10 Labs: Laboratory Results - last 24 hr 08/21/21 11:30: Hgb 7.8 L, Hct 24.0 L 08/22/21 03:10: WBC 10.5, RBC 2.01 L, Hgb 6.6 L, Hct 20.7 L, MCV 103.0 H, MCH 32.8 H, MCHC 31.9 L, RDW Std Deviation 57.3 H, RDW Coeff of Enoch 15.6 H, Plt Count 143 L, MPV 11.3, Immature Gran % (Auto) 3.300 H, Neut % (Auto) 86.4 H, Lymph % (Auto) 6.0 L, [place] % (Auto) 4.0, Eos % (Auto) 0.1, Baso % (Auto) 0.2, Absolute Neuts (auto) 9.1 H, Absolute Lymphs (auto) 0.63 L, Nucleated RBC % 0.3 08/22/21 03:10: Sodium 140, Potassium 5.1, Chloride 104, Carbon Dioxide 33.0 H, Anion Gap 3 L, BUN 100 H, Creatinine 2.37 H, Estim Creat Clear Calc 30.21, Est GFR (MDRD) Af Amer 36 L, Est GFR (MDRD) Non-Af 30 L, BUN/Creatinine Ratio 42.2 H, Glucose 127 H, Calcium 7.9 L, Total Bilirubin 0.50, AST 18, ALT 27, Alkaline Phosphatase 81, Total Protein 5.8 L, Albumin 1.5 L, Globulin 4.3 H, Albumin/Globulin Ratio 0.3 L 08/22/21 06:35: Blood Type A POSITIVE, Antibody Screen NEGATIVE Charges/Coding Visit Charges Inpatient E&M: 30957 Init Hosp L2
[2021-08-22] MEDS: Chlorhexidine 15 ML PO ×2 (09:48→22:05)
[2021-08-22] MEDS: CHLORHEXIDINE GLUC 2% CLOTH 1 EACH TOWELETTE TOPICAL (09:48)
[2021-08-22] MEDS: Polyethylene Glycol 3350 17 GM PACKET PO (09:49)
[2021-08-22] MEDS: Senna/Docusate Sodium 1 Tablet 2 TABLET PO ×2 (09:49→22:07)
[2021-08-22] MEDS: Hydroxychloroquine 200 MG Tablet PO ×2 (09:50→22:07)
[2021-08-22] MEDS: QUEtiapine 25 MG Tablet 50 MG GT ×2 (09:50→22:07)
--- NOTE | 2021-08-22 11:15 | PCM.OPRPT ---
Report of Operation Date of Procedure: 08/22/21 Pre-Operative Diagnosis: Perirectal abscess x2 on the left Post-Operative Diagnosis: Same Surgery/Procedure Performed:: Drainage of perirectal abscess x2 on left Surgeon: Mojgan Nguyen Description of Procedure: Patient's areas of perirectal abscess are previous he open and draining per history. Patient did have a small amount of drainage able to be expressed from both of them one was more anterior at about 7:00?5 cm from the anus and the other one was about at 10:00 closer to the anus. Consent was obtained per the daughter. These areas were prepped draped in usual sterile fashion with Betadine. Local anesthesia of 2% lidocaine for a total of 4 cc was used. The incisions were placed at the area of the previous open wound and enlarged. The more anterior abscess had minimal purulent drainage and did track towards the anus at 6:00. The 10:00 abscess did have some mixed of saline/purulent material for about 4 cc. Both these cavities were irrigated and packed with quarter inch iodoform. We will plan to change 3 times daily. Patient tolerated procedure well. Procedures Integumentary 10xxx: 62082 Drainage of skin abscess (x2)
--- NOTE | 2021-08-22 11:24 | PN.HOSP_ITS ---
Subjective Subjective Patient is currently intubated and sedated. No acute issues overnight. Buttock abscess on the right gluteal cleft was noted and general surgery has been consulted for I&D. Objective Data Objective Data Vital Signs: Vital Signs Temp Pulse Resp BP Pulse Ox 98.2 F 128 H 16 86/58 L 91 08/22/21 04:00 08/22/21 10:23 08/22/21 10:23 08/22/21 07:00 08/22/21 10:23 Oxygen Flow Rate (L/min) 65 Oxygen Delivery Method Mechanical Ventilator Weight: 77.1 kg Body Mass Index (BMI) 28.7 Intake & Output: Intake and Output for Last 24 Hours 08/20/21 08/21/21 08/22/21 23:59 23:59 23:59 Intake Total 2836.63 / 3195.53 3720.08 / 3844.78 855.70 / 855.70 Output Total 585 / 620 2095 / 2395 1125 / 1125 Balance 2251.63 / 2575.53 1625.08 / 1449.78 -269.30 / -269.30 Medical Nutrition Assessment Dietitian: Malnutrition Criteria Met Start: 08/09/21 13:29 Freq: Status: Active Protocol: Document 08/22/21 10:57 RMA (Rec: 08/22/21 10:57 RMA [id number]) Nutrition Malnutrition Evidence of Malnutrition Exists Yes Malnutrition (severe): Acute Illness/Injury Evidenced By Suboptimal Energy Intake ( Severe),Weight Loss (Severe) Intake Problem Inadequate Oral Intake Etiology r/t resp. failure and increased oxygen needs Signs/Symptoms as evidenced by estimated PO intake meeting <50% of estimated nutritional needs; inability to consume sufficient nutrition via PO diet d/t intubation and requires TF for nutrition Status Active Problem Clinical Problem Acute Disease or Injury Related Malnutrition Etiology Severe protein/calorie malnutrition in the context of acute illness related to inadequate oral intake w/ resp . failure Signs/Symptoms as evidenced by 5.18kg/6.2% wt loss since admit and PO meeting less than 50% estimated nutrition needs > 1 week Status Active Problem Recommendation Dietitian Recommendations/Changes NPO while intubated; resume TF as tolerated: Vital AF 1.2 via OGT to goal rate of 70mL/ hour w/ 125mL H2O flush every 4 hours to provide 2016 calories, 126 gm protein, and 2112mL fluid/day. Lab / Micro Data Result Diagrams: 08/22/21 03:10 08/22/21 03:10 Labs: Laboratory Results - last 24 hr 08/21/21 11:30: Hgb 7.8 L, Hct 24.0 L 08/22/21 03:10: WBC 10.5, RBC 2.01 L, Hgb 6.6 L, Hct 20.7 L, MCV 103.0 H, MCH 32.8 H, MCHC 31.9 L, RDW Std Deviation 57.3 H, RDW Coeff of Enoch 15.6 H, Plt Count 143 L, MPV 11.3, Immature Gran % (Auto) 3.300 H, Neut % (Auto) 86.4 H, Lymph % (Auto) 6.0 L, [place] % (Auto) 4.0, Eos % (Auto) 0.1, Baso % (Auto) 0.2, Absolute Neuts (auto) 9.1 H, Absolute Lymphs (auto) 0.63 L, Nucleated RBC % 0.3 08/22/21 03:10: Sodium 140, Potassium 5.1, Chloride 104, Carbon Dioxide 33.0 H, Anion Gap 3 L, BUN 100 H, Creatinine 2.37 H, Estim Creat Clear Calc 30.21, Est GFR (MDRD) Af Amer 36 L, Est GFR (MDRD) Non-Af 30 L, BUN/Creatinine Ratio 42.2 H , Glucose 127 H, Calcium 7.9 L, Total Bilirubin 0.50, AST 18, ALT 27, Alkaline Phosphatase 81, Total Protein 5.8 L, Albumin 1.5 L, Globulin 4.3 H, Albumin/Globulin Ratio 0.3 L 08/22/21 06:35: Blood Type A POSITIVE, Antibody Screen NEGATIVE Micro: Microbiology 08/21/21 05:30 Wound Abcess - Other Gram Stain - Final 08/17/21 11:02 Sputum, Induced/Lukens Gram Stain - Final 08/17/21 11:02 Sputum, Induced/Lukens Respiratory Culture - Final 08/18/21 15:20 Gastric Fluid/Contents Gastric Occult Blood - Final Occult Blood Positive 08/01/21 15:50 Blood Culture (Wb) - Right Hand Blood Culture - Final Gram positive jeff 08/05/21 11:30 Sputum, Expectorated/Coughed Gram Stain - Final 08/05/21 11:30 Sputum, Expectorated/Coughed Respiratory Culture - Final Haemophilus influenzae Mixed Nathalie 08/01/21 17:09 Blood Culture (Wb) - Anticubital Left Blood Culture - Final No growth in 5 days. 08/01/21 18:00 Urine, Clean Catch Urine Culture - Final Mixed Gram Positive Organisms 08/02/21 03:00 Urine, Random Legionella Antigen - Final 08/02/21 03:00 Urine, Random Streptococcus pneumoniae Antigen (M - Final 08/01/21 21:25 Nasal Secretion SARS-CoV-2 Antigen (Rapid) - Final Physical Exam Const Constitutional Narrative: Patient is intubated and sedated Exam Limitations: other limitations Nutritional Appearance: overweight HEENT head/scalp atraumatic Head and Scalp: normocephalic Eyes PERRL Eyes Narrative: Pale conjunctiva Neck supple Neck Narrative: Trachea midline Resp normal respiratory effort, no retractions and no use of accessory muscles Resp Narrative: Diffusely diminished but clear, patient intubated Auscultation: Negative for crackles, rales, rhonchi or wheezes Cardio regular rhythm, S1 normal heart sound, S2 normal heart sound, no murmurs, no ru b, no clicks and no JVD Cardio Narrative: Tachycardia GI normal to inspection, nondistended, normoactive bowel sounds, soft to palpation, non-tender and non-distended Extremity no clubbing, cyanosis or edema Peripheral Pulses: Yes pulses 2+ throughout Skin no wounds, skin turgor normal, no jaundice, no petechiae and no mottling Skin Narrative: Left perirectal abscess, no rashes Neuro Neuro Narrative: Patient is intubated and sedated, spontaneously moves all extremities with sedation vacations Psych Psych Narrative: Unable to assess Assessment & Plan Assessment/Plan (1) Respiratory failure: QUALIFIERS: Chronicity: acute Respiratory failure complication: hypoxia Qualified Code(s): J96.01 - Acute respiratory failure with hypoxia (2) Pneumonia due to severe acute respiratory syndrome coronavirus 2 (SARS-CoV-2): (3) Community acquired pneumonia: (4) Acute anemia: (5) KAL[place] (acute kidney injury): (6) Septic shock: PLAN: Acute hypoxic respiratory failure secondary to COVID-19 pneumonia/Haemophilus influenzae pneumonia -Patient intubated on 08/18/2021 -Remains on PEEP of 12 and therefore weaning trials have not been performed although FiO2 has been able to be decreased -Weaning trials when medically stable enough to do so -Completed courses of baricitinib and Decadron -As needed diuresis as renal function allows -Lovenox needed to be discontinued secondary to acute anemia and concern for GI bleed -Continue bronchodilator therapy -Patient has completed course of antibiotics for H. influenzae pneumonia -Pulmonary following appreciate input Septic shock secondary to perirectal abscess versus oral abscess versus both -Status post I&D of perirectal abscess by general surgery -Patient remains on Levophed at 10 mcg/h -Wean as able -IV fluids per critical care medicine -Continue broad-spectrum antibiotics -White count has normalized -Cultures pending Acute kidney injury -Serum creatinine has improved with fluids and increased perfusion with Levophed -Continue to monitor -No current need for nephrology input -Avoid nephrotoxins -No diuretics at this time -Baseline serum creatinine is 0.8-1.0 Acute on chronic anemia secondary to GI blood loss -Lovenox has been held -Transfusion 1 unit today -Continue to follow counts -No obvious signs of bleeding at this time -Continue twice daily PPI Mild thrombocytopenia -Platelet count 143,000 -Continue to monitor CAD/HTN/HPL -Home medications are on hold at this time RA -Methotrexate have been on hold -Patient remains on hydroxychloroquine Overweight -BMI 26.6 -Complicates overall treatment, prognosis, outcomes -Recommend weight loss DVT prophylaxis -Anticoagulation on hold secondary to GI bleeding -SCDs CODE STATUS -Full code Charges/Coding Visit Charges Inpatient E&M: 49476 Subs Hosp L2
[2021-08-22] MEDS: Lidocaine 2% (20 ml mdv) 20 ML Vial 4 ML INFILT (12:00)
[2021-08-22] MEDS: Propofol 10MG/Ml 1,000 MG/100 ML Bottle 7 MG CONT INF (14:12)
[2021-08-22] MEDS: 0.9% Saline Lock 10 ML Syringe IV ×2 (14:13→17:04)
--- NOTE | 2021-08-22 14:18 | PCM.PN.ID ---
Physical Exam Narrative On vent. No fever. Const no apparent distress Resp clear to auscultation bilaterally Auscultation: diminished lung sounds Cardio regular rate and regular rhythm GI normal to inspection, nondistended, normoactive bowel sounds Skin no rashes or lesions noted ID ID: Route of nutrition/ use of supplements: [] Nutritional Intake: [] IV Site: [] Paulino Catheter: [] Assessment & Plan Assessment/Plan (1) Pneumonia due to severe acute respiratory syndrome coronavirus 2 (SARS-CoV-2): PLAN: Sx started 07/23, unvaccinated. Isolate for 20 days starting 07/23, ends 08/12. Recommend vaccine once out of hospital. On dex and completed remdesivir. On therapeutic lovenox. Completed baricitinib. Sputum with h flu, completed ceftriaxone for 7 day course. Now s/p I&D perirectal abscesses by Dr. Nguyen. On vanc/zosyn. Will follow (2) Respiratory failure: QUALIFIERS: Chronicity: acute Respiratory failure complication: hypoxia Qualified Code(s): J96.01 - Acute respiratory failure with hypoxia
[2021-08-22 15:58] LABS: Vancomycin, Random Level 14.1 ug/mL (0.0-15.0)
--- NOTE | 2021-08-22 19:20 | PCM.RX.CS ---
Consult Pharmacy has been consulted to manage selected antiobiotic: Vancomycin Type of Consult: Follow-up Prior Doses of Antibiotics Received/Current Regimen: Medications Discontinued Medications Vancomycin HCl 2,000 mg/ (Sodium Chloride) 540 mls @ 250 mls/hr IV X1 ONE Stop: 08/21/21 13:39 Last Admin: 08/21/21 18:11 Dose: Infused Documented by: Labs: Sodium 140 mmol/L (136-145) 08/22/21 03:10 Potassium 5.1 mmol/L (3.5-5.1) 08/22/21 03:10 Chloride 104 mmol/L (98-107) 08/22/21 03:10 Carbon Dioxide 33.0 mmol/L (21.0-32.0) H 08/22/21 03:10 Anion Gap 3 (5-15) L 08/22/21 03:10 BUN 100 mg/dL (7-18) H 08/22/21 03:10 Creatinine 2.37 mg/dL (0.70-1.30) H 08/22/21 03:10 Est GFR (MDRD) Af Amer 36 mL/min (>60) L 08/22/21 03:10 Est GFR (MDRD) Non-Af 30 mL/min (>60) L 08/22/21 03:10 BUN/Creatinine Ratio 42.2 RATIO (10-20) H 08/22/21 03:10 Glucose 127 mg/dL (74-106) H 08/22/21 03:10 Random Vancomycin 14.1 ug/mL (0.0-15.0) 08/22/21 15:20 Microbiology: Microbiology 08/21/21 05:30 Wound Abcess - Other Gram Stain - Final 08/21/21 05:30 Wound Abcess - Other Wound Culture - Preliminary GPC Poss Enterococcus sp 08/17/21 11:02 Sputum, Induced/Lukens Gram Stain - Final 08/17/21 11:02 Sputum, Induced/Lukens Respiratory Culture - Final 08/18/21 15:20 Gastric Fluid/Contents Gastric Occult Blood - Final Occult Blood Positive 08/01/21 15:50 Blood Culture (Wb) - Right Hand Blood Culture - Final Gram positive jeff 08/05/21 11:30 Sputum, Expectorated/Coughed Gram Stain - Final 08/05/21 11:30 Sputum, Expectorated/Coughed Respiratory Culture - Final Haemophilus influenzae Mixed Nathalie 08/01/21 17:09 Blood Culture (Wb) - Anticubital Left Blood Culture - Final No growth in 5 days. 08/01/21 18:00 Urine, Clean Catch Urine Culture - Final Mixed Gram Positive Organisms 08/02/21 03:00 Urine, Random Legionella Antigen - Final 08/02/21 03:00 Urine, Random Streptococcus pneumoniae Antigen (M - Final 08/01/21 21:25 Nasal Secretion SARS-CoV-2 Antigen (Rapid) - Final Weight used for dosin kg Goal Trough: 15-20 mcg/mL Pharmacy Plan for Drug Dosing: Vancomycin 2000mg IV given 08/21. After dose and level, recommend vancomycin 1250mg IV q24h with trough prior to 3rd dose. Pharmacy Service will continue to monitor and adjust dosing as required. Follow-Up Labs: Trough Vancomycin - 08/24 @ 1930
[2021-08-22] MEDS: Acetaminophen 650 MG/20 ML UDC GT (22:24)
[2021-08-23] VITALS (68 sets, daily range): BP systolic 75–108; BP diastolic 51–78; PULSE 105–136; RESP 12–22; TEMP 36.9–38.2; O2SAT 87–98
[2021-08-23] MEDS: guaiFENesin/Codeine 5 ML UDC 10 ML GT ×4 (01:38→17:55)
[2021-08-23 03:26] LABS: Hematocrit 26.3 % (40-54); Hemoglobin 8.4 g/dL (13.0-16.5); Mean Corp Hgb Conc 31.9 g/dL (32-36); Mean Corpuscular Hgb 31.3 pg (27.0-32.0); Mean Corpuscular Volume 98.1 fL (80-94); Mean Platelet Vol. 11.6 fl (6.2-12.0); POSITIVE COUNT YES; POSITIVE MORPHOLOGY YES; Platelet Count 131 K/mm3 (150-450); RBC Distribution Width CV 18.6 % (11.6-14.6); RBC Distribution Width SD 62.4 fl (35.1-43.9); Red Blood Count 2.68 M/mm3 (4.6-6.2); White Blood Count 11.9 K/mm3 (4.4-11.0)
[2021-08-23 03:33] LABS: Anion Gap 3 (5-15); BUN 82 mg/dL (7-18); BUN/Creat Ratio 40.4 RATIO (10-20); Calcium,Total 7.5 mg/dL (8.5-10.1); Chloride 110 mmol/L (98-107); Creatinine, Serum 2.03 mg/dL (0.70-1.30); EST Glomerular Filtration Rate 36 mL/min (>60); Est Glom Filt Rate - Afr Amer 43 mL/min (>60); Estimated Creatinine Clearance 35.28 ml/min; Glucose 137 mg/dL (74-106); Potassium 5.3 mmol/L (3.5-5.1); Sodium Level 144 mmol/L (136-145)
[2021-08-23 03:34] LABS: Differential Indicated MANUAL DIFF
[2021-08-23] MEDS: Propofol 10MG/Ml 1,000 MG/100 ML Bottle 7 MG CONT INF (03:44)
[2021-08-23 04:01] LABS: Absolute Neutrophil Count 10.1 X10^3/uL (2.0-7.7)
[2021-08-23 04:02] LABS: Absolute Lymphocyte Count 0.72 X10^3/uL (0.83-4.51); Neutrophil-Band 18 % (0-5); Neutrophil-Segmented 67 % (47-70)
[2021-08-23 04:03] LABS: Lymphocyte 6 % (19-41); Monocyte 2 % (0-10); Myelocyte 4 % (0-0); Nucleated Red Bld Cells,Manual 1 % (0-5); Platelet Estimate SLT DEC (ADEQ); Promyelocyte 3 % (0-0); Red Cell Morphology NORM C+C NORMAL (NORM C&C)
[2021-08-23 04:04] LABS: Anisocytosis 1+
[2021-08-23] MEDS: TITRATION PARAMETER CHANGE 1 EACH IV (05:31)
--- NOTE | 2021-08-23 06:58 | PCM.PN.INT ---
Assessment & Plan Assessment/Plan (1) Pneumonia due to severe acute respiratory syndrome coronavirus 2 (SARS-CoV-2): (2) Respiratory failure: QUALIFIERS: Chronicity: acute Respiratory failure complication: hypoxia Qualified Code(s): J96.01 - Acute respiratory failure with hypoxia (3) Hyperlipidemia: PLAN: RECOMMENDATIONS: 1. Continue to wean FiO2 and PEEP to maintain oxygen saturations at or above 90%. 2. Continue antimicrobials while awaiting finalized culture data. 3. Continue Levophed to maintain a mean arterial pressure at or above 65 mmHg. 4. Continue tube feeds as tolerated. 5. Continue PPI therapy twice daily. 6. Restart prophylactic Lovenox. IMPRESSIONS: 1. Acute hypoxic respiratory failure secondary to COVID-19 and Haemophilus influenza pneumonia Although the patient has completed treatment courses for his Covid pneumonia and Haemophilus influenza, he continued to decompensate from a respiratory perspective, ultimately requiring intubation on August 17. The patient has already completed a treatment course of remdesivir and a 7-day course of antimicrobials. In addition, the patient completed course of baricitinib and a second round of Decadron. Plan to continue bronchodilator therapy. Prophylactic Lovenox will be restarted today. The patient's hemodynamic status and underlying renal insufficiency would preclude the use of diuretics at this time. 2. Septic shock, with concern for perirectal abscess The patient remains on Levophed to maintain hemodynamic stability. The patient is status post bedside I&D by general surgery of his perirectal abscess. The patient remains on antimicrobials accordingly. Continue local wound care. 3. Anemia/thrombocytopenia The patient did have a slow downward decline in his blood counts and subsequently was transfused 2 units of packed red blood cells on August 22. H&H has stabilized. We will continue to monitor accordingly. Continue PPI therapy as ordered for now. 4. Acute kidney injury Likely prerenal in etiology with a component of ischemic ATN in the setting of #2. Hemodynamics have stabilized with vasopressor support. Continue to monitor urine output for now. No current indication for renal replacement therapy. 5. Rheumatoid arthritis/unvaccinated state/overweight/hyperlipidemia/possible CAD Complicates care, management, recovery and prognosis. Okay to continue with hydroxychloroquine, but methotrexate may have more risks for secondary complications. TIME: 33 minutes of critical care time, independent of procedures, was spent addressing the patient's acute hypoxemic respiratory failure secondary to combined COVID-19 and Haemophilus influenza pneumonia, septic shock secondary to perirectal abscess, anemia, acute kidney injury, review of all data and collaboration with care team. ([id number]) Subjective Subjective The patient was seen and examined at the bedside this morning. Events from the last 24 hours have been reviewed. The patient is currently afebrile. He is maintaining appropriate oxygen saturations on assist control mode mechanical ventilation with an FiO2 requirement of 60% and PEEP of 10. The patient is currently vent day #7. The patient remains on Levophed at 14 mcg/min to maintain hemodynamic stability. He is currently sedated on propofol and fentanyl. The patient is documented to be overall net -4.3 L for the hospitalization. The patient was transfused 2 units of packed red blood cells yesterday. Hemoglobin is up this morning to 8.4 g/dL. Platelet count is low at 131,000. Potassium is elevated at 5.3. Creatinine is improved to 2.03. The patient remains on antimicrobials along with twice daily PPI therapy. Objective Data Objective Data The patient's most recent lab work, culture data and imaging studies have all been personally reviewed. Sputum culture was positive for 3+ Haemophilus influenza on August 05. Wound culture was positive for Enterococcus species. Vital Signs: Vital Signs Temp Pulse Resp BP Pulse Ox 99.5 F H 125 H 15 88/65 L 93 08/23/21 05:00 08/23/21 06:00 08/23/21 06:00 08/23/21 06:00 08/23/21 06:00 Oxygen Flow Rate (L/min) 65 Oxygen Delivery Method Mechanical Ventilator Weight: 78.7 kg Body Mass Index (BMI) 28.7 Intake & Output: Intake and Output for Last 24 Hours 08/21/21 08/22/21 08/23/21 23:59 23:59 23:59 Intake Total 3720.08 / 3844.78 2925.92 / 2974.22 437.76 / 437.76 Output Total 2095 / 2395 1425 / 1875 750 / 750 Balance 1625.08 / 1449.78 1500.92 / 1099.22 -312.24 / -312.24 Medical Nutrition Assessment Dietitian: Malnutrition Criteria Met Start: 08/09/21 13:29 Freq: Status: Active Protocol: Document 08/22/21 10:57 RMA (Rec: 08/22/21 10:57 RMA [id number]) Nutrition Malnutrition Evidence of Malnutrition Exists Yes Malnutrition (severe): Acute Illness/Injury Evidenced By Suboptimal Energy Intake ( Severe),Weight Loss (Severe) Intake Problem Inadequate Oral Intake Etiology r/t resp. failure and increased oxygen needs Signs/Symptoms as evidenced by estimated PO intake meeting <50% of estimated nutritional needs; inability to consume sufficient nutrition via PO diet d/t intubation and requires TF for nutrition Status Active Problem Clinical Problem Acute Disease or Injury Related Malnutrition Etiology Severe protein/calorie malnutrition in the context of acute illness related to inadequate oral intake w/ resp . failure Signs/Symptoms as evidenced by 5.18kg/6.2% wt loss since admit and PO meeting less than 50% estimated nutrition needs > 1 week Status Active Problem Recommendation Dietitian Recommendations/Changes NPO while intubated; resume TF as tolerated: Vital AF 1.2 via OGT to goal rate of 70mL/ hour w/ 125mL H2O flush every 4 hours to provide 2016 calories, 126 gm protein, and 2112mL fluid/day. Lab / Micro Data Attestation: I reviewed the patient's lab results. Result Diagrams: 08/23/21 03:15 08/23/21 03:15 Labs: Laboratory Results - last 24 hr 08/22/21 06:35: Blood Type A POSITIVE, Antibody Screen NEGATIVE 08/22/21 06:35: Crossmatch See Detail 08/22/21 15:20: Random Vancomycin 14.1 08/23/21 03:15: WBC 11.9 H, RBC 2.68 L, Hgb 8.4 L, Hct 26.3 L, MCV 98.1 H, MCH 31.3, MCHC 31.9 L, RDW Std Deviation 62.4 H, RDW Coeff of Enoch 18.6 H, Plt Count 131 L, MPV 11.6, Neut % (Auto) Not Reportable, Absolute Neuts (auto) 10.1 H, Absolute Lymphs (auto) 0.72 L, Neutrophils % (Manual) 67, Band Neutrophils % 18 H, Lymphocytes % (Manual) 6 L, Monocytes % (Manual) 2, Myelocytes % 4 H, Promyelocytes % 3 H, Nucleated RBCs/100 WBC 1, Diff Path Review March foll, Platelet Estimate SLT DEC, RBC Morphology NORM C+C, Anisocytosis 1+ 08/23/21 03:15: Sodium 144, Potassium 5.3 H, Chloride 110 H, Carbon Dioxide 31.0, Anion Gap 3 L, BUN 82 H, Creatinine 2.03 H, Estim Creat Clear Calc 35.28, Est GFR (MDRD) Af Amer 43 L, Est GFR (MDRD) Non-Af 36 L, BUN/Creatinine Ratio 40.4 H, Glucose 137 H, Calcium 7.5 L Micro: Microbiology 08/21/21 05:30 Wound Abcess - Other Gram Stain - Final 08/21/21 05:30 Wound Abcess - Other Wound Culture - Preliminary GPC Poss Enterococcus sp 08/17/21 11:02 Sputum, Induced/Lukens Gram Stain - Final 08/17/21 11:02 Sputum, Induced/Lukens Respiratory Culture - Final 08/18/21 15:20 Gastric Fluid/Contents Gastric Occult Blood - Final Occult Blood Positive 08/01/21 15:50 Blood Culture (Wb) - Right Hand Blood Culture - Final Gram positive jeff 08/05/21 11:30 Sputum, Expectorated/Coughed Gram Stain - Final 08/05/21 11:30 Sputum, Expectorated/Coughed Respiratory Culture - Final Haemophilus influenzae Mixed Nathalie 08/01/21 17:09 Blood Culture (Wb) - Anticubital Left Blood Culture - Final No growth in 5 days. 08/01/21 18:00 Urine, Clean Catch Urine Culture - Final Mixed Gram Positive Organisms 08/02/21 03:00 Urine, Random Legionella Antigen - Final 08/02/21 03:00 Urine, Random Streptococcus pneumoniae Antigen (M - Final 08/01/21 21:25 Nasal Secretion SARS-CoV-2 Antigen (Rapid) - Final Physical Exam Const no apparent distress General Appearance: intubated and patient mechanically ventilated HEENT normocephalic and head/scalp atraumatic Mouth: endotracheal tube in place and OG tube in place Eyes PERRL and conjunctivae normal Neck supple General: trachea midline Chest inspection of chest normal Resp Auscultation: diminished lung sounds; Negative for rales, rhonchi or wheezes Cardio S1 normal heart sound and S2 normal heart sound Rate: tachycardic GI normal to inspection, nondistended, normoactive bowel sounds Extremity no clubbing, cyanosis or edema Skin Wound Narrative: Perirectal abscess Neuro Sensorium / Orientation: sedated on vent Charges/Coding Procedures Hospitalists Procedures: 55299 Critial Care 1st Hr
[2021-08-23] MEDS: Ipratropium 0.5 MG/2.5 ML SOLUTION INHALATION ×3 (07:00→19:00)
[2021-08-23] MEDS: Sodium Polystyrene Sulfonate 15 GM/60 ML UDC PO (07:52)
[2021-08-23] MEDS: Ascorbic Acid 500 MG Tablet 1000 MG GT (09:24)
[2021-08-23] MEDS: Folic Acid 1 MG Tablet GT (09:24)
[2021-08-23] MEDS: Chlorhexidine 15 ML PO ×2 (09:25→19:47)
[2021-08-23] MEDS: Polyethylene Glycol 3350 17 GM PACKET GT (09:25)
[2021-08-23] MEDS: QUEtiapine 25 MG Tablet 50 MG GT ×2 (09:26→19:47)
[2021-08-23] MEDS: CHLORHEXIDINE GLUC 2% CLOTH 1 EACH TOWELETTE TOPICAL (09:26)
[2021-08-23] MEDS: Hydroxychloroquine 200 MG Tablet GT ×2 (09:26→19:47)
[2021-08-23] MEDS: Senna/Docusate Sodium 1 Tablet 2 TABLET GT ×2 (09:26→19:57)
[2021-08-23] MEDS: Enoxaparin 40 MG/0.4 ML Syringe SC ×2 (09:46→19:47)
--- NOTE | 2021-08-23 10:12 | PN.SURG_ITS ---
Subjective Subjective no obvious purulent material seen during packing changes. Objective Data Objective Data Vital Signs: Vital Signs Temp Pulse Resp BP Pulse Ox 99.3 F H 118 H 17 91/66 90 08/23/21 08:00 08/23/21 09:36 08/23/21 09:36 08/23/21 08:00 08/23/21 09:36 Oxygen Flow Rate (L/min) 65 Oxygen Delivery Method Mechanical Ventilator Weight: 173 lb 8.061 oz Body Mass Index (BMI) 28.7 Intake & Output: Intake and Output for Last 24 Hours 08/21/21 08/22/21 08/23/21 23:59 23:59 23:59 Intake Total 3720.08 / 3844.78 2925.92 / 2974.22 1118.06 / 1118.06 Output Total 2095 / 2395 1425 / 1875 1125 / 1125 Balance 1625.08 / 1449.78 1500.92 / 1099.22 -6.94 / -6.94 Medical Nutrition Assessment Dietitian: Malnutrition Criteria Met Start: 08/09/21 13:29 Freq: Status: Active Protocol: Document 08/22/21 10:57 RMA (Rec: 08/22/21 10:57 RMA [id number]) Nutrition Malnutrition Evidence of Malnutrition Exists Yes Malnutrition (severe): Acute Illness/Injury Evidenced By Suboptimal Energy Intake ( Severe),Weight Loss (Severe) Intake Problem Inadequate Oral Intake Etiology r/t resp. failure and increased oxygen needs Signs/Symptoms as evidenced by estimated PO intake meeting <50% of estimated nutritional needs; inability to consume sufficient nutrition via PO diet d/t intubation and requires TF for nutrition Status Active Problem Clinical Problem Acute Disease or Injury Related Malnutrition Etiology Severe protein/calorie malnutrition in the context of acute illness related to inadequate oral intake w/ resp . failure Signs/Symptoms as evidenced by 5.18kg/6.2% wt loss since admit and PO meeting less than 50% estimated nutrition needs > 1 week Status Active Problem Recommendation Dietitian Recommendations/Changes NPO while intubated; resume TF as tolerated: Vital AF 1.2 via OGT to goal rate of 70mL/ hour w/ 125mL H2O flush every 4 hours to provide 2016 calories, 126 gm protein, and 2112mL fluid/day. Lab / Micro Data Result Diagrams: 08/24/21 03:53 08/24/21 03:53 Labs: Laboratory Results - last 24 hr 08/22/21 06:35: Crossmatch See Detail 08/22/21 15:20: Random Vancomycin 14.1 08/23/21 03:15: WBC 11.9 H, RBC 2.68 L, Hgb 8.4 L, Hct 26.3 L, MCV 98.1 H, MCH 31.3, MCHC 31.9 L, RDW Std Deviation 62.4 H, RDW Coeff of Enoch 18.6 H, Plt Count 131 L, MPV 11.6, Neut % (Auto) Not Reportable, Absolute Neuts (auto) 10.1 H, Absolute Lymphs (auto) 0.72 L, Neutrophils % (Manual) 67, Band Neutrophils % 18 H, Lymphocytes % (Manual) 6 L, Monocytes % (Manual) 2, Myelocytes % 4 H, Promye locytes % 3 H, Nucleated RBCs/100 WBC 1, Diff Path Review March, Platelet Estimate SLT DEC, RBC Morphology NORM C+C, Anisocytosis 1+ 08/23/21 03:15: Sodium 144, Potassium 5.3 H, Chloride 110 H, Carbon Dioxide 31.0, Anion Gap 3 L, BUN 82 H, Creatinine 2.03 H, Estim Creat Clear Calc 35.28, Est GFR (MDRD) Af Amer 43 L, Est GFR (MDRD) Non-Af 36 L, BUN/Creatinine Ratio 40.4 H, Glucose 137 H, Calcium 7.5 L Micro: Microbiology 08/21/21 05:30 Wound Abcess - Other Gram Stain - Final 08/21/21 05:30 Wound Abcess - Other Wound Culture - Preliminary GPC Poss Enterococcus sp 08/17/21 11:02 Sputum, Induced/Lukens Gram Stain - Final 08/17/21 11:02 Sputum, Induced/Lukens Respiratory Culture - Final 08/18/21 15:20 Gastric Fluid/Contents Gastric Occult Blood - Final Occult Blood Positive 08/01/21 15:50 Blood Culture (Wb) - Right Hand Blood Culture - Final Gram positive jeff 08/05/21 11:30 Sputum, Expectorated/Coughed Gram Stain - Final 08/05/21 11:30 Sputum, Expectorated/Coughed Respiratory Culture - Final Haemophilus influenzae Mixed Nathalie 08/01/21 17:09 Blood Culture (Wb) - Anticubital Left Blood Culture - Final No growth in 5 days. 08/01/21 18:00 Urine, Clean Catch Urine Culture - Final Mixed Gram Positive Organisms 08/02/21 03:00 Urine, Random Legionella Antigen - Final 08/02/21 03:00 Urine, Random Streptococcus pneumoniae Antigen (M - Final 08/01/21 21:25 Nasal Secretion SARS-CoV-2 Antigen (Rapid) - Final Physical Exam Narrative intubated/sedated GI GI Narrative: perirectal abscesses packed with iodoform Assessment & Plan Assessment/Plan (1) Perirectal abscess: (2) Septic shock: (3) Pneumonia due to severe acute respiratory syndrome coronavirus 2 (SARS-CoV-2): PLAN: continue packing changes for perirectal abscess and abx per ID Mojgan Nguyen M.D. Pager: [phone] [facility] [address] [place] [address], [address] [place] [id number] Office: [phone]
--- NOTE | 2021-08-23 10:35 | WOUNDNOTE ---
wound photo: buttocks
[2021-08-23] MEDS: Vital AF 1.2 Cal Liquid 1,000 ML 20 ML GT (11:52)
--- NOTE | 2021-08-23 12:09 | PCM.PN.HOSP ---
Subjective Subjective No significant issues overnight. Patient remains on Levophed at 14 mcg/h. His FiO2 has been weaned to 55% and his PEEP remains at 10. He remains intubated and sedated. Objective Data Objective Data Vital Signs: Vital Signs Temp Pulse Resp BP Pulse Ox 99.0 F 117 H 15 93/68 94 08/23/21 12:00 08/23/21 12:00 08/23/21 12:00 08/23/21 12:00 08/23/21 12:00 Oxygen Flow Rate (L/min) 65 Oxygen Delivery Method Mechanical Ventilator Weight: 78.7 kg Body Mass Index (BMI) 28.7 Intake & Output: Intake and Output for Last 24 Hours 08/21/21 08/22/21 08/23/21 23:59 23:59 23:59 Intake Total 3720.08 / 3844.78 2925.92 / 2974.22 1353.38 / 1353.38 Output Total 2095 / 2395 1425 / 1875 1175 / 1175 Balance 1625.08 / 1449.78 1500.92 / 1099.22 178.38 / 178.38 Medical Nutrition Assessment Dietitian: Malnutrition Criteria Met Start: 08/09/21 13:29 Freq: Status: Active Protocol: Document 08/22/21 10:57 RMA (Rec: 08/22/21 10:57 RMA [id number]) Nutrition Malnutrition Evidence of Malnutrition Exists Yes Malnutrition (severe): Acute Illness/Injury Evidenced By Suboptimal Energy Intake ( Severe),Weight Loss (Severe) Intake Problem Inadequate Oral Intake Etiology r/t resp. failure and increased oxygen needs Signs/Symptoms as evidenced by estimated PO intake meeting <50% of estimated nutritional needs; inability to consume sufficient nutrition via PO diet d/t intubation and requires TF for nutrition Status Active Problem Clinical Problem Acute Disease or Injury Related Malnutrition Etiology Severe protein/calorie malnutrition in the context of acute illness related to inadequate oral intake w/ resp . failure Signs/Symptoms as evidenced by 5.18kg/6.2% wt loss since admit and PO meeting less than 50% estimated nutrition needs > 1 week Status Active Problem Recommendation Dietitian Recommendations/Changes NPO while intubated; resume TF as tolerated: Vital AF 1.2 via OGT to goal rate of 70mL/ hour w/ 125mL H2O flush every 4 hours to provide 2016 calories, 126 gm protein, and 2112mL fluid/day. Lab / Micro Data Result Diagrams: 08/23/21 03:15 08/23/21 03:15 Labs: Laboratory Results - last 24 hr 08/22/21 06:35: Crossmatch See Detail 08/22/21 15:20: Random Vancomycin 14.1 08/23/21 03:15: WBC 11.9 H, RBC 2.68 L, Hgb 8.4 L, Hct 26.3 L, MCV 98.1 H, MCH 31.3, MCHC 31.9 L, RDW Std Deviation 62.4 H, RDW Coeff of Enoch 18.6 H, Plt Count 131 L, MPV 11.6, Neut % (Auto) Not Reportable, Absolute Neuts (auto) 10.1 H, Absolute Lymphs (auto) 0.72 L, Neutrophils % (Manual) 67, Band Neutrophils % 18 H, Lymphocytes % (Manual) 6 L, Monocytes % (Manual) 2, Myelocytes % 4 H, Promyelocytes % 3 H, Nucleated RBCs/100 WBC 1, Diff Path Review March foll, Platelet Estimate SLT DEC, RBC Morphology NORM C+C, Anisocytosis 1+ 08/23/21 03:15: Sodium 144, Potassium 5.3 H, Chloride 110 H, Carbon Dioxide 31.0, Anion Gap 3 L, BUN 82 H, Creatinine 2.03 H, Estim Creat Clear Calc 35.28, Est GFR (MDRD) Af Amer 43 L, Est GFR (MDRD) Non-Af 36 L, BUN/Creatinine Ratio 40.4 H, Glucose 137 H, Calcium 7.5 L Micro: Microbiology 08/21/21 05:30 Wound Abcess - Other Gram Stain - Final 08/21/21 05:30 Wound Abcess - Other Wound Culture - Preliminary GPC Poss Enterococcus sp 08/17/21 11:02 Sputum, Induced/Lukens Gram Stain - Final 08/17/21 11:02 Sputum, Induced/Lukens Respiratory Culture - Final 08/18/21 15:20 Gastric Fluid/Contents Gastric Occult Blood - Final Occult Blood Positive 08/01/21 15:50 Blood Culture (Wb) - Right Hand Blood Culture - Final Gram positive jeff 08/05/21 11:30 Sputum, Expectorated/Coughed Gram Stain - Final 08/05/21 11:30 Sputum, Expectorated/Coughed Respiratory Culture - Final Haemophilus influenzae Mixed Nathalie 08/01/21 17:09 Blood Culture (Wb) - Anticubital Left Blood Culture - Final No growth in 5 days. 08/01/21 18:00 Urine, Clean Catch Urine Culture - Final Mixed Gram Positive Organisms 08/02/21 03:00 Urine, Random Legionella Antigen - Final 08/02/21 03:00 Urine, Random Streptococcus pneumoniae Antigen (M - Final 08/01/21 21:25 Nasal Secretion SARS-CoV-2 Antigen (Rapid) - Final Physical Exam Const alert, oriented x3 and no apparent distress Constitutional Narrative: Patient is intubated and sedated General Appearance: cooperative, well kempt and well developed Orientation / Consciousness: awake, oriented to person, oriented to place and oriented to time Exam Limitations: other limitations Nutritional Appearance: overweight HEENT normocephalic, head/scalp atraumatic and moist oral mucous membranes Head and Scalp: normocephalic Eyes PERRL Eyes Narrative: Pale conjunctiva Neck nuchal rigidity and thyroid normal Neck Narrative: Trachea midline General: trachea midline Resp normal respiratory effort, no retractions, no use of accessory muscles and clear to auscultation bilaterally Resp Narrative: Diffusely diminished but clear, patient intubated Auscultation: Negative for crackles, rales, rhonchi or wheezes Cardio regular rhythm, S1 normal heart sound, S2 normal heart sound, no murmurs, no rub, no gallops, no clicks and no JVD Cardio Narrative: Tachycardia GI normal to inspection, nondistended, normoactive bowel sounds, soft to palpation, non-tender and non-distended Extremity normal to inspection and no clubbing, cyanosis or edema Peripheral Pulses: Yes pulses 2+ throughout Skin General Skin Exam: no breakdown Neuro Neuro Narrative: Patient is intubated and sedated Psych thought process normal Psych Narrative: Unable to assess Assessment & Plan Assessment/Plan (1) Respiratory failure: QUALIFIERS: Chronicity: acute Respiratory failure complication: hypoxia Qualified Code(s): J96.01 - Acute respiratory failure with hypoxia (2) Pneumonia due to severe acute respiratory syndrome coronavirus 2 (SARS-CoV-2): (3) Community acquired pneumonia: (4) Acute anemia: (5) [place]AL[place] (acute kidney injury): (6) Septic shock: PLAN: Acute hypoxic respiratory failure secondary to COVID-19 pneumonia/Haemophilus influenzae pneumonia -Patient intubated on 08/18/2021 -Remains on PEEP of 10 and therefore weaning trials have not been performed although FiO2 has been able to be decreased -Weaning trials when medically stable enough to do so -PEEP is down to 10 and FiO2 to 55% today -Completed courses of baricitinib and Decadron -As needed diuresis as renal function allows -Lovenox needed to be discontinued secondary to acute anemia and concern for GI bleed -Continue bronchodilator therapy -Patient has completed course of antibiotics for H. influenzae pneumonia -Pulmonary following appreciate input Septic shock secondary to Enterococcus perirectal abscess versus oral abscess versus both -Status post I&D of perirectal abscess by general surgery -Patient remains on Levophed at 14 mcg/h -Wean as able -Wound cultures are growing Enterococcus -Blood cultures remain pending -IV fluids per critical care medicine -Continue broad-spectrum antibiotics -White count has normalized -Cultures pending Acute kidney injury -Serum creatinine continues to slowly improve -Continue to monitor -No current need for nephrology input -Avoid nephrotoxins -No diuretics at this time -Baseline serum creatinine is 0.8-1.0 Acute on chronic anemia secondary to GI blood loss -Lovenox has been held -Transfusion 1 unit 08/22/2021 -Continue to follow counts -No obvious signs of bleeding at this time -Continue twice daily PPI Hyperkalemia -Likely related to compromised renal function -We will dose with Kayexalate x1 since trending up Mild thrombocytopenia -Platelet count 131,000 -Slight drop but relatively stable -Continue to monitor CAD/HTN/HPL -Home medications are on hold at this time RA -Methotrexate have been on hold -Patient remains on hydroxychloroquine Overweight -BMI 26.6 -Complicates overall treatment, prognosis, outcomes -Recommend weight loss DVT prophylaxis -Anticoagulation on hold secondary to GI bleeding -SCDs CODE STATUS -Full code
[2021-08-23] MEDS: Menthol/Lanolin/Calamine/Znox 113 GM Tube 1 APPLIC TOPICAL ×2 (13:45→19:48)
[2021-08-23 13:53] LABS: Pathologist Review Reviewed
[2021-08-23] MEDS: Propofol 10MG/Ml 1,000 MG/100 ML Bottle 7.1 MG CONT INF (13:56)
[2021-08-23] MEDS: Acetaminophen 650 MG/20 ML UDC GT (19:56)
[2021-08-23] MEDS: Propofol 10MG/Ml 1,000 MG/100 ML Bottle 9.4 MG CONT INF (22:25)
[2021-08-24] VITALS (58 sets, daily range): BP systolic 77–112; BP diastolic 57–82; PULSE 97–120; RESP 12–20; TEMP 37.4–37.9; O2SAT 91–96
[2021-08-24] MEDS: guaiFENesin/Codeine 5 ML UDC 10 ML GT ×5 (01:29→23:46)
[2021-08-24 04:02] LABS: Hematocrit 26.6 % (40-54); Hemoglobin 8.3 g/dL (13.0-16.5); Mean Corp Hgb Conc 31.2 g/dL (32-36); Mean Corpuscular Hgb 31.4 pg (27.0-32.0); Mean Corpuscular Volume 100.8 fL (80-94); Mean Platelet Vol. 10.9 fl (6.2-12.0); POSITIVE COUNT YES; POSITIVE MORPHOLOGY YES; Platelet Count 103 K/mm3 (150-450); RBC Distribution Width CV 18.6 % (11.6-14.6); RBC Distribution Width SD 65.3 fl (35.1-43.9); Red Blood Count 2.64 M/mm3 (4.6-6.2); White Blood Count 9.3 K/mm3 (4.4-11.0)
[2021-08-24 04:07] LABS: Differential Indicated MANUAL DIFF
[2021-08-24 04:22] LABS: Absolute Neutrophil Count 7.9 X10^3/uL (2.0-7.7)
[2021-08-24 04:24] LABS: ALB/GLOB Ratio 0.3 RATIO (0.9-2.4); AST(SGOT) 30 U/L (15-37); Absolute Lymphocyte Count 0.75 X10^3/uL (0.83-4.51); Alanine Aminotransfer ALT/SGPT 37 U/L (16-61); Albumin, Serum 1.5 g/dL (3.2-5.0); Alkaline Phosphatase 139 U/L (45-117); Anion Gap 4 (5-15); BUN 70 mg/dL (7-18); BUN/Creat Ratio 34.8 RATIO (10-20); Blast 1 % (0-0); Calcium,Total 7.8 mg/dL (8.5-10.1); Chloride 111 mmol/L (98-107); Creatinine, Serum 2.01 mg/dL (0.70-1.30); EST Glomerular Filtration Rate 36 mL/min (>60); Est Glom Filt Rate - Afr Amer 43 mL/min (>60); Estimated Creatinine Clearance 35.63 ml/min; Globulin 4.4 g/dL (2.2-4.2); Glucose 142 mg/dL (74-106); Lymphocyte 8 % (19-41); Monocyte 2 % (0-10); Myelocyte 2 % (0-0); Neutrophil-Band 13 % (0-5); Neutrophil-Segmented 72 % (47-70); Nucleated Red Bld Cells,Manual 1 % (0-5); Platelet Estimate SLT DEC (ADEQ); Potassium 4.5 mmol/L (3.5-5.1); Promyelocyte 2 % (0-0); Protein, Total 5.9 g/dL (6.4-8.2); Red Cell Morphology NORM C+C NORMAL (NORM C&C); Sodium Level 148 mmol/L (136-145)
[2021-08-24 04:26] LABS: Basophilic Stippling 1+
[2021-08-24 04:27] LABS: Anisocytosis 2+
[2021-08-24] MEDS: Acetaminophen 650 MG/20 ML UDC GT (06:25)
[2021-08-24] MEDS: Menthol/Lanolin/Calamine/Znox 113 GM Tube 1 APPLIC TOPICAL ×3 (06:41→21:17)
[2021-08-24] MEDS: CHLORHEXIDINE GLUC 2% CLOTH 1 EACH TOWELETTE TOPICAL (06:41)
--- NOTE | 2021-08-24 06:44 | PN.CC_ITS ---
Assessment & Plan Assessment/Plan (1) Pneumonia due to severe acute respiratory syndrome coronavirus 2 (SARS-CoV-2): (2) Respiratory failure: QUALIFIERS: Chronicity: acute Respiratory failure complication: hypoxia Qualified Code(s): J96.01 - Acute respiratory failure with hypoxia (3) Hyperlipidemia: PLAN: RECOMMENDATIONS: 1. Continue to wean FiO2 and PEEP to maintain oxygen saturations at or above 90%. 2. Continue antimicrobials while awaiting finalized culture data. 3. Continue Levophed to maintain a mean arterial pressure at or above 65 mmHg. 4. Continue tube feeds as tolerated. 5. Continue PPI therapy twice daily. 6. Continue prophylactic Lovenox. 7. Increase free water flushes today. IMPRESSIONS: 1. Acute hypoxic respiratory failure secondary to COVID-19 and Haemophilus influenza pneumonia Although the patient has completed treatment courses for his Covid pneumonia and Haemophilus influenza, he continued to decompensate from a respiratory perspective, ultimately requiring intubation on August 17. The patient has already completed a treatment course of remdesivir and a 7-day course of antimicrobials. In addition, the patient completed course of baricitinib and a second round of Decadron. Plan to continue bronchodilator therapy. Prophylactic Lovenox will be continued as ordered. The patient's hemodynamic status and underlying renal insufficiency would preclude the use of diuretics at this time. 2. Septic shock, with concern for perirectal abscess The patient remains on Levophed to maintain hemodynamic stability. The patient is status post bedside I&D by general surgery of his perirectal abscess. The patient remains on antimicrobials accordingly. Continue local wound care. 3. Anemia/thrombocytopenia The patient did have a slow downward decline in his blood counts and subsequently was transfused 2 units of packed red blood cells on August 22. H&H has stabilized. We will continue to monitor accordingly. Continue PPI therapy as ordered for now. 4. Acute kidney injury Likely prerenal in etiology with a component of ischemic ATN in the setting of #2. Hemodynamics have stabilized with vasopressor support. Continue to monitor urine output for now. No current indication for renal replacement therapy. 5. Hypernatremia/hyperchloremia Increase free water flushes today. If no improvement electrolyte levels tomorrow, will consider starting D5W. 6. Rheumatoid arthritis/unvaccinated state/overweight/hyperlipidemia/possible CAD Complicates care, management, recovery and prognosis. Okay to continue with hydroxychloroquine, but methotrexate may have more risks for secondary complications. TIME: 31 minutes of critical care time, independent of procedures, was spent addressing the patient's acute hypoxemic respiratory failure secondary to combined COVID-19 and Haemophilus influenza pneumonia, septic shock secondary to perirectal abscess, anemia, acute kidney injury, review of all data and collab oration with care team. ([id number]) Subjective Subjective The patient was seen and examined at the bedside this morning. Events from the last 24 hours have been reviewed. The patient currently has a low-grade fever with a T-max overnight of 100.2 ?F. He remains on Levophed at 7 mcg/min to maintain hemodynamic stability. The patient remains on assist control mode of mechanical ventilation with an FiO2 requirement of 60% and PEEP of 10. He remains sedated on propofol and fentanyl. He is currently tolerating tube fe eds. He has been tolerant of prophylactic Lovenox so far. Hemoglobin is stable at 8.3 g/dL. Platelet count is low at 103,000. Creatinine is stable at 2.01. Sodium and chloride are increased to 148 and 111, respectively. Objective Data Objective Data The patient's most recent lab work, culture data and imaging studies have all been personally reviewed. Sputum culture was positive for 3+ Haemophilus influenza on August 05. Wound culture was positive for strep anginosus. Vital Signs: Vital Signs Temp Pulse Resp BP Pulse Ox 99.8 F H 114 H 14 97/68 91 08/24/21 06:00 08/24/21 06:00 08/24/21 06:00 08/24/21 06:00 08/24/21 06:00 Oxygen Flow Rate (L/min) 65 Oxygen Delivery Method Mechanical Ventilator Weight: 79.1 kg Body Mass Index (BMI) 28.7 Intake & Output: Intake and Output for Last 24 Hours 08/22/21 08/23/21 08/24/21 23:59 23:59 23:59 Intake Total 2925.92 / 2974.22 2717.93 / 2872.03 985.59 / 985.59 Output Total 1425 / 1875 1974 / 1974 400 / 400 Balance 1500.92 / 1099.22 742.93 / 897.03 585.59 / 585.59 Medical Nutrition Assessment Dietitian: Malnutrition Criteria Met Start: 08/09/21 13:29 Freq: Status: Active Protocol: Document 08/23/21 12:15 AG (Rec: 08/23/21 12:15 [id number]) Nutrition Malnutrition Evidence of Malnutrition Exists Yes Malnutrition (severe): Acute Illness/Injury Evidenced By Suboptimal Energy Intake ( Severe),Weight Loss (Severe) Intake Problem Inadequate Oral Intake Etiology r/t resp. failure and increased oxygen needs Signs/Symptoms as evidenced by estimated PO intake meeting <50% of estimated nutritional needs; inability to consume sufficient nutrition via PO diet d/t intubation Status Active Problem Clinical Problem Acute Disease or Injury Related Malnutrition Etiology Severe protein/calorie malnutrition in the context of acute illness related to inadequate oral intake w/ resp . failure Signs/Symptoms as evidenced by 4.58kg/5.5% wt loss since admit and PO meeting less than 50% estimated nutrition needs > 1 week Status Active Problem Recommendation Dietitian Recommendations/Changes NPO while intubated; Vital AF 1.2 via OGT at goal rate of 70mL/hour w/ 125mL H2O flush every 4 hours to provide 2016 calories, 126 g protein, and 2112mL fluid/day. Would resume at 20mL/hour and increase by 15mL/hour every 8-12 hours as tolerated until goal rate is achieved. Lab / Micro Data Attestation: I reviewed the patient's lab results. Result Diagrams: 08/24/21 03:53 08/24/21 03:53 Labs: Laboratory Results - last 24 hr 08/22/21 06:35: Crossmatch See Detail 08/23/21 03:15: Diff Path Review Reviewed 08/24/21 03:53: WBC 9.3, RBC 2.64 L, Hgb 8.3 L, Hct 26.6 L, MCV 100.8 H, MCH 31.4, MCHC 31.2 L, RDW Std Deviation 65.3 H, RDW Coeff of Enoch 18.6 H, Plt Count 103 L, MPV 10.9, Neut % (Auto) Not Reportable, Absolute Neuts (auto) 7.9 H, Absolute Lymphs (auto) 0.75 L, Neutrophils % (Manual) 72 H, Band Neutrophils % 13 H, Lymphocytes % (Manual) 8 L, Monocytes % (Manual) 2, Myelocytes % 2 H, Promyelocytes % 2 H, Blast Cells % 1 H*, Nucleated RBCs/100 WBC 1, Diff Path Review May foll, Platelet Estimate SLT DEC, RBC Morphology NORM C+C, Basophilic Stippling 1+, Anisocytosis 2+ 08/24/21 03:53: Sodium 148 H, Potassium 4.5, Chloride 111 H, Carbon Dioxide 33.0 H, Anion Gap 4 L, BUN 70 H, Creatinine 2.01 H, Estim Creat Clear Calc 35.63, Est GFR (MDRD) Af Amer 43 L, Est GFR (MDRD) Non-Af 36 L, BUN/Creatinine Ratio 34.8 H , Glucose 142 H, Calcium 7.8 L, Total Bilirubin 0.60, AST 30, ALT 37, Alkaline Phosphatase 139 H, Total Protein 5.9 L, Albumin 1.5 L, Globulin 4.4 H, Albumin/Globulin Ratio 0.3 L Micro: Microbiology 08/21/21 05:30 Wound Abcess - Other Gram Stain - Final 08/21/21 05:30 Wound Abcess - Other Wound Culture - Preliminary GPC Poss Enterococcus sp 08/21/21 05:30 Wound Abcess - Other Anaerobic Culture - Preliminary 08/17/21 11:02 Sputum, Induced/Lukens Gram Stain - Final 08/17/21 11:02 Sputum, Induced/Lukens Respiratory Culture - Final 08/18/21 15:20 Gastric Fluid/Contents Gastric Occult Blood - Final Occult Blood Positive 08/01/21 15:50 Blood Culture (Wb) - Right Hand Blood Culture - Final Gram positive jeff 08/05/21 11:30 Sputum, Expectorated/Coughed Gram Stain - Final 08/05/21 11:30 Sputum, Expectorated/Coughed Respiratory Culture - Final Haemophilus influenzae Mixed Nathalie 08/01/21 17:09 Blood Culture (Wb) - Anticubital Left Blood Culture - Final No growth in 5 days. 08/01/21 18:00 Urine, Clean Catch Urine Culture - Final Mixed Gram Positive Organisms 08/02/21 03:00 Urine, Random Legionella Antigen - Final 08/02/21 03:00 Urine, Random Streptococcus pneumoniae Antigen (M - Final 08/01/21 21:25 Nasal Secretion SARS-CoV-2 Antigen (Rapid) - Final Physical Exam Const no apparent distress General Appearance: intubated and patient mechanically ventilated HEENT normocephalic and head/scalp atraumatic Mouth: endotracheal tube in place and OG tube in place Eyes PERRL and conjunctivae normal Neck supple General: trachea midline Chest inspection of chest normal Resp Auscultation: diminished lung sounds; Negative for rales, rhonchi or wheezes Cardio S1 normal heart sound and S2 normal heart sound Rate: tachycardic GI normal to inspection, nondistended, normoactive bowel sounds Extremity no clubbing, cyanosis or edema Skin Wound Narrative: Perirectal abscess Neuro Sensorium / Orientation: sedated on vent Charges/Coding Procedures Hospitalists Procedures: [id number] Critial Care 1st Hr
[2021-08-24] MEDS: Ipratropium 0.5 MG/2.5 ML SOLUTION INHALATION ×3 (07:03→18:33)
[2021-08-24] MEDS: Propofol 10MG/Ml 1,000 MG/100 ML Bottle 7.1 MG CONT INF (08:19)
[2021-08-24] MEDS: Folic Acid 1 MG Tablet GT (08:21)
[2021-08-24] MEDS: Ascorbic Acid 500 MG Tablet 1000 MG GT (08:22)
[2021-08-24 09:07] LABS: CPK Total, Creatine Kinase 121 U/L (39-308); Triglycerides 364 mg/dL
[2021-08-24] MEDS: Enoxaparin 40 MG/0.4 ML Syringe SC ×2 (09:43→21:15)
[2021-08-24] MEDS: Hydroxychloroquine 200 MG Tablet GT ×2 (09:43→21:15)
[2021-08-24] MEDS: Senna/Docusate Sodium 1 Tablet 2 TABLET GT ×2 (09:43→21:15)
[2021-08-24] MEDS: Polyethylene Glycol 3350 17 GM PACKET GT (09:43)
[2021-08-24] MEDS: QUEtiapine 25 MG Tablet 50 MG GT ×2 (09:43→21:15)
[2021-08-24] MEDS: 0.9% Saline Lock 10 ML Syringe IV (09:44)
[2021-08-24] MEDS: Chlorhexidine 15 ML PO ×2 (09:45→21:14)
--- NOTE | 2021-08-24 13:49 | PCM.PN.ID ---
Physical Exam Narrative On vent, no fever Const no apparent distress Resp Auscultation: diminished lung sounds Cardio regular rate and regular rhythm GI normal to inspection, nondistended, normoactive bowel sounds Skin no rashes or lesions noted ID ID: Route of nutrition/ use of supplements: [] Nutritional Intake: [] IV Site: [] Paulino Catheter: [] Assessment & Plan Assessment/Plan (1) Pneumonia due to severe acute respiratory syndrome coronavirus 2 (SARS-CoV-2): PLAN: Sx started 07/23, unvaccinated. Isolate for 20 days starting 07/23, ends 08/12. Recommend vaccine once out of hospital. On dex and completed remdesivir. On therapeutic lovenox. Completed baricitinib. Sputum with h flu, completed ceftriaxone for 7 day course. Now s/p I&D perirectal abscesses by Dr. Nguyen. On vanc/zosyn. KALPANA improved. Will follow (2) Respiratory failure: QUALIFIERS: Chronicity: acute Respiratory failure complication: hypoxia Qualified Code(s): J96.01 - Acute respiratory failure with hypoxia
--- NOTE | 2021-08-24 14:15 | PN.HOSP_ITS ---
Subjective Subjective Patient remains intubated and sedated on the ventilator. No significant issues overnight. T-max overnight was 100.2. He remains on Levophed but this has been weaned to 7 mics. He remains on mechanical ventilation at 60% with 10 of PEEP. Objective Data Objective Data Vital Signs: Vital Signs Temp Pulse Resp BP Pulse Ox 99.3 F H 114 H 16 82/57 L 94 08/24/21 12:00 08/24/21 12:00 08/24/21 12:00 08/24/21 12:30 08/24/21 12:00 Oxygen Flow Rate (L/min) 65 Oxygen Delivery Method Mechanical Ventilator Weight: 79.1 kg Body Mass Index (BMI) 28.7 Intake & Output: Intake and Output for Last 24 Hours 08/22/21 08/23/21 08/24/21 23:59 23:59 23:59 Intake Total 2925.92 / 2974.22 2717.93 / 2872.03 2076.42 / 2076.42 Output Total 1425 / 1875 1974 / 1974 625 / 625 Balance 1500.92 / 1099.22 742.93 / 897.03 1451.42 / 1451.42 Medical Nutrition Assessment Dietitian: Malnutrition Criteria Met Start: 08/09/21 13:29 Freq: Status: Active Protocol: Document 08/23/21 12:15 (Rec: 08/23/21 12:15 [id number]) Nutrition Malnutrition Evidence of Malnutrition Exists Yes Malnutrition (severe): Acute Illness/Injury Evidenced By Suboptimal Energy Intake ( Severe),Weight Loss (Severe) Intake Problem Inadequate Oral Intake Etiology r/t resp. failure and increased oxygen needs Signs/Symptoms as evidenced by estimated PO intake meeting <50% of estimated nutritional needs; inability to consume sufficient nutrition via PO diet d/t intubation Status Active Problem Clinical Problem Acute Disease or Injury Related Malnutrition Etiology Severe protein/calorie malnutrition in the context of acute illness related to inadequate oral intake w/ resp . failure Signs/Symptoms as evidenced by 4.58kg/5.5% wt loss since admit and PO meeting less than 50% estimated nutrition needs > 1 week Status Active Problem Recommendation Dietitian Recommendations/Changes NPO while intubated; Vital AF 1.2 via OGT at goal rate of 70mL/hour w/ 125mL H2O flush every 4 hours to provide 2016 calories, 126 g protein, and 2112mL fluid/day. Would resume at 20mL/hour and increase by 15mL/hour every 8-12 hours as tolerated until goal rate is achieved. Lab / Micro Data Result Diagrams: 08/24/21 03:53 08/24/21 03:53 Labs: Laboratory Results - last 24 hr 08/24/21 03:53: WBC 9.3, RBC 2.64 L, Hgb 8.3 L, Hct 26.6 L, MCV 100.8 H, MCH 31.4, MCHC 31.2 L, RDW Std Deviation 65.3 H, RDW Coeff of Enoch 18.6 H, Plt Count 103 L, MPV 10.9, Neut % (Auto) Not Reportable, Absolute Neuts (auto) 7.9 H, Absolute Lymphs (auto) 0.75 L, Neutrophils % (Manual) 72 H, Band Neutrophils % 13 H, Lymphocytes % (Manual) 8 L, Monocytes % (Manual) 2, Myelocytes % 2 H, Promyelocytes % 2 H, Blast Cells % 1 H*, Nucleated RBCs/100 WBC 1, Diff Path Review March, Platelet Estimate SLT DEC, RBC Morphology NORM C+C, Basophilic Stippling 1+, Anisocytosis 2+ 08/24/21 03:53: Sodium 148 H, Potassium 4.5, Chloride 111 H, Carbon Dioxide 33.0 H, Anion Gap 4 L, BUN 70 H, Creatinine 2.01 H, Estim Creat Clear Calc 35.63, Est GFR (MDRD) Af Amer 43 L, Est GFR (MDRD) Non-Af 36 L, BUN/Creatinine Ratio 34.8 H , Glucose 142 H, Calcium 7.8 L, Total Bilirubin 0.60, AST 30, ALT 37, Alkaline Phosphatase 139 H, Total Protein 5.9 L, Albumin 1.5 L, Globulin 4.4 H, Albumin/Globulin Ratio 0.3 L 08/24/21 03:53: Total Creatine Kinase 121, Triglycerides 364 H Micro: Microbiology 08/22/21 14:35 Blood Culture (Wb) - Left Hand Blood Culture - Preliminary No growth in 48 hours. 08/22/21 14:25 Blood Culture (Wb) - Pic Blood Culture - Preliminary No growth in 48 hours. 08/21/21 05:30 Wound Abcess - Other Gram Stain - Final 08/21/21 05:30 Wound Abcess - Other Wound Culture - Preliminary Strep anginosus 08/17/21 11:02 Sputum, Induced/Lukens Gram Stain - Final 08/17/21 11:02 Sputum, Induced/Lukens Respiratory Culture - Final 08/18/21 15:20 Gastric Fluid/Contents Gastric Occult Blood - Final Occult Blood Positive 08/01/21 15:50 Blood Culture (Wb) - Right Hand Blood Culture - Final Gram positive jeff 08/05/21 11:30 Sputum, Expectorated/Coughed Gram Stain - Final 08/05/21 11:30 Sputum, Expectorated/Coughed Respiratory Culture - Final Haemophilus influenzae Mixed Nathalie 08/01/21 17:09 Blood Culture (Wb) - Anticubital Left Blood Culture - Final No growth in 5 days. 08/01/21 18:00 Urine, Clean Catch Urine Culture - Final Mixed Gram Positive Organisms 08/02/21 03:00 Urine, Random Legionella Antigen - Final 08/02/21 03:00 Urine, Random Streptococcus pneumoniae Antigen (M - Final 08/01/21 21:25 Nasal Secretion SARS-CoV-2 Antigen (Rapid) - Final Physical Exam Const alert, oriented x3 and no apparent distress Constitutional Narrative: Patient is intubated and sedated General Appearance: cooperative, well kempt and well developed Orientation / Consciousness: awake, oriented to person, oriented to place and oriented to time Exam Limitations: other limitations Nutritional Appearance: overweight HEENT normocephalic, head/scalp atraumatic and moist oral mucous membranes Head and Scalp: normocephalic Eyes PERRL Eyes Narrative: Pale conjunctiva Neck nuchal rigidity and thyroid normal Neck Narrative: Trachea midline General: trachea midline Resp normal respiratory effort, no retractions, no use of accessory muscles and clear to auscultation bilaterally Resp Narrative: Diffusely diminished but clear, patient intubated Auscultation: Negative for crackles, rales, rhonchi or wheezes Cardio regular rhythm, S1 normal heart sound, S2 normal heart sound, no murmurs, no rub, no gallops, no clicks and no JVD Cardio Narrative: Tachycardia GI normal to inspection, nondistended, normoactive bowel sounds, soft to palpation, non-tender and non-distended Extremity normal to inspection and no clubbing, cyanosis or edema Skin no rashes or lesions noted, skin turgor normal, no jaundice, no petechiae and no mottling Skin Narrative: Left perirectal abscess, no rashes General Skin Exam: no breakdown Neuro Neuro Narrative: Patient is intubated and sedated Psych thought process normal Psych Narrative: Unable to assess Assessment & Plan Assessment/Plan (1) Respiratory failure: QUALIFIERS: Chronicity: acute Respiratory failure complication: hypoxia Qualified Code(s): J96.01 - Acute respiratory failure with hypoxia (2) Pneumonia due to severe acute respiratory syndrome coronavirus 2 (SARS-CoV-2): (3) Community acquired pneumonia: (4) Acute anemia: (5) KALPANA (acute kidney injury): (6) Septic shock: (7) Hypernatremia: (8) Hyperchloremia: (9) Perirectal abscess: PLAN: Acute hypoxic respiratory failure secondary to COVID-19 pneumonia/Haemophilus influenzae pneumonia -Patient intubated on 08/18/2021 -Weaning trials when medically stable enough to do so -PEEP remains at 10 and FiO2 to 50% today -Completed courses of baricitinib and Decadron -As needed diuresis as renal function and blood pressure allow -Lovenox needed to be discontinued secondary to acute anemia and concern for GI bleed -Prophylactic doses restarted and patient is tolerating -Continue bronchodilator therapy -Patient has completed course of antibiotics for H. influenzae pneumonia -Pulmonary following appreciate input Septic shock secondary to strep anginosis perirectal abscess versus oral abscess versus both -Status post I&D of perirectal abscess by general surgery -Patient remains on Levophed but has been able to be weaned to 7 mcg/h -Wean as able -Wound cultures growth has been changed from Enterococcus to strep anginosis -Blood cultures no growth to date -IV fluids per critical care medicine -Continue broad-spectrum antibiotics and narrow as able per sensitivities -White count has normalized Acute kidney injury -Serum creatinine stable at 2.01 from 2.03 yesterday -Continue to monitor -No current need for nephrology input -Avoid nephrotoxins -No diuretics at this time -Baseline serum creatinine is 0.8-1.0 Acute on chronic anemia secondary to GI blood loss -Prophylactic dose Lovenox reinitiated and patient is tolerating with stable hemoglobin -Transfusion 1 unit 08/22/2021 -Continue to follow counts -No obvious signs of bleeding at this time -Continue twice daily PPI Hyperkalemia -Resolved Hypernatremia/hyperchloremia -Free water increased today and repeat lab in a.m. -May need some intravenous fluids with D5W if remains elevated tomorrow Mild thrombocytopenia -Platelet count is slowly trending down and now 203,000 -Continue to monitor CAD/HTN/HPL -Home medications are on hold at this time RA -Methotrexate have been on hold -Patient remains on hydroxychloroquine Overweight -BMI 27.3 -Complicates overall treatment, prognosis, outcomes -Recommend weight loss DVT prophylaxis -Prophylactic low-dose Lovenox reinitiated by critical care and patient is tolerating thus far -SCDs CODE STATUS -Full code Charges/Coding Visit Charges Inpatient E&M: 99880 Subs Hosp L2
[2021-08-24 18:50] LABS: Vancomycin, Trough Level 19.9 ug/mL (5.0-15.0)
--- NOTE | 2021-08-24 23:42 | PCM.RX.CS ---
Consult Pharmacy has been consulted to manage selected antiobiotic: Vancomycin Type of Consult: Follow-up Labs: Sodium 148 mmol/L (136-145) H 08/24/21 03:53 Potassium 4.5 mmol/L (3.5-5.1) 08/24/21 03:53 Chloride 111 mmol/L (98-107) H 08/24/21 03:53 Carbon Dioxide 33.0 mmol/L (21.0-32.0) H 08/24/21 03:53 Anion Gap 4 (5-15) L 08/24/21 03:53 BUN 70 mg/dL (7-18) H 08/24/21 03:53 Creatinine 2.01 mg/dL (0.70-1.30) H 08/24/21 03:53 Est GFR (MDRD) Af Amer 43 mL/min (>60) L 08/24/21 03:53 Est GFR (MDRD) Non-Af 36 mL/min (>60) L 08/24/21 03:53 BUN/Creatinine Ratio 34.8 RATIO (10-20) H 08/24/21 03:53 Glucose 142 mg/dL (74-106) H 08/24/21 03:53 Vancomycin Trough 19.9 ug/mL (5.0-15.0) H 08/24/21 18:25 Random Vancomycin 14.1 ug/mL (0.0-15.0) 08/22/21 15:20 Microbiology: Microbiology 08/22/21 14:35 Blood Culture (Wb) - Left Hand Blood Culture - Preliminary No growth in 48 hours. 08/22/21 14:25 Blood Culture (Wb) - Pic Blood Culture - Preliminary No growth in 48 hours. 08/21/21 05:30 Wound Abcess - Other Gram Stain - Final 08/21/21 05:30 Wound Abcess - Other Wound Culture - Preliminary Strep anginosus 08/17/21 11:02 Sputum, Induced/Lukens Gram Stain - Final 08/17/21 11:02 Sputum, Induced/Lukens Respiratory Culture - Final 08/18/21 15:20 Gastric Fluid/Contents Gastric Occult Blood - Final Occult Blood Positive 08/01/21 15:50 Blood Culture (Wb) - Right Hand Blood Culture - Final Gram positive jeff 08/05/21 11:30 Sputum, Expectorated/Coughed Gram Stain - Final 08/05/21 11:30 Sputum, Expectorated/Coughed Respiratory Culture - Final Haemophilus influenzae Mixed Nathalie 08/01/21 17:09 Blood Culture (Wb) - Anticubital Left Blood Culture - Final No growth in 5 days. 08/01/21 18:00 Urine, Clean Catch Urine Culture - Final Mixed Gram Positive Organisms 08/02/21 03:00 Urine, Random Legionella Antigen - Final 08/02/21 03:00 Urine, Random Streptococcus pneumoniae Antigen (M - Final 08/01/21 21:25 Nasal Secretion SARS-CoV-2 Antigen (Rapid) - Final Goal Trough: 15-20 mcg/mL Pharmacy Plan for Drug Dosing: Pharmacy Service will continue to monitor and adjust dosing as required. TROUGH 19.9 AT 23.5HRS SCr DECREASED TO 2.01 FROM 2.37. NO CHANGES NOW, FOLLOW UP TROUGH IN 24 HOURS Follow-Up Labs: Trough Vancomycin Labs to be done on [date and time ordered]: 08/25 @ 0508
[2021-08-24] MEDS: Vital AF 1.2 Cal Liquid 1,000 ML 70 ML GT (23:46)
[2021-08-24] MEDS: Propofol 10MG/Ml 1,000 MG/100 ML Bottle 4.7 MG CONT INF (23:47)
[2021-08-25] VITALS (35 sets, daily range): BP systolic 78–124; BP diastolic 58–79; PULSE 98–114; RESP 12–26; TEMP 37.1–37.5; O2SAT 88–99
[2021-08-25] MEDS: CHLORHEXIDINE GLUC 2% CLOTH 1 EACH TOWELETTE TOPICAL
[2021-08-25] MEDS: Menthol/Lanolin/Calamine/Znox 113 GM Tube 1 APPLIC TOPICAL ×2 (04:38→14:06)
[2021-08-25] MEDS: guaiFENesin/Codeine 5 ML UDC 10 ML GT ×3 (04:41→17:44)
[2021-08-25 05:11] LABS: Hematocrit 25.4 % (40-54); Hemoglobin 7.9 g/dL (13.0-16.5); Mean Corp Hgb Conc 31.1 g/dL (32-36); Mean Corpuscular Hgb 31.6 pg (27.0-32.0); Mean Corpuscular Volume 101.6 fL (80-94); Mean Platelet Vol. 11.6 fl (6.2-12.0); POSITIVE COUNT YES; POSITIVE MORPHOLOGY YES; Platelet Count 92 K/mm3 (150-450); RBC Distribution Width CV 18.4 % (11.6-14.6); RBC Distribution Width SD 64.8 fl (35.1-43.9); White Blood Count 8.7 K/mm3 (4.4-11.0)
[2021-08-25 05:21] LABS: Differential Indicated MANUAL DIFF
[2021-08-25 05:32] LABS: Absolute Neutrophil Count 6.5 X10^3/uL (2.0-7.7)
[2021-08-25 05:33] LABS: ALB/GLOB Ratio 0.3 RATIO (0.9-2.4); AST(SGOT) 34 U/L (15-37); Absolute Lymphocyte Count 1.21 X10^3/uL (0.83-4.51); Alanine Aminotransfer ALT/SGPT 52 U/L (16-61); Albumin, Serum 1.5 g/dL (3.2-5.0); Alkaline Phosphatase 152 U/L (45-117); Anion Gap 5 (5-15); BUN 62 mg/dL (7-18); BUN/Creat Ratio 35.6 RATIO (10-20); Calcium,Total 7.6 mg/dL (8.5-10.1); Chloride 114 mmol/L (98-107); Creatinine, Serum 1.74 mg/dL (0.70-1.30); EST Glomerular Filtration Rate 42 mL/min (>60); Eosinophil 1 % (0-5); Est Glom Filt Rate - Afr Amer 51 mL/min (>60); Estimated Creatinine Clearance 41.15 ml/min; Globulin 4.5 g/dL (2.2-4.2); Glucose 163 mg/dL (74-106); Lymphocyte 14 % (19-41); Monocyte 1 % (0-10); Myelocyte 2 % (0-0); Neutrophil-Band 5 % (0-5); Neutrophil-Segmented 70 % (47-70); Nucleated Red Bld Cells,Manual 2 % (0-5); Potassium 3.8 mmol/L (3.5-5.1); Promyelocyte 7 % (0-0); Sodium Level 150 mmol/L (136-145)
[2021-08-25 05:34] LABS: Platelet Estimate MOD DEC (ADEQ); Red Cell Morphology NORM C+C NORMAL (NORM C&C)
--- NOTE | 2021-08-25 05:36 | PN.CC_ITS ---
Assessment & Plan Assessment/Plan (1) Pneumonia due to severe acute respiratory syndrome coronavirus 2 (SARS-CoV-2): (2) Respiratory failure: QUALIFIERS: Chronicity: acute Respiratory failure complication: hypoxia Qualified Code(s): J96.01 - Acute respiratory failure with hypoxia (3) Hyperlipidemia: PLAN: RECOMMENDATIONS: 1. Continue to wean FiO2 and PEEP to maintain oxygen saturations at or above 90%. 2. Continue antimicrobials while awaiting finalized culture data. 3. Start D5W given rising sodium and chloride. 4. Continue tube feeds as tolerated. 5. Continue PPI therapy twice daily. 6. Continue prophylactic Lovenox. If the patient becomes progressively anemic and thrombocytopenic, will discontinue. IMPRESSIONS: 1. Acute hypoxic respiratory failure secondary to COVID-19 and Haemophilus influenza pneumonia Although the patient has completed treatment courses for his Covid pneumonia and Haemophilus influenza, he continued to decompensate from a respiratory perspective, ultimately requiring intubation on August 17. The patient has already completed a treatment course of remdesivir and a 7-day course of antimicrobials. In addition, the patient completed course of baricitinib and a second round of Decadron. Plan to continue bronchodilator therapy. Prophylactic Lovenox will be continued as ordered. 2. Septic shock, with concern for perirectal abscess Improved. The patient has been weaned from vasopressor support at this time. The patient is status post bedside I&D by general surgery of his perirectal abscess. The patient remains on antimicrobials accordingly. Continue local wound care. 3. Anemia/thrombocytopenia The patient did have a slow downward decline in his blood counts and subsequently was transfused 2 units of packed red blood cells on August 22. H&H has stabilized. We will continue to monitor accordingly. Continue PPI therapy as ordered for now. 4. Acute kidney injury Improving. Likely prerenal in etiology with a component of ischemic ATN in the setting of #2. Hemodynamics have stabilized with vasopressor support. Continue to monitor urine output for now. No current indication for renal replacement therapy. 5. Hypernatremia/hyperchloremia Given lack of improvement after increasing free water flushes, will start D5W today. 6. Rheumatoid arthritis/unvaccinated state/overweight/hyperlipidemia/possible CAD Complicates care, management, recovery and prognosis. Okay to continue with hydroxychloroquine, but methotrexate may have more risks for secondary complications. TIME: 33 minutes of critical care time, independent of procedures, was spent addressing the patient's acute hypoxemic respiratory failure secondary to combined COVID-19 and Haemophilus influenza pneumonia, septic shock secondary to perirectal abscess, anemia, acute kidney injury, review of all data and collaboration with care team. ([id number]) Subjective Subjective The patient was seen and examined at the bedside this morning. Events from the last 24 hours have been reviewed. He is currently vent day #9. The patient currently has a low-grade fever. The patient was able to be weaned off of Levophed completely yesterday afternoon. The patient remains on assist control mode of mechanical ventilation with an FiO2 requirement of 60% and PEEP of 8. He remains sedated on propofol and fentanyl. He is currently tolerating tube feeds. Hemoglobin is down this morning to 7.9 g/dL. Platelet count is down to 92,000. Sodium is increased to 150 with a chloride of 114. Creatinine has improved to 1.74. The patient is currently documented to be overall net -400 mL for the hospital admission. Objective Data Objective Data The patient's most recent lab work, culture data and imaging studies have all been personally reviewed. Sputum culture was positive for 3+ Haemophilus influenza on August 05. Wound culture was positive for strep anginosus. Vital Signs: Vital Signs Temp Pulse Resp BP Pulse Ox 99.4 F H 101 H 16 115/73 95 08/25/21 03:00 08/25/21 04:00 08/25/21 04:00 08/25/21 04:00 08/25/21 04:00 Oxygen Flow Rate (L/min) 65 Oxygen Delivery Method Mechanical Ventilator Weight: 79.1 kg Body Mass Index (BMI) 28.7 Intake & Output: Intake and Output for Last 24 Hours 08/23/21 08/24/21 08/25/21 23:59 23:59 23:59 Intake Total 2717.93 / 2872.03 3673.26 / 4193.28 778.82 / 778.82 Output Total 1974 950 / 1275 325 / 325 Balance 742.93 / 897.03 2723.26 / 2918.28 453.82 / 453.82 Medical Nutrition Assessment Dietitian: Malnutrition Criteria Met Start: 08/09/21 13:29 Freq: Status: Active Protocol: Document 08/23/21 12:15 AG (Rec: 08/23/21 12:15 [id number]) Nutrition Malnutrition Evidence of Malnutrition Exists Yes Malnutrition (severe): Acute Illness/Injury Evidenced By Suboptimal Energy Intake ( Severe),Weight Loss (Severe) Intake Problem Inadequate Oral Intake Etiology r/t resp. failure and increased oxygen needs Signs/Symptoms as evidenced by estimated PO intake meeting <50% of estimated nutritional needs; inability to consume sufficient nutrition via PO diet d/t intubation Status Active Problem Clinical Problem Acute Disease or Injury Related Malnutrition Etiology Severe protein/calorie malnutrition in the context of acute illness related to inadequate oral intake w/ resp . failure Signs/Symptoms as evidenced by 4.58kg/5.5% wt loss since admit and PO meeting less than 50% estimated nutrition needs > 1 week Status Active Problem Recommendation Dietitian Recommendations/Changes NPO while intubated; Vital AF 1.2 via OGT at goal rate of 70mL/hour w/ 125mL H2O flush every 4 hours to provide 2016 calories, 126 g protein, and 2112mL fluid/day. Would resume at 20mL/hour and increase by 15mL/hour every 8-12 hours as tolerated until goal rate is achieved. Lab / Micro Data Attestation: I reviewed the patient's lab results. Result Diagrams: 08/25/21 04:51 08/25/21 04:51 Labs: Laboratory Results - last 24 hr 08/24/21 03:53: Total Creatine Kinase 121, Triglycerides 364 H 08/24/21 18:25: Vancomycin Trough 19.9 H 08/25/21 04:51: WBC 8.7, RBC 2.50 L, Hgb 7.9 L, Hct 25.4 L, MCV 101.6 H, MCH 31.6, MCHC 31.1 L, RDW Std Deviation 64.8 H, RDW Coeff of Enoch 18.4 H, Plt Count 92 L, MPV 11.6, Neut % (Auto) Not Reportable, Absolute Neuts (auto) 6.5, Absolute Lymphs (auto) 1.21, Neutrophils % (Manual) 70, Band Neutrophils % 5, Lymphocytes % (Manual) 14 L, Monocytes % (Manual) 1, Eosinophils % (Manual) 1, Myelocytes % 2 H, Promyelocytes % 7 H, Nucleated RBCs/100 WBC 2, Diff Path Review May foll, Platelet Estimate MOD DEC, RBC Morphology NORM C+C 08/25/21 04:51: Sodium 150 H, Potassium 3.8, Chloride 114 H, Carbon Dioxide 31.0, Anion Gap 5, BUN 62 H, Creatinine 1.74 H, Estim Creat Clear Calc 41.15, Est GFR (MDRD) Af Amer 51 L, Est GFR (MDRD) Non-Af 42 L, BUN/Creatinine Ratio 35.6 H, Glucose 163 H, Calcium 7.6 L, Total Bilirubin 0.70, AST 34, ALT 52, Alk meseret Phosphatase 152 H, Total Protein 6.0 L, Albumin 1.5 L, Globulin 4.5 H, Albumin/Globulin Ratio 0.3 L Micro: Microbiology 08/22/21 14:35 Blood Culture (Wb) - Left Hand Blood Culture - Preliminary No growth in 48 hours. 08/22/21 14:25 Blood Culture (Wb) - Pic Blood Culture - Preliminary No growth in 48 hours. 08/21/21 05:30 Wound Abcess - Other Gram Stain - Final 08/21/21 05:30 Wound Abcess - Other Wound Culture - Preliminary Strep anginosus 08/17/21 11:02 Sputum, Induced/Lukens Gram Stain - Final 08/17/21 11:02 Sputum, Induced/Lukens Respiratory Culture - Final 08/18/21 15:20 Gastric Fluid/Contents Gastric Occult Blood - Final Occult Blood Positive 08/01/21 15:50 Blood Culture (Wb) - Right Hand Blood Culture - Final Gram positive jeff 08/05/21 11:30 Sputum, Expectorated/Coughed Gram Stain - Final 08/05/21 11:30 Sputum, Expectorated/Coughed Respiratory Culture - Final Haemophilus influenzae Mixed Nathalie 08/01/21 17:09 Blood Culture (Wb) - Anticubital Left Blood Culture - Final No growth in 5 days. 08/01/21 18:00 Urine, Clean Catch Urine Culture - Final Mixed Gram Positive Organisms 08/02/21 03:00 Urine, Random Legionella Antigen - Final 08/02/21 03:00 Urine, Random Streptococcus pneumoniae Antigen (M - Final 08/01/21 21:25 Nasal Secretion SARS-CoV-2 Antigen (Rapid) - Final Physical Exam Const no apparent distress General Appearance: intubated and patient mechanically ventilated HEENT normocephalic and head/scalp atraumatic Mouth: endotracheal tube in place and OG tube in place Eyes PERRL and conjunctivae normal Neck supple General: trachea midline Chest inspection of chest normal Resp Auscultation: diminished lung sounds; Negative for rales, rhonchi or wheezes Cardio S1 normal heart sound and S2 normal heart sound Rate: tachycardic GI normal to inspection, nondistended, normoactive bowel sounds Extremity General Extremity: edema; Negative for clubbing Skin Wound Narrative: Perirectal abscess Neuro Sensorium / Orientation: sedated on vent Charges/Coding Procedures Hospitalists Procedures: [id number] Critial Care 1st Hr
[2021-08-25] MEDS: Ipratropium 0.5 MG/2.5 ML SOLUTION INHALATION ×3 (07:06→18:48)
[2021-08-25] MEDS: Chlorhexidine 15 ML PO ×2 (08:00→22:11)
[2021-08-25 09:28] LABS: Pathologist Review Reviewed
[2021-08-25] MEDS: Enoxaparin 40 MG/0.4 ML Syringe SC ×2 (09:46→22:11)
[2021-08-25] MEDS: Folic Acid 1 MG Tablet GT (09:46)
[2021-08-25] MEDS: Ascorbic Acid 500 MG Tablet 1000 MG GT (09:46)
[2021-08-25] MEDS: QUEtiapine 25 MG Tablet 50 MG GT ×2 (09:48→22:12)
[2021-08-25] MEDS: 0.9% Saline Lock 10 ML Syringe IV (10:09)
--- NOTE | 2021-08-25 10:36 | CASEMGMT ---
SW participated in ICU rounds this morning. SW called daughter Flo to offer support. SW remains available for support to family. ERIKA Preciado
[2021-08-25] MEDS: Hydroxychloroquine 200 MG Tablet GT ×2 (12:47→22:12)
--- NOTE | 2021-08-25 13:25 | PCM.PN.HOSP ---
Subjective Subjective Patient remains intubated deeply sedated on a ventilator. Patient has been able to be taken off Levophed. Patient continues with low-grade fevers. PEEP has been weaned to 8, however FiO2 requirements are at 60%. Objective Data Objective Data Vital Signs: Vital Signs Temp Pulse Resp BP Pulse Ox 99.4 F H 101 H 20 H 114/76 88 08/25/21 07:00 08/25/21 13:15 08/25/21 13:15 08/25/21 07:00 08/25/21 13:15 Oxygen Flow Rate (L/min) 65 Oxygen Delivery Method Mechanical Ventilator Weight: 82.9 kg Body Mass Index (BMI) 28.7 Intake & Output: Intake and Output for Last 24 Hours 08/23/21 08/24/21 08/25/21 23:59 23:59 23:59 Intake Total 2717.93 / 2872.03 3673.26 / 4193.28 2366.19 / 2366.19 Output Total 1974 950 / 1275 1300 / 1300 Balance 742.93 / 897.03 2723.26 / 2918.28 1066.19 / 1066.19 Medical Nutrition Assessment Dietitian: Malnutrition Criteria Met Start: 08/09/21 13:29 Freq: Status: Active Protocol: Document 08/23/21 12:15 AG (Rec: 08/23/21 12:15 AG [id number]) Nutrition Malnutrition Evidence of Malnutrition Exists Yes Malnutrition (severe): Acute Illness/Injury Evidenced By Suboptimal Energy Intake ( Severe),Weight Loss (Severe) Intake Problem Inadequate Oral Intake Etiology r/t resp. failure and increased oxygen needs Signs/Symptoms as evidenced by estimated PO intake meeting <50% of estimated nutritional needs; inability to consume sufficient nutrition via PO diet d/t intubation Status Active Problem Clinical Problem Acute Disease or Injury Related Malnutrition Etiology Severe protein/calorie malnutrition in the context of acute illness related to inadequate oral intake w/ resp . failure Signs/Symptoms as evidenced by 4.58kg/5.5% wt loss since admit and PO meeting less than 50% estimated nutrition needs > 1 week Status Active Problem Recommendation Dietitian Recommendations/Changes NPO while intubated; Vital AF 1.2 via OGT at goal rate of 70mL/hour w/ 125mL H2O flush every 4 hours to provide 2016 calories, 126 g protein, and 2112mL fluid/day. Would resume at 20mL/hour and increase by 15mL/hour every 8-12 hours as tolerated until goal rate is achieved. Lab / Micro Data Result Diagrams: 08/25/21 04:51 08/25/21 04:51 Labs: Laboratory Results - last 24 hr 08/24/21 03:53: Diff Path Review Reviewed 08/24/21 18:25: Vancomycin Trough 19.9 H 08/25/21 04:51: WBC 8.7, RBC 2.50 L, Hgb 7.9 L, Hct 25.4 L, MCV 101.6 H, MCH 31.6, MCHC 31.1 L, RDW Std Deviation 64.8 H, RDW Coeff of Enoch 18.4 H, Plt Count 92 L, MPV 11.6, Neut % (Auto) Not Reportable, Absolute Neuts (auto) 6.5, Absolute Lymphs (auto) 1.21, Neutrophils % (Manual) 70, Band Neutrophils % 5, Lymphocytes % (Manual) 14 L, Monocytes % (Manual) 1, Eosinophils % (Manual) 1, Myelocytes % 2 H, Promyelocytes % 7 H, Nucleated RBCs/100 WBC 2, Diff Path Review May foll, Platelet Estimate MOD DEC, RBC Morphology NORM C+C 08/25/21 04:51: Sodium 150 H, Potassium 3.8, Chloride 114 H, Carbon Dioxide 31.0, Anion Gap 5, BUN 62 H, Creatinine 1.74 H, Estim Creat Clear Calc 41.15, Est GFR (MDRD) Af Amer 51 L, Est GFR (MDRD) Non-Af 42 L, BUN/Creatinine Ratio 35.6 H, Glucose 163 H, Calcium 7.6 L, Total Bilirubin 0.70, AST 34, ALT 52, Alkaline Phosphatase 152 H, Total Protein 6.0 L, Albumin 1.5 L, Globulin 4.5 H, Albumin/Globulin Ratio 0.3 L Micro: Microbiology 08/21/21 05:30 Wound Abcess - Other Gram Stain - Final 08/21/21 05:30 Wound Abcess - Other Wound Culture - Final Strep anginosus 08/22/21 14:35 Blood Culture (Wb) - Left Hand Blood Culture - Preliminary No growth in 48 hours. 08/22/21 14:25 Blood Culture (Wb) - Pic Blood Culture - Preliminary No growth in 48 hours. 08/17/21 11:02 Sputum, Induced/Lukens Gram Stain - Final 08/17/21 11:02 Sputum, Induced/Lukens Respiratory Culture - Final 08/18/21 15:20 Gastric Fluid/Contents Gastric Occult Blood - Final Occult Blood Positive 08/01/21 15:50 Blood Culture (Wb) - Right Hand Blood Culture - Final Gram positive jeff 08/05/21 11:30 Sputum, Expectorated/Coughed Gram Stain - Final 08/05/21 11:30 Sputum, Expectorated/Coughed Respiratory Culture - Final Haemophilus influenzae Mixed Nathalie 08/01/21 17:09 Blood Culture (Wb) - Anticubital Left Blood Culture - Final No growth in 5 days. 08/01/21 18:00 Urine, Clean Catch Urine Culture - Final Mixed Gram Positive Organisms 08/02/21 03:00 Urine, Random Legionella Antigen - Final 08/02/21 03:00 Urine, Random Streptococcus pneumoniae Antigen (M - Final 08/01/21 21:25 Nasal Secretion SARS-CoV-2 Antigen (Rapid) - Final Physical Exam Const Constitutional Narrative: Patient is intubated and sedated General Appearance: cooperative, well kempt and well developed Orientation / Consciousness: awake, oriented to person, oriented to place and oriented to time Exam Limitations: other limitations Nutritional Appearance: overweight HEENT normocephalic, head/scalp atraumatic and moist oral mucous membranes Head and Scalp: normocephalic Eyes PERRL Eyes Narrative: Pale conjunctiva Neck nuchal rigidity and thyroid normal Neck Narrative: Trachea midline General: trachea midline Resp normal respiratory effort, no retractions, no use of accessory muscles and clear to auscultation bilaterally Resp Narrative: Diffusely diminished but clear, patient intubated Auscultation: Negative for crackles, rales, rhonchi or wheezes Cardio regular rhythm, S1 normal heart sound, S2 normal heart sound, no murmurs, no rub, no gallops, no clicks and no JVD Cardio Narrative: Tachycardia GI normal to inspection, nondistended, normoactive bowel sounds, soft to palpation, non-tender and non-distended Extremity normal to inspection and no clubbing, cyanosis or edema Skin no rashes or lesions noted, skin turgor normal, no jaundice, no petechiae and no mottling Skin Narrative: Left perirectal abscess, no rashes, bilateral hands with patchy erythematous areas-etiology unclear General Skin Exam: no breakdown Neuro Neuro Narrative: Patient is intubated and sedated, does spontaneously move extremities intermittently Psych thought process normal Psych Narrative: Unable to assess Assessment & Plan Assessment/Plan (1) Respiratory failure: QUALIFIERS: Chronicity: acute Respiratory failure complication: hypoxia Qualified Code(s): J96.01 - Acute respiratory failure with hypoxia (2) Pneumonia due to severe acute respiratory syndrome coronavirus 2 (SARS-CoV-2): (3) Community acquired pneumonia: (4) Acute anemia: (5) KALPANA (acute kidney injury): (6) Septic shock: (7) Hypernatremia: (8) Hyperchloremia: (9) Perirectal abscess: PLAN: Acute hypoxic respiratory failure secondary to COVID-19 pneumonia/Haemophilus influenzae pneumonia -Patient intubated on 08/18/2021--> day 9 of mechanical ventilation -PEEP was weaned to 8 and FiO2 to 60% today -Completed courses of baricitinib and Decadron -As needed diuresis as renal function and blood pressure allow -Lovenox needed to be discontinued secondary to acute anemia and concern for GI bleed -Patient continues to tolerate prophylactic dose Lovenox -Continue bronchodilator therapy -Patient has completed course of antibiotics for H. influenzae pneumonia -Patient will need diuresis once he is remaining hemodynamically stable and sodium and chloride have corrected -Pulmonary following appreciate input Septic shock secondary to strep anginosis perirectal abscess versus oral abscess versus both -Status post I&D of perirectal abscess by general surgery -Shock is resolving -Levophed has been discontinued for approximately 24 hours now -Wound cultures growth with strep anginosis -Blood cultures remain with no growth to date -IV fluids per critical care medicine -Continue broad-spectrum antibiotics and narrow as able per sensitivities -White count has normalized Acute kidney injury -Serum creatinine slowly improving and now 1.73 -Continue to monitor -Continue IV fluids per critical care medicine -No current need for nephrology input -Avoid nephrotoxins -No diuretics at this time -Baseline serum creatinine is 0.8-1.0 Acute on chronic anemia secondary to GI blood loss -Transfusion 1 unit 08/22/2021 -Continue to follow counts -No obvious signs of bleeding at this time and hemoglobin is relatively stable -Continue twice daily PPI Hypernatremia/hyperchloremia -Free water increased on 08/24/2021 -D5 normal saline initiated today Mild thrombocytopenia -Platelet count is slowly trending down and now 203,000 -Continue to monitor CAD/HTN/HPL -Home medications are on hold at this time RA -Methotrexate have been on hold -Patient remains on hydroxychloroquine Overweight -BMI 27.3 -Complicates overall treatment, prognosis, outcomes -Recommend weight loss DVT prophylaxis -Prophylactic low-dose Lovenox reinitiated by critical care and patient is tolerating thus far -SCDs CODE STATUS -Full code Charges/Coding Visit Charges Inpatient E&M: 29417 Subs Hosp L2
[2021-08-25 14:03] LABS: Pathologist Review Reviewed
[2021-08-25] MEDS: Propofol 10MG/Ml 1,000 MG/100 ML Bottle 4.7 MG CONT INF (15:24)
[2021-08-25] MEDS: Vital AF 1.2 Cal Liquid 1,000 ML 70 ML GT (15:48)
[2021-08-25 16:31] LABS: Bedside Glucose 181 mg/dL (70-110)
[2021-08-25 17:45] LABS: Bedside Glucose 166 mg/dL (70-110)
[2021-08-25 20:44] LABS: Vancomycin, Trough Level 18.3 ug/mL (5.0-15.0)
[2021-08-26] VITALS (50 sets, daily range): BP systolic 70–129; BP diastolic 44–95; PULSE 101–170; RESP 10–27; TEMP 37.2–37.7; O2SAT 88–99
[2021-08-26] MEDS: guaiFENesin/Codeine 5 ML UDC 10 ML GT ×2 (00:39→06:24)
[2021-08-26] MEDS: Menthol/Lanolin/Calamine/Znox 113 GM Tube 1 APPLIC TOPICAL ×3 (01:08→21:00)
--- NOTE | 2021-08-26 01:16 | PCM.RX.CS ---
Consult Pharmacy has been consulted to manage selected antiobiotic: Vancomycin Type of Consult: Follow-up Labs: Sodium 150 mmol/L (136-145) H 08/25/21 04:51 Potassium 3.8 mmol/L (3.5-5.1) 08/25/21 04:51 Chloride 114 mmol/L (98-107) H 08/25/21 04:51 Carbon Dioxide 31.0 mmol/L (21.0-32.0) 08/25/21 04:51 Anion Gap 5 (5-15) 08/25/21 04:51 BUN 62 mg/dL (7-18) H 08/25/21 04:51 Creatinine 1.74 mg/dL (0.70-1.30) H 08/25/21 04:51 Est GFR (MDRD) Af Amer 51 mL/min (>60) L 08/25/21 04:51 Est GFR (MDRD) Non-Af 42 mL/min (>60) L 08/25/21 04:51 BUN/Creatinine Ratio 35.6 RATIO (10-20) H 08/25/21 04:51 Glucose 163 mg/dL (74-106) H 08/25/21 04:51 Vancomycin Trough 18.3 ug/mL (5.0-15.0) H 08/25/21 19:55 Random Vancomycin 14.1 ug/mL (0.0-15.0) 08/22/21 15:20 Microbiology: Microbiology 08/21/21 05:30 Wound Abcess - Other Gram Stain - Final 08/21/21 05:30 Wound Abcess - Other Wound Culture - Final Strep anginosus 08/22/21 14:35 Blood Culture (Wb) - Left Hand Blood Culture - Preliminary No growth in 48 hours. 08/22/21 14:25 Blood Culture (Wb) - Pic Blood Culture - Preliminary No growth in 48 hours. 08/17/21 11:02 Sputum, Induced/Lukens Gram Stain - Final 08/17/21 11:02 Sputum, Induced/Lukens Respiratory Culture - Final 08/18/21 15:20 Gastric Fluid/Contents Gastric Occult Blood - Final Occult Blood Positive 08/01/21 15:50 Blood Culture (Wb) - Right Hand Blood Culture - Final Gram positive jeff 08/05/21 11:30 Sputum, Expectorated/Coughed Gram Stain - Final 08/05/21 11:30 Sputum, Expectorated/Coughed Respiratory Culture - Final Haemophilus influenzae Mixed Nathalie 08/01/21 17:09 Blood Culture (Wb) - Anticubital Left Blood Culture - Final No growth in 5 days. 08/01/21 18:00 Urine, Clean Catch Urine Culture - Final Mixed Gram Positive Organisms 08/02/21 03:00 Urine, Random Legionella Antigen - Final 08/02/21 03:00 Urine, Random Streptococcus pneumoniae Antigen (M - Final 08/01/21 21:25 Nasal Secretion SARS-CoV-2 Antigen (Rapid) - Final Goal Trough: 15-20 mcg/mL Pharmacy Plan for Drug Dosing: Pharmacy Service will continue to monitor and adjust dosing as required. TROUGH 18.3 AT 24 HRS, SCr DECREASED FROM 2.01 TO 1.74. NO CHANGES DRAW TROUGH IN 48 HRS Follow-Up Labs: Trough Vancomycin Labs to be done on [date and time ordered]: 08/27 @ 4918
[2021-08-26 05:01] LABS: Differential Indicated MANUAL DIFF; Hemoglobin 8.1 g/dL (13.0-16.5); Mean Corpuscular Hgb 31.2 pg (27.0-32.0); Mean Corpuscular Volume 103.8 fL (80-94); Mean Platelet Vol. 11.7 fl (6.2-12.0); POSITIVE COUNT YES; POSITIVE MORPHOLOGY YES; Platelet Count 89 K/mm3 (150-450); RBC Distribution Width CV 19.3 % (11.6-14.6); RBC Distribution Width SD 66.7 fl (35.1-43.9); White Blood Count 8.9 K/mm3 (4.4-11.0)
[2021-08-26 05:18] LABS: Absolute Neutrophil Count 5.9 X10^3/uL (2.0-7.7); Blast 5 % (0-0); Metamyelocyte 2 % (0-1); Myelocyte 2 % (0-0); Neutrophil-Band 6 % (0-5); Neutrophil-Segmented 61 % (47-70); Promyelocyte 4 % (0-0)
[2021-08-26 05:19] LABS: Atypical Lymphocyte 2+ %; Eosinophil 1 % (0-5); Lymphocyte 17 % (19-41); Monocyte 2 % (0-10); Platelet Estimate MOD DEC (ADEQ)
[2021-08-26 05:20] LABS: Basophilic Stippling 1+; Red Cell Morphology NORM C+C NORMAL (NORM C&C)
[2021-08-26 05:21] LABS: Anion Gap 7 (5-15); BUN 57 mg/dL (7-18); BUN/Creat Ratio 33.3 RATIO (10-20); Calcium,Total 7.3 mg/dL (8.5-10.1); Chloride 107 mmol/L (98-107); Creatinine, Serum 1.71 mg/dL (0.70-1.30); EST Glomerular Filtration Rate 43 mL/min (>60); Est Glom Filt Rate - Afr Amer 52 mL/min (>60); Estimated Creatinine Clearance 41.88 ml/min; Glucose 169 mg/dL (74-106); Potassium 3.6 mmol/L (3.5-5.1); Sodium Level 143 mmol/L (136-145)
--- NOTE | 2021-08-26 05:42 | PN.CC_ITS ---
Assessment & Plan Assessment/Plan (1) Pneumonia due to severe acute respiratory syndrome coronavirus 2 (SARS-CoV-2): (2) Respiratory failure: QUALIFIERS: Chronicity: acute Respiratory failure complication: hypoxia Qualified Code(s): J96.01 - Acute respiratory failure with hypoxia (3) Hyperlipidemia: PLAN: RECOMMENDATIONS: 1. Continue to wean FiO2 and PEEP to maintain oxygen saturations at or above 90%. 2. Continue antimicrobials. 3. Stop D5W, given improvement in sodium and chloride. Decrease free water flushes as well. 4. Continue tube feeds as tolerated. 5. Continue PPI therapy twice daily. 6. Continue prophylactic Lovenox. If the patient becomes progressively anemic and thrombocytopenic, will discontinue. 7. Attempt diuresis today. IMPRESSIONS: 1. Acute hypoxic respiratory failure secondary to COVID-19 and Haemophilus influenza pneumonia Although the patient has completed treatment courses for his Covid pneumonia and Haemophilus influenza, he continued to decompensate from a respiratory perspect joe, ultimately requiring intubation on August 17. The patient has already completed a treatment course of remdesivir and a 7-day course of antimicrobials. In addition, the patient completed course of baricitinib and a second round of Decadron. Plan to continue bronchodilator therapy. Prophylactic Lovenox will be continued as ordered. 2. Septic shock, with concern for perirectal abscess Improved. The patient has been weaned from vasopressor support at this time. The patient is status post bedside I&D by general surgery of his perirectal abscess. The patient remains on antimicrobials accordingly. Continue local wound care. 3. Anemia/thrombocytopenia The patient did have a slow downward decline in his blood counts and subseque ntly was transfused 2 units of packed red blood cells on August 22. H&H has stabilized. We will continue to monitor accordingly. Continue PPI therapy as ordered for now. 4. Acute kidney injury Improving. Likely prerenal in etiology with a component of ischemic ATN in the setting of #2. Hemodynamics have stabilized with vasopressor support. Continue to monitor urine output for now. No current indication for renal replacement therapy. 5. Rheumatoid arthritis/unvaccinated state/overweight/hyperlipidemia/possible CAD Complicates care, management, recovery and prognosis. Okay to continue with hydroxychloroquine, but methotrexate may have more risks for secondary complications. TIME: 32 minutes of critical care time, independent of procedures, was spent addressing the patient's acute hypoxemic respiratory failure secondary to combined COVID-19 and Haemophilus influenza pneumonia, septic shock secondary to perirectal abscess, anemia, acute kidney injury, review of all data and collaboration with care team. ([id number]) Subjective Subjective The patient was seen and examined at the bedside this morning. Events from the last 24 hours have been reviewed. He is currently vent day #10. The patient currently has a low-grade fever. The patient is hemodynamically stable at the present time off of vasopressor support. He remains on assist control mode of mechanical ventilation with an FiO2 requirement of 70% and PEEP of 8. The patient remains sedated on a combination of propofol and fentanyl. He is currently tolerating tube feeds. The patient is documented to be overall net +3.2 L for the hospitalization. Hemoglobin is stable at 8.1 g/dL. Platelet count remains low at 89,000. Creatinine is overall stable at 1.7. The patient remains on vancomycin and Zosyn, along with prophylactic Lovenox twice daily. Objective Data Objective Data The patient's most recent lab work, culture data and imaging studies have all been personally reviewed. Sputum culture was positive for 3+ Haemophilus influenza on August 05. Wound culture was positive for strep anginosus. Vital Signs: Vital Signs Temp Pulse Resp BP Pulse Ox 99.4 F H 106 H 17 97/78 90 08/26/21 05:00 08/26/21 05:00 08/26/21 05:00 08/26/21 05:00 08/26/21 05:00 Oxygen Flow Rate (L/min) 65 Oxygen Delivery Method Mechanical Ventilator Weight: 82.9 kg Body Mass Index (BMI) 28.7 Intake & Output: Intake and Output for Last 24 Hours 08/24/21 08/25/21 08/26/21 23:59 23:59 23:59 Intake Total 3673.26 / 4193.28 4611.04 / 5100.74 1522.37 / 1522.37 Output Total 950 / 1275 2100 / 2275 260 / 260 Balance 2723.26 / 2918.28 2511.04 / 2825.74 1262.37 / 1262.37 Medical Nutrition Assessment Dietitian: Malnutrition Criteria Met Start: 08/09/21 13:29 Freq: Status: Active Protocol: Document 08/23/21 12:15 AG (Rec: 08/23/21 12:15 [id number]) Nutrition Malnutrition Evidence of Malnutrition Exists Yes Malnutrition (severe): Acute Illness/Injury Evidenced By Suboptimal Energy Intake ( Severe),Weight Loss (Severe) Intake Problem Inadequate Oral Intake Etiology r/t resp. failure and increased oxygen needs Signs/Symptoms as evidenced by estimated PO intake meeting <50% of estimated nutritional needs; inability to consume sufficient nutrition via PO diet d/t intubation Status Active Problem Clinical Problem Acute Disease or Injury Related Malnutrition Etiology Severe protein/calorie malnutrition in the context of acute illness related to inadequate oral intake w/ resp . failure Signs/Symptoms as evidenced by 4.58kg/5.5% wt loss since admit and PO meeting less than 50% estimated nutrition needs > 1 week Status Active Problem Recommendation Dietitian Recommendations/Changes NPO while intubated; Vital AF 1.2 via OGT at goal rate of 70mL/hour w/ 125mL H2O flush every 4 hours to provide 2016 calories, 126 g protein, and 2112mL fluid/day. Would resume at 20mL/hour and increase by 15mL/hour every 8-12 hours as tolerated until goal rate is achieved. Lab / Micro Data Attestation: I reviewed the patient's lab results. Result Diagrams: 08/26/21 04:50 08/26/21 04:50 Labs: Laboratory Results - last 24 hr 08/24/21 03:53: Diff Path Review Reviewed 08/25/21 04:51: Diff Path Review Reviewed 08/25/21 12:20: POC Glucose 181 H 08/25/21 17:37: POC Glucose 166 H 08/25/21 19:55: Vancomycin Trough 18.3 H 08/26/21 04:50: WBC 8.9, RBC 2.60 L, Hgb 8.1 L, Hct 27.0 L, MCV 103.8 H, MCH 31.2, MCHC 30.0 L, RDW Std Deviation 66.7 H, RDW Coeff of Enoch 19.3 H, Plt Count 89 L, MPV 11.7, Neut % (Auto) Not Reportable, Absolute Neuts (auto) 5.9, Absolute Lymphs (auto) 1.50, Neutrophils % (Manual) 61, Band Neutrophils % 6 H, Lymphocytes % (Manual) 17 L, Monocytes % (Manual) 2, Eosinophils % (Manual) 1, Metamyelocytes % 2 H, Myelocytes % 2 H, Promyelocytes % 4 H, Blast Cells % 5 H*, Diff Path Review May foll, Atypical Lymphocytes 2+, Platelet Estimate MOD DEC, RBC Morphology NORM C+C, Basophilic Stippling 1+ 08/26/21 04:50: Sodium 143, Potassium 3.6, Chloride 107, Carbon Dioxide 29.0, Anion Gap 7, BUN 57 H, Creatinine 1.71 H, Estim Creat Clear Calc 41.88, Est GFR (MDRD) Af Amer 52 L, Est GFR (MDRD) Non-Af 43 L, BUN/Creatinine Ratio 33.3 H, Glucose 169 H, Calcium 7.3 L Micro: Microbiology 08/21/21 05:30 Wound Abcess - Other Gram Stain - Final 08/21/21 05:30 Wound Abcess - Other Wound Culture - Final Strep anginosus 08/22/21 14:35 Blood Culture (Wb) - Left Hand Blood Culture - Preliminary No growth in 48 hours. 08/22/21 14:25 Blood Culture (Wb) - Pic Blood Culture - Preliminary No growth in 48 hours. 08/17/21 11:02 Sputum, Induced/Lukens Gram Stain - Final 08/17/21 11:02 Sputum, Induced/Lukens Respiratory Culture - Final 08/18/21 15:20 Gastric Fluid/Contents Gastric Occult Blood - Final Occult Blood Positive 08/01/21 15:50 Blood Culture (Wb) - Right Hand Blood Culture - Final Gram positive jeff 08/05/21 11:30 Sputum, Expectorated/Coughed Gram Stain - Final 08/05/21 11:30 Sputum, Expectorated/Coughed Respiratory Culture - Final Haemophilus influenzae Mixed Nathalie 08/01/21 17:09 Blood Culture (Wb) - Anticubital Left Blood Culture - Final No growth in 5 days. 08/01/21 18:00 Urine, Clean Catch Urine Culture - Final Mixed Gram Positive Organisms 08/02/21 03:00 Urine, Random Legionella Antigen - Final 08/02/21 03:00 Urine, Random Streptococcus pneumoniae Antigen (M - Final 08/01/21 21:25 Nasal Secretion SARS-CoV-2 Antigen (Rapid) - Final Physical Exam Const no apparent distress General Appearance: intubated and patient mechanically ventilated HEENT normocephalic and head/scalp atraumatic Mouth: endotracheal tube in place and OG tube in place Eyes PERRL and conjunctivae normal Neck supple General: trachea midline Chest inspection of chest normal Resp Auscultation: diminished lung sounds; Negative for rales, rhonchi or wheezes Cardio S1 normal heart sound and S2 normal heart sound Rate: tachycardic GI normal to inspection, nondistended, normoactive bowel sounds Extremity General Extremity: edema; Negative for clubbing Skin Wound Narrative: Perirectal abscess Neuro Sensorium / Orientation: sedated on vent Charges/Coding Procedures Hospitalists Procedures: 10563 Critial Care 1st Hr
[2021-08-26] MEDS: Ipratropium 0.5 MG/2.5 ML SOLUTION INHALATION ×3 (06:54→18:43)
[2021-08-26] MEDS: Propofol 10MG/Ml 1,000 MG/100 ML Bottle 4.7 MG CONT INF ×2 (07:52→21:05)
[2021-08-26] MEDS: Chlorhexidine 15 ML PO ×2 (08:00→21:01)
[2021-08-26] MEDS: Enoxaparin 40 MG/0.4 ML Syringe SC ×2 (09:40→21:00)
[2021-08-26] MEDS: Folic Acid 1 MG Tablet GT (09:40)
[2021-08-26] MEDS: Vital AF 1.2 Cal Liquid 1,000 ML 70 ML GT (09:43)
[2021-08-26] MEDS: Hydroxychloroquine 200 MG Tablet GT ×2 (09:43→21:00)
[2021-08-26] MEDS: Furosemide 40 MG/4 ML Vial IV (09:46)
[2021-08-26] MEDS: Ascorbic Acid 500 MG Tablet 1000 MG GT (09:46)
[2021-08-26] MEDS: QUEtiapine 100 MG Tablet GT ×2 (10:02→21:00)
--- NOTE | 2021-08-26 10:25 | PCM.PN.HOSP ---
Subjective Subjective Remains with liquid stool. Still on the ventilator. Remains hemodynamically stable off vasopressors. Unfortunately remains on significant amount of FiO2 with 70% but PEEP has been decreased to 8. No significant issues overnight. Objective Data Objective Data Vital Signs: Vital Signs Temp Pulse Resp BP Pulse Ox 99.4 F H 108 H 21 H 97/78 96 08/26/21 05:00 08/26/21 10:16 08/26/21 10:16 08/26/21 05:00 08/26/21 10:16 Oxygen Flow Rate (L/min) 65 Oxygen Delivery Method Mechanical Ventilator Weight: 82.9 kg Body Mass Index (BMI) 28.7 Intake & Output: Intake and Output for Last 24 Hours 08/24/21 08/25/21 08/26/21 23:59 23:59 23:59 Intake Total 3673.26 / 4193.28 4611.04 / 5100.74 2383.34 / 2383.34 Output Total 950 / 1275 2100 / 2275 350 / 350 Balance 2723.26 / 2918.28 2511.04 / 2825.74 2033.34 / 2033.34 Medical Nutrition Assessment Dietitian: Malnutrition Criteria Met Start: 08/09/21 13:29 Freq: Status: Active Protocol: Document 08/23/21 12:15 AG (Rec: 08/23/21 12:15 [id number]) Nutrition Malnutrition Evidence of Malnutrition Exists Yes Malnutrition (severe): Acute Illness/Injury Evidenced By Suboptimal Energy Intake ( Severe),Weight Loss (Severe) Intake Problem Inadequate Oral Intake Etiology r/t resp. failure and increased oxygen needs Signs/Symptoms as evidenced by estimated PO intake meeting <50% of estimated nutritional needs; inability to consume sufficient nutrition via PO diet d/t intubation Status Active Problem Clinical Problem Acute Disease or Injury Related Malnutrition Etiology Severe protein/calorie malnutrition in the context of acute illness related to inadequate oral intake w/ resp . failure Signs/Symptoms as evidenced by 4.58kg/5.5% wt loss since admit and PO meeting less than 50% estimated nutrition needs > 1 week Status Active Problem Recommendation Dietitian Recommendations/Changes NPO while intubated; Vital AF 1.2 via OGT at goal rate of 70mL/hour w/ 125mL H2O flush every 4 hours to provide 2016 calories, 126 g protein, and 2112mL fluid/day. Would resume at 20mL/hour and increase by 15mL/hour every 8-12 hours as tolerated until goal rate is achieved. Lab / Micro Data Result Diagrams: 08/26/21 04:50 08/26/21 04:50 Labs: Laboratory Results - last 24 hr 08/25/21 04:51: Diff Path Review Reviewed 08/25/21 12:20: POC Glucose 181 H 08/25/21 17:37: POC Glucose 166 H 08/25/21 19:55: Vancomycin Trough 18.3 H 08/26/21 04:50: WBC 8.9, RBC 2.60 L, Hgb 8.1 L, Hct 27.0 L, MCV 103.8 H, MCH 31.2, MCHC 30.0 L, RDW Std Deviation 66.7 H, RDW Coeff of Enoch 19.3 H, Plt Count 89 L, MPV 11.7, Neut % (Auto) Not Reportable, Absolute Neuts (auto) 5.9, Absolute Lymphs (auto) 1.50, Neutrophils % (Manual) 61, Band Neutrophils % 6 H, Lymphocytes % (Manual) 17 L, Monocytes % (Manual) 2, Eosinophils % (Manual) 1, Metamyelocytes % 2 H, Myelocytes % 2 H, Promyelocytes % 4 H, Blast Cells % 5 H*, Diff Path Review May foll, Atypical Lymphocytes 2+, Platelet Estimate MOD DEC, RBC Morphology NORM C+C, Basophilic Stippling 1+ 08/26/21 04:50: Sodium 143, Potassium 3.6, Chloride 107, Carbon Dioxide 29.0, Anion Gap 7, BUN 57 H, Creatinine 1.71 H, Estim Creat Clear Calc 41.88, Est GFR (MDRD) Af Amer 52 L, Est GFR (MDRD) Non-Af 43 L, BUN/Creatinine Ratio 33.3 H, Glucose 169 H, Calcium 7.3 L Micro: Microbiology 08/21/21 05:30 Wound Abcess - Other Gram Stain - Final 08/21/21 05:30 Wound Abcess - Other Wound Culture - Final Strep anginosus 08/22/21 14:35 Blood Culture (Wb) - Left Hand Blood Culture - Preliminary No growth in 48 hours. 08/22/21 14:25 Blood Culture (Wb) - Pic Blood Culture - Preliminary No growth in 48 hours. 08/17/21 11:02 Sputum, Induced/Lukens Gram Stain - Final 08/17/21 11:02 Sputum, Induced/Lukens Respiratory Culture - Final 08/18/21 15:20 Gastric Fluid/Contents Gastric Occult Blood - Final Occult Blood Positive 08/01/21 15:50 Blood Culture (Wb) - Right Hand Blood Culture - Final Gram positive jeff 08/05/21 11:30 Sputum, Expectorated/Coughed Gram Stain - Final 08/05/21 11:30 Sputum, Expectorated/Coughed Respiratory Culture - Final Haemophilus influenzae Mixed Nathalie 08/01/21 17:09 Blood Culture (Wb) - Anticubital Left Blood Culture - Final No growth in 5 days. 08/01/21 18:00 Urine, Clean Catch Urine Culture - Final Mixed Gram Positive Organisms 08/02/21 03:00 Urine, Random Legionella Antigen - Final 08/02/21 03:00 Urine, Random Streptococcus pneumoniae Antigen (M - Final 08/01/21 21:25 Nasal Secretion SARS-CoV-2 Antigen (Rapid) - Final Physical Exam Const alert, oriented x3 and no apparent distress Constitutional Narrative: Patient is intubated and sedated General Appearance: cooperative, well kempt and well developed Orientation / Consciousness: awake, oriented to person, oriented to place and oriented to time Exam Limitations: other limitations Nutritional Appearance: overweight HEENT normocephalic, head/scalp atraumatic and moist oral mucous membranes Head and Scalp: normocephalic Eyes PERRL Eyes Narrative: Pale conjunctiva Neck nuchal rigidity and thyroid normal Neck Narrative: Trachea midline General: trachea midline Resp normal respiratory effort, no retractions, no use of accessory muscles and clear to auscultation bilaterally Resp Narrative: Diffusely diminished but clear, patient intubated Auscultation: Negative for crackles, rales, rhonchi or wheezes Cardio regular rhythm, S1 normal heart sound, S2 normal heart sound, no murmurs, no rub, no gallops, no clicks and no JVD Cardio Narrative: Tachycardia GI normal to inspection, nondistended, normoactive bowel sounds, soft to palpation, non-tender and non-distended GI Narrative: FMS is in place with liquid stool leaking from around the FMS Extremity normal to inspection Extremity Narrative: 1+ pitting edema bilateral lower extremities/upper extremities and hands and forearms, no cyanosis or clubbing General Extremity: edema Peripheral Pulses: Yes pulses 2+ throughout Skin General Skin Exam: no breakdown Neuro oriented x3, CN's II-XII intact bilaterally, no focal motor deficits and no sensory deficits noted Neuro Narrative: Patient is intubated and sedated, does spontaneously move extremities intermittently Sensorium / Orientation: awake and alert Speech: speech normal Psych thought process normal Psych Narrative: Unable to assess Assessment & Plan Assessment/Plan (1) Respiratory failure: QUALIFIERS: Chronicity: acute Respiratory failure complication: hypoxia Qualified Code(s): J96.01 - Acute respiratory failure with hypoxia (2) Pneumonia due to severe acute respiratory syndrome coronavirus 2 (SARS-CoV-2): (3) KALPANA (acute kidney injury): (4) Perirectal abscess: PLAN: Acute hypoxic respiratory failure secondary to COVID-19 pneumonia/Haemophilus influenzae pneumonia -Patient intubated on 08/18/2021--> day 9 of mechanical ventilation -PEEP was weaned to 8 and FiO2 at 70 % today -Completed courses of baricitinib and Decadron x2 -As needed diuresis as renal function and blood pressure allow -1 dose of Lasix has been ordered for today -Lovenox needed to be discontinued secondary to acute anemia and concern for GI bleed -Patient continues to tolerate prophylactic dose Lovenox -Continue bronchodilator therapy -Patient has completed course of antibiotics for H. influenzae pneumonia -Patient will need diuresis once he is remaining hemodynamically stable and sodium and chloride have corrected -Pulmonary following appreciate input Septic shock secondary to strep anginosis perirectal abscess versus oral abscess versus both -Status post I&D of perirectal abscess by general surgery -Shock resolved -Patient has been off Levophed for 48 hours with stable blood pressures -Wound cultures growth with strep anginosis -Blood cultures remain with no growth to date -IV fluids per critical care medicine -Continue broad-spectrum antibiotics and narrow as able per sensitivities -White count has normalized Acute kidney injury -Serum creatinine slowly improving and now 1.71 which is relatively stable when compared to yesterday -Continue to monitor -IV fluids have been discontinued -No current need for nephrology input -Avoid nephrotoxins -Trial of Lasix today per critical care -Baseline serum creatinine is 0.8-1.0 Acute on chronic anemia secondary to GI blood loss -Transfusion 1 unit 08/22/2021 -Continue to follow counts -No obvious signs of bleeding at this time and hemoglobin is relatively stable -Continue twice daily PPI Hypernatremia/hyperchloremia -Resolved -Changes in fluids both IV and enteral noted Mild thrombocytopenia -Platelet count is slowly trending down and now 89,000 -Continue to monitor CAD/HTN/HPL -Home medications are on hold at this time RA -Methotrexate have been on hold -Patient remains on hydroxychloroquine Overweight -BMI 27.3 -Complicates overall treatment, prognosis, outcomes -Recommend weight loss DVT prophylaxis -Prophylactic Lovenox 40 mg twice daily -SCDs CODE STATUS -Full code Charges/Coding Visit Charges Inpatient E&M: 66063 Subs Hosp L2
[2021-08-26 12:41] LABS: Bedside Glucose 138 mg/dL (70-110)
--- NOTE | 2021-08-26 13:57 | CASEMGMT ---
Addendum entered by Yadira Shay 08/26/21 15:57: SW and RN spoke w/pt's son and daughter about options going forward, including comfort care, vs trach and peg and transfer to LTACH. SW remains available for support to family. ERIKA Preciado Original Note: Daughter called in, asked if SW will be here around 3pm, she and pt's son are coming in to see pt and would like to speak w/SW and RN. SW assured daughter SW will be here. WENDI PreciadoS
--- NOTE | 2021-08-26 15:15 | PCM.PN.ID ---
Physical Exam Narrative on vent, no fever Const no apparent distress Resp clear to auscultation bilaterally Auscultation: diminished lung sounds Cardio regular rate and regular rhythm GI normal to inspection, nondistended, normoactive bowel sounds Skin no rashes or lesions noted ID ID: Route of nutrition/ use of supplements: [] Nutritional Intake: [] IV Site: [] Paulino Catheter: [] Assessment & Plan Assessment/Plan (1) Pneumonia due to severe acute respiratory syndrome coronavirus 2 (SARS-CoV-2): PLAN: Sx started 07/23, unvaccinated. Isolate for 20 days starting 07/23, ends 08/12. Recommend vaccine once out of hospital. On dex and completed remdesivir. On therapeutic lovenox. Completed baricitinib. Sputum with h flu, completed ceftriaxone for 7 day course. Now s/p I&D perirectal abscesses by Dr. Nguyen. On vanc/zosyn. KALPANA improved. Will stop vanc today. Will follow (2) Respiratory failure: QUALIFIERS: Chronicity: acute Respiratory failure complication: hypoxia Qualified Code(s): J96.01 - Acute respiratory failure with hypoxia
[2021-08-26 15:39] LABS: Pathologist Review Reviewed
[2021-08-26 18:41] LABS: Bedside Glucose 155 mg/dL (70-110)
[2021-08-26] MEDS: Senna/Docusate Sodium 1 Tablet 2 TABLET GT (21:00)
[2021-08-26] MEDS: Acetaminophen 650 MG/20 ML UDC GT (21:28)
--- NOTE | 2021-08-26 22:50 | EKG12_ITS ---
Test Reason : RHYTHM CHANGE Blood Pressure : / mmHG Vent. Rate : 138 BPM Atrial Rate : 138 BPM P-R Int : 120 ms QRS Dur : 090 ms QT Int : 302 ms P-R-T Axes : 031 -21 086 degrees QTc Int : 457 ms Sinus tachycardia with PSVC's Nonspecific ST and T wave abnormality Abnormal ECG Confirmed by BRAD COOLEY, JOSE MANUEL ([id number]), biodiesel product manager EVARISTO CALLOWAY ([id number]) on 08/31/2021 9:59:59 AM Referred By: Confirmed By:JOSE MANUEL SALINAS MD
--- NOTE | 2021-08-26 22:59 | PCM.HOSP.N ---
Hospitalist Note Patient with ongoing intermittent bursts SVT, rate sustained 150s, BP low despite NEP, will attempt amiodarone and drip.
[2021-08-27] VITALS (71 sets, daily range): BP systolic 60–113; BP diastolic 50–76; PULSE 107–155; RESP 12–22; TEMP 37–37.7; O2SAT 91–100
[2021-08-27] MEDS: Vital AF 1.2 Cal Liquid 1,000 ML 70 ML GT ×2 (02:29→15:56)
[2021-08-27 03:36] LABS: Hematocrit 27.9 % (40-54); Hemoglobin 8.5 g/dL (13.0-16.5); Mean Corp Hgb Conc 30.5 g/dL (32-36); Mean Corpuscular Hgb 31.7 pg (27.0-32.0); Mean Corpuscular Volume 104.1 fL (80-94); Mean Platelet Vol. 11.8 fl (6.2-12.0); POSITIVE COUNT YES; POSITIVE MORPHOLOGY YES; Platelet Count 105 K/mm3 (150-450); RBC Distribution Width CV 19.5 % (11.6-14.6); RBC Distribution Width SD 66.7 fl (35.1-43.9); Red Blood Count 2.68 M/mm3 (4.6-6.2); White Blood Count 11.6 K/mm3 (4.4-11.0)
[2021-08-27 03:39] LABS: Differential Indicated MANUAL DIFF
[2021-08-27 03:50] LABS: Anion Gap 6 (5-15); BUN 59 mg/dL (7-18); BUN/Creat Ratio 29.6 RATIO (10-20); Calcium,Total 7.4 mg/dL (8.5-10.1); Chloride 105 mmol/L (98-107); Creatinine, Serum 1.99 mg/dL (0.70-1.30); EST Glomerular Filtration Rate 36 mL/min (>60); Est Glom Filt Rate - Afr Amer 44 mL/min (>60); Estimated Creatinine Clearance 35.98 ml/min; Glucose 191 mg/dL (74-106); Potassium 3.5 mmol/L (3.5-5.1); Sodium Level 142 mmol/L (136-145)
[2021-08-27 05:03] LABS: Eosinophil 1 % (0-5); Lymphocyte 5 % (19-41); Metamyelocyte 6 % (0-1); Monocyte 1 % (0-10); Myelocyte 6 % (0-0); Neutrophil-Band 1 % (0-5); Neutrophil-Segmented 80 % (47-70); Nucleated Red Bld Cells,Manual 1 % (0-5); Total Cells Counted 100 (MANUAL DIFF)
[2021-08-27 05:06] LABS: Anisocytosis 1+; Differential Comment MANUAL DIFF; Platelet Estimate SLT DEC (ADEQ); Polychromasia 1+
[2021-08-27 05:07] LABS: Macrocytosis 1+
[2021-08-27] MEDS: Menthol/Lanolin/Calamine/Znox 113 GM Tube 1 APPLIC TOPICAL ×3 (05:49→20:49)
--- NOTE | 2021-08-27 05:51 | PN.CC_ITS ---
Assessment & Plan Assessment/Plan (1) Pneumonia due to severe acute respiratory syndrome coronavirus 2 (SARS-CoV-2): (2) Respiratory failure: QUALIFIERS: Chronicity: acute Respiratory failure complication: hypoxia Qualified Code(s): J96.01 - Acute respiratory failure with hypoxia (3) Hyperlipidemia: PLAN: RECOMMENDATIONS: 1. Continue to wean FiO2 and PEEP to maintain oxygen saturations at or above 90%. 2. Continue antimicrobials. 3. Continue tube feeds as tolerated. 4. Continue PPI therapy twice daily. 5. Continue prophylactic Lovenox. If the patient becomes progressively anemic and thrombocytopenic, will discontinue. 6. Recent sputum culture today. 7. Obtain repeat chest x-ray. 8. Renal function precludes additional diuretic administration. 9. Continue Levophed to maintain a mean arterial pressure at or above 65 mmHg. IMPRESSIONS: 1. Acute hypoxic respiratory failure secondary to COVID-19 and Haemophilus influenza pneumonia Although the patient has completed treatment courses for his Covid pneumonia and Haemophilus influenza, he continued to decompensate from a respiratory perspective, ultimately requiring intubation on August 17. The patient has already completed a treatment course of remdesivir and a 7-day course of antimicrobials. In addition, the patient completed course of baricitinib and a second round of Decadron. Plan to continue bronchodilator therapy. Prophylactic Lovenox will be continued as ordered. 2. Septic shock, with concern for perirectal abscess Continue Levophed to maintain a mean arterial pressure at or above 65 mmHg. The patient is status post bedside I&D by general surgery of his perirectal abscess. The patient remains on antimicrobials accordingly. Continue local wound care. We will resend sputum culture today. 3. Anemia/thrombocytopenia The patient did have a slow downward decline in his blood counts and subsequently was transfused 2 units of packed red blood cells on August 22. H&H has stabilized. We will continue to monitor accordingly. Continue PPI therapy as ordered for now. 4. Acute kidney injury Likely prerenal in etiology with a component of ischemic ATN in the setting of #2. Hemodynamics have stabilized with vasopressor support. Continue to monitor urine output for now. No current indication for renal replacement therapy. 5. Rheumatoid arthritis/unvaccinated state/overweight/hyperlipidemia/possible CAD Complicates care, management, recovery and prognosis. Okay to continue with hydroxychloroquine, but methotrexate may have more risks for secondary complications. TIME: 34 minutes of critical care time, independent of procedures, was spent addressing the patient's acute hypoxemic respiratory failure secondary to combined COVID-19 and Haemophilus influenza pneumonia, septic shock secondary to perirectal abscess, anemia, acute kidney injury, review of all data and collaboration with care team. ([id number]) Subjective Subjective The patient was seen and examined at the bedside this morning. Events from the last 24 hours have been reviewed. He is currently vent day #11. The patient continues to have low-grade fevers. Overnight, the patient developed SVT and worsening hypotension. He was subsequently placed on an amiodarone infusion. Nursing staff has noted thick endotracheal secretions. H is Levophed requirement has increased to 12 mcg/min. He remains on assist control mode of mechanical ventilation with an FiO2 requirement of 70% and PEEP of 8. He is currently tolerating tube feeds. The patient is currently documented to be overall net +4.6 L for the hospitalization. Hemoglobin is stable this morning at 8.5 g/dL. Platelet count has improved to 105,000. Although the patient did receive a one-time dose of IV Lasix yesterday, his oxygenation status did not change and his creatinine increased to 1.9. The patient remains sedated on propofol and fentanyl. He also remains on twice daily PPI therapy and antimicrobials. Objective Data Objective Data The patient's most recent lab work, culture data and imaging studies have all been personally reviewed. Sputum culture was positive for 3+ Haemophilus influenza on August 05. Wound culture was positive for strep anginosus. Vital Signs: Vital Signs Temp Pulse Resp BP Pulse Ox 99.9 F H 113 H 15 83/59 L 95 08/27/21 00:00 08/27/21 05:46 08/27/21 05:25 08/27/21 05:46 08/27/21 05:25 Oxygen Flow Rate (L/min) 65 Oxygen Delivery Method Mechanical Ventilator Weight: 84.2 kg Body Mass Index (BMI) 28.7 Intake & Output: Intake and Output for Last 24 Hours 08/25/21 08/26/21 08/27/21 23:59 23:59 23:59 Intake Total 4611.04 / 5100.74 4369.07 / 4579.95 378.26 / 378.26 Output Total 2099 / 5 1999 275 / 275 Balance 2511.04 / 2825.74 2369.07 / 2304.95 103.26 / 103.26 Medical Nutrition Assessment Dietitian: Malnutrition Criteria Met Start: 08/09/21 13:29 Freq: Status: Active Protocol: Document 08/23/21 12:15 AG (Rec: 08/23/21 12:15 AG [id number]) Nutrition Malnutrition Evidence of Malnutrition Exists Yes Malnutrition (severe): Acute Illness/Injury Evidenced By Suboptimal Energy Intake ( Severe),Weight Loss (Severe) Intake Problem Inadequate Oral Intake Etiology r/t resp. failure and increased oxygen needs Signs/Symptoms as evidenced by estimated PO intake meeting <50% of estimated nutritional needs; inability to consume sufficient nutrition via PO diet d/t intubation Status Active Problem Clinical Problem Acute Disease or Injury Related Malnutrition Etiology Severe protein/calorie malnutrition in the context of acute illness related to inadequate oral intake w/ resp . failure Signs/Symptoms as evidenced by 4.58kg/5.5% wt loss since admit and PO meeting less than 50% estimated nutrition needs > 1 week Status Active Problem Recommendation Dietitian Recommendations/Changes NPO while intubated; Vital AF 1.2 via OGT at goal rate of 70mL/hour w/ 125mL H2O flush every 4 hours to provide 2016 calories, 126 g protein, and 2112mL fluid/day. Would resume at 20mL/hour and increase by 15mL/hour every 8-12 hours as tolerated until goal rate is achieved. Lab / Micro Data Attestation: I reviewed the patient's lab results. Result Diagrams: 08/27/21 03:25 08/27/21 03:25 Labs: Laboratory Results - last 24 hr 08/26/21 04:50: Diff Path Review Reviewed 08/26/21 12:21: POC Glucose 138 H 08/26/21 18:14: POC Glucose 155 H 08/27/21 03:25: WBC 11.6 H, RBC 2.68 L, Hgb 8.5 L, Hct 27.9 L, MCV 104.1 H, MCH 31.7, MCHC 30.5 L, RDW Std Deviation 66.7 H, RDW Coeff of Enoch 19.5 H, Plt Count 105 L, MPV 11.8, Neut % (Auto) Not Reportable, Total Counted 100, Neutrophils % (Manual) 80 H, Band Neutrophils % 1, Lymphocytes % (Manual) 5 L, Monocytes % (Manual) 1, Eosinophils % (Manual) 1, Metamyelocytes % 6 H, Myelocytes % 6 H, Nucleated RBCs/100 WBC 1, Differential Comment MANUAL DIFF, Diff Path Review May foll, Platelet Estimate SLT DEC, Polychromasia 1+, Anisocytosis 1+, Macrocytosis 1+ 08/27/21 03:25: Sodium 142, Potassium 3.5, Chloride 105, Carbon Dioxide 31.0, Anion Gap 6, BUN 59 H, Creatinine 1.99 H, Estim Creat Clear Calc 35.98, Est GFR (MDRD) Af Amer 44 L, Est GFR (MDRD) Non-Af 36 L, BUN/Creatinine Ratio 29.6 H, Glucose 191 H, Calcium 7.4 L Micro: Microbiology 08/26/21 08:10 Stool C. difficile DNA Amplification - Final 08/21/21 05:30 Wound Abcess - Other Gram Stain - Final 08/21/21 05:30 Wound Abcess - Other Wound Culture - Final Strep anginosus 08/22/21 14:35 Blood Culture (Wb) - Left Hand Blood Culture - Preliminary No growth in 48 hours. 08/22/21 14:25 Blood Culture (Wb) - Pic Blood Culture - Preliminary No growth in 48 hours. 08/17/21 11:02 Sputum, Induced/Lukens Gram Stain - Final 08/17/21 11:02 Sputum, Induced/Lukens Respiratory Culture - Final 08/18/21 15:20 Gastric Fluid/Contents Gastric Occult Blood - Final Occult Blood Positive 08/01/21 15:50 Blood Culture (Wb) - Right Hand Blood Culture - Final Gram positive jeff 08/05/21 11:30 Sputum, Expectorated/Coughed Gram Stain - Final 08/05/21 11:30 Sputum, Expectorated/Coughed Respiratory Culture - Final Haemophilus influenzae Mixed Nathalie 08/01/21 17:09 Blood Culture (Wb) - Anticubital Left Blood Culture - Final No growth in 5 days. 08/01/21 18:00 Urine, Clean Catch Urine Culture - Final Mixed Gram Positive Organisms 08/02/21 03:00 Urine, Random Legionella Antigen - Final 08/02/21 03:00 Urine, Random Streptococcus pneumoniae Antigen (M - Final 08/01/21 21:25 Nasal Secretion SARS-CoV-2 Antigen (Rapid) - Final Physical Exam Const no apparent distress General Appearance: intubated and patient mechanically ventilated HEENT normocephalic and head/scalp atraumatic Mouth: endotracheal tube in place and OG tube in place Eyes PERRL and conjunctivae normal Neck supple General: trachea midline Chest inspection of chest normal Resp Auscultation: rhonchi and diminished lung sounds; Negative for rales or wheezes Cardio S1 normal heart sound and S2 normal heart sound Rate: tachycardic GI normal to inspection, nondistended, normoactive bowel sounds Extremity General Extremity: edema bilateral lower extremity; Negative for clubbing Skin Wound Narrative: Perirectal abscess Neuro Sensorium / Orientation: sedated on vent Charges/Coding Procedures Hospitalists Procedures: 94352 Critial Care 1st Hr
--- NOTE | 2021-08-27 06:05 | RAD_ITS ---
STUDY: X-RAY CHEST REASON FOR EXAM: Male, 61 years old. Respiratory Failure TECHNIQUE: Frontal view COMPARISON: 08/20/2071 FINDINGS: Stable endotracheal and nasogastric tubes. A right PICC line is noted with tip in the proximal SVC. The lungs are expanded. Bilateral interstitial densities and possible basilar infiltrates. Normal size heart. Normal mediastinum and vicky. Normal visualized pulmonary arteries. Normal visualized aortic arch and descending thoracic aorta. Degenerative changes of the thoracic spine. Normal visualized ribs, clavicles, and shoulders. There is no demonstrated abnormality of the visualized soft tissue structures of the upper abdomen. RAD/Chest 1 View (Portable) IMPRESSION: Bilateral interstitial densities and possible basilar infiltrates. Electronically Signed: Constantine Croft DO at 11:00 EDT Tel [phone], Service support ,
[2021-08-27] MEDS: Ipratropium 0.5 MG/2.5 ML SOLUTION INHALATION ×3 (06:41→19:05)
[2021-08-27] MEDS: TITRATION PARAMETER CHANGE 1 EACH IV (07:09)
--- NOTE | 2021-08-27 08:30 | PCM.PN.SRG ---
Subjective Subjective Patient remains on a ventilator. Objective Data Objective Data No reported issues with dressing changes Vital Signs: Vital Signs Temp Pulse Resp BP Pulse Ox 98.6 F 111 H 12 89/63 L 99 08/27/21 08:00 08/27/21 08:00 08/27/21 08:00 08/27/21 08:00 08/27/21 08:00 Oxygen Flow Rate (L/min) 65 Oxygen Delivery Method Mechanical Ventilator Weight: 185 lb 10.067 oz Body Mass Index (BMI) 28.7 Intake & Output: Intake and Output for Last 24 Hours 08/25/21 08/26/21 08/27/21 23:59 23:59 23:59 Intake Total 4611.04 / 5100.74 4369.07 / 4579.95 2205.27 / 2205.27 Output Total 2100 / 2275 1999 / 2274 400 / 400 Balance 2511.04 / 2825.74 2369.07 / 2304.95 1805.27 / 1805.27 Medical Nutrition Assessment Dietitian: Malnutrition Criteria Met Start: 08/09/21 13:29 Freq: Status: Active Protocol: Document 08/23/21 12:15 AG (Rec: 08/23/21 12:15 AG [id number]) Nutrition Malnutrition Evidence of Malnutrition Exists Yes Malnutrition (severe): Acute Illness/Injury Evidenced By Suboptimal Energy Intake ( Severe),Weight Loss (Severe) Intake Problem Inadequate Oral Intake Etiology r/t resp. failure and increased oxygen needs Signs/Symptoms as evidenced by estimated PO intake meeting <50% of estimated nutritional needs; inability to consume sufficient nutrition via PO diet d/t intubation Status Active Problem Clinical Problem Acute Disease or Injury Related Malnutrition Etiology Severe protein/calorie malnutrition in the context of acute illness related to inadequate oral intake w/ resp . failure Signs/Symptoms as evidenced by 4.58kg/5.5% wt loss since admit and PO meeting less than 50% estimated nutrition needs > 1 week Status Active Problem Recommendation Dietitian Recommendations/Changes NPO while intubated; Vital AF 1.2 via OGT at goal rate of 70mL/hour w/ 125mL H2O flush every 4 hours to provide 2016 calories, 126 g protein, and 2112mL fluid/day. Would resume at 20mL/hour and increase by 15mL/hour every 8-12 hours as tolerated until goal rate is achieved. Lab / Micro Data Result Diagrams: 08/27/21 03:25 08/27/21 03:25 Labs: Laboratory Results - last 24 hr 08/26/21 04:50: Diff Path Review Reviewed 08/26/21 12:21: POC Glucose 138 H 08/26/21 18:14: POC Glucose 155 H 08/27/21 03:25: WBC 11.6 H, RBC 2.68 L, Hgb 8.5 L, Hct 27.9 L, MCV 104.1 H, MCH 31.7, MCHC 30.5 L, RDW Std Deviation 66.7 H, RDW Coeff of Enoch 19.5 H, Plt Count 105 L, MPV 11.8, Neut % (Auto) Not Reportable, Total Counted 100, Neutrophils % (Manual) 80 H, Band Neutrophils % 1, Lymphocytes % (Manual) 5 L, Monocytes % (Manual) 1, Eosinophils % (Manual) 1, Metamyelocytes % 6 H, Myelocytes % 6 H, Nucleated RBCs/100 WBC 1, Differential Comment MANUAL DIFF, Diff Path Review May foll, Platelet Estimate SLT DEC, Polychromasia 1+, Anisocytosis 1+, Macrocytosis 1+ 08/27/21 03:25: Sodium 142, Potassium 3.5, Chloride 105, Carbon Dioxide 31.0, Anion Gap 6, BUN 59 H, Creatinine 1.99 H, Estim Creat Clear Calc 35.98, Est GFR (MDRD) Af Amer 44 L, Est GFR (MDRD) Non-Af 36 L, BUN/Creatinine Ratio 29.6 H, Glucose 191 H, Calcium 7.4 L Micro: Microbiology 08/26/21 08:10 Stool C. difficile DNA Amplification - Final 08/21/21 05:30 Wound Abcess - Other Gram Stain - Final 08/21/21 05:30 Wound Abcess - Other Wound Culture - Final Strep anginosus 08/22/21 14:35 Blood Culture (Wb) - Left Hand Blood Culture - Preliminary No growth in 48 hours. 08/22/21 14:25 Blood Culture (Wb) - Pic Blood Culture - Preliminary No growth in 48 hours. 08/17/21 11:02 Sputum, Induced/Lukens Gram Stain - Final 08/17/21 11:02 Sputum, Induced/Lukens Respiratory Culture - Final 08/18/21 15:20 Gastric Fluid/Contents Gastric Occult Blood - Final Occult Blood Positive 08/01/21 15:50 Blood Culture (Wb) - Right Hand Blood Culture - Final Gram positive jeff 08/05/21 11:30 Sputum, Expectorated/Coughed Gram Stain - Final 08/05/21 11:30 Sputum, Expectorated/Coughed Respiratory Culture - Final Haemophilus influenzae Mixed Nathalie 08/01/21 17:09 Blood Culture (Wb) - Anticubital Left Blood Culture - Final No growth in 5 days. 08/01/21 18:00 Urine, Clean Catch Urine Culture - Final Mixed Gram Positive Organisms 08/02/21 03:00 Urine, Random Legionella Antigen - Final 08/02/21 03:00 Urine, Random Streptococcus pneumoniae Antigen (M - Final 08/01/21 21:25 Nasal Secretion SARS-CoV-2 Antigen (Rapid) - Final Assessment & Plan Assessment/Plan (1) Perirectal abscess: PLAN: Continue present management of perirectal wound
[2021-08-27 09:37] LABS: M R Staph aureus DNA By PCR Negative (Negative); Probe Check PASS; Specimen Processing Control PASS
[2021-08-27] MEDS: Folic Acid 1 MG Tablet GT (09:47)
[2021-08-27] MEDS: Ascorbic Acid 500 MG Tablet 1000 MG GT (09:47)
[2021-08-27] MEDS: CHLORHEXIDINE GLUC 2% CLOTH 1 EACH TOWELETTE TOPICAL (09:48)
[2021-08-27] MEDS: Chlorhexidine 15 ML PO ×2 (09:48→20:48)
[2021-08-27] MEDS: Enoxaparin 40 MG/0.4 ML Syringe SC ×2 (09:51→20:48)
[2021-08-27] MEDS: Polyethylene Glycol 3350 17 GM PACKET GT (09:52)
[2021-08-27] MEDS: Senna/Docusate Sodium 1 Tablet 2 TABLET GT (09:52)
[2021-08-27] MEDS: Hydroxychloroquine 200 MG Tablet GT ×2 (09:52→20:48)
[2021-08-27] MEDS: QUEtiapine 100 MG Tablet GT ×2 (09:52→20:48)
[2021-08-27] MEDS: 0.9% Saline Lock 10 ML Syringe IV (10:00)
--- NOTE | 2021-08-27 11:33 | PN.HOSP_ITS ---
Subjective Subjective Patient remains intubated and sedated. Overnight his blood pressure dropped and vasopressors had to be needed reinitiated. He did receive Lasix yesterday so this may be a manifestation of that. Patient also did have bursts of SVT while on the Levophed and amiodarone was started overnight as well. Objective Data Objective Data Vital Signs: Vital Signs Temp Pulse Resp BP Pulse Ox 98.9 F 110 H 15 113/76 91 08/27/21 10:00 08/27/21 10:00 08/27/21 10:00 08/27/21 10:30 08/27/21 10:00 Oxygen Flow Rate (L/min) 65 Oxygen Delivery Method Mechanical Ventilator Weight: 84.2 kg Body Mass Index (BMI) 28.7 Intake & Output: Intake and Output for Last 24 Hours 08/25/21 08/26/21 08/27/21 23:59 23:59 23:59 Intake Total 4611.04 / 5100.74 4369.07 / 4579.95 2409.32 / 2409.32 Output Total 2100 / 2275 1999 / 2275 400 / 400 Balance 2511.04 / 2825.74 2369.07 / 2304.95 2009.32 / 2009.32 Medical Nutrition Assessment Dietitian: Malnutrition Criteria Met Start: 08/09/21 13:29 Freq: Status: Active Protocol: Document 08/23/21 12:15 AG (Rec: 08/23/21 12:15 [id number]) Nutrition Malnutrition Evidence of Malnutrition Exists Yes Malnutrition (severe): Acute Illness/Injury Evidenced By Suboptimal Energy Intake ( Severe),Weight Loss (Severe) Intake Problem Inadequate Oral Intake Etiology r/t resp. failure and increased oxygen needs Signs/Symptoms as evidenced by estimated PO intake meeting <50% of estimated nutritional needs; inability to consume sufficient nutrition via PO diet d/t intubation Status Active Problem Clinical Problem Acute Disease or Injury Related Malnutrition Etiology Severe protein/calorie malnutrition in the context of acute illness related to inadequate oral intake w/ resp . failure Signs/Symptoms as evidenced by 4.58kg/5.5% wt loss since admit and PO meeting less than 50% estimated nutrition needs > 1 week Status Active Problem Recommendation Dietitian Recommendations/Changes NPO while intubated; Vital AF 1.2 via OGT at goal rate of 70mL/hour w/ 125mL H2O flush every 4 hours to provide 2016 calories, 126 g protein, and 2112mL fluid/day. Would resume at 20mL/hour and increase by 15mL/hour every 8-12 hours as tolerated until goal rate is achieved. Lab / Micro Data Result Diagrams: 08/27/21 03:25 08/27/21 03:25 Labs: Laboratory Results - last 24 hr 08/26/21 04:50: Diff Path Review Reviewed 08/26/21 12:21: POC Glucose 138 H 08/26/21 18:14: POC Glucose 155 H 08/27/21 03:25: WBC 11.6 H, RBC 2.68 L, Hgb 8.5 L, Hct 27.9 L, MCV 104.1 H, MCH 31.7, MCHC 30.5 L, RDW Std Deviation 66.7 H, RDW Coeff of Enoch 19.5 H, Plt Count 105 L, MPV 11.8, Neut % (Auto) Not Reportable, Total Counted 100, Neutrophils % (Manual) 80 H, Band Neutrophils % 1, Lymphocytes % (Manual) 5 L, Monocytes % (Manual) 1, Eosinophils % (Manual) 1, Metamyelocytes % 6 H, Myelocytes % 6 H, Nucleated RBCs/100 WBC 1, Differential Comment MANUAL DIFF, Diff Path Review May foll, Platelet Estimate SLT DEC, Polychromasia 1+, Anisocytosis 1+, Macrocytosis 1+ 08/27/21 03:25: Sodium 142, Potassium 3.5, Chloride 105, Carbon Dioxide 31.0, Anion Gap 6, BUN 59 H, Creatinine 1.99 H, Estim Creat Clear Calc 35.98, Est GFR (MDRD) Af Amer 44 L, Est GFR (MDRD) Non-Af 36 L, BUN/Creatinine Ratio 29.6 H, Glucose 191 H, Calcium 7.4 L 08/27/21 06:30: MRSA (PCR) Negative Micro: Microbiology 08/26/21 08:10 Stool C. difficile DNA Amplification - Final 08/21/21 05:30 Wound Abcess - Other Gram Stain - Final 08/21/21 05:30 Wound Abcess - Other Wound Culture - Final Strep anginosus 08/22/21 14:35 Blood Culture (Wb) - Left Hand Blood Culture - Preliminary No growth in 48 hours. 08/22/21 14:25 Blood Culture (Wb) - Pic Blood Culture - Preliminary No growth in 48 hours. 08/17/21 11:02 Sputum, Induced/Lukens Gram Stain - Final 08/17/21 11:02 Sputum, Induced/Lukens Respiratory Culture - Final 08/18/21 15:20 Gastric Fluid/Contents Gastric Occult Blood - Final Occult Blood Positive 08/01/21 15:50 Blood Culture (Wb) - Right Hand Blood Culture - Final Gram positive jeff 08/05/21 11:30 Sputum, Expectorated/Coughed Gram Stain - Final 08/05/21 11:30 Sputum, Expectorated/Coughed Respiratory Culture - Final Haemophilus influenzae Mixed Nathalie 08/01/21 17:09 Blood Culture (Wb) - Anticubital Left Blood Culture - Final No growth in 5 days. 08/01/21 18:00 Urine, Clean Catch Urine Culture - Final Mixed Gram Positive Organisms 08/02/21 03:00 Urine, Random Legionella Antigen - Final 08/02/21 03:00 Urine, Random Streptococcus pneumoniae Antigen (M - Final 08/01/21 21:25 Nasal Secretion SARS-CoV-2 Antigen (Rapid) - Final Radiography Diagnostic Testing: Radiology Impression Chest X-Ray 08/27/21 06:05 IMPRESSION: Bilateral interstitial densities and possible basilar infiltrates. Electronically Signed: Constantine Croft DO at 11:00 EDT Tel [phone], Service support , Physical Exam Const alert, oriented x3 and no apparent distress Constitutional Narrative: Patient is intubated and sedated General Appearance: cooperative, well kempt and well developed Orientation / Consciousness: awake, oriented to person, oriented to place and oriented to time Exam Limitations: other limitations Nutritional Appearance: overweight HEENT normocephalic, head/scalp atraumatic and moist oral mucous membranes Head and Scalp: normocephalic Eyes PERRL Eyes Narrative: Pale conjunctiva Neck nuchal rigidity and thyroid normal Neck Narrative: Trachea midline General: trachea midline Resp normal respiratory effort, no retractions, no use of accessory muscles and clear to auscultation bilaterally Resp Narrative: Diffusely diminished but clear, patient intubated Auscultation: Negative for crackles, rales, rhonchi or wheezes Cardio regular rhythm, S1 normal heart sound, S2 normal heart sound, no murmurs, no rub, no gallops, no clicks and no JVD Cardio Narrative: Tachycardia GI normal to inspection, nondistended, normoactive bowel sounds, soft to palpation, non-tender and non-distended GI Narrative: FMS is in place with liquid stool leaking from around the FMS Extremity normal to inspection Extremity Narrative: Trace pitting edema bilateral lower extremities/upper extremities and hands and forearms, no cyanosis or clubbing General Extremity: edema Peripheral Pulses: Yes pulses 2+ throughout Skin no rashes or lesions noted, skin turgor normal, no jaundice, no petechiae and no mottling Skin Narrative: Left perirectal abscess, no rashes General Skin Exam: no breakdown Neuro oriented x3, CN's II-XII intact bilaterally, no focal motor deficits and no sensory deficits noted Neuro Narrative: Patient is intubated and sedated, does spontaneously move extremities intermittently Sensorium / Orientation: awake and alert Speech: speech normal Psych thought process normal Psych Narrative: Unable to assess Assessment & Plan Assessment/Plan (1) Respiratory failure: QUALIFIERS: Chronicity: acute Respiratory failure complication: hypoxia Qualified Code(s): J96.01 - Acute respiratory failure with hypoxia (2) Pneumonia due to severe acute respiratory syndrome coronavirus 2 (SARS-CoV-2): (3) KALPANA (acute kidney injury): (4) Perirectal abscess: PLAN: Acute hypoxic respiratory failure secondary to COVID-19 pneumonia/Haemophilus influenzae pneumonia -Patient intubated on 08/18/2021--> day 9 of mechanical ventilation -Patient remains on PEEP of 8 and FiO2 at 70 % today, which is the same as yesterday -Completed courses of baricitinib and Decadron x2 -As needed diuresis as renal function and blood pressure allow -Lovenox needed to be discontinued secondary to acute anemia and concern for GI bleed -Patient continues to tolerate prophylactic dose Lovenox -Continue bronchodilator therapy -Patient has completed course of antibiotics for H. influenzae pneumonia -Patient will need diuresis once he is remaining hemodynamically stable and so dium and chloride have corrected -Pulmonary following appreciate input Septic shock secondary to strep anginosis perirectal abscess versus oral abscess versus both -Status post I&D of perirectal abscess by general surgery -Back on pressors and actually is on Levophed at 14 after being off pressors for 48 hours -Repeat sputum culture is pending -White count is slightly up again at 11.6 after being normal for 3 days -C. difficile is negative -Wound cultures growth with strep anginosis -Blood cultures remain with no growth to date -IV fluids per critical care medicine -Continue broad-spectrum antibiotics and narrow as able per sensitivities -White count has normalized SVT -Amiodarone initiated continue per critical care medicine -Likely that it is induced by the Levophed Acute kidney injury -Serum creatinine up slightly today after Lasix--> 1.9 from 1.7 -Continue to monitor -IV fluids have been discontinued -No current need for nephrology input -Avoid nephrotoxins -Trial of Lasix today per critical care -Baseline serum creatinine is 0.8-1.0 Acute on chronic anemia secondary to GI blood loss -Transfusion 1 unit 08/22/2021 -Continue to follow counts--> stable today -No obvious signs of bleeding at this time and hemoglobin is relatively stable -Continue twice daily PPI Hypernatremia/hyperchloremia -Resolved -Changes in fluids both IV and enteral noted Mild thrombocytopenia -Slight uptrend in platelets from 89,000 205,000 and last 24 hours -Continue to monitor CAD/HTN/HPL -Home medications are on hold at this time RA -Methotrexate have been on hold -Patient remains on hydroxychloroquine Overweight -BMI 27.3 -Complicates overall treatment, prognosis, outcomes -Recommend weight loss DVT prophylaxis -Prophylactic Lovenox 40 mg twice daily -SCDs CODE STATUS -Full code -Overall prognosis appears to be poor at this time Charges/Coding Visit Charges Inpatient E&M: 89387 Subs Hosp L2
[2021-08-27] MEDS: Propofol 10MG/Ml 1,000 MG/100 ML Bottle 5.1 MG CONT INF (11:49)
[2021-08-27 15:27] LABS: Absolute Neutrophil Count 9.4 X10^3/uL (2.0-7.7)
[2021-08-27 15:28] LABS: Absolute Lymphocyte Count 0.58 X10^3/uL (0.83-4.51)
[2021-08-27] MEDS: Potassium Chloride Oral Soln 20 MEQ/15 ML UDC 40 MEQ GT (18:16)
[2021-08-28] VITALS (69 sets, daily range): BP systolic 55–141; BP diastolic 25–94; PULSE 108–128; RESP 19–33; TEMP 37.9–38.5; O2SAT 91–97
[2021-08-28] MEDS: Propofol 10MG/Ml 1,000 MG/100 ML Bottle 2.5 MG CONT INF (01:39)
[2021-08-28 04:18] LABS: Hematocrit 28.1 % (40-54); Hemoglobin 8.5 g/dL (13.0-16.5); Mean Corp Hgb Conc 30.2 g/dL (32-36); Mean Corpuscular Hgb 31.8 pg (27.0-32.0); Mean Corpuscular Volume 105.2 fL (80-94); Mean Platelet Vol. 12.9 fl (6.2-12.0); POSITIVE COUNT YES; POSITIVE MORPHOLOGY YES; Platelet Count 119 K/mm3 (150-450); RBC Distribution Width CV 20.4 % (11.6-14.6); RBC Distribution Width SD 68.5 fl (35.1-43.9); Red Blood Count 2.67 M/mm3 (4.6-6.2)
[2021-08-28] MEDS: Menthol/Lanolin/Calamine/Znox 113 GM Tube 1 APPLIC TOPICAL ×3 (04:19→21:11)
[2021-08-28] MEDS: Acetaminophen 650 MG/20 ML UDC GT ×3 (04:19→20:17)
[2021-08-28 04:22] LABS: Differential Indicated MANUAL DIFF
[2021-08-28] MEDS: TITRATION PARAMETER CHANGE 1 EACH IV (04:46)
[2021-08-28 04:56] LABS: Anion Gap 12 (5-15); BUN 76 mg/dL (7-18); BUN/Creat Ratio 27.7 RATIO (10-20); Calcium,Total 7.6 mg/dL (8.5-10.1); Chloride 104 mmol/L (98-107); Creatinine, Serum 2.74 mg/dL (0.70-1.30); EST Glomerular Filtration Rate 25 mL/min (>60); Est Glom Filt Rate - Afr Amer 30 mL/min (>60); Estimated Creatinine Clearance 26.13 ml/min; Glucose 205 mg/dL (74-106); Potassium 4.7 mmol/L (3.5-5.1); Sodium Level 141 mmol/L (136-145)
[2021-08-28] MEDS: Vital AF 1.2 Cal Liquid 1,000 ML 70 ML GT ×2 (05:14→19:35)
--- NOTE | 2021-08-28 05:32 | PN.CC_ITS ---
Assessment & Plan Assessment/Plan (1) Pneumonia due to severe acute respiratory syndrome coronavirus 2 (SARS-CoV-2): (2) Respiratory failure: QUALIFIERS: Chronicity: acute Respiratory failure complication: hypoxia Qualified Code(s): J96.01 - Acute respiratory failure with hypoxia (3) Hyperlipidemia: PLAN: RECOMMENDATIONS: 1. Continue to wean FiO2 and PEEP to maintain oxygen saturations at or above 90%. 2. Continue antimicrobials. Add vancomycin today. 3. Obtain repeat blood and urine cultures. 4. Recheck D-dimer level. 5. Continue tube feeds as tolerated. 6. Continue PPI therapy twice daily. 7. Continue prophylactic Lovenox. If the patient becomes progressively anemic and thrombocytopenic, will discontinue. 8. Continue Levophed to maintain a mean arterial pressure at or above 65 mmHg. IMPRESSIONS: 1. Acute hypoxic respiratory failure secondary to COVID-19 and Haemophilus influenza pneumonia Although the patient has completed treatment courses for his Covid pneumonia and Haemophilus influenza, he continued to decompensate from a respiratory perspective, ultimately requiring intubation on August 17. The patient has already completed a treatment course of remdesivir and a 7-day course of antimic robials. In addition, the patient completed course of baricitinib and a second round of Decadron. Plan to continue bronchodilator therapy. Prophylactic Lovenox will be continued as ordered. We will recheck D-dimer level today. However, the patient has experienced GI related blood loss and this may complicate the need for increased systemic anticoagulation, if the need arises. 2. Septic shock, with concern for perirectal abscess Continue Levophed to maintain a mean arterial pressure at or above 65 mmHg. The patient is status post bedside I&D by general surgery of his perirectal abscess. The patient remains on antimicrobials accordingly. Continue local wound care. Repeat sputum culture is already pending. Repeat blood and urine cultures will be sent today. Vancomycin will be added to his current antibiotic regimen. 3. Anemia/thrombocytopenia The patient did have a slow downward decline in his blood counts and subsequently was transfused 2 units of packed red blood cells on August 22. H&H has stabilized. We will continue to monitor accordingly. Continue PPI therapy as ordered for now. 4. Acute kidney injury Likely prerenal in etiology with a component of ischemic ATN in the setting of #2. Hemodynamics have stabilized with vasopressor support. Continue to monitor urine output for now. If renal function continues to worsen, will obtain nephrology consultation. 5. Rheumatoid arthritis/unvaccinated state/overweight/hyperlipidemia/possible CAD Complicates care, management, recovery and prognosis. Okay to continue with hydroxychloroquine, but methotrexate may have more risks for secondary complications. CODE status: Discussed CODE status at length including difference between FULL code, DNR-CCA and DNR-CC status. Following discussions about the differences in these status, patient's family requested DNR CCA CODE STATUS. TIME: 35 minutes of critical care time, independent of procedures, was spent addressing the patient's acute hypoxemic respiratory failure secondary to combined COVID-19 and Haemophilus influenza pneumonia, septic shock secondary to perirectal abscess, anemia, acute kidney injury, review of all data and collaboration with care team. ([id number]) Subjective Subjective The patient was seen and examined at the bedside this morning. Events from the last 24 hours have been reviewed. The patient decompensated overnight with increasing fevers and vasopressor support. The patient is now requiring Levophed at 30 mcg/min to maintain hemodynamic stability. He remains on assist control mode of mechanical ventilation with an FiO2 requirement of 60% and PEEP of 8. The patient is more tachycardic and tachypneic than previous. He is currently documented to be overall net +9.4 L for the hospital admission. However, his underlying renal insufficiency has limited the use of diuretics. He continues to tolerate tube feeds. White count has increased to 19,000. Hemoglobin is stable at 8.5 g/dL. Platelet count is stable with 119,000. Creatinine has increased to 2.74. Triglycerides were noted to be 251 this morning. Given the aforementioned, orders were placed for the patient be started on vancomycin. Repeat blood and urine cultures will be obtained. I did personally meet with the patient son and daughter this morning at the bedside to discuss the patient's overall clinical state and goals of care. In light of the patient's clinical decompensation, his family was in agreement to transition him to DNR CCA. Objective Data Objective Data The patient's most recent lab work, culture data and imaging studies have all been personally reviewed. Sputum culture was positive for 3+ Haemophilus influenza on August 05. Wound culture was positive for strep anginosus. Vital Signs: Vital Signs Temp Pulse Resp BP Pulse Ox 100.8 F H 124 H 27 H 82/59 L 93 10/24/21 05:00 08/28/21 05:00 08/28/21 05:00 08/28/21 05:00 08/28/21 05:00 Oxygen Flow Rate (L/min) 65 Oxygen Delivery Method Mechanical Ventilator Weight: 86.7 kg Body Mass Index (BMI) 28.7 Intake & Output: Intake and Output for Last 24 Hours 08/26/21 08/27/21 08/28/21 23:59 23:59 23:59 Intake Total 4369.07 / 4579.95 5014.38 / 5071.49 1316.66 / 1316.66 Output Total 1999 1175 / 1175 125 / 125 Balance 2369.07 / 2304.95 3839.38 / 3896.49 1191.66 / 1191.66 Medical Nutrition Assessment Dietitian: Malnutrition Criteria Met Start: 08/09/21 13:29 Freq: Status: Active Protocol: Document 08/23/21 12:15 AG (Rec: 08/23/21 12:15 [id number]) Nutrition Malnutrition Evidence of Malnutrition Exists Yes Malnutrition (severe): Acute Illness/Injury Evidenced By Suboptimal Energy Intake ( Severe),Weight Loss (Severe) Intake Problem Inadequate Oral Intake Etiology r/t resp. failure and increased oxygen needs Signs/Symptoms as evidenced by estimated PO intake meeting <50% of estimated nutritional needs; inability to consume sufficient nutrition via PO diet d/t intubation Status Active Problem Clinical Problem Acute Disease or Injury Related Malnutrition Etiology Severe protein/calorie malnutrition in the context of acute illness related to inadequate oral intake w/ resp . failure Signs/Symptoms as evidenced by 4.58kg/5.5% wt loss since admit and PO meeting less than 50% estimated nutrition needs > 1 week Status Active Problem Recommendation Dietitian Recommendations/Changes NPO while intubated; Vital AF 1.2 via OGT at goal rate of 70mL/hour w/ 125mL H2O flush every 4 hours to provide 2016 calories, 126 g protein, and 2112mL fluid/day. Would resume at 20mL/hour and increase by 15mL/hour every 8-12 hours as tolerated until goal rate is achieved. Lab / Micro Data Attestation: I reviewed the patient's lab results. Result Diagrams: 08/28/21 04:10 08/28/21 04:10 Labs: Laboratory Results - last 24 hr 08/27/21 03:25: Absolute Neuts (auto) 9.4 H, Absolute Lymphs (auto) 0.58 L 08/27/21 06:30: MRSA (PCR) Negative 08/28/21 04:10: WBC 18.6 H, RBC 2.67 L, Hgb 8.5 L, Hct 28.1 L, MCV 105.2 H, MCH 31.8, MCHC 30.2 L, RDW Std Deviation 68.5 H, RDW Coeff of Enoch 20.4 H, Plt Count 119 L, MPV 12.9 H, Neut % (Auto) Not Reportable 08/28/21 04:10: Sodium 141, Potassium 4.7, Chloride 104, Carbon Dioxide 25.0, Anion Gap 12, BUN 76 H, Creatinine 2.74 H, Estim Creat Clear Calc 26.13, Est GFR (MDRD) Af Amer 30 L, Est GFR (MDRD) Non-Af 25 L, BUN/Creatinine Ratio 27.7 H, Glucose 205 H, Calcium 7.6 L, Magnesium 3.0 H Micro: Microbiology 08/21/21 05:30 Wound Abcess - Other Gram Stain - Final 08/21/21 05:30 Wound Abcess - Other Wound Culture - Final Strep anginosus 08/21/21 05:30 Wound Abcess - Other Anaerobic Culture - Final Anaerobic cocci Bacteroides thetaiotaomicron Clostridium ramosum 08/27/21 06:55 Sputum, Induced/Lukens Gram Stain - Final 08/26/21 08:10 Stool C. difficile DNA Amplification - Final 08/22/21 14:35 Blood Culture (Wb) - Left Hand Blood Culture - Preliminary No growth in 48 hours. 08/22/21 14:25 Blood Culture (Wb) - Pic Blood Culture - Preliminary No growth in 48 hours. 08/17/21 11:02 Sputum, Induced/Lukens Gram Stain - Final 08/17/21 11:02 Sputum, Induced/Lukens Respiratory Culture - Final 08/18/21 15:20 Gastric Fluid/Contents Gastric Occult Blood - Final Occult Blood Positive 08/01/21 15:50 Blood Culture (Wb) - Right Hand Blood Culture - Final Gram positive jeff 08/05/21 11:30 Sputum, Expectorated/Coughed Gram Stain - Final 08/05/21 11:30 Sputum, Expectorated/Coughed Respiratory Culture - Final Haemophilus influenzae Mixed Nathalie 08/01/21 17:09 Blood Culture (Wb) - Anticubital Left Blood Culture - Final No growth in 5 days. 08/01/21 18:00 Urine, Clean Catch Urine Culture - Final Mixed Gram Positive Organisms 08/02/21 03:00 Urine, Random Legionella Antigen - Final 08/02/21 03:00 Urine, Random Streptococcus pneumoniae Antigen (M - Final 08/01/21 21:25 Nasal Secretion SARS-CoV-2 Antigen (Rapid) - Final Radiography Diagnostic Testing: Radiology Impression Chest X-Ray 08/27/21 06:05 IMPRESSION: Bilateral interstitial densities and possible basilar infiltrates. Electronically Signed: Constantine Croft DO at 11:00 EDT Tel [phone], Service support , Physical Exam Const no apparent distress General Appearance: intubated and patient mechanically ventilated HEENT normocephalic and head/scalp atraumatic Mouth: endotracheal tube in place and OG tube in place Eyes PERRL and conjunctivae normal Neck supple General: trachea midline Chest inspection of chest normal Resp Auscultation: rhonchi and diminished lung sounds; Negative for rales or wheezes Cardio S1 normal heart sound and S2 normal heart sound Rate: tachycardic GI normal to inspection, nondistended, normoactive bowel sounds Extremity General Extremity: edema bilateral lower extremity; Negative for clubbing Skin Wound Narrative: Perirectal abscess Neuro Sensorium / Orientation: sedated on vent Charges/Coding Procedures Hospitalists Procedures: [id number] Critial Care 1st Hr
[2021-08-28 06:25] LABS: Neutrophil-Band 6 % (0-5); Neutrophil-Segmented 85 % (47-70); Total Cells Counted 100 (MANUAL DIFF)
[2021-08-28 06:26] LABS: Lymphocyte 4 % (19-41); Monocyte 1 % (0-10); Myelocyte 4 % (0-0); Nucleated Red Bld Cells,Manual 4 % (0-5)
[2021-08-28 06:27] LABS: White Blood Count 19.5 K/mm3 (4.4-11.0)
[2021-08-28 06:28] LABS: Platelet Estimate SLT DEC (ADEQ); Toxic Granulation 1+
[2021-08-28 06:29] LABS: Absolute Neutrophil Count 17.4 X10^3/uL (2.0-7.7); Anisocytosis 1+; Macrocytosis 1+; Polychromasia RARE
[2021-08-28 06:30] LABS: Absolute Lymphocyte Count 0.78 X10^3/uL (0.83-4.51); Lymphocyte # 0.78 X10^3/ul (0.83-4.51)
[2021-08-28 06:35] LABS: Triglycerides 251 mg/dL
[2021-08-28] MEDS: Ipratropium 0.5 MG/2.5 ML SOLUTION INHALATION ×3 (06:44→18:55)
[2021-08-28] MEDS: 0.9% Saline Lock 10 ML Syringe IV ×3 (07:45→13:44)
[2021-08-28] MEDS: CHLORHEXIDINE GLUC 2% CLOTH 1 EACH TOWELETTE TOPICAL (08:05)
[2021-08-28] MEDS: Polyethylene Glycol 3350 17 GM PACKET GT (08:05)
[2021-08-28] MEDS: Ascorbic Acid 500 MG Tablet 1000 MG GT (08:05)
[2021-08-28] MEDS: Folic Acid 1 MG Tablet GT (08:05)
[2021-08-28] MEDS: Chlorhexidine 15 ML PO ×2 (08:05→19:35)
[2021-08-28] MEDS: Hydroxychloroquine 200 MG Tablet GT ×2 (08:05→19:37)
[2021-08-28] MEDS: Senna/Docusate Sodium 1 Tablet 2 TABLET GT ×2 (08:05→19:37)
--- NOTE | 2021-08-28 08:13 | PCM.RX.CS ---
Consult Pharmacy has been consulted to manage selected antiobiotic: Vancomycin Type of Consult: New start Suspected Infection: Pneumonia Prior Doses of Antibiotics Received/Current Regimen: the patient was previously on vanc 1250mg IV q24h for a few days with the last dose being approx 2 1/2 days ago until it was discontinued. Now it is being restarted Labs: Sodium 141 mmol/L (136-145) 08/28/21 04:10 Potassium 4.7 mmol/L (3.5-5.1) 08/28/21 04:10 Chloride 104 mmol/L (98-107) 08/28/21 04:10 Carbon Dioxide 25.0 mmol/L (21.0-32.0) 08/28/21 04:10 Anion Gap 12 (5-15) 08/28/21 04:10 BUN 76 mg/dL (7-18) H 08/28/21 04:10 Creatinine 2.74 mg/dL (0.70-1.30) H 08/28/21 04:10 Est GFR (MDRD) Af Amer 30 mL/min (>60) L 08/28/21 04:10 Est GFR (MDRD) Non-Af 25 mL/min (>60) L 08/28/21 04:10 BUN/Creatinine Ratio 27.7 RATIO (10-20) H 08/28/21 04:10 Glucose 205 mg/dL (74-106) H 08/28/21 04:10 Vancomycin Trough 18.3 ug/mL (5.0-15.0) H 08/25/21 19:55 Random Vancomycin 14.1 ug/mL (0.0-15.0) 08/22/21 15:20 Microbiology: Microbiology 08/22/21 14:35 Blood Culture (Wb) - Left Hand Blood Culture - Final No growth in 5 days. 08/22/21 14:25 Blood Culture (Wb) - Pic Blood Culture - Final No growth in 5 days. 08/21/21 05:30 Wound Abcess - Other Gram Stain - Final 08/21/21 05:30 Wound Abcess - Other Wound Culture - Final Strep anginosus 08/21/21 05:30 Wound Abcess - Other Anaerobic Culture - Final Anaerobic cocci Bacteroides thetaiotaomicron Clostridium ramosum 08/27/21 06:55 Sputum, Induced/Lukens Gram Stain - Final 08/26/21 08:10 Stool C. difficile DNA Amplification - Final 08/17/21 11:02 Sputum, Induced/Lukens Gram Stain - Final 08/17/21 11:02 Sputum, Induced/Lukens Respiratory Culture - Final 08/18/21 15:20 Gastric Fluid/Contents Gastric Occult Blood - Final Occult Blood Positive 08/01/21 15:50 Blood Culture (Wb) - Right Hand Blood Culture - Final Gram positive jeff 08/05/21 11:30 Sputum, Expectorated/Coughed Gram Stain - Final 08/05/21 11:30 Sputum, Expectorated/Coughed Respiratory Culture - Final Haemophilus influenzae Mixed Nathalie 08/01/21 17:09 Blood Culture (Wb) - Anticubital Left Blood Culture - Final No growth in 5 days. 08/01/21 18:00 Urine, Clean Catch Urine Culture - Final Mixed Gram Positive Organisms 08/02/21 03:00 Urine, Random Legionella Antigen - Final 08/02/21 03:00 Urine, Random Streptococcus pneumoniae Antigen (M - Final 08/01/21 21:25 Nasal Secretion SARS-CoV-2 Antigen (Rapid) - Final Weight used for dosin.7 kg Estimated Creatinine Clearance: 26ml/min Goal Trough: 15-20 mcg/mL Pharmacy Plan for Drug Dosing: Since the vanc has been stopped for approx 2 1/2 days, will reload as ordered. Give 2000mg IV x1 today. Will not put the patient on a scheduled dose as of yet though. The patient's SCr has risen to 2.74 today. Will enter a random vanc level to be drawn tomorrow with AM labs. Further dosing will be determined from there. Pharmacy Service will continue to monitor and adjust dosing as required. Follow-Up Labs: Trough Vancomycin - random Labs to be done on [date and time ordered]: 08/29/21 0600
[2021-08-28] MEDS: Enoxaparin 80 MG/0.8 ML Syringe SC (08:16)
--- NOTE | 2021-08-28 10:41 | PCM.PN.HOSP ---
Subjective Subjective The patient acutely decompensated overnight with increasing fevers and increasing vasopressor support. He is now on Levophed and vasopressin. He remains on assist control ventilation without the ability to significantly wean and an FiO2 of 60 and a PEEP of 8. Has been more tachycardic with intermittent SVT. His renal function has worsened a conversation was had with the family by critical care medicine this morning and CODE STATUS was changed to DNR CCA. Objective Data Objective Data Vital Signs: Vital Signs Temp Pulse Resp BP Pulse Ox 100.4 F H 115 H 23 H 84/63 L 94 08/28/21 10:00 08/28/21 10:35 08/28/21 10:35 08/28/21 10:30 08/28/21 10:35 Oxygen Flow Rate (L/min) 65 Oxygen Delivery Method Mechanical Ventilator Weight: 86.7 kg Body Mass Index (BMI) 28.7 Intake & Output: Intake and Output for Last 24 Hours 08/26/21 08/27/21 08/28/21 23:59 23:59 23:59 Intake Total 4369.07 / 4579.95 5014.38 / 5071.49 2505.03 / 2505.03 Output Total 1999 1175 / 1175 125 / 125 Balance 2369.07 / 2304.95 3839.38 / 3896.49 2380.03 / 2380.03 Medical Nutrition Assessment Dietitian: Malnutrition Criteria Met Start: 08/09/21 13:29 Freq: Status: Active Protocol: Document 08/23/21 12:15 AG (Rec: 08/23/21 12:15 AG [id number]) Nutrition Malnutrition Evidence of Malnutrition Exists Yes Malnutrition (severe): Acute Illness/Injury Evidenced By Suboptimal Energy Intake ( Severe),Weight Loss (Severe) Intake Problem Inadequate Oral Intake Etiology r/t resp. failure and increased oxygen needs Signs/Symptoms as evidenced by estimated PO intake meeting <50% of estimated nutritional needs; inability to consume sufficient nutrition via PO diet d/t intubation Status Active Problem Clinical Problem Acute Disease or Injury Related Malnutrition Etiology Severe protein/calorie malnutrition in the context of acute illness related to inadequate oral intake w/ resp . failure Signs/Symptoms as evidenced by 4.58kg/5.5% wt loss since admit and PO meeting less than 50% estimated nutrition needs > 1 week Status Active Problem Recommendation Dietitian Recommendations/Changes NPO while intubated; Vital AF 1.2 via OGT at goal rate of 70mL/hour w/ 125mL H2O flush every 4 hours to provide 2016 calories, 126 g protein, and 2112mL fluid/day. Would resume at 20mL/hour and increase by 15mL/hour every 8-12 hours as tolerated until goal rate is achieved. Lab / Micro Data Result Diagrams: 08/28/21 04:10 08/28/21 04:10 Labs: Laboratory Results - last 24 hr 08/27/21 03:25: Absolute Neuts (auto) 9.4 H, Absolute Lymphs (auto) 0.58 L 08/28/21 04:10: WBC 19.5 H, RBC 2.67 L, Hgb 8.5 L, Hct 28.1 L, MCV 105.2 H, MCH 31.8, MCHC 30.2 L, RDW Std Deviation 68.5 H, RDW Coeff of Enoch 20.4 H, Plt Count 119 L, MPV 12.9 H, Neut % (Auto) Not Reportable, Absolute Neuts (auto) 17.4 H, Absolute Lymphs (auto) 0.78 L, Total Counted 100, Neutrophils % (Manual) 85 H, Band Neutrophils % 6 H, Lymphocytes % (Manual) 4 L, Monocytes % (Manual) 1, Myelocytes % 4 H, Nucleated RBCs/100 WBC 4, Diff Path Review May foll, Toxic Granulation 1+, Platelet Estimate SLT DEC, Polychromasia RARE, Anisocytosis 1+, Macrocytosis 1+ 08/28/21 04:10: Sodium 141, Potassium 4.7, Chloride 104, Carbon Dioxide 25.0, Anion Gap 12, BUN 76 H, Creatinine 2.74 H, Estim Creat Clear Calc 26.13, Est GFR (MDRD) Af Amer 30 L, Est GFR (MDRD) Non-Af 25 L, BUN/Creatinine Ratio 27.7 H, Glucose 205 H, Calcium 7.6 L, Magnesium 3.0 H 08/28/21 04:10: Triglycerides 251 H 08/28/21 06:50: D-Dimer Quant (PE/DVT) 7.90 H* Micro: Microbiology 08/22/21 14:35 Blood Culture (Wb) - Left Hand Blood Culture - Final No growth in 5 days. 08/22/21 14:25 Blood Culture (Wb) - Pic Blood Culture - Final No growth in 5 days. 08/21/21 05:30 Wound Abcess - Other Gram Stain - Final 08/21/21 05:30 Wound Abcess - Other Wound Culture - Final Strep anginosus 08/21/21 05:30 Wound Abcess - Other Anaerobic Culture - Final Anaerobic cocci Bacteroides thetaiotaomicron Clostridium ramosum 08/27/21 06:55 Sputum, Induced/Lukens Gram Stain - Final 08/26/21 08:10 Stool C. difficile DNA Amplification - Final 08/17/21 11:02 Sputum, Induced/Lukens Gram Stain - Final 08/17/21 11:02 Sputum, Induced/Lukens Respiratory Culture - Final 08/18/21 15:20 Gastric Fluid/Contents Gastric Occult Blood - Final Occult Blood Positive 08/01/21 15:50 Blood Culture (Wb) - Right Hand Blood Culture - Final Gram positive jeff 08/05/21 11:30 Sputum, Expectorated/Coughed Gram Stain - Final 08/05/21 11:30 Sputum, Expectorated/Coughed Respiratory Culture - Final Haemophilus influenzae Mixed Nathalie 08/01/21 17:09 Blood Culture (Wb) - Anticubital Left Blood Culture - Final No growth in 5 days. 08/01/21 18:00 Urine, Clean Catch Urine Culture - Final Mixed Gram Positive Organisms 08/02/21 03:00 Urine, Random Legionella Antigen - Final 08/02/21 03:00 Urine, Random Streptococcus pneumoniae Antigen (M - Final 08/01/21 21:25 Nasal Secretion SARS-CoV-2 Antigen (Rapid) - Final Radiography Diagnostic Testing: Radiology Impression Chest X-Ray 08/27/21 06:05 IMPRESSION: Bilateral interstitial densities and possible basilar infiltrates. Electronically Signed: Constantine Croft DO at 11:00 EDT Tel [phone], Service support , Physical Exam Const alert, oriented x3 and no apparent distress Constitutional Narrative: Patient is intubated and sedated General Appearance: cooperative, well kempt and well developed Orientation / Consciousness: awake, oriented to person, oriented to place and oriented to time Exam Limitations: other limitations Nutritional Appearance: overweight HEENT normocephalic, head/scalp atraumatic and moist oral mucous membranes Head and Scalp: normocephalic Eyes PERRL Eyes Narrative: Pale conjunctiva Neck nuchal rigidity and thyroid normal Neck Narrative: Trachea midline General: trachea midline Resp normal respiratory effort, no retractions, no use of accessory muscles and clear to auscultation bilaterally Resp Narrative: Diffusely diminished but clear, patient intubated, scattered rhonchi noted today Auscultation: Negative for crackles, rales or wheezes Cardio regular rhythm, S1 normal heart sound, S2 normal heart sound, no murmurs, no rub, no gallops, no clicks and no JVD Cardio Narrative: Tachycardia GI normal to inspection, nondistended, normoactive bowel sounds, soft to palpation, non-tender and non-distended GI Narrative: FMS in place Extremity normal to inspection Extremity Narrative: 1+ pitting edema bilateral lower extremities/upper extremities and hands and forearms, no cyanosis or clubbing General Extremity: edema Peripheral Pulses: Yes pulses 2+ throughout Skin no rashes or lesions noted, skin turgor normal, no jaundice, no petechiae and no mottling Skin Narrative: Left perirectal abscess, no rashes General Skin Exam: no breakdown Neuro Neuro Narrative: Patient is intubated and sedated, does spontaneously move extremities intermittently Psych thought process normal Psych Narrative: Unable to assess Assessment & Plan Assessment/Plan (1) Respiratory failure: QUALIFIERS: Chronicity: acute Respiratory failure complication: hypoxia Qualified Code(s): J96.01 - Acute respiratory failure with hypoxia (2) Pneumonia due to severe acute respiratory syndrome coronavirus 2 (SARS-CoV-2): (3) KALPANA (acute kidney injury): (4) Perirectal abscess: (5) Septic shock: PLAN: Acute hypoxic respiratory failure secondary to COVID-19 pneumonia/Haemophilus influenzae pneumonia -Patient intubated on 08/18/2021--> day 9 of mechanical ventilation -Patient remains on PEEP of 8 and FiO2 at 70 % today, which is the same as yesterday -Completed courses of baricitinib and Decadron x2 -As needed diuresis as renal function and blood pressure allow -Lovenox needed to be discontinued secondary to acute anemia and concern for GI bleed -Patient continues to tolerate prophylactic dose Lovenox -Continue bronchodilator therapy -Patient has completed course of antibiotics for H. influenzae pneumonia -Patient will need diuresis once he is remaining hemodynamically stable and sodium and chloride have corrected -Pulmonary following appreciate input Septic shock -Status post I&D of perirectal abscess by general surgery -Back on pressors and Levophed at 30 and vasopressin added -Repeat sputum culture is pending -Blood cultures x2 pending -Urine culture pending -Continue empiric antibiotics -White count is slightly up again at 11.6 after being normal for 3 days -C. difficile is negative -White count is up again today Perirectal abscess -Continue antibiotics -Polymicrobial as expected -Infectious work-up being repeated as patient is now in septic shock again SVT -continue amiodarone as ordered -Likely that it is induced by the Levophed Acute kidney injury secondary to ischemic ATN -Serum creatinine had been improving and is now significantly worse than it was at 2.74 -Continue to monitor -No current needs for ARTS ADMINISTRATOR OR MANAGER -Avoid nephrotoxins as able -Baseline serum creatinine is 0.8-1.0 Acute on chronic anemia secondary to GI blood loss -Transfusion 1 unit 08/22/2021 -Continue to follow counts--> stable today -No obvious signs of bleeding at this time and hemoglobin is relatively stable -Continue twice daily PPI Hypernatremia/hyperchloremia -Resolved -Changes in fluids both IV and enteral noted Mild thrombocytopenia -Trending up -Continue to monitor CAD/HTN/HPL -Home medications are on hold at this time RA -Methotrexate have been on hold -Patient remains on hydroxychloroquine Overweight -BMI 27.3 -Complicates overall treatment, prognosis, outcomes -Recommend weight loss DVT prophylaxis -Prophylactic Lovenox 40 mg twice daily -SCDs CODE STATUS -DNR CCA okay for intubation -Overall prognosis appears to be poor at this time Charges/Coding Visit Charges Inpatient E&M: 10455 Subs Hosp L2
--- NOTE | 2021-08-28 23:57 | PCM.HOSP.N ---
Hospitalist Note Patient with recurrent worsened MAP < 65, added additional pressor epi per discussion with RN. Additionally, FiO2 increase necessary. Family being updated per staff.
[2021-08-29] VITALS (37 sets, daily range): BP systolic 76–109; BP diastolic 59–78; PULSE 106–120; RESP 13–23; TEMP 37.8–38.3; O2SAT 89–95
--- NOTE | 2021-08-29 00:25 | NURSING ---
Spoke with Daughter Flo, informed her of the increase in FIO2 from 65% to 85% and the addition of Epinephrine.
[2021-08-29] MEDS: Acetaminophen 650 MG/20 ML UDC GT (04:08)
[2021-08-29 04:28] LABS: Hematocrit 28.5 % (40-54); Hemoglobin 8.5 g/dL (13.0-16.5); Mean Corp Hgb Conc 29.8 g/dL (32-36); Mean Corpuscular Hgb 32.3 pg (27.0-32.0); Mean Corpuscular Volume 108.4 fL (80-94); Mean Platelet Vol. 13.7 fl (6.2-12.0); POSITIVE COUNT YES; POSITIVE DIFFERENTIAL YES; POSITIVE MORPHOLOGY YES; Platelet Count 137 K/mm3 (150-450); RBC Distribution Width CV 22.5 % (11.6-14.6); RBC Distribution Width SD 77.1 fl (35.1-43.9); Red Blood Count 2.63 M/mm3 (4.6-6.2); White Blood Count 33.6 K/mm3 (4.4-11.0)
[2021-08-29 04:32] LABS: Differential Indicated MANUAL DIFF
[2021-08-29] MEDS: TITRATION PARAMETER CHANGE 1 EACH IV (04:39)
[2021-08-29 05:00] LABS: Anion Gap 17 (5-15); BUN 95 mg/dL (7-18); BUN/Creat Ratio 24.2 RATIO (10-20); Calcium,Total 7.3 mg/dL (8.5-10.1); Chloride 105 mmol/L (98-107); Creatinine, Serum 3.92 mg/dL (0.70-1.30); EST Glomerular Filtration Rate 17 mL/min (>60); Est Glom Filt Rate - Afr Amer 20 mL/min (>60); Estimated Creatinine Clearance 18.27 ml/min; Glucose 185 mg/dL (74-106); Potassium 5.6 mmol/L (3.5-5.1); Sodium Level 141 mmol/L (136-145)
[2021-08-29 05:02] LABS: Vancomycin, Random Level 36.1 ug/mL (0.0-15.0)
[2021-08-29 05:16] LABS: Absolute Neutrophil Count 28.6 X10^3/uL (2.0-7.7)
[2021-08-29 05:17] LABS: Absolute Lymphocyte Count 2.35 X10^3/uL (0.83-4.51); Neutrophil-Band 16 % (0-5); Neutrophil-Segmented 69 % (47-70)
[2021-08-29] MEDS: Menthol/Lanolin/Calamine/Znox 113 GM Tube 1 APPLIC TOPICAL (05:17)
[2021-08-29 05:18] LABS: Anisocytosis 1+; Lymphocyte 7 % (19-41); Metamyelocyte 1 % (0-1); Monocyte 1 % (0-10); Myelocyte 5 % (0-0); Platelet Estimate SLT DEC (ADEQ); Promyelocyte 1 % (0-0); Red Cell Morphology NORM C+C NORMAL (NORM C&C)
[2021-08-29 05:19] LABS: Nucleated Red Bld Cells,Manual 2 % (0-5)
[2021-08-29] MEDS: Ipratropium 0.5 MG/2.5 ML SOLUTION INHALATION ×2 (06:54→13:10)
--- NOTE | 2021-08-29 07:15 | PN.CC_ITS ---
Assessment & Plan Assessment/Plan (1) Pneumonia due to severe acute respiratory syndrome coronavirus 2 (SARS-CoV-2): (2) Respiratory failure: QUALIFIERS: Chronicity: acute Respiratory failure complication: hypoxia Qualified Code(s): J96.01 - Acute respiratory failure with hypoxia (3) Hyperlipidemia: PLAN: RECOMMENDATIONS: 1. Continue to wean FiO2 and PEEP to maintain oxygen saturations at or above 90%. 2. Continue antimicrobials. Add vancomycin today. 3. Obtain repeat blood and urine cultures. 4. Consult nephrology 5. Continue tube feeds as tolerated. 6. Continue PPI therapy twice daily. 7. Continue prophylactic Lovenox. If the patient becomes progressively anemic and thrombocytopenic, will discontinue. 8. Continue Levophed, vasopressin and epinephrine to maintain a mean arterial pressure at or above 65 mmHg. Wean epinephrine first IMPRESSIONS: 1. Acute hypoxic respiratory failure secondary to COVID-19 and Haemophilus influenza pneumonia Although the patient has completed treatment courses for his Covid pneumonia and Haemophilus influenza, he continued to decompensate from a respir atory perspective, ultimately requiring intubation on August 17. The patient has already completed a treatment course of remdesivir and a 7-day course of antimicrobials. In addition, the patient completed course of baricitinib and a second round of Decadron. Plan to continue bronchodilator therapy. Prophylactic Lovenox will be continued as ordered. Respiratory status has somewhat stabilized, but it is unclear if this will persist given problem #2 2. Septic shock, with concern for perirectal abscess Continue Levophed and vasopressin to maintain a mean arterial pressure at or above 65 mmHg. Wean epinephrine as tolerated. The patient is status post bedside I&D by general surgery of his perirectal abscess. The patient remains on antimicrobials accordingly. Continue local wound care. Repeat sputum culture is already pending. Repeat blood and urine cultures sent yesterday. Vancomycin will be added to his current antibiotic regimen. Some concern the patient is approaching refractory shock given mottling, multiple pressors. Will order stress dose steroids as patient has received significant Decadron. 3. Anemia/thrombocytopenia The patient did have a slow downward decline in his blood counts and subsequently was transfused 2 units of packed red blood cells on August 22. H&H has stabilized. We will continue to monitor accordingly. Continue PPI therapy as ordered for now. 4. Acute kidney injury Likely prerenal in etiology with a component of ischemic ATN in the setting of #2. Significant worsening in renal function over the last 24 hours. Will consult nephrology. Anticipate patient will be a poor candidate for hemodialysis. 5. Rheumatoid arthritis/unvaccinated state/overweight/hyperlipidemia/possible CAD Complicates care, management, recovery and prognosis. Okay to continue with hydroxychloroquine, but methotrexate may have more risks for secondary complications. TIME: 37 minutes of critical care time, independent of procedures, was spent addressing the patient's acute hypoxemic respiratory failure secondary to combined COVID-19 and Haemophilus influenza pneumonia, septic shock secondary to perirectal abscess, anemia, acute kidney injury, review of all data and collaboration with care team. (6 AM to 7 AM) Subjective Subjective Patient with significant difficulties overnight. Patient was hypotensive requir ing initiation of epinephrine. Patient also noted to have mottling of his feet and knees. Family was notified overnight and wished to continue with aggressive levels of care. Objective Data Objective Data Vital Signs: Vital Signs Temp Pulse Resp BP Pulse Ox 38.1 C H 116 H 23 H 101/74 94 08/29/21 06:00 08/29/21 06:00 08/29/21 06:00 08/29/21 06:00 08/29/21 06:00 Oxygen Flow Rate (L/min) 65 Oxygen Delivery Method Mechanical Ventilator Weight: 93 kg Body Mass Index (BMI) 28.7 Intake & Output: Intake and Output for Last 24 Hours 08/27/21 08/28/21 08/29/21 23:59 23:59 23:59 Intake Total 5014.38 / 5071.49 5957.39 / 6099.94 2519.55 / 2519.55 Output Total 1175 / 1175 755 / 755 30 / 30 Balance 3839.38 / 3896.49 5202.39 / 5344.94 2489.55 / 2489.55 Medical Nutrition Assessment Dietitian: Malnutrition Criteria Met Start: 08/09/21 13:29 Freq: Status: Active Protocol: Document 08/23/21 12:15 AG (Rec: 08/23/21 12:15 [id number]) Nutrition Malnutrition Evidence of Malnutrition Exists Yes Malnutrition (severe): Acute Illness/Injury Evidenced By Suboptimal Energy Intake ( Severe),Weight Loss (Severe) Intake Problem Inadequate Oral Intake Etiology r/t resp. failure and increased oxygen needs Signs/Symptoms as evidenced by estimated PO intake meeting <50% of estimated nutritional needs; inability to consume sufficient nutrition via PO diet d/t intubation Status Active Problem Clinical Problem Acute Disease or Injury Related Malnutrition Etiology Severe protein/calorie malnutrition in the context of acute illness related to inadequate oral intake w/ resp . failure Signs/Symptoms as evidenced by 4.58kg/5.5% wt loss since admit and PO meeting less than 50% estimated nutrition needs > 1 week Status Active Problem Recommendation Dietitian Recommendations/Changes NPO while intubated; Vital AF 1.2 via OGT at goal rate of 70mL/hour w/ 125mL H2O flush every 4 hours to provide 2016 calories, 126 g protein, and 2112mL fluid/day. Would resume at 20mL/hour and increase by 15mL/hour every 8-12 hours as tolerated until goal rate is achieved. Lab / Micro Data Result Diagrams: 08/29/21 03:55 08/29/21 03:55 Labs: Laboratory Results - last 24 hr 08/28/21 06:50: D-Dimer Quant (PE/DVT) 7.90 H* 08/29/21 03:55: Sodium 141, Potassium 5.6 H, Chloride 105, Carbon Dioxide 19.0 L , Anion Gap 17 H, BUN 95 H, Creatinine 3.92 H, Estim Creat Clear Calc 18.27, Est GFR (MDRD) Af Amer 20 L, Est GFR (MDRD) Non-Af 17 L, BUN/Creatinine Ratio 24.2 H , Glucose 185 H, Calcium 7.3 L 08/29/21 03:55: Random Vancomycin 36.1 H 08/29/21 03:55: WBC 33.6 H*, RBC 2.63 L, Hgb 8.5 L, Hct 28.5 L, MCV 108.4 H, MCH 32.3 H, MCHC 29.8 L, RDW Std Deviation 77.1 H, RDW Coeff of Enoch 22.5 H, Plt Count 137 L, MPV 13.7 H, Neut % (Auto) Not Reportable, Absolute Neuts (auto) 28.6 H, Absolute Lymphs (auto) 2.35, Neutrophils % (Manual) 69, Band Neutrophils % 16 H, Lymphocytes % (Manual) 7 L, Monocytes % (Manual) 1, Metamyelocytes % 1, Myelocytes % 5 H, Promyelocytes % 1 H, Nucleated RBCs/100 WBC 2, Diff Path Review May foll, Platelet Estimate SLT DEC, RBC Morphology NORM C+C, Anisocytosis 1+ Micro: Microbiology 08/27/21 06:55 Sputum, Induced/Lukens Gram Stain - Final 08/27/21 06:55 Sputum, Induced/Lukens Respiratory Culture - Preliminary Coag Negative Staph 08/22/21 14:35 Blood Culture (Wb) - Left Hand Blood Culture - Final No growth in 5 days. 08/22/21 14:25 Blood Culture (Wb) - Pic Blood Culture - Final No growth in 5 days. 08/21/21 05:30 Wound Abcess - Other Gram Stain - Final 08/21/21 05:30 Wound Abcess - Other Wound Culture - Final Strep anginosus 08/21/21 05:30 Wound Abcess - Other Anaerobic Culture - Final Anaerobic cocci Bacteroides thetaiotaomicron Clostridium ramosum 08/26/21 08:10 Stool C. difficile DNA Amplification - Final 08/17/21 11:02 Sputum, Induced/Lukens Gram Stain - Final 08/17/21 11:02 Sputum, Induced/Lukens Respiratory Culture - Final 08/18/21 15:20 Gastric Fluid/Contents Gastric Occult Blood - Final Occult Blood Positive 08/01/21 15:50 Blood Culture (Wb) - Right Hand Blood Culture - Final Gram positive jeff 08/05/21 11:30 Sputum, Expectorated/Coughed Gram Stain - Final 08/05/21 11:30 Sputum, Expectorated/Coughed Respiratory Culture - Final Haemophilus influenzae Mixed Nathalie 08/01/21 17:09 Blood Culture (Wb) - Anticubital Left Blood Culture - Final No growth in 5 days. 08/01/21 18:00 Urine, Clean Catch Urine Culture - Final Mixed Gram Positive Organisms 08/02/21 03:00 Urine, Random Legionella Antigen - Final 08/02/21 03:00 Urine, Random Streptococcus pneumoniae Antigen (M - Final 08/01/21 21:25 Nasal Secretion SARS-CoV-2 Antigen (Rapid) - Final Physical Exam Const no apparent distress General Appearance: intubated and patient mechanically ventilated HEENT normocephalic and head/scalp atraumatic Mouth: endotracheal tube in place and OG tube in place Eyes PERRL and conjunctivae normal Neck supple General: trachea midline Chest inspection of chest normal Resp Auscultation: rhonchi and diminished lung sounds; Negative for rales or wheezes Cardio S1 normal heart sound and S2 normal heart sound Rate: tachycardic GI normal to inspection, nondistended, normoactive bowel sounds Extremity General Extremity: edema bilateral lower extremity; Negative for clubbing Skin General Skin Exam: mottling Wound Narrative: Perirectal abscess Neuro Sensorium / Orientation: sedated on vent Charges/Coding Procedures Hospitalists Procedures: 13929 Critial Care 1st Hr
--- NOTE | 2021-08-29 07:49 | PCM.RX.CS ---
Consult Pharmacy has been consulted to manage selected antiobiotic: Vancomycin Type of Consult: Follow-up Suspected Infection: Pneumonia Prior Doses of Antibiotics Received/Current Regimen: Received 2gm iv x 1 on 08.28.21 @0802. Labs: Sodium 141 mmol/L (136-145) 08/29/21 03:55 Potassium 5.6 mmol/L (3.5-5.1) H 08/29/21 03:55 Chloride 105 mmol/L (98-107) 08/29/21 03:55 Carbon Dioxide 19.0 mmol/L (21.0-32.0) L 08/29/21 03:55 Anion Gap 17 (5-15) H 08/29/21 03:55 BUN 95 mg/dL (7-18) H 08/29/21 03:55 Creatinine 3.92 mg/dL (0.70-1.30) H 08/29/21 03:55 Est GFR (MDRD) Af Amer 20 mL/min (>60) L 08/29/21 03:55 Est GFR (MDRD) Non-Af 17 mL/min (>60) L 08/29/21 03:55 BUN/Creatinine Ratio 24.2 RATIO (10-20) H 08/29/21 03:55 Glucose 185 mg/dL (74-106) H 08/29/21 03:55 Vancomycin Trough 18.3 ug/mL (5.0-15.0) H 08/25/21 19:55 Random Vancomycin 36.1 ug/mL (0.0-15.0) H 08/29/21 03:55 Microbiology: Microbiology 08/27/21 06:55 Sputum, Induced/Lukens Gram Stain - Final 08/27/21 06:55 Sputum, Induced/Lukens Respiratory Culture - Preliminary Coag Negative Staph 08/22/21 14:35 Blood Culture (Wb) - Left Hand Blood Culture - Final No growth in 5 days. 08/22/21 14:25 Blood Culture (Wb) - Pic Blood Culture - Final No growth in 5 days. 08/21/21 05:30 Wound Abcess - Other Gram Stain - Final 08/21/21 05:30 Wound Abcess - Other Wound Culture - Final Strep anginosus 08/21/21 05:30 Wound Abcess - Other Anaerobic Culture - Final Anaerobic cocci Bacteroides thetaiotaomicron Clostridium ramosum 08/26/21 08:10 Stool C. difficile DNA Amplification - Final 08/17/21 11:02 Sputum, Induced/Lukens Gram Stain - Final 08/17/21 11:02 Sputum, Induced/Lukens Respiratory Culture - Final 08/18/21 15:20 Gastric Fluid/Contents Gastric Occult Blood - Final Occult Blood Positive 08/01/21 15:50 Blood Culture (Wb) - Right Hand Blood Culture - Final Gram positive jeff 08/05/21 11:30 Sputum, Expectorated/Coughed Gram Stain - Final 08/05/21 11:30 Sputum, Expectorated/Coughed Respiratory Culture - Final Haemophilus influenzae Mixed Nathalie 08/01/21 17:09 Blood Culture (Wb) - Anticubital Left Blood Culture - Final No growth in 5 days. 08/01/21 18:00 Urine, Clean Catch Urine Culture - Final Mixed Gram Positive Organisms 08/02/21 03:00 Urine, Random Legionella Antigen - Final 08/02/21 03:00 Urine, Random Streptococcus pneumoniae Antigen (M - Final 08/01/21 21:25 Nasal Secretion SARS-CoV-2 Antigen (Rapid) - Final Weight used for dosin kg Estimated Creatinine Clearance: ~18ml/min Goal Trough: 15-20 mcg/mL Pharmacy Plan for Drug Dosing: Random level today (~20 hrs post 2gm dose) was 36.1. Will get another random level tomorrow in AM ~48hrs post last dose. No further doses will be given until level <20. Pharmacy Service will continue to monitor and adjust dosing as required. Follow-Up Labs: Trough Vancomycin - random level 10..21@0600
[2021-08-29] MEDS: Ascorbic Acid 500 MG Tablet 1000 MG GT (08:27)
[2021-08-29] MEDS: Folic Acid 1 MG Tablet GT (08:27)
[2021-08-29] MEDS: Hydroxychloroquine 200 MG Tablet GT (08:28)
[2021-08-29] MEDS: Polyethylene Glycol 3350 17 GM PACKET GT (08:28)
[2021-08-29] MEDS: CHLORHEXIDINE GLUC 2% CLOTH 1 EACH TOWELETTE TOPICAL (08:28)
[2021-08-29] MEDS: Senna/Docusate Sodium 1 Tablet 2 TABLET GT (08:28)
[2021-08-29] MEDS: Enoxaparin 80 MG/0.8 ML Syringe SC (08:29)
[2021-08-29] MEDS: Chlorhexidine 15 ML PO (08:29)
[2021-08-29] MEDS: 0.9% Saline Lock 10 ML Syringe IV ×2 (08:32→15:07)
[2021-08-29] MEDS: Hydrocortisone Sod Succinate 100 MG/2 ML Vial IV ×2 (09:14→15:08)
--- NOTE | 2021-08-29 09:34 | CASEMGMT ---
SW participated in ICU rounds this morning. SW had a message on the phone from daughter inquiring about insurance. SW called daughter back after rounds, offered support. She did get pt's insurance information from the ICU staff. Daughter states that pt's son is having a difficult time understanding how serious pt's condition is. She states son is coming in today and asked for staff to speak w/him regarding pt's condition. SW let pt's bedside RN and physician know, they will speak w/son as able when he comes to visit. NICOLETTE remains available for support to family. ERIKA Preciado
--- NOTE | 2021-08-29 10:57 | PCM.PN.HOSP ---
Subjective Subjective Follow-up on acute respiratory failure secondary to COVID-19 pneumonia/septic shock/SVT: Patient was seen and examined. Chart reviewed. Overnight, patient had worsening hypotension requiring start of epinephrine as a third pressor. Family wants aggressive care. Renal function has worsened and nephrology has been consulted. Objective Data Objective Data Vital Signs: Vital Signs Temp Pulse Resp BP Pulse Ox 100.0 F H 112 H 22 H 109/70 92 08/29/21 10:00 08/29/21 10:00 08/29/21 10:00 08/29/21 10:15 08/29/21 10:00 Oxygen Flow Rate (L/min) 65 Oxygen Delivery Method Mechanical Ventilator Weight: 93 kg Body Mass Index (BMI) 28.7 Intake & Output: Intake and Output for Last 24 Hours 08/27/21 08/28/21 08/29/21 23:59 23:59 23:59 Intake Total 5014.38 / 5071.49 5957.39 / 6099.94 3592.31 / 3592.31 Output Total 1175 / 1175 755 / 755 30 / 30 Balance 3839.38 / 3896.49 5202.39 / 5344.94 3562.31 / 3562.31 Medical Nutrition Assessment Dietitian: Malnutrition Criteria Met Start: 08/09/21 13:29 Freq: Status: Active Protocol: Document 08/23/21 12:15 AG (Rec: 08/23/21 12:15 [id number]) Nutrition Malnutrition Evidence of Malnutrition Exists Yes Malnutrition (severe): Acute Illness/Injury Evidenced By Suboptimal Energy Intake ( Severe),Weight Loss (Severe) Intake Problem Inadequate Oral Intake Etiology r/t resp. failure and increased oxygen needs Signs/Symptoms as evidenced by estimated PO intake meeting <50% of estimated nutritional needs; inability to consume sufficient nutrition via PO diet d/t intubation Status Active Problem Clinical Problem Acute Disease or Injury Related Malnutrition Etiology Severe protein/calorie malnutrition in the context of acute illness related to inadequate oral intake w/ resp . failure Signs/Symptoms as evidenced by 4.58kg/5.5% wt loss since admit and PO meeting less than 50% estimated nutrition needs > 1 week Status Active Problem Recommendation Dietitian Recommendations/Changes NPO while intubated; Vital AF 1.2 via OGT at goal rate of 70mL/hour w/ 125mL H2O flush every 4 hours to provide 2016 calories, 126 g protein, and 2112mL fluid/day. Would resume at 20mL/hour and increase by 15mL/hour every 8-12 hours as tolerated until goal rate is achieved. Lab / Micro Data Result Diagrams: 08/29/21 03:55 08/29/21 03:55 Labs: Laboratory Results - last 24 hr 08/29/21 03:55: Sodium 141, Potassium 5.6 H, Chloride 105, Carbon Dioxide 19.0 L, Anion Gap 17 H, BUN 95 H, Creatinine 3.92 H, Estim Creat Clear Calc 18.27, Est GFR (MDRD) Af Amer 20 L, Est GFR (MDRD) Non-Af 17 L, BUN/Creatinine Ratio 24.2 H, Glucose 185 H, Calcium 7.3 L 08/29/21 03:55: Random Vancomycin 36.1 H 08/29/21 03:55: WBC 33.6 H*, RBC 2.63 L, Hgb 8.5 L, Hct 28.5 L, MCV 108.4 H, MCH 32.3 H, MCHC 29.8 L, RDW Std Deviation 77.1 H, RDW Coeff of Enoch 22.5 H, Plt Count 137 L, MPV 13.7 H, Neut % (Auto) Not Reportable, Absolute Neuts (auto) 28.6 H, Absolute Lymphs (auto) 2.35, Neutrophils % (Manual) 69, Band Neutrophils % 16 H, Lymphocytes % (Manual) 7 L, Monocytes % (Manual) 1, Metamyelocytes % 1, Myelocytes % 5 H, Promyelocytes % 1 H, Nucleated RBCs/100 WBC 2, Diff Path Review May foll, Platelet Estimate SLT DEC, RBC Morphology NORM C+C, Anisocytosis 1+ Micro: Microbiology 08/27/21 06:55 Sputum, Induced/Lukens Gram Stain - Final 08/27/21 06:55 Sputum, Induced/Lukens Respiratory Culture - Final Staphylococcus epidermidis 08/22/21 14:35 Blood Culture (Wb) - Left Hand Blood Culture - Final No growth in 5 days. 08/22/21 14:25 Blood Culture (Wb) - Pic Blood Culture - Final No growth in 5 days. 08/21/21 05:30 Wound Abcess - Other Gram Stain - Final 08/21/21 05:30 Wound Abcess - Other Wound Culture - Final Strep anginosus 08/21/21 05:30 Wound Abcess - Other Anaerobic Culture - Final Anaerobic cocci Bacteroides thetaiotaomicron Clostridium ramosum 08/26/21 08:10 Stool C. difficile DNA Amplification - Final 08/17/21 11:02 Sputum, Induced/Lukens Gram Stain - Final 08/17/21 11:02 Sputum, Induced/Lukens Respiratory Culture - Final 08/18/21 15:20 Gastric Fluid/Contents Gastric Occult Blood - Final Occult Blood Positive 08/01/21 15:50 Blood Culture (Wb) - Right Hand Blood Culture - Final Gram positive jeff 08/05/21 11:30 Sputum, Expectorated/Coughed Gram Stain - Final 08/05/21 11:30 Sputum, Expectorated/Coughed Respiratory Culture - Final Haemophilus influenzae Mixed Nathalie 08/01/21 17:09 Blood Culture (Wb) - Anticubital Left Blood Culture - Final No growth in 5 days. 08/01/21 18:00 Urine, Clean Catch Urine Culture - Final Mixed Gram Positive Organisms 08/02/21 03:00 Urine, Random Legionella Antigen - Final 08/02/21 03:00 Urine, Random Streptococcus pneumoniae Antigen (M - Final 08/01/21 21:25 Nasal Secretion SARS-CoV-2 Antigen (Rapid) - Final Physical Exam Narrative Physical exam: General: Intubated, sedated, on pressors HEENT: Atraumatic Oral: Moist Mucosa, OG tube insitu Neck: Supple Lungs: Diminished to auscultation Cardiovascular: HS I+II, regular, no murmurs Abdomen: Bowel Sounds Present, Soft, Non Tender Extremities: Bilateral leg edema +1 Assessment & Plan Assessment/Plan (1) Respiratory failure: QUALIFIERS: Chronicity: acute Respiratory failure complication: hypoxia Qualified Code(s): J96.01 - Acute respiratory failure with hypoxia (2) Pneumonia due to severe acute respiratory syndrome coronavirus 2 (SARS-CoV-2): (3) KALPANA (acute kidney injury): (4) Perirectal abscess: (5) Septic shock: PLAN: 1. Acute hypoxic respiratory failure secondary to Acute COVID-19 pneumonia/Haemophilus influenzae pneumonia Intubated on 08/18/2021; remains intubated Completed courses of baricitinib and Decadron x2 Continue bronchodilator therapy Completed course of antibiotics for H. influenzae pneumonia Analytical Chemistry Teacher following 2. Septic shock secondary to perirectal abscess, worsening, Currently on 3 pressors Status post I&D of perirectal abscess by general surgery Repeat sputum culture shows staph epidermidis Blood cultures x2 pending Urine culture pending C. difficile is negative 3. Perirectal abscess, wound cultures are polymicrobial Continue IV Zosyn 4. SVT, in NSR/sinus tachycardia, continue amiodarone IV 5. Acute kidney injury secondary to ischemic ATN, worsening Cr 3.92, increase in Cr from 2.74 Baseline serum creatinine is 0.8-1.0 Nephrology consulted Labs in am 6. Acute on chronic anemia secondary to GI blood loss, Hb 8.5 Status post transfusion 1 unit on 08/22/2021 Continue twice daily PPI 7. Rest of chronic medical conditions - CAD/Hypertension/Hyperlipidemia/RA, resolved Charges/Coding Visit Charges Inpatient E&M: 04617 Subs Hosp L3
--- NOTE | 2021-08-29 12:35 | CM.UR ---
SW spoke w/son Rey and daughter Flo at the bedside, offered support. SW remains available for support to family. ERIKA Preciado
[2021-08-29 13:28] LABS: Pathologist Review Reviewed
[2021-08-29 13:28] LABS: Pathologist Review Reviewed
[2021-08-29 13:34] LABS: Pathologist Review Reviewed
--- NOTE | 2021-08-29 13:45 | PCM.CONS.R ---
Assessment & Plan Assessment/Plan (1) KALPANA (acute kidney injury): (2) Pneumonia due to severe acute respiratory syndrome coronavirus 2 (SARS-CoV-2): (3) Hyperkalemia: (4) Respiratory failure: QUALIFIERS: Chronicity: acute Respiratory failure complication: hypoxia Qualified Code(s): J96.01 - Acute respiratory failure with hypoxia (5) Perirectal abscess: (6) Hypotension: PLAN: We were consulted for acute kidney injury. Patient has normal baseline creatinine, no known history of CKD. Unfortunately, patient has developed initially nonoliguric acute kidney injury in the setting of COVID-19 pneumonia, hypotension, perirectal abscess. Creatinine was normal on admission but has been elevated since August 21, today his creatinine is up to 3.92 mg/dL. Patient is now becoming hypervolemic and anuric, UOP only 50ml for today. Likely patient is heading towards needing BOX CLOSING MACHINE OPERATOR. However patient likely will not tolerate BOX CLOSING MACHINE OPERATOR, he is on 3 pressors near max dose. Today patient's CODE STATUS was changed to DNR CCA with intubation. I had lengthy discussion with patient's son and daughter who both are at bedside. Explained trajectory of renal function and the likelihood that patient would need BOX CLOSING MACHINE OPERATOR. Discussed risks and benefits of having dialysis versus not. Both daughter and son stated they would not want BOX CLOSING MACHINE OPERATOR for their father if it came to that. At this time there is no acute indication for BOX CLOSING MACHINE OPERATOR, acid-base acceptable. Potassium is slightly elevated at 5.6 and will give IV lasix to try and promote kaliuresis. Patient is not tolerating enteral feedings, tube feeding is on hold. Further orders forthcoming as hospitalization evolves, thank you for allowing us to participate in the care of Mr. Power, please contact us if questions arise. HPI Consult Data Date of Consult: 08/29/21 HPI Narrative HPI Narrative: DEBBIE POWER, is a 61 M with past medical history significant for hypertension, coronary artery disease who presented to the emergency room on August 01 with complaints of worsening shortness of breath, admitted for acute hypoxic respiratory failure secondary to COVID-19 pneumonia. Patient was initially on BiPAP, unfortunately his condition worsened he is now on ventilator support. Patient is out of isolation protocol. We were consulted for acute kidney injury. Information is gathered from the chart, patient's nurse; patient's son and daughter are at bedside. On admission, August 01, creatinine was 0.96 mg/dL. Since August 21 patient has had an elevated creatinine. Creatinine was 3.37 mg/dL on August 21 and improved to 1.71 mg/dL on August 26. However renal function worsened since August 27 and today creatinine is up to 3.92 mg/dL, potassium 5.6. Today UOP 50ml, weights are up at least 10kg since admission. [facility] Medical History Coronary artery calcification seen on CAT scan Family history of coronary artery disease Hyperlipidemia Hypertension Multiple premature ventricular complexes Obesity Tobacco abuse Home Medications agrhbmmdulzh-[id number] acid 1 each PO DAILY 01/26/21 [History Last Taken Unknown] folic acid 1 mg tablet 1 mg PO DAILY 07/18/21 [History Last Taken Unknown] hydroxychloroquine 200 mg tablet 200 mg PO BID 07/18/21 [History Last Taken Unknown] losartan 25 mg tablet 25 mg PO DAILY #90 tab 07/18/21 [Rx Last Taken Unknown] methotrexate sodium 2.5 mg tablet 15 mg PO QWEEK 07/18/21 [History Last Taken Unknown] Allergy/AdvReac Type Severity Reaction Status Date / Time No Known Allergies Allergy Verified 08/01/21 15:23 Family History Brother CAD (coronary artery disease) stents Sister CAD (coronary artery disease) stents Mother CAD (coronary artery disease) CABG Father Cerebral aneurysm, Onset Age: 50 Other CVA (cerebral vascular accident) Surgical History History of herniorrhaphy Social History (Updated 08/01/21 @ 19:[address] Svitlana Fuentes MD) household members: spouse Smoking Status: Former smoker quit date: 12/25/19 pack-years: 45 alcohol intake: former substance use type: does not use ROS ROS Narrative Unable to complete Physical Exam Narrative General: Intubated, on ventilator support Cardiovascular: S1-S2, rhythm regular, rate controlled Respiratory: Diminished breath sounds Extremities: 1-2+ pitting edema bilateral legs, arms and hands Genitourinary: Indwelling Paulino, scant yellow urine in tubing and bag Medical Records Data Medical Nutrition Assessment Dietitian: Malnutrition Criteria Met Start: 08/09/21 13:29 Freq: Status: Active Protocol: Document 08/29/21 11:29 CHANDLER (Rec: 08/29/21 11:29 SLA [id number]) Nutrition Malnutrition Evidence of Malnutrition Exists Yes Malnutrition (severe): Acute Illness/Injury Evidenced By Suboptimal Energy Intake ( Severe),Physical Changes ( Moderate) Intake Problem Inadequate Oral Intake Etiology r/t resp. failure and increased oxygen needs Signs/Symptoms as evidenced by pt NPO; receiving nutrition via OG d/t intubation Status Active Problem Clinical Problem Acute Disease or Injury Related Malnutrition Etiology Severe protein/calorie malnutrition in the context of acute illness related to inadequate oral intake w/ resp . failure Signs/Symptoms as evidenced by fat/muscle loss and PO meeting less than 50% estimated nutrition needs > 1 week Status Active Problem Recommendation Dietitian Recommendations/Changes NPO while intubated; Vital AF 1.2 via OGT at goal rate of 70mL/hour w/ 125mL H2O flush every 4 hours to provide 2016 calories, 126 g protein, and 2112mL fluid/day. Lab / Micro Data Result Diagrams: 08/29/21 03:55 08/29/21 03:55 Labs: Laboratory Results - last 24 hr 08/27/21 03:25: Diff Path Review Reviewed 08/28/21 04:10: Diff Path Review Reviewed 08/29/21 03:55: Sodium 141, Potassium 5.6 H, Chloride 105, Carbon Dioxide 19.0 L, Anion Gap 17 H, BUN 95 H, Creatinine 3.92 H, Estim Creat Clear Calc 18.27, Est GFR (MDRD) Af Amer 20 L, Est GFR (MDRD) Non-Af 17 L, BUN/Creatinine Ratio 24.2 H, Glucose 185 H, Calcium 7.3 L 08/29/21 03:55: Random Vancomycin 36.1 H 08/29/21 03:55: WBC 33.6 H*, RBC 2.63 L, Hgb 8.5 L, Hct 28.5 L, MCV 108.4 H, MCH 32.3 H, MCHC 29.8 L, RDW Std Deviation 77.1 H, RDW Coeff of Enoch 22.5 H, Plt Count 137 L, MPV 13.7 H, Neut % (Auto) Not Reportable, Absolute Neuts (auto) 28.6 H, Absolute Lymphs (auto) 2.35, Neutrophils % (Manual) 69, Band Neutrophils % 16 H, Lymphocytes % (Manual) 7 L, Monocytes % (Manual) 1, Metamyelocytes % 1, Myelocytes % 5 H, Promyelocytes % 1 H, Nucleated RBCs/100 WBC 2, Diff Path Review Reviewed, Platelet Estimate SLT DEC, RBC Morphology NORM C+C, Anisocytosis 1+ Micro: Microbiology 08/28/21 07:55 Urine Catheter - Paulino Urine Culture - Preliminary Culture exhibits no growth. 08/27/21 06:55 Sputum, Induced/Lukens Gram Stain - Final 08/27/21 06:55 Sputum, Induced/Lukens Respiratory Culture - Final Staphylococcus epidermidis
[2021-08-29] MEDS: Furosemide 100 MG/10 ML Vial 80 MG IV (15:06)
--- NOTE | 2021-08-29 15:18 | PCM.PN.ID ---
Physical Exam Narrative Family at bedside, plan is for comfort care. Const Constitutional Narrative: ill appearing Resp Auscultation: diminished lung sounds Cardio Rate: tachycardic GI normal to inspection, nondistended, normoactive bowel sounds Extremity General Extremity: edema Skin no rashes or lesions noted ID ID: Route of nutrition/ use of supplements: [] Nutritional Intake: [] IV Site: [] Paulino Catheter: [] Assessment & Plan Assessment/Plan (1) Pneumonia due to severe acute respiratory syndrome coronavirus 2 (SARS-CoV-2): PLAN: Sx started 07/23, unvaccinated. Isolate for 20 days starting 07/23, ends 08/12. Recommend vaccine once out of hospital. On dex and completed remdesivir. On therapeutic lovenox. Completed baricitinib. Sputum with h flu, completed ceftriaxone for 7 day course. Now s/p I&D perirectal abscesses by Dr. Nguyen. On vanc/zosyn. KALPANA worsened. Will follow, family discussing comfort measures (2) Respiratory failure: QUALIFIERS: Chronicity: acute Respiratory failure complication: hypoxia Qualified Code(s): J96.01 - Acute respiratory failure with hypoxia
--- NOTE | 2021-08-29 15:38 | CHAPLAIN ---
Type of Pastoral Visit ___ Initial Visit ___ Follow-up Visit ___ On-call Visit ___ General Patient Visit ___ Spiritual Assessment ___ Family Conference ___ Bereavement ___ Rapid Response ___ Code Blue _x__ Other (describe below) Pastoral Care Referral From ___ Patient ___ Family ___ Nurse ___ Physician ___ Vaccinator ___ Journeyman Pipe Fitter _x__ Other (describe below) Sacrament/Intervention ___ Active listening ___ Anointing ___ Jainism ___ Bereavement ___ Communion ___ [place] exploration ___ ___ Life review ___ Prayer ___ Reconciliation ___ Sacrament of Sick ___ Supportive presence ___ Wedding _x__ Other (describe below) Pastoral Comments patient was seen a number of days ago when he was able to talk and visit; however pt is now critical and on the vent; RN offered spiritual care support to family members but they declined the support
[2021-08-29] MEDS: LORazepam 2 MG/ML Syringe IV (16:36)
[2021-08-29] MEDS: Morphine 2 MG/ML Syringe IV (16:36)
--- NOTE | 2021-08-29 16:45 | NURSING ---
Terminally extubated per request of family at 1640. Time of 1645, verified w/ J.Nasima POOLE. notified. Family remains at bedside. Emotional support given
--- NOTE | 2021-08-29 18:10 | PCM.DEATH ---
Preliminary Cause of Preliminary Cause of Preliminary Cause of : Acute hypoxic respiratory failure secondary to COVID-19 pneumonia/Haemophilus pneumonia Septic shock Acute kidney injury Date of Admission: 08/01/21 Date of : 08/29/21 Principle Diagnosis Acute COVID-19 pneumonia Problem List: Active and Suspected Problems (Updated 08/29/21 @ 13:55 by Roxanna Adrian NP-C) Hypotension (Acute) Hyperchloremia (Acute) Hypernatremia (Acute) Perirectal abscess (Acute) Hyperkalemia (Acute) Septic shock (Acute) KALPANA (acute kidney injury) (Acute) Acute anemia (Acute) Community acquired pneumonia (Acute) Lactic acidosis (Acute) Elevated d-dimer (Acute) Pneumonia due to severe acute respiratory syndrome coronavirus 2 (SARS-CoV-2) (Acute) Respiratory failure (Acute) Hospital Course 61-year-old male who was unvaccinated comes in with progressive shortness of breath ongoing for 10 days. Symptoms started on 07/06 8. Patient was diagnosed with acute COVID-19 pneumonia and was initially managed on nasal cannula oxygen and progressed to BiPAP and eventually was intubated. He had a long and tortuous hospital course. He completed Decadron and remdesivir. He was on therapeutic Lovenox. He also completed baricitinib. His sputum cultures were positive for H. influenzae. He completed 7 days of IV ceftriaxone. Patient was noticed on 08/22/21 to have a buttocks abscesses (x2) on the right gluteal cleft. General surgery was consulted and at bedside I&D was done. Small amounts of drainage was expressed from both of them. His oxygen requirement continued to worsen. He was also started on pressors for septic shock. Patient had acute kidney injury that got worse. Nephrology was consulted and did not recommend dialysis as patient's hemodynamics would not allow. Patient was made DNR CC A. His septic shock could worsen, requiring use of 3 pressors. Family were at the bedside on the day of , and withdrew care. He was terminally extubated. Patient passed at 16:45HR Assessment & Plan Assessment/Plan (1) Hypotension: (2) Hyperchloremia: (3) Perirectal abscess: (4) Hypernatremia: (5) Hyperkalemia: (6) Septic shock: (7) KALPANA (acute kidney injury): (8) Acute anemia: (9) Community acquired pneumonia: (10) Elevated d-dimer: (11) Obesity: (12) Hypertension: (13) SVT (supraventricular tachycardia): (14) Severe malnutrition: Visit Charges Inpatient E&M: 25027 Disch Hosp
== END 2021-08-29 19:21 | DRG 951 ==
LOC: ED 15:41 → ICU 19:02
PROVIDERS: Internal Medicine; Internal Medicine Critical Care Medicine; Internal Medicine Infectious Disease; Admitting Provider Internal Medicine; Emergency Provider Student in an Organized Health Care Education/Training Program; Visit Provider Internal Medicine
DX: U07.1 COVID-19 (principal); J12.82 Pneumonia due to coronavirus disease 2019; J14 Pneumonia due to Hemophilus influenzae; J96.01 Acute respiratory failure with hypoxia; A41.9 Sepsis, unspecified organism; R65.21 Severe sepsis with septic shock; E43 Unspecified severe protein-calorie malnutrition; K61.1 Rectal abscess; N17.0 Acute kidney failure with tubular necrosis; I95.9 Hypotension, unspecified; E87.8 Other disorders of electrolyte and fluid balance, not elsewhere classified; E87.0 Hyperosmolality and hypernatremia; E87.5 Hyperkalemia; E66.9 Obesity, unspecified; I10 Essential (primary) hypertension; I47.1 Supraventricular tachycardia; R79.89 Other specified abnormal findings of blood chemistry; E87.2 Acidosis; E78.5 Hyperlipidemia, unspecified; M06.9 Rheumatoid arthritis, unspecified; E86.0 Dehydration; D62 Acute posthemorrhagic anemia; K92.2 Gastrointestinal hemorrhage, unspecified; B95.4 Other streptococcus as the cause of diseases classified elsewhere; B95.7 Other staphylococcus as the cause of diseases classified elsewhere; D69.6 Thrombocytopenia, unspecified; J98.2 Interstitial emphysema; I25.10 Atherosclerotic heart disease of native coronary artery without angina pectoris; Z66 Do not resuscitate; Z68.28 Body mass index [BMI] 28.0-28.9, adult; Z79.899 Other long term (current) drug therapy; Z87.891 Personal history of nicotine dependence
CPT/HCPCS: 31500; 31720; 36415; 36569; 36600; 71045; 80048; 80053; 80202; 81001; 82271; 82550; 82803; 82962; 83605; 83735; 83880; 84100; 84478; 84484; 85014; 85018; 85025; 85027; 85379; 85610; 85730; 86850; 86900; 86901; 86920; 86922; 87040; 87070; 87075; 87077; 87086; 87088; 87186; 87205; 87426; 87449; 87493; 87641; 93005; 94002; 94003; 94640; 94660; 94668; 97110; 97162; 97166; 97530; 97535; 97802; 99251; 99285; J7040; J7050; P9016; A4216; G0463; J0696; J1940; J2405; J3010; J3490